=== PATIENT | male | born 1950 | race Caucasian/White ===

== ENCOUNTER 2018-09-20 09:51 | Emergency (ER) | payer OTHER ==
[2018-09-20] MEDS ORDERED: MORPHINE SULFATE 4 MG/ML SYRINGE IM STA (10:17)
--- NOTE | 2018-09-20 10:24 | ED ---
General Adult HPI - General Chief complaint: Extremity Problem,Nontraumatic Stated complaint: Leg pain Time Seen by Provider: 09/20/18 10:04 Source: patient, RN notes reviewed, old records reviewed Mode of arrival: wheelchair Limitations: physical limitation - History of Present Illness Initial comments: 68-year-old male presents with left lower extremity pain. Patient reports intermittent pain over the past several weeks or over the past week his pain has increased. Is predominantly left knee and left thigh. He does report some pain in his calf which is worse with ambulation. He was seen at [facility], ultrasound was obtained he states he was told that he had significant peripheral vascular disease. He was given outpatient vascular surgery follow-up, he's been unable to obtain follow-up at this point. He was prescribed tramadol and states this is not improving his pain. He does have history of orthopedic issues including left knee which she states is also been bothering him. He initially attributed his symptoms to arthritis and issues with his knee. Denies fever or chills. Denies any abdominal pain nausea vomiting. Denies testicular pain, denies hematuria or dysuria. Patient currently smokes marijuana daily, he is history of hypertension and diabetes. - Related Data Previous Rx's Medication Instructions Recorded HYDROcodone/APAP 5-325MG [Minier 1 tab PO Q6HR PRN #12 tab 09/20/18 5-325] Allergies Allergy/AdvReac Type Severity Reaction Status Date / Time tramadol [From Ultram] Allergy Itching Verified 09/20/18 10:43 Review of Systems ROS Statement: Those systems with pertinent positive or pertinent negative responses have been documented in the HPI. ROS Other: All systems not noted in ROS Statement are negative. Past Medical History Past Medical History: Coronary Artery Disease (CAD), Hypertension History of Any Multi-Drug Resistant Organisms: None Reported Past Psychological History: No Psychological Hx Reported Smoking Status: Current every day smoker Past Alcohol Use History: None Reported Past Drug Use History: Marijuana General Exam Limitations: physical limitation General appearance: alert, in no apparent distress Head exam: Present: atraumatic, normocephalic Eye exam: Present: normal appearance, PERRL ENT exam: Present: normal exam Neck exam: Present: normal inspection. Absent: tenderness, meningismus Respiratory exam: Present: normal lung sounds bilaterally. Absent: respiratory distress, wheezes Cardiovascular Exam: Present: regular rate, normal rhythm GI/Abdominal exam: Present: soft. Absent: distended, tenderness, guarding, rebound exam: Present: vertical testicular lie. Absent: testicular tenderness, scrotal swelling Extremities exam: Present: tenderness (Tenderness palpation, throughout the medial thigh. Patient has 2+ femoral pulse on the left. He has diminished popliteal pulse. He has Doppler signal at both the DP and PT artery. Cap refill is approximately 2 seconds. Leg is warm.) Back exam: Present: normal inspection Neurological exam: Present: alert, oriented X3 Psychiatric exam: Present: normal affect, normal mood Skin exam: Present: warm, dry, intact. Absent: cyanosis, diaphoretic Course Vital Signs 09/20/18 09:57 Temperature 98.0 F Pulse Rate 101 H Respiratory 18 Rate Blood Pressure 168/50 O2 Sat by Pulse 99 Oximetry Medical Decision Making - Medical Decision Making 68-year-old male with 1 week of left lower extremity pain. No trauma. Patient likely has comminution of arthritis evident on x-ray of both the knee and hip as well as peripheral vascular disease and claudication. Patient has normal femoral pulse, he has diminished popliteal pulse and signals on Doppler auscultation in the DP and PT arteries. He has normal cap refill is extremity is warm. He will continue aspirin at home, he's given Minier for pain. He will follow-up with both vascular surgeon, is also given cardiology referral with Dr. Mcdonald who does prefer vascular intervention. He also requests orthopedic follow- up. Reevaluation, patient states his pain is significantly improved, no additional complaints. Eager for discharge. Disposition Clinical Impression: Peripheral vascular disease, Claudication in peripheral vascular disease, Osteoarthritis Disposition: HOME SELF-CARE Condition: Fair Instructions (If sedation given, give patient instructions): Peripheral Vascular Disease (ED), Osteoarthritis (ED) Prescriptions: HYDROcodone/APAP 5-325MG [Minier 5-325] 1 tab PO Q6HR PRN #12 tab PRN Reason: Pain Is patient prescribed a controlled substance at d/c from ED?: No Referrals: None,Stated [Primary Care Provider] - 1-2 days Rafy Wade MD [STAFF PHYSICIAN] - 1-2 days Garland Mcdonald MD [STAFF PHYSICIAN] - 1-2 days Darci Garcia MD [STAFF PHYSICIAN] - 1-2 days Time of Disposition: 11:14
--- NOTE | 2018-09-20 11:09 | XR ---
EXAMINATION TYPE: XR Hip Complete LT , 2 VIEWS DATE OF EXAM ORDERED: 09/20/2018 HISTORY: Pain. COMPARISON: None. FINDINGS: There are mild degenerative changes present in the left hip joint. No fracture or dislocat ion is seen. IMPRESSION: 1. NO ACUTE OSSEOUS LESION. 2. MILD DEGENERATIVE CHANGE.
--- NOTE | 2018-09-20 11:11 | XR ---
EXAMINATION TYPE: XR knee complete LT , 3 VIEWS DATE OF EXAM ORDERED: 09/20/2018 HISTORY: Pain. COMPARISON: None. FINDINGS: There is medial joint space loss. There is remodeling changes in all 3 compartments. No charlie int effusion is seen. No fracture or other acute osseous lesion is seen. IMPRESSION: 1. NO ACUTE OSSEOUS LESION. 2. MODERATE OSTEOARTHRITIS.
[2018-09-20 11:46] VITALS: BP 149/84; PULSE 88; RESP 18; TEMP 98.2
== END 2018-09-20 11:44 | disposition home or self-care (01) ==
LOC: EC 09:51
DX: I73.9 Peripheral vascular disease, unspecified (principal); M17.12 Unilateral primary osteoarthritis, left knee; M16.12 Unilateral primary osteoarthritis, left hip; E11.51 Type 2 diabetes mellitus with diabetic peripheral angiopathy without gangrene; F17.200 Nicotine dependence, unspecified, uncomplicated; Z88.5 Allergy status to narcotic agent
CPT/HCPCS: 73502; 73562; 99284; 96372; J2270

== ENCOUNTER 2019-05-04 12:24 | Emergency (ER) | payer MEDICARE, OTHER ==
[2019-05-04 12:42] VITALS: TEMP 98.7
[2019-05-04 13:36] LABS: Glucose,Whole Blood 450 mg/dL (75-99)
[2019-05-04 13:49] LABS: Basophils # (A) 0.1 k/uL (0-0.2); Basophils % (A) 1 %; Eosinophils # (A) 0.1 k/uL (0-0.7); Eosinophils % (A) 1 %; HCT 39.8 % (39.0-53.0); HGB 13.9 gm/dL (13.0-17.5); Lymphocytes # (A) 0.4 k/uL (1.0-4.8); Lymphocytes % (A) 4 %; MCH 30.4 pg (25.0-35.0); MCHC 35.1 g/dL (31.0-37.0); MCV 86.6 fL (80.0-100.0); Mean Platelet Volume 7.4; Monocytes # (A) 0.4 k/uL (0-1.0); Monocytes % (A) 4 %; Neutrophils # (A) 10.1 k/uL (1.3-7.7); Neutrophils % (A) 91 %; Platelet Count 257 k/uL (150-450); RDW 12.4 % (11.5-15.5); WBC 11.1 k/uL (3.8-10.6)
[2019-05-04 13:58] LABS: INR 0.9 (<1.2); Partial Thromboplastin Time 24.8 sec (22.0-30.0); Prothrombin Time 9.6 sec (9.0-12.0)
[2019-05-04 13:59] LABS: ALT 24 U/L (21-72); AST 20 U/L (17-59); African American GFR (CKD) >90 (>60 ml/min/1.73 sqM); Albumin 4.1 g/dL (3.5-5.0); Alkaline Phosphatase 145 U/L (38-126); Amylase 138 U/L (30-110); Anion Gap 9 mmol/L; Blood Urea Nitrogen 32 mg/dL (9-20); Calcium 9.7 mg/dL (8.4-10.2); Carbon Dioxide 26 mmol/L (22-30); Chloride 97 mmol/L (98-107); Glucose 465 mg/dL (74-99); Non-African American GFR(CKD) >90 (>60 ml/min/1.73 sqM); Potassium 4.5 mmol/L (3.5-5.1); Sodium 132 mmol/L (137-145); Total Bilirubin 0.5 mg/dL (0.2-1.3); Total Protein 7.4 g/dL (6.3-8.2)
--- NOTE | 2019-05-04 14:02 | XR ---
KUB HISTORY: Rectal bleeding, pain Frontal KUB submitted on 2 images, no comparisons There is a scoliotic curvature to the spine, degenerative disc changes are present. Laminectomies are noted at L4 and L5. Multiple calcifications are present of the spleen likely due to old granulomatou s disease. There is overlying leads present. Possible phleboliths within the pelvis. Bone mineralizat ion is maintained. No evident bowel obstruction or pneumoperitoneum. IMPRESSION: Degenerative disc disease, postop changes, scoliosis. Old granulomatous disease. No acute abnormality evident.
[2019-05-04] MEDS ORDERED: SODIUM CHLORIDE 0.9% 500 ML 500 ML IV ONE (14:42)
[2019-05-04] MEDS ORDERED: SODIUM CHLORIDE 0.9% 1,000 ML IV ONE (14:42)
[2019-05-04] MEDS ORDERED: INSULIN REGULAR 100 UNIT/ML VIAL SQ ONE ×2 (14:44→17:00)
[2019-05-04] MEDS ORDERED: SODIUM CHLORIDE 0.9% 1,000 ML IV SCH (14:45)
[2019-05-04 15:22] LABS: Appearance,Urine Clear (Clear); Bilirubin,Urine Negative (Negative); Blood,Urine Negative (Negative); Color,Urine Light Yellow; Glucose,Urine (UA) 4+ (Negative); Ketones,Urine Negative (Negative); Leukocyte Esterase,Urine Negative (Negative); Nitrite,Urine Negative (Negative); PH, Urine 5.5 (5.0-8.0); Protein,Urine Trace (Negative); Specific Gravity,Urine 1.025 (1.001-1.035); Urobilinogen,Urine <2.0 mg/dL (<2.0)
[2019-05-04 15:50] LABS: Glucose,Whole Blood 364 mg/dL (75-99)
[2019-05-04 16:38] VITALS: PULSE 98; RESP 20
[2019-05-04] MEDS ORDERED: hydrALAZINE HCL 20 MG/ML 1 ML VIAL IVP STA (16:59)
--- NOTE | 2019-05-04 17:03 | ED ---
Abdominal Pain HPI - General Chief Complaint: Abdominal Pain Stated Complaint: constipation Time Seen by Provider: 05/04/19 13:10 Source: patient Mode of arrival: wheelchair Limitations: no limitations - History of Present Illness Initial Comments: 68-year-old male presenting to emergency department for chief complaint of constipation, rectal bleeding. Patient states she has been constipated for the past 3 days. He states every time he strains to try to have stool there is a small amount of blood on the told her. Patient denies any large quantities. Patient denies any dark black stools. Patient denies any vomiting, emesis or severe abdominal pain he states he is very mild cramping and only when he strained to push. Patient denies chest pain shortness of breath headache nausea or dizziness leg swelling or any other complaints. Patient states he has not seen his primary care provider in 6 years and does have a history of hypertension and diabetes but is noncompliant with any medications. Patient has no other complaints he states he has no pain at this time appears well. Vital signs stable - Related Data Previous Rx's Medication Instructions Recorded Docusate [Colace] 100 mg PO DAILY 7 Days #7 capsule 05/04/19 metFORMIN HCL ER [Glucophage Xr] 500 mg PO DAILY 7 Days #7 tab 05/04/19 Allergies Allergy/AdvReac Type Severity Reaction Status Date / Time tramadol [From [facility]] Allergy Itching Verified 05/04/19 14:33 Review of Systems ROS Statement: Those systems with pertinent positive or pertinent negative responses have been documented in the HPI. ROS Other: All systems not noted in ROS Statement are negative. Past Medical History Past Medical History: Coronary Artery Disease (CAD), Diabetes Mellitus, Hyperlipidemia, Hypertension, Myocardial Infarction ([place]) Additional Past Medical History / Comment(s): pancreatitis History of Any Multi-Drug Resistant Organisms: None Reported Past Surgical History: Heart Catheterization With Stent, Orthopedic Surgery Additional Past Surgical History / Comment(s): kushal knee Past Psychological History: No Psychological Hx Reported Smoking Status: Current every day smoker Past Alcohol Use History: None Reported Past Drug Use History: Marijuana General Exam - General Exam Comments Initial Comments: General: The patient is awake and alert, in no distress, and does not appear acutely ill. Eye: =3 mm pupils are equal, round and reactive to light, extra-ocular movements are intact. No nystagmus. There is normal conjunctiva bilaterally. No signs of icterus. Ears, nose, mouth and throat: There are moist mucous membranes and no oral lesions. Neck: The neck is supple, there is no tenderness or JVD. Cardiovascular: There is a regular rate and rhythm. No murmur, rub or gallop is appreciated. Respiratory: Lungs are clear to auscultation, respirations are non-labored, breath sounds are equal. No wheezes, stridor, rales, or rhonchi. Gastrointestinal: Soft, mildly distended, non-tender abdomen without masses or organomegaly noted. There is no rebound or guarding present. No CVA tenderness. Bowel sounds are unremarkable. Large external hemorrhoid at the 9 o'clock position soft no gross blood on digital rectal exam tender. Musculoskeletal: Normal ROM, no tenderness. Strength 5/5. Sensation intact. Pulses equal bilaterally 2+. Neurological: A&O x 3. CN II-XII intact, There are no obvious motor or sensory deficits. Coordination appears grossly intact. Speech is normal. Skin: Skin is warm and dry and no rashes or lesions are noted. No LE edema/ Psychiatric: Cooperative, appropriate mood & affect, normal judgment. Limitations: no limitations Course Vital Signs 05/04/19 05/04/19 05/04/19 12:38 16:36 17:11 Temperature 98.7 F Pulse Rate 94 98 Respiratory 18 20 Rate Blood Pressure 172/99 178/88 167/100 O2 Sat by Pulse 96 99 Oximetry 05/04/19 17:39 Temperature Pulse Rate Respiratory Rate Blood Pressure 139/88 O2 Sat by Pulse Oximetry Medical Decision Making - Medical Decision Making 68 or male presented for constipation no bowel movements 2 days. No vomiting. Significant fecal stasis on KUB. Patient had an extremely large bowel movement after enema with no evidence of michael red blood. He states he feels much better and is ready to go home. Abdominal exam was benign. Patient was found to have multiple elevated blood pressure readings. He states he is known to have hypertension and always has elevated readings. Patient states he is noncompli ant with medications and has not seen his primary care provider in 6 years. Patient was also given a prescription for metformin for glucose. Patient given insulin SQ and IV fluids in the ER. I gave patient free-reduced clinic for resources. Discussed case with attending Dr Gaitan who reviewed labs/imaging and is agreeable with care plan and discharge a this time. - Lab Data Result diagrams: 05/04/19 13:36 05/04/19 13:36 Lab Results 05/04/19 05/04/19 05/04/19 Range/Units 13:35 13:36 13:36 WBC 11.1 H (3.8-10.6) k/uL RBC 4.60 (4.30-5.90) m/uL Hgb 13.9 (13.0-17.5) gm/dL Hct 39.8 (39.0-53.0) % MCV 86.6 (80.0-100.0) fL MCH 30.4 (25.0-35.0) pg MCHC 35.1 (31.0-37.0) g/dL RDW 12.4 (11.5-15.5) % Plt Count 257 (150-450) k/uL Neutrophils % 91 % Lymphocytes % 4 % Monocytes % 4 % Eosinophils % 1 % Basophils % 1 % Neutrophils # 10.1 H (1.3-7.7) k/uL Lymphocytes # 0.4 L (1.0-4.8) k/uL Monocytes # 0.4 (0-1.0) k/uL Eosinophils # 0.1 (0-0.7) k/uL Basophils # 0.1 (0-0.2) k/uL PT (9.0-12.0) sec INR (<1.2) APTT (22.0-30.0) sec Sodium 132 L (137-145) mmol/L Potassium 4.5 (3.5-5.1) mmol/L Chloride 97 L (98-107) mmol/L Carbon Dioxide 26 (22-30) mmol/L Anion Gap 9 mmol/L BUN 32 H (9-20) mg/dL Creatinine 0.76 (0.66-1.25) mg/dL Est GFR (CKD-EPI)AfAm >90 (>60 ml/min/1.73 sqM) Est GFR (CKD-EPI)NonAf >90 (>60 ml/min/1.73 sqM) Glucose 465 H (74-99) mg/dL POC Glucose (mg/dL) 450 H (75-99) mg/dL POC Glu Piano Tuner ID Kamryn Olguin A Plasma Lactic Acid Bautista (0.7-2.0) mmol/L Calcium 9.7 (8.4-10.2) mg/dL Total Bilirubin 0.5 (0.2-1.3) mg/dL AST 20 (17-59) U/L ALT 24 (21-72) U/L Alkaline Phosphatase 145 H (38-126) U/L Total Protein 7.4 (6.3-8.2) g/dL Albumin 4.1 (3.5-5.0) g/dL Amylase 138 H (30-110) U/L Lipase 237 (23-300) U/L Urine Color Urine Appearance (Clear) Urine pH (5.0-8.0) Ur Specific [place] (1.001-1.035) Urine Protein (Negative) Urine Glucose (UA) (Negative) Urine Ketones (Negative) Urine Blood (Negative) Urine Nitrite (Negative) Urine Bilirubin (Negative) Urine Urobilinogen (<2.0) mg/dL Ur Leukocyte Esterase (Negative) Acetone, Qual (Negative) 05/04/19 05/04/19 05/04/19 Range/Units 13:36 13:36 13:36 WBC (3.8-10.6) k/uL RBC (4.30-5.90) m/uL Hgb (13.0-17.5) gm/dL Hct (39.0-53.0) % MCV (80.0-100.0) fL MCH (25.0-35.0) pg MCHC (31.0-37.0) g/dL RDW (11.5-15.5) % Plt Count (150-450) k/uL Neutrophils % % Lymphocytes % % Monocytes % % Eosinophils % % Basophils % % Neutrophils # (1.3-7.7) k/uL Lymphocytes # (1.0-4.8) k/uL Monocytes # (0-1.0) k/uL Eosinophils # (0-0.7) k/uL Basophils # (0-0.2) k/uL PT 9.6 (9.0-12.0) sec INR 0.9 (<1.2) APTT 24.8 (22.0-30.0) sec Sodium (137-145) mmol/L Potassium (3.5-5.1) mmol/L Chloride (98-107) mmol/L Carbon Dioxide (22-30) mmol/L Anion Gap mmol/L BUN (9-20) mg/dL Creatinine (0.66-1.25) mg/dL Est GFR (CKD-EPI)AfAm (>60 ml/min/1.73 sqM) Est GFR (CKD-EPI)NonAf (>60 ml/min/1.73 sqM) Glucose (74-99) mg/dL POC Glucose (mg/dL) (75-99) mg/dL POC Glu Piano Tuner ID Plasma Lactic Acid Bautista 1.7 (0.7-2.0) mmol/L Calcium (8.4-10.2) mg/dL Total Bilirubin (0.2-1.3) mg/dL AST (17-59) U/L ALT (21-72) U/L Alkaline Phosphatase (38-126) U/L Total Protein (6.3-8.2) g/dL Albumin (3.5-5.0) g/dL Amylase (30-110) U/L Lipase (23-300) U/L Urine Color Urine Appearance (Clear) Urine pH (5.0-8.0) Ur Specific [place] (1.001-1.035) Urine Protein (Negative) Urine Glucose (UA) (Negative) Urine Ketones (Negative) Urine Blood (Negative) Urine Nitrite (Negative) Urine Bilirubin (Negative) Urine Urobilinogen (<2.0) mg/dL Ur Leukocyte Esterase (Negative) Acetone, Qual Negative (Negative) 05/04/19 05/04/19 05/04/19 Range/Units 14:50 15:49 17:28 WBC (3.8-10.6) k/uL RBC (4.30-5.90) m/uL Hgb (13.0-17.5) gm/dL Hct (39.0-53.0) % MCV (80.0-100.0) fL MCH (25.0-35.0) pg MCHC (31.0-37.0) g/dL RDW (11.5-15.5) % Plt Count (150-450) k/uL Neutrophils % % Lymphocytes % % Monocytes % % Eosinophils % % Basophils % % Neutrophils # (1.3-7.7) k/uL Lymphocytes # (1.0-4.8) k/uL Monocytes # (0-1.0) k/uL Eosinophils # (0-0.7) k/uL Basophils # (0-0.2) k/uL PT (9.0-12.0) sec INR (<1.2) APTT (22.0-30.0) sec Sodium (137-145) mmol/L Potassium (3.5-5.1) mmol/L Chloride (98-107) mmol/L Carbon Dioxide (22-30) mmol/L Anion Gap mmol/L BUN (9-20) mg/dL Creatinine (0.66-1.25) mg/dL Est GFR (CKD-EPI)AfAm (>60 ml/min/1.73 sqM) Est GFR (CKD-EPI)NonAf (>60 ml/min/1.73 sqM) Glucose (74-99) mg/dL POC Glucose (mg/dL) 364 H 340 H (75-99) mg/dL POC Glu Piano Tuner ID Tila Mina Kelly, A Plasma Lactic Acid Bautista (0.7-2.0) mmol/L Calcium (8.4-10.2) mg/dL Total Bilirubin (0.2-1.3) mg/dL AST (17-59) U/L ALT (21-72) U/L Alkaline Phosphatase (38-126) U/L Total Protein (6.3-8.2) g/dL Albumin (3.5-5.0) g/dL Amylase (30-110) U/L Lipase (23-300) U/L Urine Color Light Yellow Urine Appearance Clear (Clear) Urine pH 5.5 (5.0-8.0) Ur Specific [place] 1.025 (1.001-1.035) Urine Protein Trace H (Negative) Urine Glucose (UA) 4+ H (Negative) Urine Ketones Negative (Negative) Urine Blood Negative (Negative) Urine Nitrite Negative (Negative) Urine Bilirubin Negative (Negative) Urine Urobilinogen <2.0 (<2.0) mg/dL Ur Leukocyte Esterase Negative (Negative) Acetone, Qual (Negative) 05/04/19 Range/Units 18:04 WBC (3.8-10.6) k/uL RBC (4.30-5.90) m/uL Hgb (13.0-17.5) gm/dL Hct (39.0-53.0) % MCV (80.0-100.0) fL MCH (25.0-35.0) pg MCHC (31.0-37.0) g/dL RDW (11.5-15.5) % Plt Count (150-450) k/uL Neutrophils % % Lymphocytes % % Monocytes % % Eosinophils % % Basophils % % Neutrophils # (1.3-7.7) k/uL Lymphocytes # (1.0-4.8) k/uL Monocytes # (0-1.0) k/uL Eosinophils # (0-0.7) k/uL Basophils # (0-0.2) k/uL PT (9.0-12.0) sec INR (<1.2) APTT (22.0-30.0) sec Sodium (137-145) mmol/L Potassium (3.5-5.1) mmol/L Chloride (98-107) mmol/L Carbon Dioxide (22-30) mmol/L Anion Gap mmol/L BUN (9-20) mg/dL Creatinine (0.66-1.25) mg/dL Est GFR (CKD-EPI)AfAm (>60 ml/min/1.73 sqM) Est GFR (CKD-EPI)NonAf (>60 ml/min/1.73 sqM) Glucose (74-99) mg/dL POC Glucose (mg/dL) 256 H (75-99) mg/dL POC Glu Piano Tuner ID Mayra Jo Plasma Lactic Acid Bautista (0.7-2.0) mmol/L Calcium (8.4-10.2) mg/dL Total Bilirubin (0.2-1.3) mg/dL AST (17-59) U/L ALT (21-72) U/L Alkaline Phosphatase (38-126) U/L Total Protein (6.3-8.2) g/dL Albumin (3.5-5.0) g/dL Amylase (30-110) U/L Lipase (23-300) U/L Urine Color Urine Appearance (Clear) Urine pH (5.0-8.0) Ur Specific [place] (1.001-1.035) Urine Protein (Negative) Urine Glucose (UA) (Negative) Urine Ketones (Negative) Urine Blood (Negative) Urine Nitrite (Negative) Urine Bilirubin (Negative) Urine Urobilinogen (<2.0) mg/dL Ur Leukocyte Esterase (Negative) Acetone, Qual (Negative) Disposition Clinical Impression: External hemorrhoid, Constipation, Elevated blood pressure reading, Diabetes, Noncompliance with medication regimen Disposition: HOME SELF-CARE Condition: Good Instructions (If sedation given, give patient instructions): Constipation (ED), High Fiber Diet (ED), Type 2 Diabetes in Adults: New Diagnosis (ED) Additional Instructions: Please use medication as discussed. Please follow-up with family doctor in the next 2 days for further management of blood pressure. keep log--do not fill amlodipine unless record consistent readings over 150/90.. Please return to emergency room if the symptoms increase or worsen or for any other concerns, headache, chest pain, SOB, back pain. Prescriptions: Docusate [Colace] 100 mg PO DAILY 7 Days #7 capsule metFORMIN HCL ER [Glucophage Xr] 500 mg PO DAILY 7 Days #7 tab Is patient prescribed a controlled substance at d/c from ED?: No Referrals: None,Stated [Primary Care Provider] - 1-2 days [facility] [place] [NON-STAFF] - 1-2 days Time of Disposition: 17:22
[2019-05-04 17:30] LABS: Glucose,Whole Blood 340 mg/dL (75-99)
[2019-05-04 17:39] VITALS: BP 139/88
[2019-05-04 18:05] LABS: Glucose,Whole Blood 256 mg/dL (75-99)
== END 2019-05-04 18:32 | disposition home or self-care (01) ==
LOC: EC 12:24
DX: K64.4 Residual hemorrhoidal skin tags (principal); K59.00 Constipation, unspecified; I10 Essential (primary) hypertension; I25.2 Old myocardial infarction; I25.10 Atherosclerotic heart disease of native coronary artery without angina pectoris; E11.9 Type 2 diabetes mellitus without complications; Z91.14 Patient's other noncompliance with medication regimen; F17.200 Nicotine dependence, unspecified, uncomplicated; Z88.6 Allergy status to analgesic agent
CPT/HCPCS: 36415; 74018; 80053; 81003; 82009; 82150; 83605; 83690; 85025; 85610; 85730; 96360; 96361; 99284

== ENCOUNTER 2020-02-16 22:53 | Inpatient (IN) | payer MEDICARE, OTHER ==
[2020-02-16 23:16] LABS: Glucose,Whole Blood 261 mg/dL (75-99)
[2020-02-16 23:52] LABS: Basophils % (A) 1 %; Eosinophils # (A) 0.1 k/uL (0-0.7); Eosinophils % (A) 2 %; HCT 34.2 % (39.0-53.0); HGB 11.8 gm/dL (13.0-17.5); Lymphocytes # (A) 0.7 k/uL (1.0-4.8); Lymphocytes % (A) 9 %; MCH 31.1 pg (25.0-35.0); MCHC 34.6 g/dL (31.0-37.0); MCV 89.8 fL (80.0-100.0); Mean Platelet Volume 10.3; Monocytes # (A) 0.6 k/uL (0-1.0); Monocytes % (A) 7 %; Neutrophils # (A) 6.4 k/uL (1.3-7.7); Neutrophils % (A) 81 %; Platelet Count 201 k/uL (150-450); RBC 3.81 m/uL (4.30-5.90); RDW 13.9 % (11.5-15.5); WBC 7.9 k/uL (3.8-10.6)
[2020-02-16 23:56] LABS: ALT 16 U/L (4-49); AST 22 U/L (17-59); African American GFR (CKD) >90 (>60 ml/min/1.73 sqM); Albumin 3.7 g/dL (3.5-5.0); Alkaline Phosphatase 91 U/L (38-126); Anion Gap 7 mmol/L; Blood Urea Nitrogen 23 mg/dL (9-20); Calcium 9.4 mg/dL (8.4-10.2); Carbon Dioxide 22 mmol/L (22-30); Chloride 106 mmol/L (98-107); Glucose 254 mg/dL (74-99); Magnesium 1.5 mg/dL (1.6-2.3); Non-African American GFR(CKD) >90 (>60 ml/min/1.73 sqM); Potassium 4.3 mmol/L (3.5-5.1); Sodium 135 mmol/L (137-145); Total Bilirubin 0.7 mg/dL (0.2-1.3); Total Protein 6.5 g/dL (6.3-8.2)
[2020-02-16 23:59] LABS: INR 1.1 (<1.2); Partial Thromboplastin Time 23.3 sec (22.0-30.0); Prothrombin Time 11.3 sec (9.0-12.0)
--- NOTE | 2020-02-17 00:39 | XR ---
EXAMINATION TYPE: XR chest 2V DATE OF EXAM: 02/17/2020 COMPARISON: 09/10/2011 HISTORY: Chest pain TECHNIQUE: FINDINGS: There is coarse interstitial pulmonary infiltrates. There is some pulmonary interstitial ed nallely. There is slight blunting of the costophrenic angles. There are no hilar masses. There are chest leads. IMPRESSION: There is pulmonary interstitial edema and small pleural effusions that appear new compare d to old exam. This could be mild acute heart failure.
[2020-02-17] MEDS ORDERED: HEPARIN SODIUM,PORCINE 5,000 UNIT/ML 1 ML VIAL IV ONE (01:03)
[2020-02-17] MEDS ORDERED: ASPIRIN 81 MG PO STA (01:03)
[2020-02-17] MEDS ORDERED: NITROGLYCERIN SL TABS 0.4 MG TAB SUBLINGUAL PRN ×2 (01:03→10:27)
[2020-02-17] MEDS ORDERED: MAGNESIUM SULFATE-D5W PMX 1 GM in DEXTROSE/WATER 1 100ML.BAG IVPB STA (01:04)
--- NOTE | 2020-02-17 01:09 | ED ---
General Adult HPI - General Chief complaint: Weakness Stated complaint: Weakness Time Seen by Provider: 02/16/20 23:10 Source: patient, EMS, RN notes reviewed Mode of arrival: EMS Limitations: physical limitation - History of Present Illness Initial comments: 69-year-old male with a past medical history of coronary artery disease, [place], hyperlipidemia, hypertension, diabetes mellitus presents to the emergency room for a chief complaint of weakness. Patient states that 6 days ago he started to feel weak. States he hasn't been eating much. Patient reports he was given a tried a shower today and although he can walk to the shower he felt too weak to shower. He denies any other symptoms. Denies chest pain shortness of breath.Patient has no other complaints at this time including shortness of breath, chest pain, abdominal pain, nausea or vomiting, headache, or visual changes. - Related Data Previous Rx's Medication Instructions Recorded Docusate [Colace] 100 mg PO DAILY 7 Days #7 capsule 05/04/19 metFORMIN HCL ER [Glucophage Xr] 500 mg PO DAILY 7 Days #7 tab 05/04/19 Allergies Allergy/AdvReac Type Severity Reaction Status Date / Time tramadol [From Ultram] Allergy Itching Verified 02/16/20 23:05 Review of Systems ROS Statement: Those systems with pertinent positive or pertinent negative responses have been documented in the HPI. ROS Other: All systems not noted in ROS Statement are negative. Past Medical History Past Medical History: Coronary Artery Disease (CAD), Diabetes Mellitus, Hyperlipidemia, Hypertension, Myocardial Infarction ([place]) Additional Past Medical History / Comment(s): pancreatitis, History of Any Multi-Drug Resistant Organisms: None Reported Past Surgical History: Back Surgery, Heart Catheterization With Stent, Orthopedic Surgery Additional Past Surgical History / Comment(s): kushal knee, Past Psychological History: No Psychological Hx Reported Smoking Status: Former smoker Past Alcohol Use History: None Reported Past Drug Use History: Marijuana General Exam Limitations: physical limitation General appearance: alert, in no apparent distress Head exam: Present: atraumatic, normocephalic, normal inspection Eye exam: Present: normal appearance, PERRL, EOMI. Absent: scleral icterus, conjunctival injection, periorbital swelling ENT exam: Present: normal exam, mucous membranes moist Neck exam: Present: normal inspection, full ROM. Absent: tenderness, meningismus, lymphadenopathy Respiratory exam: Present: normal lung sounds bilaterally. Absent: respiratory distress, wheezes, rales, rhonchi, stridor Cardiovascular Exam: Present: regular rate, normal rhythm, normal heart sounds. Absent: systolic murmur, diastolic murmur, rubs, gallop, clicks GI/Abdominal exam: Present: soft, normal bowel sounds. Absent: distended, tenderness, guarding, rebound, rigid Neurological exam: Present: alert Course Vital Signs 02/16/20 02/17/20 22:54 00:25 Temperature 98.9 F Pulse Rate 105 H 100 Respiratory 18 18 Rate Blood Pressure 109/96 110/85 O2 Sat by Pulse 96 97 Oximetry EKG Findings - EKG Comments: EKG Findings:: EKG obtained at 2321 shows sinus tachycardia with occasional PVCs, Ventricular rate 105, AR interval 208, QTc 465. EKG obtained at 1:01 AM shows sinus tachycardia with frequent PVCs, ventricular rate 103, AR interval 134, QTc 476 Medical Decision Making - Medical Decision Making Vitals are stable. CBC unremarkable. CMP shows mild dehydration. Hyperglycemia to 54 noted. Magnesium of 1.5 is replaced. Troponin is elevated at 149. BNP is 10,000. Patient will be admitted with heparin and Lasix. - Lab Data Result diagrams: 02/16/20 23:35 02/16/20 23:34 Lab Results 02/16/20 02/16/20 02/16/20 Range/Units 23:13 23:34 23:34 WBC (3.8-10.6) k/uL RBC (4.30-5.90) m/uL Hgb (13.0-17.5) gm/dL Hct (39.0-53.0) % MCV (80.0-100.0) fL MCH (25.0-35.0) pg MCHC (31.0-37.0) g/dL RDW (11.5-15.5) % Plt Count (150-450) k/uL Neutrophils % % Lymphocytes % % Monocytes % % Eosinophils % % Basophils % % Neutrophils # (1.3-7.7) k/uL Lymphocytes # (1.0-4.8) k/uL Monocytes # (0-1.0) k/uL Eosinophils # (0-0.7) k/uL Basophils # (0-0.2) k/uL PT (9.0-12.0) sec INR (<1.2) APTT (22.0-30.0) sec Sodium 135 L (137-145) mmol/L Potassium 4.3 (3.5-5.1) mmol/L Chloride 106 (98-107) mmol/L Carbon Dioxide 22 (22-30) mmol/L Anion Gap 7 mmol/L BUN 23 H (9-20) mg/dL Creatinine 0.79 (0.66-1.25) mg/dL Est GFR (CKD-EPI)AfAm >90 (>60 ml/min/1.73 sqM) Est GFR (CKD-EPI)NonAf >90 (>60 ml/min/1.73 sqM) Glucose 254 H (74-99) mg/dL POC Glucose (mg/dL) 261 H (75-99) mg/dL POC Glu Senior Medical Technologist ID [facility] Plasma Lactic Acid Bautista 1.7 (0.7-2.0) mmol/L Calcium 9.4 (8.4-10.2) mg/dL Magnesium 1.5 L (1.6-2.3) mg/dL Total Bilirubin 0.7 (0.2-1.3) mg/dL AST 22 (17-59) U/L ALT 16 (4-49) U/L Alkaline Phosphatase 91 (38-126) U/L Troponin I (0.000-0.034) ng/mL NT-Pro-B Natriuret Pep pg/mL Total Protein 6.5 (6.3-8.2) g/dL Albumin 3.7 (3.5-5.0) g/dL 02/16/20 02/16/20 02/16/20 Range/Units 23:35 23:35 23:35 WBC 7.9 (3.8-10.6) k/uL RBC 3.81 L (4.30-5.90) m/uL Hgb 11.8 L (13.0-17.5) gm/dL Hct 34.2 L (39.0-53.0) % MCV 89.8 (80.0-100.0) fL MCH 31.1 (25.0-35.0) pg MCHC 34.6 (31.0-37.0) g/dL RDW 13.9 (11.5-15.5) % Plt Count 201 (150-450) k/uL Neutrophils % 81 % Lymphocytes % 9 % Monocytes % 7 % Eosinophils % 2 % Basophils % 1 % Neutrophils # 6.4 (1.3-7.7) k/uL Lymphocytes # 0.7 L (1.0-4.8) k/uL Monocytes # 0.6 (0-1.0) k/uL Eosinophils # 0.1 (0-0.7) k/uL Basophils # 0.0 (0-0.2) k/uL PT 11.3 (9.0-12.0) sec INR 1.1 (<1.2) APTT 23.3 (22.0-30.0) sec Sodium (137-145) mmol/L Potassium (3.5-5.1) mmol/L Chloride (98-107) mmol/L Carbon Dioxide (22-30) mmol/L Anion Gap mmol/L BUN (9-20) mg/dL Creatinine (0.66-1.25) mg/dL Est GFR (CKD-EPI)AfAm (>60 ml/min/1.73 sqM) Est GFR (CKD-EPI)NonAf (>60 ml/min/1.73 sqM) Glucose (74-99) mg/dL POC Glucose (mg/dL) (75-99) mg/dL POC Glu Senior Medical Technologist ID Plasma Lactic Acid Bautista (0.7-2.0) mmol/L Calcium (8.4-10.2) mg/dL Magnesium (1.6-2.3) mg/dL Total Bilirubin (0.2-1.3) mg/dL AST (17-59) U/L ALT (4-49) U/L Alkaline Phosphatase (38-126) U/L Troponin I 0.149 H* (0.000-0.034) ng/mL NT-Pro-B Natriuret Pep pg/mL Total Protein (6.3-8.2) g/dL Albumin (3.5-5.0) g/dL 02/16/20 Range/Units 23:35 WBC (3.8-10.6) k/uL RBC (4.30-5.90) m/uL Hgb (13.0-17.5) gm/dL Hct (39.0-53.0) % MCV (80.0-100.0) fL MCH (25.0-35.0) pg MCHC (31.0-37.0) g/dL RDW (11.5-15.5) % Plt Count (150-450) k/uL Neutrophils % % Lymphocytes % % Monocytes % % Eosinophils % % Basophils % % Neutrophils # (1.3-7.7) k/uL Lymphocytes # (1.0-4.8) k/uL Monocytes # (0-1.0) k/uL Eosinophils # (0-0.7) k/uL Basophils # (0-0.2) k/uL PT (9.0-12.0) sec INR (<1.2) APTT (22.0-30.0) sec Sodium (137-145) mmol/L Potassium (3.5-5.1) mmol/L Chloride (98-107) mmol/L Carbon Dioxide (22-30) mmol/L Anion Gap mmol/L BUN (9-20) mg/dL Creatinine (0.66-1.25) mg/dL Est GFR (CKD-EPI)AfAm (>60 ml/min/1.73 sqM) Est GFR (CKD-EPI)NonAf (>60 ml/min/1.73 sqM) Glucose (74-99) mg/dL POC Glucose (mg/dL) (75-99) mg/dL POC Glu Senior Medical Technologist ID Plasma Lactic Acid Bautista (0.7-2.0) mmol/L Calcium (8.4-10.2) mg/dL Magnesium (1.6-2.3) mg/dL Total Bilirubin (0.2-1.3) mg/dL AST (17-59) U/L ALT (4-49) U/L Alkaline Phosphatase (38-126) U/L Troponin I (0.000-0.034) ng/mL NT-Pro-B Natriuret Pep 12522 pg/mL Total Protein (6.3-8.2) g/dL Albumin (3.5-5.0) g/dL Critical Care Time Critical Care Time: Yes (33) Critical Care Time: 33 minutes of critical care time was spent on this patient with serial evaluations, review of vitals, initiating heparin, managing elevated troponin, speaking with admitting physicians. Disposition Clinical Impression: Elevated troponin level, Weakness Disposition: ADMITTED IP TO THIS HOSP Is patient prescribed a controlled substance at d/c from ED?: No Referrals: Shaheen Wan DO [Primary Care Provider] - 1-2 days Time of Disposition: 01:10
[2020-02-17] MEDS: HEPARIN SOD,PORK IN 0.45% NACL 25,000 UNIT in 0.45% NACL 1 250ML.BAG IV SCH ×4 (01:19→23:19)
[2020-02-17] MEDS: FUROSEMIDE 10 MG/ML 4 ML VIAL IV SCH ×2 (02:20→08:21)
[2020-02-17 05:06] LABS: Appearance,Urine Clear (Clear); Bilirubin,Urine Negative (Negative); Blood,Urine Negative (Negative); Color,Urine Yellow; Glucose,Urine (UA) 2+ (Negative); Hyaline Casts,Urine 14 /lpf (0-2); Ketones,Urine Negative (Negative); Leukocyte Esterase,Urine Negative (Negative); Mucus,Urine Few /hpf; Nitrite,Urine Negative (Negative); PH, Urine 5.5 (5.0-8.0); Protein,Urine 1+ (Negative); RBC,Urine 1 /hpf (0-5); Specific Gravity,Urine 1.019 (1.001-1.035); Squamous Epithelial Cell,Urine <1 /hpf (0-4); Urobilinogen,Urine <2.0 mg/dL (<2.0); WBC,Urine 3 /hpf (0-5)
[2020-02-17 06:05] LABS: Glucose,Whole Blood 256 mg/dL (75-99)
[2020-02-17] MEDS: INSULIN ASPART (NovoLOG) 100 UNIT/ML VIAL SQ SCH ×4 (06:56→21:49)
[2020-02-17] MEDS: IPRATROPIUM-ALBUTEROL 3 ML NEB INHALATION PRN (07:56)
[2020-02-17] MEDS ORDERED: ALPRAZolam 0.25 MG TAB PO PRN (10:27)
[2020-02-17] MEDS: METOPROLOL TARTRATE 50 MG TAB PO SCH ×2 (10:36→21:50)
[2020-02-17] MEDS: ATORVASTATIN 40 MG TAB PO SCH (10:36)
[2020-02-17 11:17] VITALS: BMI 29.5
--- NOTE | 2020-02-17 11:35 | ECHOF ---
Referral Reason:CHF, weakness, elevated trop MEASUREMENTS -------- HEIGHT: 175.3 cm WEIGHT: 90.3 kg BP: 142/88 RVIDd: 2.3 cm (< 3.3) IVSd: 1.0 cm (0.6 - 1.1) LVIDd: 5.5 cm (3.9 - 5.3) LVPWd: 1.2 cm (0.6 - 1.1) IVSs: 1.2 cm LVIDs: 5.1 cm LVPWs: 1.3 cm LAESV Index (A-L): 24.01 ml/m Ao Diam: 3.0 cm (2.0 - 3.7) AV Cusp: 2.1 cm (1.5 - 2.6) LA Diam: 3.1 cm (2.7 - 3.8) MV EXCURSION: 12.148 mm (> 18.000) MV EF SLOPE: 51 mm/s (70 - 150) EPSS: 3.0 cm MV E Taco: 1.04 m/s MV DecT: 182 ms MV A Taco: 0.36 m/s MV E/A Ratio: 2.91 RAP: 5.00 mmHg RVSP: 25.37 mmHg FINDINGS -------- This was a technically difficult study with suboptimal views. The left ventricular size is normal. There is mild concentric left ventricular hypertrophy. There is severe global hypokinesis of LV . Overall left ventricular systolic function is severely impair ed with, an EF between 20 - 25 %. Normal LAP Grade 1 Diastolic Dysfunction The right ventricle is normal in size. The left atrial size is normal. The right atrial size is normal. Lumason used Aortic valve is trileaflet and is mildly thickened. The mitral valve is normal. The mitral valve leaflets are mildly thickened. Phxkboxn-dd-bjvcop mi tral regurgitation is present , predominately a centrally directed jet. The tricuspid valve appears structurally normal. Pjce-im-eaynxdli tricuspid regurgitation present. Right ventricular systolic pressure is normal at < 35 mmHg. There is no pulmonic regurgitation present. The aortic root size is normal. IVC Not well visulized. There is no pericardial effusion. CONCLUSIONS -------- 1. The left ventricular size is normal. 2. There is mild concentric left ventricular hypertrophy. 3. There is severe global hypokinesis of LV . 4. Overall left ventricular systolic function is severely impaired with, an EF between 20 - 25 %. 5. Normal LAP Grade 1 Diastolic Dysfunction 6. The right ventricle is normal in size. 7. Aortic valve is trileaflet and is mildly thickened. 8. The mitral valve leaflets are mildly thickened. 9. Qojz-xs-ssdhhzua tricuspid regurgitation present. 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
[2020-02-17 11:48] LABS: Glucose,Whole Blood 201 mg/dL (75-99)
--- NOTE | 2020-02-17 13:08 | CONS ---
CONSULTATION Darci Levy is a 69-year-old gentleman, history of diabetes and CAD with previous PCI. The patient insists that I have performed his previous PCIs, but I do not have any information. This is more than 10 years ago. He came into the hospital with complaints of feeling weak, tired, exhausted and lack of energy and short of breath. He was found to have elevated troponin. No clear-cut EKG changes, but also elevated BNP and patient was in mild congestive heart failure. He takes insulin and does not take any other medications at all. He gets his health care through the [facility] facility in [place]. At the time of my evaluation, his breathing has improved. He is resting comfortably, has no chest discomfort. Troponin elevation suggests a non-ST elevation VT. PAST MEDICAL HISTORY: 1. Diabetes mellitus, not under the best care. The patient apparently does not take medications regularly. 2. CAD with prior stenting, multiple stents were performed. Details unavailable. Patient claims that I performed stents before. I am unable to remember, I will review the record. 3. Hypertension. 4. Hyperlipidemia. MEDICATIONS: At home, patient only takes insulin. ALLERGIES: He is allergic to TRAMADOL. PHYSICAL EXAMINATION: On examination, blood pressure is 120/80, pulse rate is about 104, regular. HEENT unremarkable. Fundus was not examined by me. NECK: Supple there is JVD of 1 cm. No carotid bruit heart exam reveals S1, S2 heard normally short systolic murmur left lower sternal border. Lungs reveal diminished air entry. Abdomen is soft, nontender. Lower extremities reveal diminished pulses. Central nervous system grossly within normal limits/ EKG revealed a sinus mechanism, IVCD LBBB type, isolated PVCs. LABORATORY STUDIES: Troponin levels are 0.18, 0.17. Troponin profile. Troponin profile suggests [place] [address]. IMPRESSION: 1. A acute non ST elevation VT with her is with no chest pain at this time. 2. Exacerbation of CHF. 3. Type 2 diabetes with suboptimal control. 4. Hypertension. 5. Hyperlipidemia. RECOMMENDATION: I am recommending that we will optimize his heart failure. I will switch him from IV to oral Lasix tomorrow, had a statin and Lipitor, beta romy and aspirin. Include and proceed with coronary angiography tomorrow. The rationale risks benefits options related to coronary angiography were explained to the patient. He understands all details and wishes to proceed with the procedure. I will try to secure the previous records. Thank you very much for the consult. BERNADINE / LAKSHMIN: [id number] /
[2020-02-17 16:41] LABS: Glucose,Whole Blood 213 mg/dL (75-99)
[2020-02-17 20:08] LABS: Glucose,Whole Blood 186 mg/dL (75-99)
[2020-02-17] MEDS ORDERED: FUROSEMIDE 10 MG/ML 4 ML VIAL IV SCH (21:00)
[2020-02-17] MEDS: LOSARTAN 25 MG TAB PO SCH (21:50)
--- NOTE | 2020-02-17 23:04 | P.HPIM ---
History of Present Illness H&P Date: 02/17/20 Patient is a 69-year-old male with a known history of significant coronary artery disease status post stent placement x5, hypertension, hyperlipidemia, diabetes type 2 insulin-dependent and history of [place] and previous history of smoking and marijuana use presents to ER with complaints of generalized weakness and lack of energy. Patient denied any chest pain. Does have some shortness of breath with exertion. Patient states that he was tired and felt weak to go to shower. Upon further questioning patient states that he felt some chest pressure in the left retrosternal region. No radiation of the pain. No fever no chills. No cough or sputum production. Denied any recent illnesses or sick contacts. Currently patient denied any complaints of chest pain. Chest x-ray showed there is pulmonary interstitial edema and small pleural effusions that appear new compared to old exam. This could be mild acute heart failure EKG showed sinus tachycardia with frequent PVCs Laboratory data showed WBC 7.9, hemoglobin 11.8 and platelets of 201 Sodium 135, potassium 4.3, BUN 23 and creatinine 0.79 blood sugar is 254 Troponin 0 0.149, 0.186 and 0.175 proBNP is 10 500 UA negative for infection Review of Systems Constitutional: Patient denies any fever or chills . Generalized weakness and tiredness.. Abdomen: Patient denied nausea vomiting and diarrhea and abdominal pain. Cardiovascular: Patient denies any chest pain or short of breath no pal pitations. Respiratory: patient denied any cough is from production. No shortness of breath Neurologic: Patient denied any numbness or tingling headache. Musculoskeletal: Patient denies any complaints of joint swelling or deformity. Skin: Negative Psychiatric: Negative Endocrine: No heat or cold intolerance. No recent weight gain. Genitourinary: No dysuria or hematuria. All other 14 point ROS negative except the above Past Medical History Past Medical History: Coronary Artery Disease (CAD), Diabetes Mellitus, Hyperlipidemia, Hypertension, Myocardial Infarction ([place]) Additional Past Medical History / Comment(s): pancreatitis, hepatitis Last Myocardial Infarction Date:: unknown History of Any Multi-Drug Resistant Organisms: None Reported Past Surgical History: Back Surgery, Heart Catheterization With Stent, Orthopedic Surgery Additional Past Surgical History / Comment(s): kushal knee, Past Anesthesia/Blood Transfusion Reactions: No Reported Reaction Date of Last Stent Placement:: unknown Past Psychological History: No Psychological Hx Reported Smoking Status: Former smoker Past Alcohol Use History: None Reported Past Drug Use History: Marijuana - Past Family History Father Family Medical History: Myocardial Infarction ([place]) Medications and Allergies Home Medications Medication Instructions Recorded Confirmed Type Insulin NPL/Insulin Lispro 25 unit SQ AC-BID 02/17/20 02/17/20 History [humaLOG MIX 75-25 VIAL] Allergies Allergy/AdvReac Type Severity Reaction Status Date / Time tramadol [From Ultram] Allergy Itching Verified 02/17/20 08:58 Physical Exam Vitals: Vital Signs Temp Pulse Pulse Resp BP BP Pulse Ox 02/17/20 11:11 97.7 F 112 H 18 125/72 98 02/17/20 08:10 104 H 02/17/20 08:00 98.1 F 96 18 120/90 98 02/17/20 07:57 108 H 02/17/20 04:00 98.1 F 106 H 18 142/88 97 02/17/20 01:41 98.2 F 113 H 16 148/98 97 02/17/20 01:33 98.3 F 104 H 18 120/87 99 02/17/20 00:25 100 18 110/85 97 02/16/20 22:54 98.9 F 105 H 18 109/96 96 Intake and Output 02/16/20 02/17/20 02/17/20 22:59 06:59 14:59 Intake Total 296.994 Output Total 500 Balance -500 296.994 Intake: Intake, IV Titration 56.994 Amount Heparin Sod,Pork in 0.45% 56.994 NaCl 25,000 unit In 0.45 % NaCl 1 250ml.bag @ 11. 05 UNITS/KG/HR 9.999 mls/ hr IV .Q24H [facility] Rx#: [id number] Oral 240 Output: Urine 500 Other: Weight 90.492 kg 90.6 kg 90.6 kg PHYSICAL EXAMINATION: Patient is lying in the bed comfortably, no acute distress, awake alert and oriented.. HEENT: Normocephalic. Neck is supple. Pupils reactive. Nostrils clear. Oral cavity is moist. Ears reveal no drainage. Neck reveals no JVD, carotid bruits, or thyromegaly. CHEST EXAMINATION: Trachea is central. Symmetrical expansion. Lung quinones clear to auscultation and percussion. CARDIAC: Normal S1, S2 with no gallops. No murmurs ABDOMEN: Soft. Bowel sounds normal. No organomegaly. No abdominal bruits. Extremities: reveal no edema. No clubbing or cyanosis Neurologically awake, alert, oriented x3 with well-coordinated movements. No focal deficits noted Skin: No rash or skin lesions. Psychiatric: Coperative. Nonsuicidal Musculoskeletal: No joint swelling or deformity. Normal range of motion. Results CBC & Chem 7: 02/16/20 23:35 02/16/20 23:34 Labs: Abnormal Lab Results - Last 24 Hours (Table) 02/16/20 02/16/20 02/16/20 Range/Units 23:13 23:34 23:35 RBC 3.81 L (4.30-5.90) m/uL Hgb 11.8 L (13.0-17.5) gm/dL Hct 34.2 L (39.0-53.0) % Lymphocytes # 0.7 L (1.0-4.8) k/uL Sodium 135 L (137-145) mmol/L BUN 23 H (9-20) mg/dL Glucose 254 H (74-99) mg/dL POC Glucose (mg/dL) 261 H (75-99) mg/dL Magnesium 1.5 L (1.6-2.3) mg/dL Troponin I (0.000-0.034) ng/mL Urine Protein (Negative) Urine Glucose (UA) (Negative) Hyaline Casts (0-2) /lpf Urine Mucus (None) /hpf 02/16/20 02/17/20 02/17/20 Range/Units 23:35 02:58 04:00 RBC (4.30-5.90) m/uL Hgb (13.0-17.5) gm/dL Hct (39.0-53.0) % Lymphocytes # (1.0-4.8) k/uL Sodium (137-145) mmol/L BUN (9-20) mg/dL Glucose (74-99) mg/dL POC Glucose (mg/dL) (75-99) mg/dL Magnesium (1.6-2.3) mg/dL Troponin I 0.149 H* 0.186 H* (0.000-0.034) ng/mL Urine Protein 1+ H (Negative) Urine Glucose (UA) 2+ H (Negative) Hyaline Casts 14 H (0-2) /lpf Urine Mucus Few H (None) /hpf 02/17/20 02/17/20 02/17/20 Range/Units 05:58 06:04 11:46 RBC (4.30-5.90) m/uL Hgb (13.0-17.5) gm/dL Hct (39.0-53.0) % Lymphocytes # (1.0-4.8) k/uL Sodium (137-145) mmol/L BUN (9-20) mg/dL Glucose (74-99) mg/dL POC Glucose (mg/dL) 256 H 201 H (75-99) mg/dL Magnesium (1.6-2.3) mg/dL Troponin I 0.175 H* (0.000-0.034) ng/mL Urine Protein (Negative) Urine Glucose (UA) (Negative) Hyaline Casts (0-2) /lpf Urine Mucus (None) /hpf Thrombosis Risk Factor Assmnt - DVT/VTE Prophylaxis DVT/VTE Prophylaxis: Pharmacologic Prophylaxis ordered - Choose All That Apply Each Factor Represents 1 point: Heart failure (<1month) Other Risk Factors: Yes Each Risk Factor Represents 2 Points: Age 61-74 years Other congenital or acquired thrombophilia - If yes, enter type in comment: No Thrombosis Risk Factor Assessment Total Risk Factor Score: 3 Thrombosis Risk Factor Assessment Level: Moderate Risk Assessment and Plan Assessment: Acute non-ST elevated [place] with elevated troponin Acute exacerbation of CHF EF unknown. Coronary artery disease history of multiple stents placement Osteoarthritis Hyperglycemia with uncontrolled diabetes type 2 Hypomagnesemia replaced. Hypertension Hyperlipidemia History of [place] DVT prophylaxis. Plan: Patient will be continued on telemetry monitoring. Continue with serial troponins trending down now. Continue with aspirin and statin patient will be continued on IV Lasix and monitor electrolytes and renal function. TTE was ordered. Currently being continued on heparin drip and cardiology is on board. Planning for cardiac catheterization tomorrow. Time with Patient: Greater than 30
[2020-02-18] MEDS ORDERED: ATORVASTATIN 80 MG TAB PO ONE (06:00)
[2020-02-18] MEDS ORDERED: ASPIRIN 325 MG TAB PO ONE (06:00)
[2020-02-18] MEDS ORDERED: SODIUM CHLORIDE 0.9% 1,000 ML in EMPTY BAG 1 BAG IV ONE (06:00)
[2020-02-18 06:21] LABS: Glucose,Whole Blood 206 mg/dL (75-99)
[2020-02-18 06:49] LABS: Cholesterol 148 mg/dL (<200); HDL Cholesterol 42 mg/dL (40-60); LDL Cholesterol,Calculated 88 mg/dL (0-99); Triglycerides 91 mg/dL (<150)
[2020-02-18] MEDS: IPRATROPIUM-ALBUTEROL 3 ML NEB INHALATION PRN (08:09)
[2020-02-18] MEDS: INSULIN ASPART (NovoLOG) 100 UNIT/ML VIAL SQ SCH ×4 (08:29→20:39)
[2020-02-18] MEDS: ATORVASTATIN 40 MG TAB PO SCH (08:30)
[2020-02-18] MEDS: ASPIRIN 81 MG PO SCH (08:30)
[2020-02-18] MEDS ORDERED: ASPIRIN 325 MG TAB PO SCH (09:00)
[2020-02-18] MEDS ORDERED: MIDAZOLAM 2 MG/2 ML VIAL IVP ONE ×2 (09:13)
[2020-02-18] MEDS: MIDAZOLAM 2 MG/2 ML VIAL IVP ONE ×4 (09:13→12:37)
[2020-02-18] MEDS ORDERED: LIDOCAINE 1% INJ 10MG/ML (20 ML MDV) SQ ONE ×2 (09:15→12:30)
[2020-02-18] MEDS ORDERED: fentaNYL (PF) 50 MCG/ML 2 ML AMP IVP ONE (09:26)
[2020-02-18] MEDS ORDERED: IV FLUID CONTINUATION 1,000 ML IV ONE (09:26)
[2020-02-18] MEDS ORDERED: IOPAMIDOL-370 100ML BTL INJ ONE ×2 (09:40→13:06)
[2020-02-18] MEDS ORDERED: SODIUM CHLORIDE 0.9% 1,000 ML IV ONE (10:25)
[2020-02-18] MEDS ORDERED: HEPARIN SOD,PORK IN 0.45% NACL PMX 25,000 UNIT/250 ML BAG IV ONE (10:25)
--- NOTE | 2020-02-18 10:43 | CC ---
CARDIAC CATHETERIZATION REPORT DATE OF SERVICE: 02/18/2020 PROCEDURE: Left heart catheterization and coronary angiography. PERFORMED BY: Dr. Pedro Mckenzie. Moderate conscious sedation time was 20 minutes. CLINICAL INFORMATION: Mr. Darci Leyv is a 69-year-old gentleman with a known history of CAD, previous inferior [place] and PCI at least on 2 occasions of a totally occluded RCA. The last one performed was in 2008 with two bare metal stents. Since then, he has not seen a engineering operations leader, not followed up with anybody. He showed up in the hospital yesterday with chest pain and also was in congestive heart failure. His presentation was that of a non-ST elevation [place] and congestive heart failure with evidence of clinically mitral regurgitation as well as mild to moderate pulmonary hypertension. After stabilizing him, I recommended coronary angiography. I explained to him the risks, benefits, options and rationale. He understood all details and wished to proceed with the procedure. PROCEDURE NOTE: Under local anesthesia and strict aseptic precautions, a 6-Mozambican introducer was placed in the right femoral artery. Using standard Vangie catheters, I performed coronary angiography and the same right catheter was used to check LV pressure but LV gram was not performed. The sheath was then sutured and he was sent to the extended-stay unit. CARDIAC CATHETERIZATION FINDINGS: The left ventricular end-diastolic pressure was 12-13 mmHg without any gradient across the aortic valve. CORONARY ANGIOGRAPHY FINDINGS: LEFT MAIN CORONARY ARTERY: This is a short patent vessel, free of significant disease that immediately bifurcates into LAD and circumflex. LEFT ANTERIOR DESCENDING CORONARY ARTERY: Good caliber vessel. In the proximal portion, there is in a long area of disease. The LAD has a long area of disease proximally, there is about a 40% narrowing. Before the origin of the septal branch there is a 70% to 80% stenosis and after the septal branch also there is another area of narrowing noted. There is a long area of disease with at least a 70% to 90% stenosis beyond which the caliber improves and the vessel runs all the way to the apex supplying a fair amount of myocardium. The stenosis is located before and after the septal and diagonal branches. There is mild cord calcification noted. The rest of the LAD appears to be of a decent caliber, supplies a sizable amount of myocardium. The LAD also provides rich collaterals to the RCA and both of its branches. LEFT POSTERIOR CIRCUMFLEX CORONARY ARTERY: Technically nondominant vessel, gives off a single good-sized obtuse marginal that runs laterally and then the AV groove branch. Both of these have minor irregularities. No significant disease is noted. RIGHT CORONARY ARTERY: This is a dominant vessel, totally occluded in the proximal portion without any antegrade flow. COLLATERAL CIRCULATION: There is a rich network of collaterals coming mostly from the LAD, opacifying the distal branches of RCA. The PDA is very well opacified. FINAL IMPRESSION: This patient has severe two-vessel disease with ischemic cardiomyopathy. Ejection fraction by echo is about 20%-25%. He has a total occlusion of the very dominant RCA filled by collaterals from the left system. LAD provides most of the collaterals and LAD now has a 70% to 90% stenosis before and after the septal and diagonal branches. Circumflex is nondominant, free of significant disease. Filling pressures are normal and no gradient across the aortic valve. RECOMMENDATION: Findings on the cardiac cath were discussed in detail with the patient as well as his . I am recommending a supported PCI with Impella of his LAD since it is only large vessel and is providing collaterals to the totally occluded RCA. Ejection fraction is less than 25%. I am recommending Impella supported PCI of LAD. This will be performed later on today and I will gain access from the left femoral approach. The rationale, risks, benefits, and options were discussed at length with the patient and and he was sent to the extended-stay unit with a suture. I will bring him back later on today and perform the Impella procedure. MMODL / IJN: [id number] /
[2020-02-18] MEDS ORDERED: LIDOCAINE 1% INJ 10MG/ML (20 ML MDV) ONE (12:15)
[2020-02-18] MEDS ORDERED: HEPARIN SODIUM 1,000 UN/ML (10ML VL) ONE (12:17)
[2020-02-18] MEDS ORDERED: fentaNYL (PF) 50 MCG/ML 2 ML AMP ONE (12:29)
[2020-02-18] MEDS: fentaNYL (PF) 50 MCG/ML 2 ML AMP IVP ONE ×2 (12:32→12:37)
[2020-02-18] MEDS ORDERED: HEPARIN SODIUM 1,000 UN/ML (10ML VL) IVPB ONE (12:40)
[2020-02-18] MEDS ORDERED: HEPARIN SODIUM 1,000 UN/ML (10ML VL) IV ONE (12:57)
[2020-02-18] MEDS ORDERED: TICAGRELOR 90 MG TAB ONE (12:59)
[2020-02-18] MEDS ORDERED: TICAGRELOR 90 MG TAB PO ONE (13:18)
[2020-02-18] MEDS ORDERED: IOPAMIDOL-370 125ML BTL INJ ONE (13:22)
[2020-02-18 13:59] LABS: Glucose,Whole Blood 152 mg/dL (75-99)
--- NOTE | 2020-02-18 14:13 | PN ---
PROGRESS NOTE Mr. Levy is a patient who came in yesterday with chest pain, shortness of breath, had a troponin elevation. His clinical presentation was that of a non-ST elevation and congestive heart failure. Congestive heart failure has improved. He is doing better today. I am recommending coronary angiography and intervention based on findings. Risks, benefits, options, rationale explained. Patient understands all details and wishes to proceed. Procedure will be performed today. MMODL / IJN: [id number] /
[2020-02-18] MEDS: METOPROLOL TARTRATE 50 MG TAB PO SCH ×2 (14:30→20:39)
[2020-02-18] MEDS: FUROSEMIDE 40 MG TAB PO SCH ×2 (14:31→20:39)
[2020-02-18] MEDS: SODIUM CHLORIDE 0.9% 1,000 ML IV SCH (14:32)
[2020-02-18] MEDS ORDERED: HYDROmorphone 0.5 MG/0.5 ML SYRINGE IVP STA (16:22)
[2020-02-18] MEDS ORDERED: HYDROmorphone 0.5 MG/0.5 ML SYRINGE ONE (16:27)
[2020-02-18] MEDS ORDERED: ATROPINE SULFATE 0.1 MG/ML 10ML SYRINGE ONE (16:27)
--- NOTE | 2020-02-18 16:39 | PCN ---
PROCEDURE NOTE DATE OF SERVICE: 02/18/2020. PROCEDURE: 1. Impella heart pump placement from left femoral arterial approach under fluoroscopic guidance. 2. Percutaneous transluminal coronary angioplasty and stenting of proximal/mid LAD with a drug-eluting stent. PERFORMED BY: Dr. Pedro Mckenzie. ASSISTED BY: Dr. Tab Arriola Moderate conscious sedation time was 65 minutes. Patient was administered Versed and fentanyl. Oxygen saturation, hemodynamics and EKG were monitored closely. CLINICAL INFORMATION: Mr. Darci Levy is a 69-year-old gentleman with diabetes, hypertension, hyperlipidemia, CAD and previous inferior [place] who came into the hospital yesterday with chest pain, troponin elevation and CHF. After stabilizing, he underwent a cardiac cath earlier today which revealed that the RCA was totally occluded, LAD had a tight 90% lesion with haziness and thrombus suggestive of an acute ischemic syndrome picture. His circumflex was nondominant, free of significant disease. His ejection fraction is 20% to 25% by echo. He was advised Impella supported PCI of LAD and brought back for the procedure. He already had a sheath in the right femoral artery. PROCEDURE NOTE: Under local anesthesia and strict aseptic precautions, a 6-Egyptian introducer was placed in the left femoral artery. Under fluoroscopic guidance, an 8-Egyptian introducer was placed. Then two Perclose devices were used to pre-close, and this was done in 2 o'clock and 10 o'clock positions. Subsequently another 10-Egyptian dilator was used and then a 13-Egyptian sheath was placed under fluoroscopic guidance. Under fluoroscopic guidance, a pigtail catheter with a regular guidewire was used to cross the aortic valve, and pigtail catheter was kept in the LV. Using the provided 0.018 wire, this LV pigtail catheter was exchanged. Over this wire the Impella heart pump was advanced under fluoroscopic guidance and positioned. Excellent tracings were noted. Cardiac output was 2.5 L/minute. The Impella was secured and then I proceeded to perform intervention of the LAD from the right femoral approach, where there was already a sheath in place. Initially a JL3.5 was used and subsequently a JL4 guide catheter was used to cannulate the left coronary artery. A run-through wire was used to cross the lesion. Predilatation was performed with a 3.0 caliber 12 Trek balloon. A 4.0 caliber 15 mm long Xience stent was deployed at 12 atmospheres. Patient had chest pain, hypotension and EKG changes. Excellent angiographic result was achieved. The diagonal artery flow was preserved, but the septal artery had a sluggish flow. However, patient was hemodynamically stable. Excellent angiographic result was achieved. Under fluoroscopic guidance, the Impella was taken out. The patient received a total of 7500 units of heparin and his ACT was 296. He also received 180 mg of Brilinta. The 13-Egyptian sheath was then taken out and the Perclose devices that were already in place were used to secure good hemostasis. Subsequently, even though there was no oozing, I applied a Femstop which would be on for 2 hours to the left groin. The right femoral sheath was sutured. Results were discussed with the patient as well as his and he was sent to the room in a stable condition. The Femstop would be off in 2 hours and the sheath from the right femoral artery will be pulled after 2-1/2 hours or so. I expect the patient to do well. He will be discharged in the next 48 hours. Patient tolerated procedure well without complications. MMODL / IJN: [id number] /
[2020-02-18] MEDS ORDERED: ONDANSETRON 4 MG/2 ML VIAL ONE (17:18)
[2020-02-18 17:48] LABS: Glucose,Whole Blood 162 mg/dL (75-99)
[2020-02-18 18:19] LABS: Hemoglobin A1C 6.1 % (4.0-6.0)
[2020-02-18] MEDS ORDERED: MORPHINE SULFATE IR 15 MG TABLET PO PRN (20:24)
[2020-02-18 20:32] LABS: Glucose,Whole Blood 254 mg/dL (75-99)
[2020-02-18] MEDS: LOSARTAN 25 MG TAB PO SCH (20:33)
--- NOTE | 2020-02-18 23:49 | P.PN ---
Subjective Progress Note Date: 02/18/20 Principal diagnosis: NTEMI Patient is a 69-year-old male with a known history of significant coronary artery disease status post stent placement x5, hypertension, hyperlipidemia, diabetes type 2 insulin-dependent and history of MN and previous history of smoking and marijuana use presents to ER with complaints of generalized weakness and lack of energy. Patient denied any chest pain. Does have some shortness of breath with exertion. Patient states that he was tired and felt weak to go to shower. Upon further questioning patient states that he felt some chest pressure in the left retrosternal region. No radiation of the pain. No fever no chills. No cough or sputum production. Denied any recent illnesses or sick contacts. Currently patient denied any complaints of chest pain. Chest x-ray showed there is pulmonary interstitial edema and small pleural effusions that appear new compared to old exam. This could be mild acute heart failure EKG showed sinus tachycardia with frequent PVCs Laboratory data showed WBC 7.9, hemoglobin 11.8 and platelets of 201 Sodium 135, potassium 4.3, BUN 23 and creatinine 0.79 blood sugar is 254 Troponin 0 0.149, 0.186 and 0.175 proBNP is 10 500 UA negative for infection 02/18/2020 Patient is currently lying in the bed comfortably. Admitted with non-ST revealed [place]. Status post PCI and stenting of proximal/mid LAD with drug-eluting stent. Impala heart pump placement from left femoral arterial approach under fluoroscopic guidance. Patient denied any complaints of chest pain or shortness of breath. No cough or sputum production. Pain is controlled. A1c level 6.1. LDL is 88. Cardiology is following. Current medications reviewed. Objective - Vital Signs Vital signs: Vital Signs Temp 98.0 F 02/18/20 20:00 Pulse 79 02/18/20 20:00 Resp 28 H 02/18/20 20:00 BP 90/64 02/18/20 20:00 Pulse Ox 97 02/18/20 20:00 Intake & Output 02/18/20 02/18/20 02/19/20 06:59 18:59 06:59 Intake Total 117.644 600 650 Output Total 600 600 Balance -482.356 0 650 Weight 91.4 kg Intake: IV 600 150 0.9 NACL 300 150 Intake, IV Titration 117.644 Amount Heparin Sod,Pork in 0.45% 117.644 NaCl 25,000 unit In 0.45 % NaCl 1 250ml.bag @ 11. 05 UNITS/KG/HR 9.999 mls/ hr IV .Q24H [facility] Rx#: [id number] Oral 0 500 Output: Urine 600 600 Other: Voiding Method Urinal # Voids 0 # Bowel Movements 0 ABP, PAP, CO, CI - Last Documented Arterial Blood Pressure 117/58 - Exam PHYSICAL EXAMINATION: Patient is lying in the bed comfortably, no acute distress, awake alert and oriented.. HEENT: Normocephalic. Neck is supple. Pupils reactive. Nostrils clear. Oral cavity is moist. Ears reveal no drainage. Neck reveals no JVD, carotid bruits, or thyromegaly. CHEST EXAMINATION: Trachea is central. Symmetrical expansion. Lung quinones clear to auscultation and percussion. CARDIAC: Normal S1, S2 with no gallops. No murmurs ABDOMEN: Soft. Bowel sounds normal. No organomegaly. No abdominal bruits. Extremities: reveal no edema. No clubbing or cyanosis Neurologically awake, alert, oriented x3 with well-coordinated movements. No focal deficits noted Skin: No rash or skin lesions. Psychiatric: Coperative. Nonsuicidal Musculoskeletal: No joint swelling or deformity. Normal range of motion. - Labs CBC & Chem 7: 02/16/20 23:35 02/16/20 23:34 Labs: Abnormal Lab Results - Last 24 Hours (Table) 02/18/20 02/18/20 02/18/20 Range/Units 05:58 05:58 06:18 APTT 51.9 H (22.0-30.0) sec POC Glucose (mg/dL) 206 H (75-99) mg/dL Hemoglobin A1c 6.1 H (4.0-6.0) % 02/18/20 02/18/20 02/18/20 Range/Units 13:58 17:47 20:30 APTT (22.0-30.0) sec POC Glucose (mg/dL) 152 H 162 H 254 H (75-99) mg/dL Hemoglobin A1c (4.0-6.0) % Assessment and Plan Assessment: Acute non-ST elevated [place] with elevated troponinStatus post PCI with stent placement to mid LAD Acute exacerbation of CHF EF unknown. Coronary artery disease history of multiple stents placement Osteoarthritis Hyperglycemia with uncontrolled diabetes type 2 Hypomagnesemia replaced. Hypertension Hyperlipidemia History of MN DVT prophylaxis. Plan: Patient will be continued on telemetry monitoring. Continue with aspirin and statin. continued on IV Lasix and monitor electrolytes and renal function. TTE was ordered. Heparin drip has been discontinued. Patient is status post cardiac cath eterization and stent placement. Cardiology on board. Continue to monitor patient in the MICU. Time with Patient: Greater than 30
[2020-02-19] MEDS: SODIUM CHLORIDE 0.9% 1,000 ML IV SCH ×2 (00:38→11:31)
[2020-02-19 05:43] LABS: HCT 37.3 % (39.0-53.0); HGB 12.2 gm/dL (13.0-17.5); MCH 29.7 pg (25.0-35.0); MCHC 32.7 g/dL (31.0-37.0); MCV 90.9 fL (80.0-100.0); Mean Platelet Volume 9.3; Platelet Count 199 k/uL (150-450); RDW 14.2 % (11.5-15.5); WBC 10.3 k/uL (3.8-10.6)
[2020-02-19 06:07] LABS: Calcium 8.9 mg/dL (8.4-10.2); Potassium 3.6 mmol/L (3.5-5.1)
[2020-02-19 06:44] LABS: Glucose,Whole Blood 188 mg/dL (75-99)
[2020-02-19] MEDS: INSULIN ASPART (NovoLOG) 100 UNIT/ML VIAL SQ SCH ×4 (06:47→21:24)
[2020-02-19] MEDS ORDERED: Potassium Replacement Protocol 1 EACH MISC MISCELLANE PRN (06:52)
[2020-02-19] MEDS ORDERED: POTASSIUM CHLORIDE ER 20 MEQ TAB.ER PO SCH (09:00)
[2020-02-19] MEDS: ASPIRIN 81 MG PO SCH (09:02)
[2020-02-19] MEDS: FUROSEMIDE 40 MG TAB PO SCH ×2 (09:02→17:05)
[2020-02-19] MEDS: ATORVASTATIN 80 MG TAB PO SCH (09:02)
[2020-02-19] MEDS: METOPROLOL TARTRATE 50 MG TAB PO SCH ×2 (09:02→21:24)
[2020-02-19] MEDS: TICAGRELOR 90 MG TAB PO SCH ×2 (09:02→21:24)
--- NOTE | 2020-02-19 11:20 | CDI ---
Documentation Clarification Form Date: 02/19/2020 1106 CDS: Arminda Osborne RN, CCDS Admit Date: 02/17/2020 1400 Patient Name: Darci Levy ATTENTION: The Clinical Documentation Specialists (CDI) and [facility] Coding Staff appreciate your assistance in clarifying documentation. Please respond to the clarification below the line at the bottom and electronically sign. The CDI & [facility] Coding staff will review the response and follow-up if needed. Please note: Queries are made part of the Legal Health Record. If you have any questions, please contact the author of this message via ITS. Dr. Erlinda Mckenzie CHF is documented in the H&P, Consults, and progress notes and requires further specificity. History/Risk Factors: Cad, stents, OA, Hyperglycemia, hypomagnesia, htn, hyperlipidemia, hx of mi, CHF Clinical Indicators: 02/16 H&P: " Acute non-ST elevated [place] with elevated troponin Acute exacerbation of CHF EF unknown." 02/16/20 2254 VS/Pulse OX: Temp 98.9, hr 105, rr 18, b/p 109/96, spo2 96% ra BNP: 10,500 02/16 Echocardiogram Results: EF 20-25%, severe global hypokinesis of LV, moderate tricuspid regurg 02/16 Chest X Ray: " There is pulmonary interstitial edema and small pleural effusions that appear new compared to old exam. This could be mild acute heart failure." Treatment: Lasix 40 mg IVP Q 8 hrs changed to 40 mg PO BID Lopressor 50 mg PO BID Cozaar 25 po q hs In your professional opinion, can you please clarify the acuity and type of CHF if known? Systolic Heart Failure: Acute Acute on Chronic Systolic & Diastolic Heart Failure: Acute Acute on Chronic Heart Failure Unable to Determine Other, please specify (Last Revision: September 2017) Acute on Chronic Heart Failure MTDD
[2020-02-19 11:27] LABS: Glucose,Whole Blood 181 mg/dL (75-99)
--- NOTE | 2020-02-19 14:10 | PN ---
PROGRESS NOTE Mr. Levy is doing well. He is in sinus rhythm. I performed an Impella supported PCI of LAD yesterday. RCA is totally occluded. Ejection fraction is 20%-25%. He is doing better. His vitals are stable. There is JVD of 1 cm, no carotid bruit, S1-S2 heard normally. Lungs reveal improved air entry. Abdomen and lower extremity exam unchanged. Plan are to continue current medications, increase activity, move him to telemetry. Both groin sites are clean and dry with excellent pulses. He had Impella from the left and a 6-Indonesian sheath from the right. We will continue current medications and move him to a selective care and possible discharge tomorrow. MMODL / IJN: [id number] /
--- NOTE | 2020-02-19 15:08 | P.PN ---
Subjective Progress Note Date: 02/19/20 Principal diagnosis: NTEMI Impala heart pump placement Status post PCI and stenting of proximal/mid LAD with drug-eluting stent 69-year-old male with a known history of significant coronary artery disease status post stent placement x5, hypertension, hyperlipidemia, diabetes type 2 insulin-dependent and history of [place] and previous history of smoking and marijuana use presents to ER with complaints of generalized weakness and lack of energy. Admitted with non-ST revealed [place]. Status post PCI and stenting of proximal/mid LAD with drug-eluting stent. Impala heart pump placement from left femoral arterial approach under fluoroscopic guidance. Patient denied any complaints of chest pain or shortness of breath. No cough or sputum production. Pain is controlled. A1c level 6.1. LDL is 88. Cardiology is following and recommending to continue current medications, increase activity and tells the patient to telemetry with plans for possible discharge tomorrow Patient reports that he had injury to his arms and hence unable to function well with upper extremities and is requesting social service consult to discuss help options at home. Objective - Vital Signs Vital signs: Vital Signs Temp 97.9 F 02/19/20 08:00 Pulse 79 02/19/20 09:00 Resp 15 02/19/20 09:00 BP 107/75 02/19/20 09:00 Pulse Ox 94 L 02/19/20 09:00 Intake & Output 02/18/20 02/19/20 02/19/20 18:59 06:59 18:59 Intake Total 600 1900 170 Output Total 600 1300 300 Balance 0 600 -130 Weight 92.6 kg Intake: IV 600 900 170 0.9 NACL 300 900 75 Sodium Chloride 0.9% 1, 95 000 ml @ 75 mls/hr IV . [id number] [facility] Rx#:[id number] Oral 0 1000 Output: Urine 600 1300 300 Other: Voiding Method Urinal Urinal Urinal # Voids 0 # Bowel Movements 0 ABP, PAP, CO, CI - Last Documented Arterial Blood Pressure 117/58 - Exam PHYSICAL EXAMINATION: GENERAL: The patient is alert and oriented x3, not in any acute distress. Well developed, well nourished. HEENT: Pupils are round and equally reacting to light. EOMI. No scleral icterus. No conjunctival pallor. Normocephalic, atraumatic. No pharyngeal erythema. No thyromegaly. CARDIOVASCULAR: S1 and S2 present. No murmurs, rubs, or gallops. PULMONARY: Chest is clear to auscultation, no wheezing or crackles. ABDOMEN: Soft, nontender, nondistended, normoactive bowel sounds. No palpable organomegaly. MUSCULOSKELETAL: No joint swelling or deformity. EXTREMITIES: No cyanosis, clubbing, or pedal edema. NEUROLOGICAL: Gross neurological examination did not reveal any focal deficits. SKIN: No rashes. - Labs CBC & Chem 7: 02/19/20 04:45 02/19/20 04:45 Labs: Abnormal Lab Results - Last 24 Hours (Table) 02/18/20 02/18/20 02/18/20 Range/Units 05:58 13:58 17:47 RBC (4.30-5.90) m/uL Hgb (13.0-17.5) gm/dL Hct (39.0-53.0) % Sodium (137-145) mmol/L BUN (9-20) mg/dL Glucose (74-99) mg/dL POC Glucose (mg/dL) 152 H 162 H (75-99) mg/dL Hemoglobin A1c 6.1 H (4.0-6.0) % 02/18/20 02/19/20 02/19/20 Range/Units 20:30 04:45 04:45 RBC 4.10 L (4.30-5.90) m/uL Hgb 12.2 L (13.0-17.5) gm/dL Hct 37.3 L (39.0-53.0) % Sodium 136 L (137-145) mmol/L BUN 27 H (9-20) mg/dL Glucose 116 H (74-99) mg/dL POC Glucose (mg/dL) 254 H (75-99) mg/dL Hemoglobin A1c (4.0-6.0) % 02/19/20 Range/Units 06:43 RBC (4.30-5.90) m/uL Hgb (13.0-17.5) gm/dL Hct (39.0-53.0) % Sodium (137-145) mmol/L BUN (9-20) mg/dL Glucose (74-99) mg/dL POC Glucose (mg/dL) 188 H (75-99) mg/dL Hemoglobin A1c (4.0-6.0) % Assessment and Plan Assessment: Acute non-ST elevated [place] with elevated troponinStatus post PCI with stent placement to mid LAD Acute exacerbation of CHF EF unknown. Coronary artery disease history of multiple stents placement Osteoarthritis Hyperglycemia with uncontrolled diabetes type 2 Hypomagnesemia replaced. Hypertension Hyperlipidemia History of [place] DVT prophylaxis. Plan: Patient will be continued on telemetry monitoring. Continue with aspirin and statin. continued on IV Lasix and monitor electrolytes and renal function. TTE was ordered and reveals mild concentric left ventricular hypertrophy; global left ventricular hypokinesis with EF of 20-25%; grade 1 diastolic dysfunction; mild to moderate mitral and tricuspid regurg. Heparin drip has been discontinued. Patient is status post cardiac catheterization and stent placement. Cardiology on board. Continue to monitor patient in the selective care unit. Possible discharge in next 24 hours
[2020-02-19 16:51] LABS: Glucose,Whole Blood 180 mg/dL (75-99)
[2020-02-19 20:31] LABS: Glucose,Whole Blood 206 mg/dL (75-99)
[2020-02-19 21:21] LABS: Glucose,Whole Blood 199 mg/dL (75-99)
[2020-02-19] MEDS: LOSARTAN 25 MG TAB PO SCH (21:24)
[2020-02-20 04:56] LABS: Basophils % (A) 0 %; Eosinophils # (A) 0.4 k/uL (0-0.7); Eosinophils % (A) 4 %; HCT 34.6 % (39.0-53.0); HGB 11.9 gm/dL (13.0-17.5); Lymphocytes # (A) 0.8 k/uL (1.0-4.8); Lymphocytes % (A) 8 %; MCH 30.9 pg (25.0-35.0); MCHC 34.3 g/dL (31.0-37.0); Mean Platelet Volume 9.9; Monocytes # (A) 0.7 k/uL (0-1.0); Monocytes % (A) 7 %; Neutrophils # (A) 8.4 k/uL (1.3-7.7); Neutrophils % (A) 80 %; Platelet Count 173 k/uL (150-450); RBC 3.84 m/uL (4.30-5.90); RDW 14.1 % (11.5-15.5); WBC 10.6 k/uL (3.8-10.6)
[2020-02-20 05:27] LABS: Calcium 8.7 mg/dL (8.4-10.2); Potassium 3.5 mmol/L (3.5-5.1)
[2020-02-20 06:53] LABS: Glucose,Whole Blood 154 mg/dL (75-99)
[2020-02-20] MEDS: INSULIN ASPART (NovoLOG) 100 UNIT/ML VIAL SQ SCH ×4 (07:05→20:56)
[2020-02-20] MEDS: POTASSIUM CHLORIDE ER 20 MEQ TAB.ER PO SCH ×2 (07:06→09:36)
[2020-02-20] MEDS: METOPROLOL TARTRATE 50 MG TAB PO SCH ×2 (09:36→21:04)
[2020-02-20] MEDS: ATORVASTATIN 80 MG TAB PO SCH (09:36)
[2020-02-20] MEDS: ASPIRIN 81 MG PO SCH (09:36)
[2020-02-20] MEDS: TICAGRELOR 90 MG TAB PO SCH ×2 (09:37→21:04)
[2020-02-20] MEDS: FUROSEMIDE 40 MG TAB PO SCH ×2 (09:37→17:08)
--- NOTE | 2020-02-20 11:28 | PN ---
PROGRESS NOTE Darci is a 69-year-old gentleman who was admitted to the hospital with confusional state and was found to have ischemic cardiomyopathy with severe LV dysfunction. He underwent cardiac catheterization and angioplasty of LAD. His right coronary artery is totally occluded. Has an ejection fraction of 20-25 percent. I am seeing the patient for the first time today. Dr. Pedro Mckenzie had taken care of him until yesterday and the plan was to discharge him home today. However, the patient does not think he is quite ready to go back home. He does not have chest pain, difficulty in breathing or leg edema. The plan is to ambulate him and get him ready to go home tomorrow. MEDICATIONS: He is currently on aspirin, Lipitor, Cozaar, Lopressor and Brilinta. PHYSICAL EXAMINATION: On exam heart rate is 89 beats per minute, blood pressure is 100/60, respiratory is 18. O2 saturation is 94%, afebrile. There is no jugular venous distention. Chest exam reveals good air entry bilaterally. Heart exam reveals first and second heart sounds. No gallop. No murmur. Abdomen is soft. Exam of extremities did not reveal any edema. His groin is free of bleeding, bruit, hematoma. An echocardiogram on this admission showed an ejection fraction of 20-25 percent. ASSESSMENT: 1. Multivessel coronary artery disease status post angioplasty of the left anterior descending. 2. Ischemic cardiomyopathy. PLAN: Continue current medications. Ambulate him. Hopefully home tomorrow. MMKADEEM / LAKSHMIN: [id number] /
[2020-02-20 11:52] LABS: Glucose,Whole Blood 204 mg/dL (75-99)
[2020-02-20] MEDS: SODIUM CHLORIDE 0.9% 1,000 ML IV SCH (15:31)
[2020-02-20 16:36] LABS: Glucose,Whole Blood 287 mg/dL (75-99)
--- NOTE | 2020-02-20 17:32 | P.PN ---
Subjective Progress Note Date: 02/20/20 Principal diagnosis: NTEMI Impala heart pump placement Status post PCI and stenting of proximal/mid LAD with drug-eluting stent 69-year-old male with a known history of significant coronary artery disease status post stent placement x5, hypertension, hyperlipidemia, diabetes type 2 insulin-dependent and history of HI and previous history of smoking and marijuana use presents to ER with complaints of generalized weakness and lack of energy. Admitted with non-ST revealed HI. Status post PCI and stenting of proximal/mid LAD with drug-eluting stent. Impala heart pump placement from left femoral arterial approach under fluoroscopic guidance. Patient denied any complaints of chest pain or shortness of breath. No cough or sputum production. Pain is controlled. A1c level 6.1. LDL is 88. Cardiology is following and recommending to continue current medications, increase activity and tells the patient to telemetry with plans for possible discharge tomorrow Patient reports that he had injury to his arms and hence unable to function well with upper extremities and is requesting social service consult to discuss help options at home. 02/20/2020 Patient is seen and evaluated in room at bedside; has been trying to ambulate in the room; requesting to be discharged home with home health care Patient underwent cardiac catheterization and angioplasty of LAD; RCA is totally occluded; has an ejection fraction of 20-25%; remains on aspirin, Lipitor, Cozaar, Lopressor and Brilinta Patient advised to increase activity with possible discharge in next 24 hours Objective - Vital Signs Vital signs: Vital Signs Temp 98 F 02/20/20 16:00 Pulse 72 02/20/20 16:00 Resp 12 02/20/20 16:00 BP 110/62 02/20/20 16:00 Pulse Ox 96 02/20/20 16:00 Intake & Output 02/19/20 02/20/20 02/20/20 18:59 06:59 18:59 Intake Total 230 200 Output Total 875 1150 Balance -645 -950 Weight 93.6 kg Intake: IV 230 200 0.9 NACL 75 Sodium Chloride 0.9% 1, 60 200 000 ml @ 20 mls/hr IV . Q24H [facility] Rx#:[id number] Sodium Chloride 0.9% 1, 95 000 ml @ 75 mls/hr IV . [id number] [facility] Rx#:[id number] Output: Urine 875 1150 Other: Voiding Method Urinal Urinal Urinal # Voids 1 ABP, PAP, CO, CI - Last Documented Arterial Blood Pressure 117/58 - Exam PHYSICAL EXAMINATION: GENERAL: The patient is alert and oriented x3, not in any acute distress. Well developed, well nourished. HEENT: Pupils are round and equally reacting to light. EOMI. No scleral icterus. No conjunctival pallor. Normocephalic, atraumatic. No pharyngeal erythema. No thyromegaly. CARDIOVASCULAR: S1 and S2 present. No murmurs, rubs, or gallops. PULMONARY: Chest is clear to auscultation, no wheezing or crackles. ABDOMEN: Soft, nontender, nondistended, normoactive bowel sounds. No palpable organomegaly. MUSCULOSKELETAL: No joint swelling or deformity. EXTREMITIES: No cyanosis, clubbing, or pedal edema. NEUROLOGICAL: Gross neurological examination did not reveal any focal deficits. SKIN: No rashes. - Labs CBC & Chem 7: 02/20/20 04:30 02/20/20 04:30 Labs: Abnormal Lab Results - Last 24 Hours (Table) 02/19/20 02/19/20 02/20/20 Range/Units 20:30 21:20 04:30 RBC 3.84 L (4.30-5.90) m/uL Hgb 11.9 L (13.0-17.5) gm/dL Hct 34.6 L (39.0-53.0) % Neutrophils # 8.4 H (1.3-7.7) k/uL Lymphocytes # 0.8 L (1.0-4.8) k/uL Sodium (137-145) mmol/L BUN (9-20) mg/dL Creatinine (0.66-1.25) mg/dL Glucose (74-99) mg/dL POC Glucose (mg/dL) 206 H 199 H (75-99) mg/dL 02/20/20 02/20/20 02/20/20 Range/Units 04:30 06:51 11:50 RBC (4.30-5.90) m/uL Hgb (13.0-17.5) gm/dL Hct (39.0-53.0) % Neutrophils # (1.3-7.7) k/uL Lymphocytes # (1.0-4.8) k/uL Sodium 134 L (137-145) mmol/L BUN 25 H (9-20) mg/dL Creatinine 1.27 H (0.66-1.25) mg/dL Glucose 141 H (74-99) mg/dL POC Glucose (mg/dL) 154 H 204 H (75-99) mg/dL 02/20/20 Range/Units 16:35 RBC (4.30-5.90) m/uL Hgb (13.0-17.5) gm/dL Hct (39.0-53.0) % Neutrophils # (1.3-7.7) k/uL Lymphocytes # (1.0-4.8) k/uL Sodium (137-145) mmol/L BUN (9-20) mg/dL Creatinine (0.66-1.25) mg/dL Glucose (74-99) mg/dL POC Glucose (mg/dL) 287 H (75-99) mg/dL Assessment and Plan Assessment: Acute non-ST elevated HI with elevated troponinStatus post PCI with stent placement to mid LAD Acute exacerbation of CHF EF unknown. Coronary artery disease history of multiple stents placement Osteoarthritis Hyperglycemia with uncontrolled diabetes type 2 Hypomagnesemia replaced. Hypertension Hyperlipidemia History of HI DVT prophylaxis. Plan: Patient will be continued on telemetry monitoring. Continue with aspirin and statin. continued on IV Lasix and monitor electrolytes and renal function. TTE was ordered and reveals mild concentric left ventricular hypertrophy; global left ventricular hypokinesis with EF of 20-25%; grade 1 diastolic dysfunction; mild to moderate mitral and tricuspid regurg. Heparin drip has been discontinued. Patient is status post cardiac catheterization and stent placement. Cardiology on board. Continue to monitor patient in the selective care unit. Possible discharge in next 24 hours
[2020-02-20 20:30] LABS: Glucose,Whole Blood 99 mg/dL (75-99)
[2020-02-20] MEDS: LOSARTAN 25 MG TAB PO SCH (21:04)
[2020-02-21 06:05] LABS: Glucose,Whole Blood 200 mg/dL (75-99)
[2020-02-21] MEDS: INSULIN ASPART (NovoLOG) 100 UNIT/ML VIAL SQ SCH ×4 (06:10→21:28)
[2020-02-21] MEDS: TICAGRELOR 90 MG TAB PO SCH ×2 (08:38→21:28)
[2020-02-21] MEDS: ASPIRIN 81 MG PO SCH (08:38)
[2020-02-21] MEDS: METOPROLOL TARTRATE 50 MG TAB PO SCH ×2 (08:38→21:28)
[2020-02-21] MEDS: ATORVASTATIN 80 MG TAB PO SCH (08:38)
[2020-02-21] MEDS: FUROSEMIDE 40 MG TAB PO SCH ×2 (08:38→19:27)
[2020-02-21 09:34] LABS: Calcium 9.1 mg/dL (8.4-10.2); Potassium 4.2 mmol/L (3.5-5.1)
--- NOTE | 2020-02-21 10:56 | P.PN ---
Subjective Progress Note Date: 02/21/20 CHIEF COMPLAINT: CAD HISTORY OF PRESENT ILLNESS: Patient is status post cardiac catheterization with stent placement to the LAD. Patient examined this morning at the bedside. He denies chest pain. He reports mild shortness of breath but states it is at its baseline. He is hoping to be discharged home today. PHYSICAL EXAM: VITAL SIGNS: Reviewed. GENERAL: Well-developed in no acute distress. NECK: Supple. No JVD or thyromegaly LUNGS: Respirations even and unlabored. Lungs essentially clear to auscultation bilaterally. HEART: Regular rate and rhythm. S1 and S2 heard. EXTREMITIES: Normal range of motion. No clubbing or cyanosis. Peripheral pulses intact. No lower extremity edema ASSESSMENT: Multivessel coronary artery disease, status post angioplasty of left anterior descending Ischemic cardiomyopathy, ejection fraction 20-25% PLAN: Continue current cardiac medications Patient is stable for discharge home today from a cardiac standpoint Patient to follow up outpatient with Dr. Mckenzie Nurse practitioner note has been reviewed by physician. Signing provider agrees with the documented findings, assessment, and plan of care. Objective - Vital Signs Vital signs: Vital Signs Temp 98.3 F 02/21/20 04:00 Pulse 82 02/21/20 08:00 Resp 16 02/21/20 08:00 BP 128/79 02/21/20 04:00 Pulse Ox 97 02/21/20 04:00 Intake & Output 02/20/20 02/21/20 02/21/20 18:59 06:59 18:59 Intake Total 240 Output Total 710 300 Balance -710 -60 Weight 89.2 kg Intake: IV 0 Sodium Chloride 0.9% 1, 0 000 ml @ 20 mls/hr IV . Q24H [facility] Rx#:[id number] Oral 240 Output: Urine 710 300 Other: Voiding Method Urinal Urinal Toilet # Voids 0 ABP, PAP, CO, CI - Last Documented Arterial Blood Pressure 117/58 - Labs CBC & Chem 7: 02/20/20 04:30 02/21/20 09:11 Labs: Abnormal Lab Results - Last 24 Hours (Table) 02/20/20 02/20/20 02/21/20 Range/Units 11:50 16:35 06:00 Sodium (137-145) mmol/L Carbon Dioxide (22-30) mmol/L BUN (9-20) mg/dL Glucose (74-99) mg/dL POC Glucose (mg/dL) 204 H 287 H 200 H (75-99) mg/dL 02/21/20 Range/Units 09:11 Sodium 134 L (137-145) mmol/L Carbon Dioxide 31 H (22-30) mmol/L BUN 31 H (9-20) mg/dL Glucose 219 H (74-99) mg/dL POC Glucose (mg/dL) (75-99) mg/dL
[2020-02-21 12:13] LABS: Glucose,Whole Blood 222 mg/dL (75-99)
--- NOTE | 2020-02-21 16:52 | P.DS ---
Providers Date of admission: 02/17/20 14:00 Expected date of discharge: 02/21/20 Attending physician: Nisreen Cuevas Consults: 02/17/20 01:03 Consult Physician Urgent Consulting Provider: [facility] Consult Reason/Comments: elevated trop, CAD history Do you want consulting provider notified?: Yes, Notify in am Primary care physician: [facility] Course: Principal diagnosis: NTEMI Impala heart pump placement Status post PCI and stenting of proximal/mid LAD with drug-eluting stent 69-year-old male with a known history of significant coronary artery disease status post stent placement x5, hypertension, hyperlipidemia, diabetes type 2 insulin-dependent and history of PR and previous history of smoking and marijuana use presents to ER with complaints of generalized weakness and lack of energy. Admitted with non-ST revealed PR. Status post PCI and stenting of proximal/mid LAD with drug-eluting stent. Impala heart pump placement from left femoral arterial approach under fluoroscopic guidance. Patient denied any complaints of chest pain or shortness of breath. No cough or sputum production. Pain is controlled. A1c level 6.1. LDL is 88. Cardiology is following and recommending to continue current medications, increase activity and tells the patient to telemetry with plans for possible discharge tomorrow Patient reports that he had injury to his arms and hence unable to function well with upper extremities and is requesting social service consult to discuss help options at home. 02/20/2020 Patient is seen and evaluated in room at bedside; has been trying to ambulate in the room; requesting to be discharged home with home health care Patient underwent cardiac catheterization and angioplasty of LAD; RCA is totally occluded; has an ejection fraction of 20-25%; remains on aspirin, Lipitor, Cozaar, Lopressor and Brilinta Patient advised to increase activity with possible discharge in next 24 hours 02/21/2020; patient has been ambulating in the room without any difficulty; patient has been evaluated by PT and was recommended skilled rehab; this was discussed with patient in great detail; patient relates that he will be able to go to skilled rehab till Saturday so he wants to be discharged home with home health care Plan - Discharge Summary Discharge Rx Participant: No New Discharge Prescriptions: New Aspirin 81 mg PO DAILY chew Ticagrelor [Brilinta] 90 mg PO BID #60 tab Losartan [Cozaar] 25 mg PO HS #30 tab Atorvastatin [Lipitor] 80 mg PO DAILY #30 tab Metoprolol Tartrate [Lopressor] 50 mg PO BID #60 tab Continue Insulin NPL/Insulin Lispro [humaLOG MIX 75-25 VIAL] 25 unit SQ AC-BID Discharge Medication List Insulin NPL/Insulin Lispro [humaLOG MIX 75-25 VIAL] 25 unit SQ AC-BID 02/17/20 [History] Aspirin 81 mg PO DAILY chew 02/21/20 [Rx] Atorvastatin [Lipitor] 80 mg PO DAILY #30 tab 02/21/20 [Rx] Losartan [Cozaar] 25 mg PO HS #30 tab 02/21/20 [Rx] Metoprolol Tartrate [Lopressor] 50 mg PO BID #60 tab 02/21/20 [Rx] Ticagrelor [Brilinta] 90 mg PO BID #60 tab 02/21/20 [Rx] Follow up Appointment(s)/Referral(s): Harrison Mckenzie MD [STAFF PHYSICIAN] - 03/01/20 8:15 am [facility], [NON-STAFF] - 1-2 Days ([facility] will call you regarding home care set up visit tomorrow 02/22/20) Shaheen Wan DO [Primary Care Provider] - 1-2 days (Please call and set up appointment to see Dr. Wan in 1-2 days after discharge ) Patient Instructions/Handouts: Heart Catheterization (DC) Discharge Disposition: HOME WITH HOME HEALTH SERVICES
[2020-02-21] MEDS: INSULN ASP PRT/INSULIN ASPART 100 UNIT/ML 10 ML VIAL SQ SCH ×2 (18:52→21:23)
[2020-02-21 20:06] LABS: Glucose,Whole Blood 264 mg/dL (75-99)
[2020-02-21] MEDS: SODIUM CHLORIDE 0.9% 1,000 ML IV SCH (21:28)
[2020-02-21] MEDS: LOSARTAN 25 MG TAB PO SCH (21:28)
[2020-02-21] MEDS: ALPRAZolam 0.5 MG TAB PO PRN (21:33)
[2020-02-22 06:13] LABS: Glucose,Whole Blood 231 mg/dL (75-99)
[2020-02-22] MEDS: INSULN ASP PRT/INSULIN ASPART 100 UNIT/ML 10 ML VIAL SQ SCH ×2 (07:11→17:40)
[2020-02-22] MEDS: INSULIN ASPART (NovoLOG) 100 UNIT/ML VIAL SQ SCH ×4 (07:12→19:44)
[2020-02-22 07:19] LABS: Magnesium 1.4 mg/dL (1.6-2.3)
[2020-02-22] MEDS: FUROSEMIDE 40 MG TAB PO SCH ×2 (09:44→17:34)
[2020-02-22] MEDS: TICAGRELOR 90 MG TAB PO SCH ×2 (09:44→19:45)
[2020-02-22] MEDS: ATORVASTATIN 80 MG TAB PO SCH (09:44)
[2020-02-22] MEDS: ASPIRIN 81 MG PO SCH (09:44)
[2020-02-22] MEDS: MAGNESIUM SULFATE-D5W PMX 1 GM in DEXTROSE/WATER 1 100ML.BAG IVPB SCH ×3 (09:44→12:23)
[2020-02-22] MEDS: METOPROLOL TARTRATE 50 MG TAB PO SCH ×2 (09:44→19:45)
[2020-02-22] MEDS: SODIUM CHLORIDE 0.9% 1,000 ML IV SCH (09:45)
--- NOTE | 2020-02-22 11:44 | P.PN ---
Subjective Progress Note Date: 02/22/20 CHIEF COMPLAINT: CAD HISTORY OF PRESENT ILLNESS: Patient is status post cardiac catheterization with stent placement to the LAD. Patient examined this morning at the bedside. He denies chest pain. He denies SOB. Patient had two runs of V-tach overnight. Magnesium 1.4. PHYSICAL EXAM: VITAL SIGNS: Reviewed. GENERAL: Well-developed in no acute distress. NECK: Supple. No JVD or thyromegaly LUNGS: Respirations even and unlabored. Lungs essentially clear to auscultation bilaterally. HEART: Regular rate and rhythm. S1 and S2 heard. EXTREMITIES: Normal range of motion. No clubbing or cyanosis. Peripheral pulses intact. No lower extremity edema ASSESSMENT: Multivessel coronary artery disease, status post angioplasty of left anterior descending Ischemic cardiomyopathy, ejection fraction 20-25% Hypomagnesemia PLAN: Continue current cardiac medications Supplement magnesium Obtain lifevest for patient. Once patient receives a lifevest, he may be discharged home Nurse practitioner note has been reviewed by physician. Signing provider agrees with the documented findings, assessment, and plan of care. Objective - Vital Signs Vital signs: Vital Signs Temp 98.5 F 02/22/20 00:00 Pulse 59 L 02/22/20 04:00 Resp 18 02/22/20 04:00 BP 112/71 02/22/20 00:00 Pulse Ox 96 02/22/20 00:00 Intake & Output 02/21/20 02/22/20 02/22/20 18:59 06:59 18:59 Intake Total 390 444 240 Output Total 600 Balance 390 -156 240 Weight 86.8 kg Intake: Oral 390 444 240 Output: Urine 600 Other: Voiding Method Toilet Toilet # Voids 3 1 # Bowel Movements 1 ABP, PAP, CO, CI - Last Documented Arterial Blood Pressure 117/58 - Labs CBC & Chem 7: 02/20/20 04:30 02/22/20 06:44 Labs: Abnormal Lab Results - Last 24 Hours (Table) 02/21/20 02/21/20 02/22/20 Range/Units 12:11 20:04 06:12 POC Glucose (mg/dL) 222 H 264 H 231 H (75-99) mg/dL Magnesium (1.6-2.3) mg/dL 02/22/20 Range/Units 06:44 POC Glucose (mg/dL) (75-99) mg/dL Magnesium 1.4 L (1.6-2.3) mg/dL
[2020-02-22 11:55] LABS: Glucose,Whole Blood 158 mg/dL (75-99)
--- NOTE | 2020-02-22 13:25 | P.PN ---
Subjective Progress Note Date: 02/22/20 Principal diagnosis: 02/22/2020 This is a 69-year-old male with a significant coronary artery disease history and recently underwent recent cardiac catheterization and angioplasty of the LAD and is being closely monitored. Cardiology following closely. RCA was also found to be totally occluded with an ejection fraction of 20-25%. Patient's magnesium was found to be 1.4 this morning and currently being replaced. Patient also awaiting for life vest application. per nursing staff patient had 2 runs of V. tach in the evening. Patient currently denies any chest pain or p alpitations noted. Patient is requesting to go home. Case management and social work following and working on Life vest along with possible Homecare in the outpatient setting. Review of systems: Constitutional: No reports of fatigue, fever, or chills Cardiovascular: No reports of chest pain or palpitations Respiratory: No reports of shortness of breath or cough GI: No reports of nausea, vomiting, or diarrhea : No reports of dysuria or retention Neurovascular: No reports of weakness or numbness Active Medications Albuterol/Ipratropium (Duoneb 0.5 Mg-3 Mg/3 Ml Soln) 3 ml INHALATION RT-Q2H PRN PRN Reason: Shortness Of Breath Or Wheezing Last Admin: 02/18/20 08:09 Dose: 3 ml Documented by: Alprazolam (Xanax) 0.25 mg PO Q6HR PRN PRN Reason: Mild Anxiety Last Admin: 02/19/20 01:19 Dose: 0.25 mg Documented by: Alprazolam (Xanax) 0.5 mg PO Q6HR PRN PRN Reason: Moderate Anxiety Last Admin: 02/21/20 21:33 Dose: 0.5 mg Documented by: Aspirin (Aspirin) 81 mg PO DAILY [facility] Last Admin: 02/22/20 09:44 Dose: 81 mg Documented by: Atorvastatin Calcium (Lipitor) 80 mg PO DAILY [facility] Last Admin: 02/22/20 09:44 Dose: 80 mg Documented by: Furosemide (Lasix) 40 mg PO BID@0900,1600 [facility] Last Admin: 02/22/20 09:44 Dose: 40 mg Documented by: Sodium Chloride (Saline 0.9%) 1,000 mls @ 20 mls/hr IV .Q24H [facility] Last Admin: 02/22/20 09:45 Dose: Not Given Documented by: Insulin Aspart (Novolog) 0 unit SQ ACHS [facility]; Protocol Last Admin: 02/22/20 12:22 Dose: Not Given Documented by: Insulin Aspart (Novolog Mix 70-30 Vial) 25 unit SQ AC-BID [facility] Last Admin: 02/22/20 07:11 Dose: 25 unit Documented by: Losartan Potassium (Cozaar) 25 mg PO HS [facility] Last Admin: 02/21/20 21:28 Dose: 25 mg Documented by: Metoprolol Tartrate (Lopressor) 50 mg PO BID [facility] Last Admin: 02/22/20 09:44 Dose: 50 mg Documented by: Miscellaneous Information (Potassium Per Protocol) 1 each MISCELLANE DAILY PRN; Protocol PRN Reason: Per Protocol Morphine Sulfate (Msir) 15 mg PO Q6HR PRN PRN Reason: Pain Last Admin: 02/18/20 20:40 Dose: 15 mg Documented by: Nitroglycerin (Nitrostat) 0.4 mg SUBLINGUAL Q5M PRN PRN Reason: Chest Pain Ticagrelor (Brilinta) 90 mg PO BID [facility] Last Admin: 02/22/20 09:44 Dose: 90 mg Documented by: Objective - Vital Signs Vital signs: Vital Signs Temp 97.8 F 02/22/20 08:00 Pulse 68 02/22/20 08:00 Resp 19 02/22/20 08:00 BP 99/61 02/22/20 08:00 Pulse Ox 95 02/22/20 08:00 Intake & Output 02/21/20 02/22/20 02/22/20 18:59 06:59 18:59 Intake Total 390 444 240 Output Total 600 600 Balance 390 -156 -360 Weight 86.8 kg Intake: Oral 390 444 240 Output: Urine 600 600 Other: Voiding Method Toilet Toilet Toilet # Voids 3 1 # Bowel Movements 1 ABP, PAP, CO, CI - Last Documented Arterial Blood Pressure 117/58 - Exam GENERAL: The patient is alert and oriented x3,sitting up in bed. Well developed, well nourished. Temp is 97.8F, pulse is 68, respirations are 19, blood pressure is 99/61, oxygen saturation is 95% on room air HEENT: Pupils are round and equally reacting to light. EOMI. No scleral icterus. No conjunctival pallor. Normocephalic, atraumatic. No pharyngeal erythema. No thyromegaly. CARDIOVASCULAR: S1, S2 are muffled PULMONARY: diminished breath sounds bilaterally with no wheezing or rhonchi noted. ABDOMEN: Soft, nontender, nondistended, normoactive bowel sounds. No palpable organomegaly. MUSCULOSKELETAL: No joint swelling or deformity. EXTREMITIES: No cyanosis, clubbing, or pedal edema. NEUROLOGICAL: Gross neurological examination did not reveal any focal deficits. SKIN: No rashes. - Labs CBC & Chem 7: 02/20/20 04:30 02/22/20 06:44 Labs: Abnormal Lab Results - Last 24 Hours (Table) 02/21/20 02/22/20 02/22/20 Range/Units 20:04 06:12 06:44 POC Glucose (mg/dL) 264 H 231 H (75-99) mg/dL Magnesium 1.4 L (1.6-2.3) mg/dL 02/22/20 Range/Units 11:54 POC Glucose (mg/dL) 158 H (75-99) mg/dL Magnesium (1.6-2.3) mg/dL Assessment and Plan Assessment: Acute non-ST elevated IL with elevated troponin status post PCI with stent placement to mid LAD Acute exacerbation of congestive heart failure, grade 1 diastolic dysfunction, ejection fraction of 20-25% Coronary artery disease history of multiple stents placement Osteoarthritis Hyperglycemia with uncontrolled diabetes type 2 Hypomagnesemia Hypertension Hyperlipidemia History of IL DVT prophylaxis. Recommendations and discussion: recommend to continue current medications, management, and symptomatic treatment. Will continue with close cardiac monitoring and monitor vital signs and labs closely. Magnesium found to be 1.4 today and being replaced. Repeat a.m. labs. Cardiology following closely. Case management and social work to work on life vest placement. Case management also following and working on discharge planning needs with possible Homecare in the outpatient setting. Due to multiple complex medical issues, prognosis is guarded. Further recommendations to follow. Possible discharge in 24-48 hours.
[2020-02-22 16:40] LABS: Glucose,Whole Blood 256 mg/dL (75-99)
[2020-02-22 19:45] LABS: Glucose,Whole Blood 99 mg/dL (75-99)
[2020-02-22] MEDS: LOSARTAN 25 MG TAB PO SCH (19:45)
[2020-02-22] MEDS: ALPRAZolam 0.5 MG TAB PO PRN (19:45)
[2020-02-23 06:18] LABS: Glucose,Whole Blood 118 mg/dL (75-99)
[2020-02-23] MEDS: INSULIN ASPART (NovoLOG) 100 UNIT/ML VIAL SQ SCH ×3 (06:37→17:13)
[2020-02-23] MEDS: INSULN ASP PRT/INSULIN ASPART 100 UNIT/ML 10 ML VIAL SQ SCH ×2 (07:09→17:13)
[2020-02-23 08:37] LABS: Calcium 8.7 mg/dL (8.4-10.2); Magnesium 1.9 mg/dL (1.6-2.3); Potassium 3.9 mmol/L (3.5-5.1)
[2020-02-23] MEDS: FUROSEMIDE 40 MG TAB PO SCH (08:52)
[2020-02-23] MEDS: ATORVASTATIN 80 MG TAB PO SCH (08:52)
[2020-02-23] MEDS: ASPIRIN 81 MG PO SCH (08:53)
[2020-02-23] MEDS: METOPROLOL TARTRATE 50 MG TAB PO SCH (08:53)
[2020-02-23] MEDS: TICAGRELOR 90 MG TAB PO SCH (08:53)
[2020-02-23 11:57] LABS: Glucose,Whole Blood 137 mg/dL (75-99)
[2020-02-23] MEDS: SODIUM CHLORIDE 0.9% 1,000 ML IV SCH (12:59)
[2020-02-23] MEDS ORDERED: SPIRONOLACTONE 25 MG TAB PO SCH (14:15)
[2020-02-23 16:50] LABS: Glucose,Whole Blood 158 mg/dL (75-99)
[2020-02-23 16:55] VITALS: BP 94/57; PULSE 82; RESP 18; TEMP 98.6
--- NOTE | 2020-02-23 17:46 | P.PN ---
Subjective This is Fanta Beauchamp PA-C dictating a progress note on this patient The patient was interviewed and examined by me as well as by Dr. Woody Case discussed with Dr. Woody and he agrees with the plan of care HPI/interval history Patient is a 69-year-old male who presented with a non-ST elevation NC and underwent stenting to the LAD. Patient seen and examined sitting up at the side of the bed. Denies any chest pain. Continues to complain of shortness of breath if he "moves too fast". He does have some mild dizziness. No syncope. No palpitations. He has been getting up and walking with therapy. He was able to sleep comfortably at night lying flat, denies any orthopnea or PND. He is awaiting a LifeVest. EXAMINATION Patient is afebrile, pulse in the 80s, respirations 18, blood pressure 94/57, oxygen saturation 99% on room air Patient seen and examined sitting up at the side of the bed in no acute distress On exam his heart is regular, soft systolic murmur audible Lungs clear to auscultation bilaterally No elevated JVD No lower extremity edema REVIEW OF LABS, ECG Sodium 132, potassium 3.9, BUN 40, creatinine 1.13, magnesium 1.9 Echocardiogram showed EF 20-25%, moderate to severe MR IMPRESSION / ASSESSMENT: #1 non-ST elevation NC status post stenting to the LAD #2 CAD #3 ischemic cardiomyopathy, EF 20 - 25% #4 moderate to severe MR PLAN: Reduce Lasix to 40 mg daily and add spironolactone 25 mg daily Continue dual antiplatelet therapy Continue statins Continue losartan 25 mg Continue metoprolol titrate 50 mg twice a day Once he receives his LifeVest he may E discharge home for outpatient 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 Objective - Vital Signs Vital signs: Vital Signs Temp 98.6 F 02/23/20 16:00 Pulse 82 02/23/20 16:00 Resp 18 02/23/20 16:00 BP 94/57 02/23/20 16:00 Pulse Ox 99 02/23/20 16:00 Intake & Output 02/22/20 02/23/20 02/23/20 18:59 06:59 18:59 Intake Total 716 480 Output Total 600 380 Balance 116 -380 480 Weight 85.6 kg Intake: Oral 716 480 Output: Urine 600 380 Other: Voiding Method Toilet Toilet # Voids 1 2 ABP, PAP, CO, CI - Last Documented Arterial Blood Pressure 117/58 - Labs CBC & Chem 7: 02/20/20 04:30 02/23/20 07:06 Labs: Abnormal Lab Results - Last 24 Hours (Table) 02/23/20 02/23/20 02/23/20 Range/Units 06:16 07:06 11:56 Sodium 132 L (137-145) mmol/L Chloride 97 L (98-107) mmol/L BUN 40 H (9-20) mg/dL POC Glucose (mg/dL) 118 H 137 H (75-99) mg/dL 02/23/20 Range/Units 16:48 Sodium (137-145) mmol/L Chloride (98-107) mmol/L BUN (9-20) mg/dL POC Glucose (mg/dL) 158 H (75-99) mg/dL
--- NOTE | 2020-02-24 08:42 | P.DS ---
Providers Date of admission: 02/17/20 14:00 Expected date of discharge: 02/23/20 Attending physician: Nisreen Cuevas Consults: 02/17/20 01:03 Consult Physician Urgent Consulting Provider: [facility] Consult Reason/Comments: elevated trop, CAD history Do you want consulting provider notified?: Yes, Notify in am Primary care physician: Shaheen Wan [facility] Course: Final diagnosis Acute non-ST elevated NH with elevated troponin status post PCI with stent placement to mid LAD Acute exacerbation of congestive heart failure, grade 1 diastolic dysfunction, ejection fraction of 20-25% Coronary artery disease history of multiple stents placement Osteoarthritis Hyperglycemia with uncontrolled diabetes type 2 Hypomagnesemia Hypertension Hyperlipidemia History of NH DVT prophylaxis Discharge disposition Patient is being discharged in a stable condition with guarded prognosis to home. Patient will follow-up with Dr. Wan in the outpatient setting upon discharge. Patient also instructed to follow-up with Dr. Mckenzie cardiology next week. Patient will continue with home care in the outpatient setting. Total time taken is greater than 35 minutes. History of present illness This is a 69-year-old male who was recently admitted with chest pain and significant coronary artery disease and was being closely monitored. Patient was found to have elevated troponin and underwent cardiac catheterization and angioplasty of the LAD. Cardiology following closely. RCA was also found to be totally occluded with an ejection fraction of 20-25%. Patient also had hypomagnesemia which was replaced. Current magnesium is 1.9 today. Patient was also being fitted for a LifeVest and will be following closely with cardiology in the outpatient setting. Patient was fitted and educated on the LifeVest and will be continuing with home care in the outpatient setting. Patient is very eager to go home today. Currently no reports of chest pain, shortness of breath, or palpitations. Patient is afebrile. No reports of nausea or vomiting and patient is tolerating diet. Patient will be discharged home today. On exam vital signs are stable. Temp is 98.6F, pulse is 82, respirations are 18, blood pressure is 94/57, oxygen saturation is 99% on room air. Cardio S1, S2 are muffled. Respiratory system shows diminished breath sounds at the bases with no wheezing or rhonchi noted. Abdomen is soft and nontender. Nervous system shows no focal deficits. Please refer to medication reconciliation sheet for a list of medications. Patient Condition at Discharge: Fair Plan - Discharge Summary Discharge Rx Participant: No New Discharge Prescriptions: New Aspirin 81 mg PO DAILY chew Ticagrelor [Brilinta] 90 mg PO BID #60 tab Losartan [Cozaar] 25 mg PO HS #30 tab Atorvastatin [Lipitor] 80 mg PO DAILY #30 tab Metoprolol Tartrate [Lopressor] 50 mg PO BID #60 tab Continue Insulin NPL/Insulin Lispro [humaLOG MIX 75-25 VIAL] 25 unit SQ AC-BID Discharge Medication List Insulin NPL/Insulin Lispro [humaLOG MIX 75-25 VIAL] 25 unit SQ AC-BID 02/17/20 [History] Aspirin 81 mg PO DAILY chew 02/21/20 [Rx] Atorvastatin [Lipitor] 80 mg PO DAILY #30 tab 02/21/20 [Rx] Losartan [Cozaar] 25 mg PO HS #30 tab 02/21/20 [Rx] Metoprolol Tartrate [Lopressor] 50 mg PO BID #60 tab 02/21/20 [Rx] Ticagrelor [Brilinta] 90 mg PO BID #60 tab 02/21/20 [Rx] Follow up Appointment(s)/Referral(s): Harrison Mckenzie MD [STAFF PHYSICIAN] - 03/01/20 8:15 am [facility], [NON-STAFF] - 1-2 Days ([facility] will call you regarding home care set up visit tomorrow 02/22/20) Shaheen Wan DO [Primary Care Provider] - 02/29/20 1:00 pm (Please call and set up appointment to see Dr. Wan in 1-2 days after discharge ) Patient Instructions/Handouts: *Surgery [facility] - After Heart Catheterization - [employer] Instructions, Heart Catheterization (DC) Activity/Diet/Wound Care/Special Instructions: Activity Limited until follow-up Follow-up with primary care provider upon discharge Follow-up with cardiology as scheduled Continue current heart healthy/ consistent carbohydrate diet Continue to monitor blood sugars before meals at bedtime and keep a diary for primary care follow-up Discharge Disposition: HOME WITH HOME HEALTH SERVICES
[2020-02-24] MEDS ORDERED: FUROSEMIDE 40 MG TAB PO SCH (09:00)
== END 2020-02-23 18:06 | disposition home health service (06) | DRG 215 ==
LOC: EC 22:53 → 3SCARD 02-17 01:07 → OBSVTOIN 02-17 14:00 → 2SICU 02-18 09:53 → 3SCARD 02-21 05:53
PROVIDERS: ADMIT Hospitalist; ATTEND Hospitalist
PROC: 5A0221D Assistance with Cardiac Output using Impeller Pump, Continuous (ICD-10-PCS; principal; 2020-02-18 09:00)
PROC: 027034Z Dilation of Coronary Artery, One Artery with Drug-eluting Intraluminal Device, Percutaneous Approach (ICD-10-PCS; principal; 2020-02-18 09:00)
PROC: 4A023N7 Measurement of Cardiac Sampling and Pressure, Left Heart, Percutaneous Approach (ICD-10-PCS; principal; 2020-02-18 09:00)
PROC: 02HA3RJ Insertion of Short-term External Heart Assist System into Heart, Intraoperative, Percutaneous Approach (ICD-10-PCS; principal; 2020-02-18 09:00)
PROC: B2111ZZ Fluoroscopy of Multiple Coronary Arteries using Low Osmolar Contrast (ICD-10-PCS; principal; 2020-02-18 09:00)
DX: I21.4 Non-ST elevation (NSTEMI) myocardial infarction (principal); I50.43 Acute on chronic combined systolic (congestive) and diastolic (congestive) heart failure; I47.2 Ventricular tachycardia; I25.5 Ischemic cardiomyopathy; I11.0 Hypertensive heart disease with heart failure; I95.9 Hypotension, unspecified; E11.65 Type 2 diabetes mellitus with hyperglycemia; E86.0 Dehydration; E78.5 Hyperlipidemia, unspecified; E83.42 Hypomagnesemia; T38.3X6A Underdosing of insulin and oral hypoglycemic [antidiabetic] drugs, initial encounter; I25.10 Atherosclerotic heart disease of native coronary artery without angina pectoris; I25.2 Old myocardial infarction; M19.90 Unspecified osteoarthritis, unspecified site; Z87.828 Personal history of other (healed) physical injury and trauma; Z79.4 Long term (current) use of insulin; Z88.6 Allergy status to analgesic agent; Z87.891 Personal history of nicotine dependence; Z95.5 Presence of coronary angioplasty implant and graft; Z91.138 Patient's unintentional underdosing of medication regimen for other reason; Z82.49 Family history of ischemic heart disease and other diseases of the circulatory system
CPT/HCPCS: 36415; 71046; 80048; 80053; 80061; 81001; 83036; 83605; 83735; 83880; 84132; 84484; 85025; 85027; 85347; 85610; 85730; 93005; 93306; 93458; 94640; 96365; 96368; 96376; 99291

== ENCOUNTER 2020-06-14 17:38 | Inpatient (IN) | payer MEDICARE ==
--- NOTE | 2020-06-14 18:25 | ED ---
General Adult HPI - General Chief complaint: Weakness Stated complaint: fall/trouble walking Time Seen by Provider: 06/14/20 17:40 Source: patient, RN notes reviewed, old records reviewed Mode of arrival: wheelchair Limitations: physical limitation - History of Present Illness Initial comments: This is a 69-year-old male who presents to the emergency department complaining of lower back pain and increased falling. Patient states this began months ago and it slowly increased per patient states over the last 2 weeks she's fallen approximately 15 times. Patient states he has not injured himself in the falls but his legs get weak and he is unable to hold himself up. Patient denies any headache patient denies numbness weakness. Patient denies any chest pain difficulty breathing first breath per patient denies any recent fever chills or cough per patient denies any numbness or focal weakness. Patient states both his legs to get really weak particularly around the lower back bilaterally and then he is unable to hold himself up in a fall to the ground. - Related Data Home Medications Medication Instructions Recorded Confirmed Insulin NPL/Insulin Lispro 25 unit SQ AC-BID 02/17/20 06/14/20 [humaLOG MIX 75-25 VIAL] Atorvastatin Calcium [Lipitor] 40 mg PO HS 06/14/20 06/14/20 Furosemide [Lasix] 40 mg PO BID 06/14/20 06/14/20 Losartan [Cozaar] 25 mg PO DAILY 06/14/20 06/14/20 Potassium Chloride ER [K-Dur 20] 20 meq PO DAILY 06/14/20 06/14/20 Pregabalin [Lyrica] 50 mg PO BID 06/14/20 06/14/20 lisinopriL [Zestril] 10 mg PO DAILY 06/14/20 06/14/20 traZODone HCL [Desyrel] 50 mg PO DAILY 06/14/20 06/14/20 Previous Rx's Medication Instructions Recorded Aspirin 81 mg PO DAILY chew 02/21/20 Metoprolol Tartrate [Lopressor] 50 mg PO BID #60 tab 02/21/20 Ticagrelor [Brilinta] 90 mg PO BID #60 tab 02/21/20 Allergies Allergy/AdvReac Type Severity Reaction Status Date / Time tramadol [From Ultram] Allergy Itching Verified 06/14/20 17:46 Review of Systems ROS Statement: Those systems with pertinent positive or pertinent negative responses have been documented in the HPI. ROS Other: All systems not noted in ROS Statement are negative. Past Medical History Past Medical History: Coronary Artery Disease (CAD), Diabetes Mellitus, Hyperlipidemia, Hypertension, Myocardial Infarction ([place]) Additional Past Medical History / Comment(s): pancreatitis, hepatitis Last Myocardial Infarction Date:: unknown History of Any Multi-Drug Resistant Organisms: None Reported Past Surgical History: Back Surgery, Heart Catheterization With Stent, Orthopedic Surgery Additional Past Surgical History / Comment(s): kushal knee, Past Anesthesia/Blood Transfusion Reactions: No Reported Reaction Date of Last Stent Placement:: unknown Past Psychological History: No Psychological Hx Reported Smoking Status: Former smoker Past Alcohol Use History: None Reported Past Drug Use History: Marijuana - Past Family History Father Family Medical History: Myocardial Infarction ([place]) General Exam - General Exam Comments Initial Comments: GENERAL: Patient is well-developed and well-nourished. Patient is nontoxic and well- hydrated and is in mild distress. ENT: Neck is soft and supple. No significant lymphadenopathy is noted. Oropharynx is clear. Moist mucous membranes. Neck has full range of motion without eliciting any pain. EYES: The sclera were anicteric and conjunctiva were pink and moist. Extraocular movements were intact and pupils were equal round and reactive to light. Eyelids were unremarkable. PULMONARY: Unlabored respirations. Good breath sounds bilaterally. No audible rales rhonchi or wheezing was noted. CARDIOVASCULAR: There is a regular rate and rhythm without any murmurs gallops or rubs. ABDOMEN: Soft and nontender with normal bowel sounds. SKIN: Skin is clear with no lesions or rashes and otherwise unremarkable. NEUROLOGIC: Patient is alert and oriented x3. Cranial nerves II through XII are grossly intact. Motor and sensory are also intact. Normal speech, volume and content. Symmetrical smile. MUSCULOSKELETAL: Normal extremities with adequate strength and full range of motion. LYMPHATICS: No significant lymphadenopathy is noted PSYCHIATRIC: Normal psychiatric evaluation. Limitations: physical limitation Course Vital Signs 06/14/20 06/14/20 06/14/20 17:40 18:16 18:40 Temperature 97.5 F L Pulse Rate 52 L 64 Respiratory 18 18 Rate Blood Pressure 100/50 143/44 84/53 O2 Sat by Pulse 98 100 Oximetry 06/14/20 18:44 Temperature Pulse Rate Respiratory Rate Blood Pressure 96/53 O2 Sat by Pulse Oximetry Medical Decision Making - Medical Decision Making EKG shows junctional rhythm at 61 bpm QRS is 102 QT interval 412 QTC is 414. Patient's EKG shows no ST segment elevation or depression. Patient is extremely poor historian and it's difficult to assess whether the patient feels as though it's weakness in the lower back and legs as opposed to being off balance and it being involving the central nervous system. CT of the brain shows no acute abnormality. CT of the lumbar spine shows some slight spinal stenosis as well as foraminal narrowing. No acute compression fractures noted. [facility] the patient wrote admitting orders - Lab Data Result diagrams: 06/14/20 18:29 06/14/20 19:53 Lab Results 06/14/20 06/14/20 06/14/20 Range/Units 18:29 18:29 18:29 WBC 11.5 H (3.8-10.6) k/uL RBC 3.22 L (4.30-5.90) m/uL Hgb 10.3 L (13.0-17.5) gm/dL Hct 28.4 L (39.0-53.0) % MCV 88.1 (80.0-100.0) fL MCH 31.8 (25.0-35.0) pg MCHC 36.2 (31.0-37.0) g/dL RDW 12.9 (11.5-15.5) % Plt Count 229 (150-450) k/uL MPV 8.2 Neutrophils % 84 % Lymphocytes % 5 % Monocytes % 4 % Eosinophils % 5 % Basophils % 0 % Neutrophils # 9.7 H (1.3-7.7) k/uL Lymphocytes # 0.6 L (1.0-4.8) k/uL Monocytes # 0.5 (0-1.0) k/uL Eosinophils # 0.6 (0-0.7) k/uL Basophils # 0.0 (0-0.2) k/uL PT 10.0 (9.0-12.0) sec INR 1.0 (<1.2) APTT 28.9 (22.0-30.0) sec Sodium 131 L (137-145) mmol/L Potassium 6.4 H* (3.5-5.1) mmol/L Chloride 102 (98-107) mmol/L Carbon Dioxide 16 L (22-30) mmol/L Anion Gap 13 mmol/L BUN 156 H* (9-20) mg/dL Creatinine 3.83 H (0.66-1.25) mg/dL Est GFR (CKD-EPI)AfAm 18 (>60 ml/min/1.73 sqM) Est GFR (CKD-EPI)NonAf 15 (>60 ml/min/1.73 sqM) Glucose 132 H (74-99) mg/dL Plasma Lactic Acid Bautista (0.7-2.0) mmol/L Calcium 8.9 (8.4-10.2) mg/dL Total Bilirubin 0.5 (0.2-1.3) mg/dL AST 25 (17-59) U/L ALT 18 (4-49) U/L Alkaline Phosphatase 97 (38-126) U/L Troponin I (0.000-0.034) ng/mL Total Protein 7.7 (6.3-8.2) g/dL Albumin 4.1 (3.5-5.0) g/dL 06/14/20 06/14/20 06/14/20 Range/Units 18:29 18:29 19:53 WBC (3.8-10.6) k/uL RBC (4.30-5.90) m/uL Hgb (13.0-17.5) gm/dL Hct (39.0-53.0) % MCV (80.0-100.0) fL MCH (25.0-35.0) pg MCHC (31.0-37.0) g/dL RDW (11.5-15.5) % Plt Count (150-450) k/uL MPV Neutrophils % % Lymphocytes % % Monocytes % % Eosinophils % % Basophils % % Neutrophils # (1.3-7.7) k/uL Lymphocytes # (1.0-4.8) k/uL Monocytes # (0-1.0) k/uL Eosinophils # (0-0.7) k/uL Basophils # (0-0.2) k/uL PT (9.0-12.0) sec INR (<1.2) APTT (22.0-30.0) sec Sodium (137-145) mmol/L Potassium 6.1 H* (3.5-5.1) mmol/L Chloride (98-107) mmol/L Carbon Dioxide (22-30) mmol/L Anion Gap mmol/L BUN (9-20) mg/dL Creatinine (0.66-1.25) mg/dL Est GFR (CKD-EPI)AfAm (>60 ml/min/1.73 sqM) Est GFR (CKD-EPI)NonAf (>60 ml/min/1.73 sqM) Glucose (74-99) mg/dL Plasma Lactic Acid Bautista 1.1 (0.7-2.0) mmol/L Calcium (8.4-10.2) mg/dL Total Bilirubin (0.2-1.3) mg/dL AST (17-59) U/L ALT (4-49) U/L Alkaline Phosphatase (38-126) U/L Troponin I 0.033 (0.000-0.034) ng/mL Total Protein (6.3-8.2) g/dL Albumin (3.5-5.0) g/dL Disposition Clinical Impression: Hyperkalemia, Acute renal failure Disposition: ADMITTED IP TO THIS HOSP Referrals: Shaheen Wan DO [Primary Care Provider] - 1-2 days Time of Disposition: 21:08
[2020-06-14] MEDS ORDERED: SODIUM CHLORIDE 0.9% 1,000 ML IV ONE ×2 (18:53→21:07)
[2020-06-14 18:56] LABS: Basophils % (A) 0 %; Eosinophils # (A) 0.6 k/uL (0-0.7); Eosinophils % (A) 5 %; HCT 28.4 % (39.0-53.0); HGB 10.3 gm/dL (13.0-17.5); Lymphocytes # (A) 0.6 k/uL (1.0-4.8); Lymphocytes % (A) 5 %; MCH 31.8 pg (25.0-35.0); MCHC 36.2 g/dL (31.0-37.0); MCV 88.1 fL (80.0-100.0); Mean Platelet Volume 8.2; Monocytes # (A) 0.5 k/uL (0-1.0); Monocytes % (A) 4 %; Neutrophils # (A) 9.7 k/uL (1.3-7.7); Neutrophils % (A) 84 %; Platelet Count 229 k/uL (150-450); RBC 3.22 m/uL (4.30-5.90); RDW 12.9 % (11.5-15.5); WBC 11.5 k/uL (3.8-10.6)
[2020-06-14 19:06] LABS: Partial Thromboplastin Time 28.9 sec (22.0-30.0)
[2020-06-14 19:07] LABS: Albumin 4.1 g/dL (3.5-5.0); Calcium 8.9 mg/dL (8.4-10.2); Total Bilirubin 0.5 mg/dL (0.2-1.3); Total Protein 7.7 g/dL (6.3-8.2)
[2020-06-14 19:17] LABS: Potassium 6.4 mmol/L (3.5-5.1)
--- NOTE | 2020-06-14 19:39 | XR ---
EXAMINATION TYPE: XR chest 2V DATE OF EXAM: 06/14/2020 COMPARISON: 02/17/2020 INDICATION: Weakness multiple falls TECHNIQUE: Frontal and lateral views of the chest are obtained. FINDINGS: The heart size is normal. The pulmonary vasculature is normal. Previous infiltrates have largely resolved.. No displaced fractures are identified. No pneumothorax is evident. IMPRESSION: 1. No acute pulmonary process.
--- NOTE | 2020-06-14 19:41 | CT ---
EXAMINATION TYPE: CT brain wo con DATE OF EXAM: 06/14/2020 COMPARISON: None INDICATION: Fall. DLP: 1143.4 mGycm, Automated exposure control for dose reduction was used. CONTRAST: None CT of the brain is performed utilizing 3 mm thick sections through the posterior fossa and 3 mm thick sections through the remaining calvarium. Study is performed within 24 hours of arrival to the hosp ital. No abnormal hyperdensity is present to suggest an acute intracranial hemorrhage. No mass lesion is evident. No acute infarcts are evident. Ventricles and sulci are appropriate for the patient age. Paranasal sinuses and mastoid air cells within the [id number] are clear. IMPRESSIONS: 1. Normal CT Brain
--- NOTE | 2020-06-14 20:00 | CT ---
EXAMINATION TYPE: CT lumbar spine wo con DATE OF EXAM: 06/14/2020 COMPARISON: None HISTORY: Multiple falls with low back pain. CT DLP: 1097.6 mGycm CONTRAST: None TECHNIQUE: CT of the lumbar spine is performed on a spiral scan at 3 mm thick sections. Reconstructed images are performed in the coronal and sagittal planes. FINDINGS: T10-T11: There is narrowing of the disc height. No disc bulge is evident. No spinal canal stenosis or neural foraminal stenosis is present T11-12: There is disc space narrowing. No focal disc herniation or significant disc bulge is evident. No spinal canal stenosis or neural foraminal stenosis. T12-L1: Minimal disc bulge is present with anterior thecal sac contact. No spinal canal stenosis or n eural foraminal stenosis present. L1-L2: This disc level is preserved in height. Mild disc bulge is present. A right synovial cyst is s uspected which may contain a small amount of air from the facet. This would have posterior lateral th ecal sac compression at this level. L2-L3: Disc space narrowing is present. Vacuum disc phenomenon is present. Some spinal canal narrowin g from congenitally short pedicles may be present. Facet hypertrophy and ligamentum flavum laxity con tributing to the suspected narrowing. L3-L4: There is loss of disc height through this level. Facet hypertrophy is present. Endplate sclero sis present. Vacuum disc phenomenon is through the residual disc material. Some endplate spurring is present with mild to moderate anterior thecal sac compression. AP spinal canal stenosis is not presen t. Moderate bilateral foraminal narrowing is present. L4-L5: There is loss of disc height is level. Endplate spurring is present. Laminectomy has been perf ormed. Severe bilateral foraminal narrowing remain present. L5-S1: There is loss of disc height is level. Vacuum disc phenomenon is present. Laminectomies been p erformed. No spinal canal stenosis is present. Severe bilateral foraminal narrowing is present. Scoliosis is present. IMPRESSION: 1. Multilevel degenerative disc changes with loss of disc height and endplate spurring. Some mild dis c bulging is present. 2. Some spinal canal narrowing is suspected at L1-2 due to synovial cyst in the right posterior later al spinal canal. 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 3. Multilevel severe foraminal stenosis L3-4 through L5-S1. Laminectomies without spinal canal stenos is is present through these levels. 4. No suspicious acute compression deformity or fractures evident.
[2020-06-14] MEDS ORDERED: INSULIN REGULAR 100 UNIT/ML VIAL IV ONE (21:06)
[2020-06-14] MEDS ORDERED: CALCIUM CHLORIDE 100 MG/ML 10 ML SYRINGE IVP STA (21:06)
[2020-06-14] MEDS ORDERED: DEXTROSE 50% SYRINGE 50 ML IVP STA (21:06)
[2020-06-14] MEDS ORDERED: SODIUM BICARB 8.4% 50 ML SYR (1 MEQ/ML) IV STA (21:07)
[2020-06-14] MEDS ORDERED: SODIUM CHLORIDE 0.9% 500 ML 500 ML IV ONE (21:11)
[2020-06-14] MEDS ORDERED: HYDROCORTISONE SUCCINATE 100 MG/2 ML VIAL IV STA (21:12)
[2020-06-14 21:16] LABS: Glucose,Whole Blood 113 mg/dL (75-99)
[2020-06-14 21:42] LABS: Appearance,Urine Clear (Clear); Bacteria,Urine Rare /hpf; Bilirubin,Urine Negative (Negative); Blood,Urine Small (Negative); Color,Urine Light Yellow; Glucose,Urine (UA) Negative (Negative); Hyaline Casts,Urine 4 /lpf (0-2); Ketones,Urine Negative (Negative); Leukocyte Esterase,Urine Negative (Negative); Mucus,Urine Rare /hpf; Nitrite,Urine Negative (Negative); Protein,Urine Negative (Negative); Specific Gravity,Urine 1.008 (1.001-1.035); Squamous Epithelial Cell,Urine <1 /hpf (0-4); Urobilinogen,Urine <2.0 mg/dL (<2.0); WBC,Urine 1 /hpf (0-5)
[2020-06-14] MEDS: SODIUM CHLORIDE 0.9% 1,000 ML IV SCH (22:27)
[2020-06-14] MEDS ORDERED: traZODone HCL 50 MG TAB PO PRN (22:40)
[2020-06-15] MEDS: METOPROLOL TARTRATE 50 MG TAB PO SCH ×3 (01:42→20:41)
[2020-06-15] MEDS: HYDROcodone/APAP 5-325MG 1 EACH TAB PO PRN ×3 (01:43→15:38)
[2020-06-15] MEDS: PREGABALIN 50 MG CAP PO SCH ×3 (01:43→20:41)
[2020-06-15 06:37] LABS: Basophils % (A) 0 %; Eosinophils % (A) 0 %; HCT 26.7 % (39.0-53.0); HGB 9.5 gm/dL (13.0-17.5); Lymphocytes # (A) 0.4 k/uL (1.0-4.8); Lymphocytes % (A) 5 %; MCH 30.9 pg (25.0-35.0); MCHC 35.5 g/dL (31.0-37.0); MCV 87.2 fL (80.0-100.0); Mean Platelet Volume 8.4; Monocytes # (A) 0.2 k/uL (0-1.0); Monocytes % (A) 3 %; Neutrophils # (A) 6.4 k/uL (1.3-7.7); Neutrophils % (A) 90 %; Platelet Count 217 k/uL (150-450); RBC 3.06 m/uL (4.30-5.90); RDW 12.8 % (11.5-15.5); WBC 7.1 k/uL (3.8-10.6)
[2020-06-15 07:32] LABS: Glucose,Whole Blood 187 mg/dL (75-99)
[2020-06-15] MEDS: TICAGRELOR 90 MG TAB PO SCH ×2 (07:49→20:41)
[2020-06-15] MEDS: ASPIRIN 81 MG PO SCH (07:49)
[2020-06-15] MEDS: INSULIN ASPART (NovoLOG) 100 UNIT/ML VIAL SQ SCH ×4 (07:49→20:40)
[2020-06-15] MEDS: INSULN ASP PRT/INSULIN ASPART 100 UNIT/ML 10 ML VIAL SQ SCH ×2 (07:50→17:08)
[2020-06-15 10:09] LABS: African American GFR (CKD) 22.9 (60.0-200.0); Anion Gap 18.9 mmol/L (4.00-12.00); BUN/Creat Ratio 48.39 Ratio (12.00-20.00); Calcium 8.8 mg/dL (8.7-10.3); Carbon Dioxide 12.1 mmol/L (21.6-31.8); Potassium 4.7 mmol/L (3.5-5.5)
[2020-06-15 11:11] LABS: Non-African American GFR(CKD) 19.7 (60.0-200.0)
[2020-06-15 11:39] LABS: Glucose,Whole Blood 166 mg/dL (75-99)
[2020-06-15] MEDS: SODIUM CHLORIDE 0.9% 1,000 ML IV SCH (11:43)
[2020-06-15] MEDS ORDERED: ALPRAZolam 0.25 MG TAB PO PRN (15:55)
[2020-06-15] MEDS ORDERED: ACETAMINOPHEN TAB 500 MG TAB PO PRN (15:55)
--- NOTE | 2020-06-15 16:17 | CONS ---
CONSULTATION REASON FOR CONSULT: Renal failure. HISTORY OF PRESENT ILLNESS: Patient is a 69-year-old male who was admitted to the hospital yesterday with a history of multiple falls, weakness, trouble walking. The patient denies any significant kidney diseases. He denies any significant urinary symptoms. He also denies use of any nonsteroidal anti-inflammatory agents prior to admission. MEDICATIONS: Medications prior to admission included potassium, Cozaar, Lasix and lisinopril. Blood pressure has been slightly on the lower side with systolic noted to be 96 and as low as 84 mmHg yesterday. Currently patient is voiding. He has had good urine output. He is using the urinal. Serum creatinine was 3.8 mg/dL on admission, now is down to 3.1. Patient is maintained on IV fluids. Previous labs show creatinine of 1.13 on 02/23/2020. PAST MEDICAL HISTORY: Significant for coronary artery disease, type 2 diabetes, hyperlipidemia, history of LA, hypertension, chronic back pain, osteoarthritis. PAST SURGICAL HISTORY: Back surgery, cardiac catheterization and coronary stent placement. SOCIAL HISTORY: Patient is a former smoker. He does use marijuana. No history of other drug abuse or alcohol abuse. MEDICATIONS: Medications prior to admission included Cozaar, Lipitor, Lasix, potassium, insulin, Zestril, Lyrica, Desyrel, aspirin, metoprolol, Brilinta. ALLERGIES: Allergies include TRAMADOL which causes itching. REVIEW OF SYSTEMS: As per HPI. Other systems negative. PHYSICAL EXAMINATION: Patient is comfortable, awake, not in any acute distress. Alert and oriented x3. He is weak and is currently being evaluated by Physical Therapy. Blood pressure is 110/66, heart rate 75 per minute. He is afebrile. EXAMINATION OF THE HEART: S1, S2. EXAMINATION OF THE LUNGS: Bilateral breath sounds are heard. Abdomen is soft, nontender. Examination of lower extremities shows no significant edema. [employer] exam is grossly intact. Labs show sodium 133, potassium 4.7, CO2 was 12.1, BUN 150, serum creatinine 3.1, hemoglobin 9.5 g/dL UA shows no significant blood, no protein was noted. ASSESSMENT: 1. Acute kidney injury, prerenal. Hold off on diuretics. Maintain IV fluids. As outpatient, patient was on Cozaar as well as Zestril. I believe this may have been an error. Currently, I will hold both the NELSY inhibitors and angiotensin receptor blockers. 2. Volume depletion. Will start patient on IV fluids. 3. Metabolic acidosis and anion gap secondary to renal failure. No history of diarrhea. Start IV bicarb drip. 4. History of falls, possibly related to postural hypotension, volume depletion. 5. History of coronary artery disease. 6. Type 2 diabetes. 7. Nonvisualization of left kidney on USS. ? Solitary kidney. PLAN: Start IV bicarb. Discontinue normal saline. Repeat labs in a.m. Hold off on NELSY inhibitors and angiotensin receptor blockers and diuretics for now. Continue to avoid NSAIDs. Check ultrasound of the kidneys. Thank you for this consultation. Will continue to follow the patient with you during his hospitalization. MMTRACYL / IJN: [id number] / MTDMonica
[2020-06-15 16:28] LABS: Glucose,Whole Blood 112 mg/dL (75-99)
[2020-06-15] MEDS: PANTOPRAZOLE 40 MG TABLET PO SCH (17:04)
--- NOTE | 2020-06-15 17:08 | HP ---
HISTORY AND PHYSICAL DATE OF SERVICE: 06/15/2020 CHIEF COMPLAINTS: Weakness and falls. HISTORY OF PRESENT ILLNESS: This 69-year-old gentleman with a past medical history of multiple medical problems, including CAD, diabetes mellitus, hypertension, hyperlipidemia, history of myocardial infarction, history of CAD, stent, and history of pancreatitis, hepatitis, being followed by Dr. Wan and Arti Patel in the outpatient setting, was complaining of increasing weakness and falls. The patient has some weakness on the left side, but the patient apparently fell at least 15 times, and the patient was admitted for further evaluation and treatment. On admission, the patient was found to have creatinine elevated to 3.8, indicating acute renal failure. Potassium was 6.1. After fluids, the potassium improved to 4.7. There is no history of any fever, rigor or chills. No history of headache, seizures. COVID-19 is pending at this time. PAST MEDICAL HISTORY: History of CAD, diabetes mellitus, hypertension, hyperlipidemia, myocardial infarction, pancreatitis, CAD and stent. HOME MEDICATIONS: Desyrel, Lyrica, K-Dur, Zestril, Cozaar, Lasix, Lipitor, Brilinta, Lopressor, Humalog Mix and aspirin. ALLERGIES: TRAMADOL. FAMILY HISTORY: History of myocardial infarction in the family. SOCIAL HISTORY: History of THC, history of nicotine dependence. Current smoking. REVIEW OF SYSTEMS: ENT: No diminished hearing. No diminished vision. CARDIOVASCULAR SYSTEM: No angina, palpitations. RESPIRATORY SYSTEM: No cough, hemoptysis. GI: No nausea, vomiting. : No dysuria or retention. NERVOUS SYSTEM: As mentioned earlier. ALLERGY/IMMUNOLOGY: No asthma, hayfever. MUSCULOSKELETAL: As mentioned earlier. HEMATOLOGY/ONCOLOGY: No history of anemia. ENDOCRINE: Diabetes mellitus. CONSTITUTIONAL: As mentioned earlier. DERMATOLOGY: Negative. RHEUMATOLOGY: Negative. PSYCHIATRY: As mentioned earlier. PHYSICAL EXAMINATION: Patient alert and oriented x3. Pulse 58, blood pressure 112/71, respiration 16, temperature 98.2, pulse ox 98% on room air. HEENT: Conjunctivae normal. NECK: No jugular venous distention. CARDIOVASCULAR SYSTEM: S1, S2 muffled. RESPIRATORY SYSTEM: Breath sounds diminished at the bases. A few rhonchi heard. No crackles. ABDOMEN: Soft, non-tender. No mass palpable. LEGS: No edema. No swelling. NERVOUS SYSTEM: Higher functions as mentioned earlier. Moves all 4 limbs. Mild diffuse weakness, left more than the right. SKIN: No ulcer, rash, bleeding. JOINTS: No active deforming arthropathy. LABS: WBC 11.5, hemoglobin 10.3, sodium 131, potassium 6.1, and BUN is 156, creatinine 3.83. ASSESSMENT: 1. Acute renal failure with acute tubular necrosis, prerenal renal failure. 2. Severe hyperkalemia secondary to renal failure. 3. Hyponatremia. 4. Falls and gait dysfunction; multiple 15 times. 5. Increased white count. 6. Anemia, normocytic. 7. Possible mild acute urinary tract infection. 8. History of diabetes mellitus, type 2. 9. Coronary artery disease. 10.Hypertension. 11.Hyperlipidemia. 12.Myocardial infarction. 13.History of pancreatitis. 14.History of hepatitis. 15.History of back surgery, degenerative joint disease. 16.History of coronary artery disease, stent. 17.Remote history of nicotine dependence. 18.History of tetrahydrocannabinol. 19.Gait dysfunction. RECOMMENDATIONS AND DISCUSSION: In this 69-year-old gentleman who presented with multiple complex medical issues, we will monitor the patient closely. Exact etiology of renal failure is unknown at this time. I recommend creatine kinase to rule out the possibility of rhabdomyolysis. Otherwise, empiric antibiotics, IV fluids cautiously. Nephrology consultation. Monitor blood sugars closely. Insulin scale. Resume the home medications. PT/OT evaluation. Consider possible ECF rehab if the patient continues to be weak; he had multiple falls because of the gait inability. Guarded prognosis. Further recommendations to follow. MMODL / IJN: [id number] /
[2020-06-15] MEDS: DEXTROSE 5% IN WATER 1,000 ML with SODIUM BICARB (1 MEQ/ML) 150 ML IV SCH (17:09)
--- NOTE | 2020-06-15 18:39 | US ---
EXAMINATION TYPE: US kidneys/renal and bladder DATE OF EXAM: 06/15/2020 COMPARISON: 04/28/2010 CLINICAL HISTORY: 69-year-old male with Renal failure TECHNIQUE: Multiple sonographic images of the kidneys and bladder are obtained. FINDINGS: EXAM MEASUREMENTS: Right Kidney: 10.6 x 5.6 x 5.3 cm Right Kidney: Benign cortical cyst at the upper to mid pole measuring 0.9 x 0.8 x 0.9 cm. There is no evidence of hydronephrosis. Possible small renal calculus measuring 0.5 cm Left Kidney: Unable to visualize Bladder: wnl Bilateral Jets seen: No Pot Puncher notes:Splenic granulomas Prostate gland is borderline in size at 4.0 cm. IMPRESSION: 1. The left kidney could not be visualized on the present exam. Follow-up can be performed to attempt visualization. 2. No hydronephrosis on the right. 5 mm nonobstructive right renal calculus.
[2020-06-15 20:35] LABS: Glucose,Whole Blood 154 mg/dL (75-99)
[2020-06-15] MEDS: HYDROcodone/APAP 7.5-325MG 1 EACH TAB PO PRN (20:41)
[2020-06-15] MEDS: ATORVASTATIN 40 MG TAB PO SCH (20:41)
[2020-06-15] MEDS: HEPARIN SODIUM,PORCINE 5,000 UNIT/ML 1 ML VIAL SQ SCH (20:41)
[2020-06-16] MEDS: HYDROcodone/APAP 7.5-325MG 1 EACH TAB PO PRN ×3 (04:39→17:47)
[2020-06-16] MEDS: DEXTROSE 5% IN WATER 1,000 ML with SODIUM BICARB (1 MEQ/ML) 150 ML IV SCH ×3 (04:39→23:48)
[2020-06-16 06:56] LABS: Basophils % (A) 1 %; Eosinophils # (A) 0.7 k/uL (0-0.7); Eosinophils % (A) 9 %; HCT 24.1 % (39.0-53.0); HGB 8.7 gm/dL (13.0-17.5); Lymphocytes # (A) 0.8 k/uL (1.0-4.8); Lymphocytes % (A) 10 %; MCH 31.3 pg (25.0-35.0); MCHC 36.3 g/dL (31.0-37.0); MCV 86.1 fL (80.0-100.0); Mean Platelet Volume 8.3; Monocytes # (A) 0.5 k/uL (0-1.0); Monocytes % (A) 7 %; Neutrophils # (A) 5.7 k/uL (1.3-7.7); Neutrophils % (A) 72 %; Platelet Count 191 k/uL (150-450); RDW 12.9 % (11.5-15.5)
[2020-06-16] MEDS: PANTOPRAZOLE 40 MG TABLET PO SCH (07:24)
[2020-06-16] MEDS: PREGABALIN 50 MG CAP PO SCH ×2 (07:24→20:19)
[2020-06-16] MEDS: HEPARIN SODIUM,PORCINE 5,000 UNIT/ML 1 ML VIAL SQ SCH ×2 (07:24→20:19)
[2020-06-16] MEDS: TICAGRELOR 90 MG TAB PO SCH ×2 (07:24→20:19)
[2020-06-16] MEDS: INSULN ASP PRT/INSULIN ASPART 100 UNIT/ML 10 ML VIAL SQ SCH ×2 (07:25→17:54)
[2020-06-16] MEDS: ASPIRIN 81 MG PO SCH (07:25)
[2020-06-16] MEDS: METOPROLOL TARTRATE 50 MG TAB PO SCH (07:25)
[2020-06-16] MEDS: INSULIN ASPART (NovoLOG) 100 UNIT/ML VIAL SQ SCH ×4 (07:26→20:15)
[2020-06-16] MEDS: POTASSIUM CHLORIDE ER 20 MEQ TAB.ER PO SCH (07:28)
[2020-06-16 07:29] LABS: Glucose,Whole Blood 149 mg/dL (75-99)
[2020-06-16] MEDS: THIAMINE 100 MG TAB PO SCH (10:52)
[2020-06-16] MEDS: MULTIVITAMINS, THERA 1 EACH TAB PO SCH (10:52)
[2020-06-16 11:30] LABS: African American GFR (CKD) 34.6 (60.0-200.0); Anion Gap 11.1 mmol/L (4.00-12.00); BUN/Creat Ratio 55.91 Ratio (12.00-20.00); Calcium 8.1 mg/dL (8.7-10.3); Carbon Dioxide 20.9 mmol/L (21.6-31.8); Non-African American GFR(CKD) 29.9 (60.0-200.0); Potassium 3.9 mmol/L (3.5-5.5)
[2020-06-16 11:36] LABS: Glucose,Whole Blood 73 mg/dL (75-99)
--- NOTE | 2020-06-16 15:19 | PN ---
PROGRESS NOTE Patient is seen for followup for acute kidney injury. His renal function has improved, with creatinine down from 3.8 to 2.2 mg/dL. Patient is currently being hydrated. Patient denies any significant symptoms. He has had good urine output. Renal function has improved. PHYSICAL EXAMINATION: On examination today, blood pressure is 120/56, heart rate 64 per minute. He is afebrile. EXAMINATION OF THE HEART: S1 and S2. EXAMINATION OF LUNGS: Bilateral breath sounds are heard. ABDOMEN: Soft, non-tender. Examination of lower extremities shows no significant edema. MILK RUNNER exam is grossly intact. LABS: Labs show sodium 135, potassium 3.9, chloride 103. CO2 is 20.9. BUN 123.0, serum creatinine 2.2 mg/dL, hemoglobin 8.7 g/dL. ASSESSMENT: 1. Acute kidney injury, prerenal, currently improving with IV hydration. Ultrasound shows non-visualization of the left kidney. Right kidney was unremarkable. UA is fairly benign, with no evidence of proteinuria, and small blood was noted. There are no nephrotoxic agents on board. 2. Metabolic acidosis, currently maintained on IV bicarb. Etiology is renal failure. 3. History of falls, possibly related to hypovolemia, postural hypotension. 4. History of coronary artery disease. 5. Type 2 diabetes. PLAN: Continue with the IV bicarb drip for now. Check iron profile if not checked this admission. Rule out iron deficiency. Repeat labs in a.m. Encourage increased oral intake. MMODL / IJN: [id number] /
[2020-06-16 17:09] LABS: Glucose,Whole Blood 132 mg/dL (75-99)
--- NOTE | 2020-06-16 18:05 | PN ---
PROGRESS NOTE DATE OF SERVICE: 06/16/2020 This 69-year-old gentleman who was admitted with acute renal failure with acute tubular necrosis is being closely monitored at this time. The patient possibly also had rhabdomyolysis. Nephrology is following the patient closely. The creatinine is 2.2 at this time. Patient is on IV fluids. CK is also elevated. Patient also had elevated blood sugars. Hemoglobin is 8.3. Past medical history reviewed. REVIEW OF SYSTEMS: CARDIOVASCULAR SYSTEM: No angina, palpitations. RESPIRATORY SYSTEM: As mentioned earlier. GI: As mentioned earlier. : No dysuria or retention. NERVOUS SYSTEM: No numbness, weakness. CURRENT MEDICATIONS: Reviewed. They include Tylenol, [place], Xanax, Lipitor, Rocephin, NovoLog, vitamin Brilinta, Desyrel. Doses are reviewed. PHYSICAL EXAMINATION: Patient alert and oriented x3. Pulse 60, blood pressure 120/60, respirations 16, temperature 97.9, pulse ox 99% on room air. HEENT: Conjunctivae normal. NECK: No jugular venous distention. CARDIOVASCULAR SYSTEM: S1, S2 muffled. RESPIRATORY SYSTEM: Breath sounds diminished at the bases. A few scattered rhonchi and crackles. ABDOMEN: Soft, non-tender. LEGS: No edema. No swelling. NERVOUS SYSTEM: No focal deficit. LABS: WBC 8, hemoglobin is 8.7 and creatinine is 2.2. Other labs are noted. ASSESSMENT: 1. Acute renal failure from acute tubular necrosis, multifactorial, with prerenal acute renal failure. 2. Acute rhabdomyolysis. 3. Severe hyperkalemia secondary to renal failure. 4. Hyponatremia. 5. Falls and gait dysfunction, multiple; 15 times. 6. Increased white count. 7. Anemia, normocytic. 8. Mild urinary tract infection, present on admission. 9. History of diabetes mellitus, type 2. 10.Coronary artery disease. 11.Hypertension. 12.Hyperlipidemia. 13.History of myocardial infarction. 14.History of pancreatitis. 15.History of hepatitis. 16.History of back surgery, degenerative joint disease. 17.History of coronary artery disease, stent. 18.History of nicotine dependence. 19.History of tetrahydrocannabinol. 20.Gait dysfunction. 21.FULL CODE. RECOMMENDATIONS AND DISCUSSION: In this 69-year-old gentleman who presented with multiple complex medical issues, we will monitor the patient closely, continue the current medications, continue symptomatic treatment. Otherwise at this time I recommend continuing with IV fluids. Monitor labs. Closely follow with Nephrology. PT/OT evaluation, possible ECF rehab. Guarded prognosis. Further recommendations to follow. BERNADINE / LAKSHMIN: [id number] / MTDD
[2020-06-16 20:15] LABS: Glucose,Whole Blood 93 mg/dL (75-99)
[2020-06-16] MEDS: ATORVASTATIN 40 MG TAB PO SCH (20:19)
[2020-06-16 23:32] LABS: % Iron Saturation 42.31 (15.00-50.00)
[2020-06-17] MEDS: HYDROcodone/APAP 7.5-325MG 1 EACH TAB PO PRN ×4 (00:02→18:12)
[2020-06-17 07:00] LABS: Basophils % (A) 1 %; Eosinophils # (A) 0.5 k/uL (0-0.7); Eosinophils % (A) 6 %; HCT 29.3 % (39.0-53.0); HGB 10.2 gm/dL (13.0-17.5); Lymphocytes # (A) 1.1 k/uL (1.0-4.8); Lymphocytes % (A) 14 %; MCH 30.2 pg (25.0-35.0); MCHC 34.6 g/dL (31.0-37.0); MCV 87.3 fL (80.0-100.0); Mean Platelet Volume 8.1; Monocytes # (A) 0.5 k/uL (0-1.0); Monocytes % (A) 6 %; Neutrophils # (A) 5.9 k/uL (1.3-7.7); Neutrophils % (A) 72 %; Platelet Count 246 k/uL (150-450); RBC 3.36 m/uL (4.30-5.90); RDW 13.4 % (11.5-15.5); WBC 8.2 k/uL (3.8-10.6)
[2020-06-17 07:10] LABS: Glucose,Whole Blood 146 mg/dL (75-99)
[2020-06-17] MEDS: METOPROLOL TARTRATE 50 MG TAB PO SCH ×2 (07:49→21:02)
[2020-06-17] MEDS: POTASSIUM CHLORIDE ER 20 MEQ TAB.ER PO SCH (07:49)
[2020-06-17] MEDS: PANTOPRAZOLE 40 MG TABLET PO SCH (07:49)
[2020-06-17] MEDS: ASPIRIN 81 MG PO SCH (07:50)
[2020-06-17] MEDS: PREGABALIN 50 MG CAP PO SCH ×2 (07:50→21:02)
[2020-06-17] MEDS: HEPARIN SODIUM,PORCINE 5,000 UNIT/ML 1 ML VIAL SQ SCH ×2 (07:50→21:02)
[2020-06-17] MEDS: INSULIN ASPART (NovoLOG) 100 UNIT/ML VIAL SQ SCH ×4 (07:51→20:51)
[2020-06-17] MEDS: TICAGRELOR 90 MG TAB PO SCH ×2 (07:51→21:02)
[2020-06-17] MEDS: INSULN ASP PRT/INSULIN ASPART 100 UNIT/ML 10 ML VIAL SQ SCH ×2 (07:51→17:22)
[2020-06-17 09:42] LABS: Anion Gap 9.8 mmol/L (4.00-12.00); Calcium 8.9 mg/dL (8.7-10.3); Carbon Dioxide 29.2 mmol/L (21.6-31.8); Non-African American GFR(CKD) 47.5 (60.0-200.0); Potassium 4.4 mmol/L (3.5-5.5)
[2020-06-17 11:52] LABS: Glucose,Whole Blood 122 mg/dL (75-99)
[2020-06-17] MEDS: THIAMINE 100 MG TAB PO SCH (12:20)
[2020-06-17] MEDS: MULTIVITAMINS, THERA 1 EACH TAB PO SCH (12:21)
[2020-06-17] MEDS: DEXTROSE 5% IN WATER 1,000 ML with SODIUM BICARB (1 MEQ/ML) 150 ML IV SCH (12:21)
[2020-06-17] MEDS: ONDANSETRON 4 MG/2 ML VIAL IVP PRN ×2 (12:24→23:05)
[2020-06-17] MEDS: HYDROmorphone 0.5 MG/0.5 ML SYRINGE IVP PRN ×2 (15:00→21:18)
--- NOTE | 2020-06-17 16:29 | PN ---
PROGRESS NOTE Patient is seen for followup for acute kidney injury which was mainly prerenal. Patient is maintained on IV fluids. Renal function has improved with creatinine down from 3.8 on initial admission to 1.5 now. PHYSICAL EXAMINATION: Patient is comfortable, denies any significant complaints. Blood pressure this morning 153/71, heart rate 84 per minute, he is afebrile. Examination of the heart S1, S2. Examination of the lungs, bilateral breath sounds are heard. Abdomen is soft, nontender. Examination of lower extremities shows no evidence of edema. [employer]ESS [employer] MECH[employer]IC exam grossly intact. LAB: Show sodium 140, potassium 4.4, chloride 101, BUN 75, creatinine 1.5, hemoglobin 10.2 g/dL. ASSESSMENT: 1. Acute kidney injury, prerenal, currently improved. The patient is maintained on IV fluids which we will continue for now. 2. Volume depletion, improved. 3. Metabolic acidosis maintained on IV bicarb, currently improved. I will discontinue the bicarb drip. 4. History of falls most likely related to hypovolemia and postural hypotension. 5. Type 2 diabetes. 6. Coronary artery disease. PLAN: Discontinue IV bicarb. Encourage increased oral intake. Maintain IV fluids at about 50 mL an hour. MMODL / IJN: [id number] /
[2020-06-17 16:35] LABS: Glucose,Whole Blood 134 mg/dL (75-99)
[2020-06-17] MEDS: methylPREDNISolone SOD SUCCI 40 MG/ML 1 ML VIAL IV SCH ×2 (17:21→23:05)
[2020-06-17] MEDS: SODIUM CHLORIDE 0.9% 1,000 ML IV SCH (17:22)
--- NOTE | 2020-06-17 18:00 | PN ---
PROGRESS NOTE DATE OF SERVICE: 06/17/2020. This 69-year-old gentleman who was admitted with acute renal failure secondary to acute rhabdomyolysis also has history of multiple falls. The patient also complains of severe back pain and CT scan showed multilevel DJD and spinal stenosis. Orthopedic evaluation has been sought. Abdominal and pelvis ultrasound was also requested by Nephrology which showed no hydronephrosis and left kidney could not be visualized. After IV fluids and bicarb drip, the BUN is 75, creatinine is 1.5 at this time. Past medical history reviewed. REVIEW OF SYSTEMS: CARDIOVASCULAR SYSTEM: No angina. Respiration as mentioned earlier. GI mentioned. no dysuria. Nervous system: No focal deficits. CURRENT MEDICATIONS: Reviewed and include: Tylenol, [place], Xanax, aspirin, Lipitor, Rocephin, heparin, Dilaudid, NovoLog, Solu-Medrol. Lopressor, K-Dur, Lyrica, vitamin B1, Brilinta, Desyrel. PHYSICAL EXAM: Patient is alert, oriented x3. Pulse 72. Blood pressure 103/52, respiration 18, temperature 99.1, pulse ox 97% on room air. HEENT: Conjunctivae normal. NECK: No JVD. CARDIOVASCULAR: S1, S2 muffled. RESPIRATORY SYSTEM: Breath sounds diminished at the bases. Scattered rhonchi and crackles. ABDOMEN: Soft, nontender. EXTREMITIES: Examination of the back some tenderness. LEGS are no edema and no swelling. NERVOUS SYSTEM: Diffusely weak. LABS: WBC 8.2, hemoglobin 10.6. Glucose noted. ASSESSMENT: 1. Acute renal failure from acute tubular necrosis multifactorial with prerenal acute renal failure secondary to possible rhabdomyolysis. 2. Acute rhabdomyolysis. 3. Severe hyperkalemia secondary to renal failure present on admission, improving. 4. Hyponatremia. 5. Falls and gait dysfunction multiple 15 times. 6. Increased WBC. 7. Back pain possible degenerative joint disease and as well as spinal canal stenosis. 8. Anemia, normocytic. 9. Mild urinary tract infection present on admission. 10.History of diabetes type 2. 11.History of coronary artery disease. 12.Hypertension. 13.Hyperlipidemia. 14.History of myocardial infarction. 15.History of pancreatitis. 16.History of hepatitis. 17.History of back surgery/degenerative joint disease. 18.History of coronary artery disease/stent. 19.History of nicotine dependence. 20.History of THC. 21.Gait dysfunction. 22.FULL CODE. RECOMMENDATIONS AND DISCUSSION: In this 69 -year-old gentleman who presented with multiple complex medical issues, we will monitor the patient closely. Continue the current medications. Symptomatic treatment. Otherwise, at this time, continue the IV fluids and repeat labs. Symptomatic treatment. I would also recommend a course of IV steroids. Orthopedic evaluation. Continue the pain medications. Prognosis guarded because of multiple complex medical issues. Further recommendations to follow. MMODL / IJN: [id number] /
[2020-06-17 20:54] LABS: Glucose,Whole Blood 71 mg/dL (75-99)
[2020-06-17] MEDS: ATORVASTATIN 40 MG TAB PO SCH (21:02)
[2020-06-17] MEDS: PANTOPRAZOLE 40 MG/10 ML VIAL IVP SCH (21:02)
[2020-06-17 22:57] LABS: Glucose,Whole Blood 113 mg/dL (75-99)
[2020-06-18] MEDS: HYDROcodone/APAP 7.5-325MG 1 EACH TAB PO PRN ×3 (00:18→12:00)
[2020-06-18] MEDS: HYDROmorphone 0.5 MG/0.5 ML SYRINGE IVP PRN ×2 (04:22→19:10)
[2020-06-18] MEDS: methylPREDNISolone SOD SUCCI 40 MG/ML 1 ML VIAL IV SCH ×2 (05:46→12:00)
[2020-06-18 06:31] LABS: Basophils % (A) 0 %; Eosinophils % (A) 0 %; Lymphocytes # (A) 0.3 k/uL (1.0-4.8); Lymphocytes % (A) 4 %; MCH 30.9 pg (25.0-35.0); MCHC 34.3 g/dL (31.0-37.0); Mean Platelet Volume 8.3; Monocytes # (A) 0.1 k/uL (0-1.0); Monocytes % (A) 2 %; Neutrophils # (A) 6.5 k/uL (1.3-7.7); Neutrophils % (A) 94 %; Platelet Count 215 k/uL (150-450); RBC 3.23 m/uL (4.30-5.90)
[2020-06-18 06:52] LABS: Glucose,Whole Blood 160 mg/dL (75-99)
[2020-06-18] MEDS: ASPIRIN 81 MG PO SCH (07:42)
[2020-06-18] MEDS: POTASSIUM CHLORIDE ER 20 MEQ TAB.ER PO SCH (07:42)
[2020-06-18] MEDS: METOPROLOL TARTRATE 50 MG TAB PO SCH ×2 (07:42→20:27)
[2020-06-18] MEDS: PREGABALIN 50 MG CAP PO SCH ×2 (07:43→20:27)
[2020-06-18] MEDS: HEPARIN SODIUM,PORCINE 5,000 UNIT/ML 1 ML VIAL SQ SCH ×2 (07:43→20:27)
[2020-06-18] MEDS: PANTOPRAZOLE 40 MG/10 ML VIAL IVP SCH ×2 (07:43→20:27)
[2020-06-18] MEDS: TICAGRELOR 90 MG TAB PO SCH ×2 (07:44→20:27)
[2020-06-18] MEDS: INSULN ASP PRT/INSULIN ASPART 100 UNIT/ML 10 ML VIAL SQ SCH ×2 (07:44→16:59)
[2020-06-18] MEDS: INSULIN ASPART (NovoLOG) 100 UNIT/ML VIAL SQ SCH ×4 (07:45→20:22)
[2020-06-18] MEDS ORDERED: diazePAM 5 MG TAB PO STA (08:41)
--- NOTE | 2020-06-18 08:52 | P.PN ---
Subjective Progress Note Date: 06/18/20 Principal diagnosis: This is a 69-year-old male seen in consultation because of acute kidney injury from low blood pressure likely from medications. His creatinine is improved the blood pressure is controlled. He came in because of frequent falls, which she has scratched a generalized weakness. Those blood pressure recorded was in the 80s. He was given IV fluids with improvement in his creatinine, which came down from 3.83-1.5 as of yesterday her Patient does complain of dizziness. He denies nausea vomiting no diarrhea. Appetite is poor for years now and he has slowly lost weight over the last 10 years from 300+ pounds to the current weight of 190 pounds He has had an MRI of the back in the past for chronic back Objective - Vital Signs Vital signs: Vital Signs Temp 99.1 F 06/18/20 07:51 Pulse 82 06/18/20 07:51 Resp 18 06/18/20 07:51 BP 158/76 06/18/20 07:51 Pulse Ox 98 06/18/20 07:51 Intake & Output 06/17/20 06/18/20 06/18/20 18:59 06:59 18:59 Intake Total 1080 Output Total 1175 Balance -95 Intake: Oral 1080 Output: Urine 1175 Other: Voiding Method Toilet Toilet Urinal Urinal # Voids 1 2 On examination is awake alert oriented comfortable HEENT exam no JVP Neck is supple no facial asymmetry Lungs are clear to auscultation good air entry bilaterally Heart sounds unremarkable for any murmur rub gallop Abdomen soft nontender no masses Extremity exam was no edema Neurologically awake alert oriented - Labs CBC & Chem 7: 06/18/20 05:34 06/17/20 06:11 Labs: Abnormal Lab Results - Last 24 Hours (Table) 06/17/20 06/17/20 06/17/20 Range/Units 06:11 11:51 16:34 RBC (4.30-5.90) m/uL Hgb (13.0-17.5) gm/dL Hct (39.0-53.0) % Lymphocytes # (1.0-4.8) k/uL BUN 75.0 H (9.0-27.0) mg/dL Est GFR (CKD-EPI)AfAm 55.0 L (60.0-200.0) Est GFR (CKD-EPI)NonAf 47.5 L (60.0-200.0) BUN/Creatinine Ratio 50.00 H (12.00-20.00) Ratio Glucose 119 H (70-110) mg/dL POC Glucose (mg/dL) 122 H 134 H (75-99) mg/dL 06/17/20 06/17/20 06/18/20 Range/Units 20:42 22:56 05:34 RBC 3.23 L (4.30-5.90) m/uL Hgb 10.0 L (13.0-17.5) gm/dL Hct 29.0 L (39.0-53.0) % Lymphocytes # 0.3 L (1.0-4.8) k/uL BUN (9.0-27.0) mg/dL Est GFR (CKD-EPI)AfAm (60.0-200.0) Est GFR (CKD-EPI)NonAf (60.0-200.0) BUN/Creatinine Ratio (12.00-20.00) Ratio Glucose (70-110) mg/dL POC Glucose (mg/dL) 71 L 113 H (75-99) mg/dL 06/18/20 Range/Units 06:50 RBC (4.30-5.90) m/uL Hgb (13.0-17.5) gm/dL Hct (39.0-53.0) % Lymphocytes # (1.0-4.8) k/uL BUN (9.0-27.0) mg/dL Est GFR (CKD-EPI)AfAm (60.0-200.0) Est GFR (CKD-EPI)NonAf (60.0-200.0) BUN/Creatinine Ratio (12.00-20.00) Ratio Glucose (70-110) mg/dL POC Glucose (mg/dL) 160 H (75-99) mg/dL Assessment and Plan Plan: Impression 1. Acute kidney injury, secondary to low blood pressure and medications improved with discontinuation of medication and IV fluids, creatinine came down from 3.83-1.5 as of yesterday 2. chronic kidney disease stage II, creatinine 1.1, and GFR 67 mL per minute today as of 02/23/2020 based on solitary kidney on ultrasound 3. Chronic weight loss 4. Chronic back pain with frequent falls Recommendation Check prostatic changes to make sure the falls are not from hypotension. Watch blood pressures patient currently on metoprolol 50 twice a day and on pain medications [place]. Patient is very worried about MRI as she is claustrophobic
[2020-06-18 09:32] LABS: Anion Gap 10.5 mmol/L (4.00-12.00); Calcium 8.8 mg/dL (8.7-10.3); Carbon Dioxide 28.5 mmol/L (21.6-31.8); Non-African American GFR(CKD) 47.5 (60.0-200.0)
[2020-06-18 11:37] LABS: Glucose,Whole Blood 254 mg/dL (75-99)
[2020-06-18] MEDS: MULTIVITAMINS, THERA 1 EACH TAB PO SCH (11:59)
[2020-06-18] MEDS: THIAMINE 100 MG TAB PO SCH (11:59)
[2020-06-18] MEDS: SODIUM CHLORIDE 0.9% 1,000 ML IV SCH (12:01)
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
[2020-06-18 16:56] LABS: Glucose,Whole Blood 173 mg/dL (75-99)
--- NOTE | 2020-06-18 17:04 | PN ---
PROGRESS NOTE DATE OF SERVICE: 06/18/2020 INTERVAL HISTORY: This is a 69-year-old gentleman who was admitted with acute renal failure also had acute rhabdomyolysis. The patient also had back pain and is treated symptomatically with improvement. No chest pain. No palpitations. No fever. PHYSICAL EXAMINATION: GENERAL: Patient is alert and oriented times three. VITAL SIGNS: Pulse 82, blood pressure 158/76, respirations 18, temperature 99.1, pulse ox 98% on room air. HEENT: Conjunctivae normal. Oral mucosa moist. NECK: No jugular venous distention. No carotid bruits. No lymph node enlargement. RESPIRATORY: Breath sounds diminished at the bases. No rhonchi, no crackles. HEART: S1 and S2, muffled. ABDOMEN: Soft, no tenderness. No masses palpable. EXTREMITIES: No edema, no swelling. NERVOUS: Diffusely weak. LABS: Hemoglobin 10, creatinine 1.5, BUN is 48. Accu-Cheks are noted. ASSESSMENT: 1. Acute renal failure with acute tubular necrosis multifactorial with prerenal acute renal failure secondary to possible rhabdomyolysis. 2. Acute rhabdomyolysis. 3. Severe hyperkalemia secondary to acute renal failure present on admission and improving. 4. Hyponatremia. 5. Falls and gait dysfunction with multiple falls, 15 times. 6. Increased WBC. 7. Back pain, possible degenerative joint disease, as well as spinal canal stenosis. 8. Anemia, normocytic. 9. Mild acute urinary tract infection present on admission. 10.History of diabetes mellitus type 2. 11.History of coronary artery disease. 12.History of hypertension. 13.History of hyperlipidemia. 14.History of myocardial infarction. 15.History of pancreatitis. 16.History of hepatitis. 17.History of back surgery and degenerative joint disease. 18.History of coronary artery disease with stent. 19.History of nicotine dependence. 20.History of THC. 21.Gait dysfunction. 22.FULL CODE. RECOMMENDATIONS AND DISCUSSION: Continue current medications, continue with monitoring and symptomatic treatment. Otherwise at this time I recommend continue with IV steroids and taper dose. Monitor creatinine closely. Closely follow with Infectious Disease. Guarded prognosis. Further recommendations to follow. MMODL / IJN: [id number] /
[2020-06-18 20:21] LABS: Glucose,Whole Blood 135 mg/dL (75-99)
[2020-06-18] MEDS: ATORVASTATIN 40 MG TAB PO SCH (20:27)
[2020-06-19 06:41] LABS: Glucose,Whole Blood 86 mg/dL (75-99)
[2020-06-19] MEDS: INSULIN ASPART (NovoLOG) 100 UNIT/ML VIAL SQ SCH ×4 (07:14→20:41)
[2020-06-19] MEDS: METOPROLOL TARTRATE 50 MG TAB PO SCH ×2 (07:18→20:42)
[2020-06-19] MEDS: POTASSIUM CHLORIDE ER 20 MEQ TAB.ER PO SCH ×2 (07:18→07:24)
[2020-06-19] MEDS: PREGABALIN 50 MG CAP PO SCH ×2 (07:18→20:42)
[2020-06-19] MEDS: INSULN ASP PRT/INSULIN ASPART 100 UNIT/ML 10 ML VIAL SQ SCH ×2 (07:19→17:06)
[2020-06-19] MEDS: ASPIRIN 81 MG PO SCH (07:19)
[2020-06-19] MEDS: TICAGRELOR 90 MG TAB PO SCH ×2 (07:19→20:42)
[2020-06-19] MEDS: SODIUM CHLORIDE 0.9% 1,000 ML IV SCH (07:20)
[2020-06-19] MEDS: HEPARIN SODIUM,PORCINE 5,000 UNIT/ML 1 ML VIAL SQ SCH ×2 (07:21→20:41)
[2020-06-19] MEDS: PANTOPRAZOLE 40 MG/10 ML VIAL IVP SCH ×2 (07:21→20:41)
[2020-06-19] MEDS: HYDROmorphone 0.5 MG/0.5 ML SYRINGE IVP PRN (08:14)
[2020-06-19] MEDS ORDERED: methylPREDNISolone SOD SUCCI 40 MG/ML 1 ML VIAL IV SCH (09:00)
--- NOTE | 2020-06-19 09:37 | P.PN ---
Subjective Progress Note Date: 06/19/20 Principal diagnosis: This is a 69-year-old male seen in consultation because of acute kidney injury from low blood pressure likely from medications. His creatinine has improved wi th adjustment of his blood pressure medication and the blood pressure is controlled. He came in because of frequent falls, which he ascibes to generalized weakness. The lowest blood pressure recorded was in the 80s. He was given IV fluids with improvement in his creatinine, which came down from 3.83-1.5 Patient does complain of dizziness occasionally. He also is now complaining of frequency and difficulty in urinary stream and urgency. This has been going on for some time. He has never seen a urologist He denies nausea vomiting no diarrhea. Appetite is poor for years now and he has slowly lost weight over the last 10 years from 300+ pounds to the current weight of 190 pounds He has had an MRI of the back in the past for chronic back. A repeat MRI yesterday was canceled as he cc we'll see a health program specialist as an outpatient He would walk without a walker. Objective - Vital Signs Vital signs: Vital Signs Temp 98.3 F 06/19/20 08:00 Pulse 92 06/19/20 08:00 Resp 17 06/19/20 08:00 BP 164/68 06/19/20 08:00 Pulse Ox 97 06/19/20 08:00 Intake & Output 06/18/20 06/19/20 06/19/20 18:59 06:59 18:59 Other: Voiding Method Toilet Toilet Toilet Urinal Urinal Urinal # Voids 2 2 On examination is awake alert oriented comfortable HEENT exam no JVP neck is supple no facial asymmetry Lungs clear to auscultation good air entry bilaterally Heart sounds unremarkable Abdomen soft nontender bladder is not distended Exam was no edema Neurologically awake alert oriented - Labs CBC & Chem 7: 06/18/20 05:34 06/18/20 05:34 Labs: Abnormal Lab Results - Last 24 Hours (Table) 06/18/20 06/18/20 06/18/20 Range/Units 05:34 11:35 16:55 BUN 48.0 H (9.0-27.0) mg/dL Est GFR (CKD-EPI)AfAm 55.0 L (60.0-200.0) Est GFR (CKD-EPI)NonAf 47.5 L (60.0-200.0) BUN/Creatinine Ratio 32.00 H (12.00-20.00) Ratio Glucose 153 H (70-110) mg/dL POC Glucose (mg/dL) 254 H 173 H (75-99) mg/dL 06/18/20 Range/Units 20:20 BUN (9.0-27.0) mg/dL Est GFR (CKD-EPI)AfAm (60.0-200.0) Est GFR (CKD-EPI)NonAf (60.0-200.0) BUN/Creatinine Ratio (12.00-20.00) Ratio Glucose (70-110) mg/dL POC Glucose (mg/dL) 135 H (75-99) mg/dL Assessment and Plan Plan: Impression 1. Acute kidney injury, secondary to low blood pressure and medications improved with discontinuation of medication and with IV fluids, creatinine came down from 3.83-1.5 2. chronic kidney disease stage II, creatinine 1.1, and GFR 67 mL per minute today as of 02/23/2020 based on solitary kidney on ultrasound. No previous history of any surgery. 3. Chronic weight loss 4. Chronic back pain with frequent falls. 5. Prostatism with frequency slow stream and urgency Recommendation 1. Check postvoid residual 2. Call me back with orthostatic changes if any 3. Obtain PSA 4. Will need urological evaluation that can be done as an outpatient 5. Start Flomax 4 mg in the
[2020-06-19 11:17] LABS: Glucose,Whole Blood 61 mg/dL (75-99)
[2020-06-19 11:37] LABS: Glucose,Whole Blood 108 mg/dL (75-99)
[2020-06-19] MEDS: THIAMINE 100 MG TAB PO SCH (11:41)
[2020-06-19] MEDS: MULTIVITAMINS, THERA 1 EACH TAB PO SCH (11:41)
[2020-06-19 16:48] LABS: Glucose,Whole Blood 195 mg/dL (75-99)
--- NOTE | 2020-06-19 16:50 | PN ---
PROGRESS NOTE DATE OF SERVICE: 06/19/2020 This 69-year-old gentleman was admitted with acute renal failure, also had back pain also. Dr. Coronado has seen the patient and recommended PT/OT and outpatient followup. ECF rehab. improved significantly. No chest pain, no palpitation. PHYSICAL EXAMINATION: Alert and oriented. Pulse 92, blood pressure 160/68, respirations 17, temperature 98.2, pulse ox 97% on room air. HEENT: Conjunctivae normal. Oral mucosa moist. NECK: No jugular venous distention. No lymph node enlargement. CARDIOVASCULAR: S1, S2, muffled. No S3, no S4, RESPIRATORY: Diminished breath sounds at the bases. No rhonchi, no crackles. ABDOMEN: Soft, nontender. LEGS: No edema, no swelling. NERVOUS SYSTEM: No focal motor or sensory deficits. LABS: Creatinine is 1.5. ASSESSMENT: 1. Acute renal failure, acute tubular necrosis, multifactorial with prerenal acute renal failure secondary to rhabdomyolysis. 2. Acute rhabdomyolysis present on admission with severe hyperkalemia secondary to acute renal failure, present on admission and improving. 3. Hyponatremia. 4. Fall and gait dysfunction with multiple falls ,15 times. 5. Increased WBC. 6. Back pain, possible degenerative joint disease as well as spinal canal stenosis. 7. Anemia, normocytic. 8. Mild acute urinary tract infection present on admission. 9. History of diabetes type 2. 10.History of coronary artery disease. 11.Hypertension. 12.Hyperlipidemia. 13.History of myocardial infarction. 14.History of pancreatitis. 15.History hepatitis. 16.History of back surgery, DJD. 17.History of coronary artery disease, stent. 18.History of nicotine dependence. 19.History of THC. 20.Gait dysfunction. 21.FULL CODE. RECOMMENDATIONS AND DISCUSSION: I recommend to continue the current medications, continue symptomatic treatment and repeat labs. Continue with IV fluids. Prognosis guarded because of multiple complex medical issues. Further recommendations to follow. 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 MMODL / IJN: [id number] / MARLON
[2020-06-19] MEDS ORDERED: TAMSULOSIN 0.4 MG CAP.ER.24H PO SCH (18:30)
[2020-06-19 20:13] LABS: Glucose,Whole Blood 216 mg/dL (75-99)
[2020-06-19] MEDS: ATORVASTATIN 40 MG TAB PO SCH (20:42)
[2020-06-20] MEDS: SODIUM CHLORIDE 0.9% 1,000 ML IV SCH (03:08)
[2020-06-20 06:21] LABS: Basophils % (A) 0 %; Eosinophils # (A) 0.1 k/uL (0-0.7); Eosinophils % (A) 1 %; HCT 27.4 % (39.0-53.0); HGB 9.6 gm/dL (13.0-17.5); Lymphocytes # (A) 1.1 k/uL (1.0-4.8); Lymphocytes % (A) 12 %; MCH 31.4 pg (25.0-35.0); MCHC 35.1 g/dL (31.0-37.0); MCV 89.3 fL (80.0-100.0); Mean Platelet Volume 8.2; Monocytes # (A) 0.5 k/uL (0-1.0); Monocytes % (A) 5 %; Neutrophils # (A) 7.2 k/uL (1.3-7.7); Neutrophils % (A) 79 %; Platelet Count 180 k/uL (150-450); RBC 3.06 m/uL (4.30-5.90); RDW 13.2 % (11.5-15.5); WBC 9.1 k/uL (3.8-10.6)
[2020-06-20 06:59] LABS: Glucose,Whole Blood 81 mg/dL (75-99)
[2020-06-20] MEDS: INSULIN ASPART (NovoLOG) 100 UNIT/ML VIAL SQ SCH ×2 (07:05→12:00)
[2020-06-20] MEDS: INSULN ASP PRT/INSULIN ASPART 100 UNIT/ML 10 ML VIAL SQ SCH (07:06)
[2020-06-20 07:47] VITALS: BP 127/72; PULSE 74; RESP 18; TEMP 98.6
[2020-06-20] MEDS: METOPROLOL TARTRATE 50 MG TAB PO SCH (08:21)
[2020-06-20] MEDS: HEPARIN SODIUM,PORCINE 5,000 UNIT/ML 1 ML VIAL SQ SCH (08:21)
[2020-06-20] MEDS: ASPIRIN 81 MG PO SCH (08:21)
[2020-06-20] MEDS: PREGABALIN 50 MG CAP PO SCH (08:21)
[2020-06-20] MEDS: POTASSIUM CHLORIDE ER 20 MEQ TAB.ER PO SCH (08:21)
[2020-06-20] MEDS: PANTOPRAZOLE 40 MG/10 ML VIAL IVP SCH (08:21)
[2020-06-20] MEDS: TICAGRELOR 90 MG TAB PO SCH (08:22)
[2020-06-20] MEDS ORDERED: predniSONE 10 MG TAB PO SCH (09:00)
[2020-06-20 10:07] LABS: African American GFR (CKD) 65.4 (60.0-200.0); Anion Gap 6.9 mmol/L (4.00-12.00); BUN/Creat Ratio 30.77 Ratio (12.00-20.00); Calcium 8.4 mg/dL (8.7-10.3); Carbon Dioxide 26.1 mmol/L (21.6-31.8); Non-African American GFR(CKD) 56.5 (60.0-200.0); Potassium 4.2 mmol/L (3.5-5.5)
[2020-06-20 11:53] LABS: Glucose,Whole Blood 144 mg/dL (75-99)
[2020-06-20] MEDS: THIAMINE 100 MG TAB PO SCH (12:00)
[2020-06-20] MEDS: MULTIVITAMINS, THERA 1 EACH TAB PO SCH (12:00)
--- NOTE | 2020-06-20 13:33 | P.PN ---
Subjective Patient is seen in follow-up for acute kidney injury on chronic kidney disease. Renal function continues to improve. Denies chest pain or shortness of breath. No edema. Good urine output. Once to go home. Vital signs are stable. General: The patient appeared well nourished and normally developed. HEENT: Head exam is unremarkable. Neck is without jugular venous distension. LUNGS: Breath sounds decreased. HEART: Rate and Rhythm are regular. ABDOMEN: Soft, nontender. EXTREMITITES: No edema. Objective - Vital Signs Vital signs: Vital Signs Temp 98.6 F 06/20/20 07:46 Pulse 74 06/20/20 08:28 Resp 18 06/20/20 08:28 BP 127/72 06/20/20 07:46 Pulse Ox 98 06/20/20 07:46 Intake & Output 06/19/20 06/20/20 06/20/20 18:59 06:59 18:59 Intake Total 500 Output Total 37 Balance -37 500 Intake: Oral 500 Output: Post Void Residual 37 Other: Voiding Method Toilet Toilet Toilet Urinal Urinal # Voids 2 # Bowel Movements 1 - Labs CBC & Chem 7: 06/20/20 05:21 06/20/20 05:21 Labs: Abnormal Lab Results - Last 24 Hours (Table) 06/19/20 06/19/20 06/20/20 Range/Units 16:47 20:12 05:21 RBC 3.06 L (4.30-5.90) m/uL Hgb 9.6 L (13.0-17.5) gm/dL Hct 27.4 L (39.0-53.0) % BUN (9.0-27.0) mg/dL Est GFR (CKD-EPI)NonAf (60.0-200.0) BUN/Creatinine Ratio (12.00-20.00) Ratio Glucose (70-110) mg/dL POC Glucose (mg/dL) 195 H 216 H (75-99) mg/dL Calcium (8.7-10.3) mg/dL 06/20/20 06/20/20 Range/Units 05:21 11:52 RBC (4.30-5.90) m/uL Hgb (13.0-17.5) gm/dL Hct (39.0-53.0) % BUN 40.0 H (9.0-27.0) mg/dL Est GFR (CKD-EPI)NonAf 56.5 L (60.0-200.0) BUN/Creatinine Ratio 30.77 H (12.00-20.00) Ratio Glucose 62 L (70-110) mg/dL POC Glucose (mg/dL) 144 H (75-99) mg/dL Calcium 8.4 L (8.7-10.3) mg/dL Assessment and Plan Plan: Assessment: 1. Acute kidney injury mostly prerenal secondary to hypotension. Creatinine 3.8 on admission and is down to 1.3 today. 2. Chronic kidney disease stage II. Etiology is solitary kidney. Creatinine 1.1 as of 02/23/2020. Denies history of nephrectomy. No proteinuria on UA. 3. Diabetes mellitus. 4. History of falls. 5. Hyperkalemia secondary to acute kidney injury and metabolic acidosis on admission. Resolved. Plan: Hep-Lock IV fluids. Encourage oral intake. Stop potassium supplementation. Anticipate discharge soon. Repeat BMP and magnesium level 2-3 days postdischarge. Follow up outpatient in 1-2 weeks.
--- NOTE | 2020-06-20 16:34 | P.DS ---
Providers Date of admission: 06/14/20 21:11 Expected date of discharge: 06/20/20 Attending physician: Nisreen Cuevas Consults: 06/14/20 22:42 Consult Physician Urgent Consulting Provider: Angeline Ramírez Consult Reason/Comments: ARF Do you want consulting provider notified?: Yes 06/17/20 12:51 Consult Physician Routine Consulting Provider: David Coronado Reason/Comments: Low back pain Do you want consulting provider notified?: Yes Primary care physician: Shaheen Chen Hospital Course: Final diagnosis Acute renal failure, acute tubular necrosis, multifactorial with prerenal acute renal failure secondary to rhabdomyolysis Acute rhabdomyolysis present on admission with severe hyperkalemia secondary to acute renal failure, present on admission and improving Hyponatremia Following gait dysfunction with multiple falls, 15 times Increased white blood count Back pain, possible degenerative joint disease as well as spinal canal stenosis Anemia, normocytic Mild acute urinary tract infection, present on admission History of diabetes mellitus type 2 history of coronary artery disease Hypertension Hyperlipidemia history of myocardial infarction History of pancreatitis History of hepatitis history of back surgery, DJD History of coronary artery disease, stent history of nicotine dependence history of THC Gait dysfunction Full code Discharge disposition Patient is being discharged in a stable condition with guarded prognosis to home. [facility] . Patient will follow-up with Dr. Chen in the outpatient setting upon discharge. Patient is to continue with oral and biotics in the form of Ceftin 500 mg twice daily for the next 4 days to complete the dose along with the prednisone short taper. Total time taken is greater than 35 minutes. Hospital course This is a 69-year-old male who was recently admitted with acute renal failure also back pain and was being closely monitored. Patient was seen and evaluated by nephrology along with orthopedic surgery. Lisinopril along with diuretics currently on hold and we'll continue to hold until primary care follow-up. Patient was also seen and evaluated by physical therapy initially and recommending subacute rehab although continue to improve it significantly. Patient will be going home with home care in the outpatient setting. Patient to follow-up with Dr. Coronado in the outpatient setting as needed. Patient will continue with oral antibiotics in the form of Ceftin 500 mg twice daily for the next 4 days to complete the course. Patient also on a short taper of steroids upon discharge. Repeat labs in 2-3 days and prescriptions were provided and patient instructed to follow-up with nephrology in the outpatient setting in 1-2 weeks. Currently no reports of chest pain, shortness of breath, or palpitations. Patient is afebrile. No reports of nausea or vomiting and patient is tolerating diet. Patient will be discharged home today. Guarded prognosis. On exam vital signs are stable. Temp is 98.6F, pulse is 74, respirations are 18, blood pressure is 127/72, oxygen saturation is 98% on room air. Cardio S1, S2 are muffled. Respiratory system shows diminished breath sounds at the bases with no wheezing or rhonchi noted. Abdomen is soft and nontender. Nervous system shows no focal deficits. Please refer to medication reconciliation sheet for a list of medications. Patient Condition at Discharge: Stable Plan - Discharge Summary Discharge Rx Participant: Yes New Discharge Prescriptions: New Cefuroxime Axetil [Ceftin] 500 mg PO BID 4 Days #8 tab Multivitamins, Thera [Multivitamin (formulary)] 1 each PO DAILY@1200 30 Days #30 tab predniSONE 10 mg PO DIRECTED #10 tab Thiamine [Vitamin B-1] 100 mg PO DAILY@1200 30 Days #30 tab Docusate [Colace] 100 mg PO BID 30 Days #60 capsule Tamsulosin HCl [Flomax] 0.4 mg PO DAILY 30 Days #30 capsule Continue Insulin NPL/Insulin Lispro [humaLOG MIX 75-25 VIAL] 25 unit SQ AC-BID Aspirin 81 mg PO DAILY chew Ticagrelor [Brilinta] 90 mg PO BID #60 tab Metoprolol Tartrate [Lopressor] 50 mg PO BID #60 tab Pregabalin [Lyrica] 50 mg PO BID Atorvastatin Calcium [Lipitor] 40 mg PO HS traZODone HCL [Desyrel] 50 mg PO DAILY Discontinued Potassium Chloride ER [K-Dur 20] 20 meq PO DAILY lisinopriL [Zestril] 10 mg PO DAILY Losartan [Cozaar] 25 mg PO DAILY Furosemide [Lasix] 40 mg PO BID Discharge Medication List Insulin NPL/Insulin Lispro [humaLOG MIX 75-25 VIAL] 25 unit SQ AC-BID 02/17/20 [History] Aspirin 81 mg PO DAILY chew 02/21/20 [Rx] Metoprolol Tartrate [Lopressor] 50 mg PO BID #60 tab 02/21/20 [Rx] Ticagrelor [Brilinta] 90 mg PO BID #60 tab 02/21/20 [Rx] Atorvastatin Calcium [Lipitor] 40 mg PO HS 06/14/20 [History] Pregabalin [Lyrica] 50 mg PO BID 06/14/20 [History] traZODone HCL [Desyrel] 50 mg PO DAILY 06/14/20 [History] Cefuroxime Axetil [Ceftin] 500 mg PO BID 4 Days #8 tab 06/20/20 [Rx] Docusate [Colace] 100 mg PO BID 30 Days #60 capsule 06/20/20 [Rx] Multivitamins, Thera [Multivitamin (formulary)] 1 each PO DAILY@1200 30 Days #30 tab 06/20/20 [Rx] Tamsulosin HCl [Flomax] 0.4 mg PO DAILY 30 Days #30 capsule 06/20/20 [Rx] Thiamine [Vitamin B-1] 100 mg PO DAILY@1200 30 Days #30 tab 06/20/20 [Rx] predniSONE 10 mg PO DIRECTED #10 tab 06/20/20 [Rx] Follow up Appointment(s)/Referral(s): [facility], [NON-STAFF] - As Needed David Coronado DO [Doctor of Osteopathic Medicine] - 07/06/20 8:00 am Shaheen Chen DO [Primary Care Provider] - 1-2 days Ambulatory/Diagnostic Orders: Basic Metabolic Panel [LAB.AMB] Time Frame: 3 Days, Location: None Selected Patient Instructions/Handouts: Acute Kidney Injury (DC) Activity/Diet/Wound Care/Special Instructions: Activity Limited until follow-up Continue with antibiotics for the next 3 days to complete the course Continue prednisone taper Continue monitoring blood pressure and keep a diary for primary care follow-up Continue holding diuretics until primary care follow-up Continue consistent carb diet Continue to monitor blood sugars before meals at bedtime and keep a diary for primary care follow-up follow-up with orthopedic surgery in the outpatient setting Discharge Disposition: HOME SELF-CARE
[2020-06-21] MEDS ORDERED: POTASSIUM CHLORIDE ER 20 MEQ TAB.ER PO SCH (09:00)
[2020-06-23] MEDS ORDERED: predniSONE 5 MG TAB PO SCH (09:00)
== END 2020-06-20 13:27 | disposition home health service (06) | DRG 683 ==
LOC: EC 17:38 → 4SSUR 21:11
PROVIDERS: ADMIT Hospitalist; ATTEND Hospitalist
DX: N17.0 Acute kidney failure with tubular necrosis (principal); N39.0 Urinary tract infection, site not specified; M62.82 Rhabdomyolysis; E87.1 Hypo-osmolality and hyponatremia; E87.2 Acidosis; G95.9 Disease of spinal cord, unspecified; N18.2 Chronic kidney disease, stage 2 (mild); M48.00 Spinal stenosis, site unspecified; M19.90 Unspecified osteoarthritis, unspecified site; I25.2 Old myocardial infarction; N40.0 Benign prostatic hyperplasia without lower urinary tract symptoms; R29.6 Repeated falls; D64.9 Anemia, unspecified; E11.22 Type 2 diabetes mellitus with diabetic chronic kidney disease; E11.65 Type 2 diabetes mellitus with hyperglycemia; E78.5 Hyperlipidemia, unspecified; E86.9 Volume depletion, unspecified; E87.5 Hyperkalemia; G89.29 Other chronic pain; I12.9 Hypertensive chronic kidney disease with stage 1 through stage 4 chronic kidney disease, or unspecified chronic kidney disease; I25.10 Atherosclerotic heart disease of native coronary artery without angina pectoris; R26.9 Unspecified abnormalities of gait and mobility; I95.1 Orthostatic hypotension; Z79.02 Long term (current) use of antithrombotics/antiplatelets; Z79.4 Long term (current) use of insulin; Z79.82 Long term (current) use of aspirin; Z79.899 Other long term (current) drug therapy; Z82.49 Family history of ischemic heart disease and other diseases of the circulatory system; Z87.891 Personal history of nicotine dependence; Z91.81 History of falling; Z95.5 Presence of coronary angioplasty implant and graft
CPT/HCPCS: 36415; 70450; 71046; 72131; 76770; 80048; 80053; 81001; 82550; 83540; 83550; 83605; 84132; 84153; 84484; 85025; 85610; 85730; 93005; 96361; 96374; 96375; 99285

== ENCOUNTER 2020-08-01 12:24 | Inpatient (IN) | payer MEDICARE ==
[2020-08-01] MEDS ORDERED: IPRATROPIUM 0.5 MG/2.5 ML NEBU INHALATION STA (12:27)
[2020-08-01] MEDS ORDERED: ALBUTEROL NEBULIZED 2.5 MG/3 ML INHALATION STA (12:27)
[2020-08-01] MEDS ORDERED: methylPREDNISolone SOD SUCCI 125 MG/2 ML VIAL IV STA (12:27)
[2020-08-01] MEDS ORDERED: DILTIAZEM DRIP BOLUS FROM BAG 1 MG SOLN IV ONE ×2 (12:33→13:45)
[2020-08-01] MEDS ORDERED: NITROGLYCERIN SL TABS 0.4 MG TAB SUBLINGUAL PRN (12:34)
[2020-08-01 12:50] LABS: Basophils % (A) 0 %; Eosinophils # (A) 0.1 k/uL (0-0.7); Eosinophils % (A) 0 %; HCT 34.6 % (39.0-53.0); Lymphocytes # (A) 0.8 k/uL (1.0-4.8); Lymphocytes % (A) 5 %; MCH 29.6 pg (25.0-35.0); MCHC 31.8 g/dL (31.0-37.0); Mean Platelet Volume 8.4; Monocytes # (A) 0.4 k/uL (0-1.0); Monocytes % (A) 3 %; Neutrophils # (A) 14.1 k/uL (1.3-7.7); Neutrophils % (A) 91 %; Platelet Count 351 k/uL (150-450); RBC 3.72 m/uL (4.30-5.90); RDW 13.8 % (11.5-15.5); WBC 15.5 k/uL (3.8-10.6)
[2020-08-01] MEDS: DILTIAZEM 125 MG in SODIUM CHLORIDE 0.9% 100 ML IV SCH (12:50)
--- NOTE | 2020-08-01 12:52 | ED ---
General Adult HPI - General Stated complaint: Poss STEMI Time Seen by Provider: 08/01/20 12:26 Source: patient, EMS, RN notes reviewed, old records reviewed - History of Present Illness Initial comments: 69-year-old male presenting with severe respiratory distress. History of COPD and CHF. Patient was transported by EMS, given aspirin and sublingual nitro as well as supplemental oxygen by nonrebreather. He states that he's been severely short of breath throughout the day today. He denied any central chest pain. He was found to be in A. fib with RVR. He does state he is a current smoker. He denies fever. He reports bilateral lower extremity swelling. - Related Data Home Medications Medication Instructions Recorded Confirmed Insulin NPL/Insulin Lispro 25 unit SQ AC-BID 02/17/20 08/01/20 [humaLOG MIX 75-25 VIAL] Atorvastatin Calcium [Lipitor] 40 mg PO HS 06/14/20 08/01/20 Pregabalin [Lyrica] 50 mg PO BID 06/14/20 08/01/20 traZODone HCL [Desyrel] 50 mg PO HS 06/14/20 08/01/20 Furosemide [Lasix] 40 mg PO BID 08/01/20 08/01/20 Losartan [Cozaar] 25 mg PO DAILY 08/01/20 08/01/20 Metoprolol Tartrate [Lopressor] 75 mg PO BID 08/01/20 08/01/20 Multivitamins, Thera [Multivitamin 1 tab PO DAILY@1200 08/01/20 08/01/20 (formulary)] Previous Rx's Medication Instructions Recorded Aspirin 81 mg PO DAILY chew 02/21/20 Ticagrelor [Brilinta] 90 mg PO BID #60 tab 02/21/20 Docusate [Colace] 100 mg PO BID 30 Days #60 capsule 06/20/20 Tamsulosin HCl [Flomax] 0.4 mg PO DAILY 30 Days #30 capsule 06/20/20 Thiamine [Vitamin B-1] 100 mg PO DAILY@1200 30 Days #30 06/20/20 tab Allergies Allergy/AdvReac Type Severity Reaction Status Date / Time tramadol [From Ultram] Allergy Itching Verified 08/01/20 14:16 Review of Systems ROS Statement: Those systems with pertinent positive or pertinent negative responses have been documented in the HPI. ROS Other: All systems not noted in ROS Statement are negative. Past Medical History Past Medical History: Coronary Artery Disease (CAD), Diabetes Mellitus, Hyperlipidemia, Hypertension, Myocardial Infarction ([place]) Additional Past Medical History / Comment(s): pancreatitis, hepatitis Last Myocardial Infarction Date:: unknown History of Any Multi-Drug Resistant Organisms: None Reported Past Surgical History: Back Surgery, Heart Catheterization With Stent, Orthopedic Surgery Additional Past Surgical History / Comment(s): kushal knee, Past Anesthesia/Blood Transfusion Reactions: No Reported Reaction Date of Last Stent Placement:: unknown Past Psychological History: No Psychological Hx Reported Smoking Status: Former smoker Past Alcohol Use History: None Reported Past Drug Use History: Marijuana - Past Family History Father Family Medical History: Myocardial Infarction ([place]) General Exam General appearance: alert, in distress Head exam: Present: atraumatic, normocephalic Eye exam: Present: normal appearance ENT exam: Present: normal exam Neck exam: Present: normal inspection. Absent: tenderness, meningismus Respiratory exam: Present: respiratory distress, wheezes, rales, accessory muscle use, decreased breath sounds Cardiovascular Exam: Present: tachycardia, irregular rhythm GI/Abdominal exam: Present: soft. Absent: distended, tenderness, guarding, rebound Extremities exam: Present: pedal edema Neurological exam: Present: alert, oriented X3. Absent: motor sensory deficit Psychiatric exam: Present: anxious Skin exam: Present: warm, dry, intact. Absent: cyanosis, diaphoretic Course Vital Signs 08/01/20 08/01/20 08/01/20 12:25 12:41 12:50 Temperature 97.9 F Pulse Rate 140 H 179 H 146 H Respiratory 36 H 33 H 35 H Rate Blood Pressure 166/123 141/118 O2 Sat by Pulse 92 L 100 100 Oximetry 08/01/20 08/01/20 08/01/20 12:54 13:00 13:12 Temperature Pulse Rate 135 H 115 H Respiratory 26 H 35 H 32 H Rate Blood Pressure 157/92 O2 Sat by Pulse 98 100 99 Oximetry 08/01/20 08/01/20 08/01/20 13:30 13:35 13:59 Temperature Pulse Rate 152 H 142 H 118 H Respiratory 28 H Rate Blood Pressure 150/123 O2 Sat by Pulse 99 Oximetry 08/01/20 08/01/20 08/01/20 14:00 14:17 14:28 Temperature Pulse Rate 130 H 105 H 116 H Respiratory 28 H 22 20 Rate Blood Pressure 145/91 127/90 O2 Sat by Pulse 100 100 100 Oximetry EKG Findings - EKG Comments: EKG Findings:: EKG: Atrial fibrillation with RVR, rate of 163, QRS duration 92, QTC 45, left axis, there is likely no ST segment elevation however this is a very poor baseline and significant artifact due to respiratory distress. Medical Decision Making - Medical Decision Making 69-year-old male presenting in severe respiratory distress. Patient has history of both COPD, CHF. He is found to be in A. fib with RVR. Chest x-ray showing likely interstitial edema versus atypical pneumonia. He has a mild leukocytosis of 15.5, hemoglobin is 11. Creatinine is baseline 1.29. He has an elevated troponin although I believe this is likely related to CHF and demand ischemia. He is started on heparin both for new onset atrial fibrillation with RVR and troponin elevation. Patient will be placed in the ICU for close monitoring. Case discussed both with cardiology and the blister rust eradicator Dr. Sawant He has a significantly elevated lactic acid is 7.4 which I suspect is related to hypoxia rather than sepsis. I discussed the case with Dr. Russo who will admit. Pulmonology and cardiology placed on consult. - Lab Data Result diagrams: 08/01/20 12:43 08/01/20 12:43 Lab Results 08/01/20 08/01/20 08/01/20 Range/Units 12:43 12:43 12:43 WBC 15.5 H (3.8-10.6) k/uL RBC 3.72 L (4.30-5.90) m/uL Hgb 11.0 L (13.0-17.5) gm/dL Hct 34.6 L (39.0-53.0) % MCV 93.0 (80.0-100.0) fL MCH 29.6 (25.0-35.0) pg MCHC 31.8 (31.0-37.0) g/dL RDW 13.8 (11.5-15.5) % Plt Count 351 (150-450) k/uL MPV 8.4 Neutrophils % 91 % Lymphocytes % 5 % Monocytes % 3 % Eosinophils % 0 % Basophils % 0 % Neutrophils # 14.1 H (1.3-7.7) k/uL Lymphocytes # 0.8 L (1.0-4.8) k/uL Monocytes # 0.4 (0-1.0) k/uL Eosinophils # 0.1 (0-0.7) k/uL Basophils # 0.0 (0-0.2) k/uL PT 10.8 (9.0-12.0) sec INR 1.0 (<1.2) APTT 22.1 (22.0-30.0) sec Sodium 138 (137-145) mmol/L Potassium 4.4 (3.5-5.1) mmol/L Chloride 104 (98-107) mmol/L Carbon Dioxide 19 L (22-30) mmol/L Anion Gap 15 mmol/L BUN 24 H (9-20) mg/dL Creatinine 1.29 H (0.66-1.25) mg/dL Est GFR (CKD-EPI)AfAm 66 (>60 ml/min/1.73 sqM) Est GFR (CKD-EPI)NonAf 57 (>60 ml/min/1.73 sqM) Glucose 356 H (74-99) mg/dL Plasma Lactic Acid Bautista (0.7-2.0) mmol/L Calcium 9.6 (8.4-10.2) mg/dL Magnesium 1.7 (1.6-2.3) mg/dL Total Bilirubin 0.7 (0.2-1.3) mg/dL AST 35 (17-59) U/L ALT 33 (4-49) U/L Alkaline Phosphatase 150 H (38-126) U/L Troponin I (0.000-0.034) ng/mL NT-Pro-B Natriuret Pep pg/mL Total Protein 7.7 (6.3-8.2) g/dL Albumin 4.3 (3.5-5.0) g/dL Urine Color Urine Appearance (Clear) Urine pH (5.0-8.0) Ur Specific [place] (1.001-1.035) Urine Protein (Negative) Urine Glucose (UA) (Negative) Urine Ketones (Negative) Urine Blood (Negative) Urine Nitrite (Negative) Urine Bilirubin (Negative) Urine Urobilinogen (<2.0) mg/dL Ur Leukocyte Esterase (Negative) Urine RBC (0-5) /hpf Urine WBC (0-5) /hpf Urine Mucus (None) /hpf Coronavirus (PCR) (Not Detectd) 08/01/20 08/01/20 08/01/20 Range/Units 12:43 12:43 12:43 WBC (3.8-10.6) k/uL RBC (4.30-5.90) m/uL Hgb (13.0-17.5) gm/dL Hct (39.0-53.0) % MCV (80.0-100.0) fL MCH (25.0-35.0) pg MCHC (31.0-37.0) g/dL RDW (11.5-15.5) % Plt Count (150-450) k/uL MPV Neutrophils % % Lymphocytes % % Monocytes % % Eosinophils % % Basophils % % Neutrophils # (1.3-7.7) k/uL Lymphocytes # (1.0-4.8) k/uL Monocytes # (0-1.0) k/uL Eosinophils # (0-0.7) k/uL Basophils # (0-0.2) k/uL PT (9.0-12.0) sec INR (<1.2) APTT (22.0-30.0) sec Sodium (137-145) mmol/L Potassium (3.5-5.1) mmol/L Chloride (98-107) mmol/L Carbon Dioxide (22-30) mmol/L Anion Gap mmol/L BUN (9-20) mg/dL Creatinine (0.66-1.25) mg/dL Est GFR (CKD-EPI)AfAm (>60 ml/min/1.73 sqM) Est GFR (CKD-EPI)NonAf (>60 ml/min/1.73 sqM) Glucose (74-99) mg/dL Plasma Lactic Acid Bautista 7.4 H* (0.7-2.0) mmol/L Calcium (8.4-10.2) mg/dL Magnesium (1.6-2.3) mg/dL Total Bilirubin (0.2-1.3) mg/dL AST (17-59) U/L ALT (4-49) U/L Alkaline Phosphatase (38-126) U/L Troponin I 0.053 H* (0.000-0.034) ng/mL NT-Pro-B Natriuret Pep 68574 pg/mL Total Protein (6.3-8.2) g/dL Albumin (3.5-5.0) g/dL Urine Color Urine Appearance (Clear) Urine pH (5.0-8.0) Ur Specific [place] (1.001-1.035) Urine Protein (Negative) Urine Glucose (UA) (Negative) Urine Ketones (Negative) Urine Blood (Negative) Urine Nitrite (Negative) Urine Bilirubin (Negative) Urine Urobilinogen (<2.0) mg/dL Ur Leukocyte Esterase (Negative) Urine RBC (0-5) /hpf Urine WBC (0-5) /hpf Urine Mucus (None) /hpf Coronavirus (PCR) (Not Detectd) 08/01/20 08/01/20 Range/Units 12:43 13:07 WBC (3.8-10.6) k/uL RBC (4.30-5.90) m/uL Hgb (13.0-17.5) gm/dL Hct (39.0-53.0) % MCV (80.0-100.0) fL MCH (25.0-35.0) pg MCHC (31.0-37.0) g/dL RDW (11.5-15.5) % Plt Count (150-450) k/uL MPV Neutrophils % % Lymphocytes % % Monocytes % % Eosinophils % % Basophils % % Neutrophils # (1.3-7.7) k/uL Lymphocytes # (1.0-4.8) k/uL Monocytes # (0-1.0) k/uL Eosinophils # (0-0.7) k/uL Basophils # (0-0.2) k/uL PT (9.0-12.0) sec INR (<1.2) APTT (22.0-30.0) sec Sodium (137-145) mmol/L Potassium (3.5-5.1) mmol/L Chloride (98-107) mmol/L Carbon Dioxide (22-30) mmol/L Anion Gap mmol/L BUN (9-20) mg/dL Creatinine (0.66-1.25) mg/dL Est GFR (CKD-EPI)AfAm (>60 ml/min/1.73 sqM) Est GFR (CKD-EPI)NonAf (>60 ml/min/1.73 sqM) Glucose (74-99) mg/dL Plasma Lactic Acid Bautista (0.7-2.0) mmol/L Calcium (8.4-10.2) mg/dL Magnesium (1.6-2.3) mg/dL Total Bilirubin (0.2-1.3) mg/dL AST (17-59) U/L ALT (4-49) U/L Alkaline Phosphatase (38-126) U/L Troponin I (0.000-0.034) ng/mL NT-Pro-B Natriuret Pep pg/mL Total Protein (6.3-8.2) g/dL Albumin (3.5-5.0) g/dL Urine Color Yellow Urine Appearance Clear (Clear) Urine pH 5.5 (5.0-8.0) Ur Specific [place] 1.018 (1.001-1.035) Urine Protein 2+ H (Negative) Urine Glucose (UA) 4+ H (Negative) Urine Ketones 1+ H (Negative) Urine Blood Trace H (Negative) Urine Nitrite Negative (Negative) Urine Bilirubin Negative (Negative) Urine Urobilinogen <2.0 (<2.0) mg/dL Ur Leukocyte Esterase Negative (Negative) Urine RBC <1 (0-5) /hpf Urine WBC 1 (0-5) /hpf Urine Mucus Rare H (None) /hpf Coronavirus (PCR) Not Detected (Not Detectd) Critical Care Time Critical Care Time: Yes Total Critical Care Time: 35 Disposition Clinical Impression: NSTEMI (non-ST elevated myocardial infarction), Elevated troponin level, Congestive heart failure, Atrial fibrillation with rapid ventricular response Disposition: ADMITTED IP TO THIS [facility] Condition: Serious Is patient prescribed a controlled substance at d/c from ED?: No Decision to Admit Reason: Admit from EC Decision Date: 08/01/20 Decision Time: 13:44
[2020-08-01 13:01] LABS: Appearance,Urine Clear (Clear); Bilirubin,Urine Negative (Negative); Blood,Urine Trace (Negative); Color,Urine Yellow; Glucose,Urine (UA) 4+ (Negative); Ketones,Urine 1+ (Negative); Leukocyte Esterase,Urine Negative (Negative); Mucus,Urine Rare /hpf; Nitrite,Urine Negative (Negative); PH, Urine 5.5 (5.0-8.0); Protein,Urine 2+ (Negative); RBC,Urine <1 /hpf (0-5); Specific Gravity,Urine 1.018 (1.001-1.035); Urobilinogen,Urine <2.0 mg/dL (<2.0); WBC,Urine 1 /hpf (0-5)
[2020-08-01 13:02] LABS: Albumin 4.3 g/dL (3.5-5.0); Calcium 9.6 mg/dL (8.4-10.2); Magnesium 1.7 mg/dL (1.6-2.3); Potassium 4.4 mmol/L (3.5-5.1); Total Bilirubin 0.7 mg/dL (0.2-1.3); Total Protein 7.7 g/dL (6.3-8.2)
--- NOTE | 2020-08-01 13:04 | XR ---
EXAMINATION TYPE: XR chest 1V portable DATE OF EXAM: 08/01/2020 Comparison: 06/14/2020 Clinical History: 69 year-old male shortness of breath, VIET Findings: Heart is borderline enlarged. Moderate diffuse interstitial opacities. No michael consolidation or pleu ral effusion. IMPRESSION: Correlate for atypical pneumonia versus developing interstitial pulmonary edema.
[2020-08-01 13:10] LABS: Partial Thromboplastin Time 22.1 sec (22.0-30.0); Prothrombin Time 10.8 sec (9.0-12.0)
[2020-08-01] MEDS ORDERED: FUROSEMIDE 10 MG/ML 4 ML VIAL IV STA (13:37)
[2020-08-01] MEDS ORDERED: HEPARIN SODIUM,PORCINE 5,000 UNIT/ML 1 ML VIAL IV ONE (13:38)
[2020-08-01] MEDS ORDERED: NALOXONE 0.4 MG/ML 1 ML VIAL IV PRN (13:44)
[2020-08-01] MEDS ORDERED: ONDANSETRON 4 MG/2 ML VIAL IVP STA (13:45)
[2020-08-01] MEDS: HEPARIN SOD,PORK IN 0.45% NACL 25,000 UNIT in 0.45% NACL 1 250ML.BAG IV SCH (14:23)
[2020-08-01] MEDS ORDERED: METOPROLOL TARTRATE 50 MG TAB PO STA (14:59)
--- NOTE | 2020-08-01 15:12 | P.CRDCN ---
History of Present Illness Consult date: 08/01/20 History of present illness: CHIEF COMPLAINT: CHF, A. fib HISTORY OF PRESENT ILLNESS: This is a 69-year-old male with a past medical history significant for hypertension, hyperlipidemia, diabetes mellitus, COPD, CHF, ischemic cardiomyopathy, and coronary artery disease with previous PCI. Patient follows in the office with Dr. Mckenzie. We have been asked to see the patient in consultation for CHF and A. fib. Patient examined this afternoon at the bedside in the emergency room. Patient states he started having significant shortness of breath yesterday. He denied any chest pain or pressure. He reports increased lower extremity edema over the past few days as well. Patient was brought to the hospital via EMS and given aspirin and sublingual nitro. Patient is currently on a BiPAP. He was found to be A. fib with RVR. Patient denies any previous history of atrial fibrillation. He was started on IV heparin along with IV Cardizem. Patients heart rate in the 130s at time of examination. Patient reports he has been compliant with his medications at home. He denies any alcohol use. He denies cigarette use. He states he smokes marijuana. Patient underwent cardiac catheterization and February [address] Mckenzie. Patient had an Impella placed at that time. He underwent stent placement to the proximal and mid LAD. Ejection fraction in February 2020 was noted to be 20- 25%. Patient had a repeat echocardiogram performed in March 2020 at the office revealing ejection fraction of 40%, grade 2 diastolic dysfunction and moderate mitral regurgitation. DIAGNOSTICS: EKG reveals A. fib with RVR Chest xray correlate for atypical pneumonia versus developing interstitial pulmonary edema Laboratory data: WBC 15.5. Hemoglobin 11.0. Platelet count 351. Sodium 138. Potassium 4.4. BUN 24. Creatinine 1.29. Lactic acid 7.4. Repeat 8.3. Magnesium 1.7. Troponin 0.053. BNP 11,100. Current home cardiac medications include [place] 90 mg twice a day, Toprol tartrate 75 mg daily, losartan 25 mg daily, Lasix 40 mg twice a day, Lipitor 40 g daily, and aspirin 81 mg daily REVIEW OF SYSTEMS: At the time of my exam: CONSTITUTIONAL: Denies fever or chills. HEENT: Denies blurred vision, vision changes, or eye pain. Denies hemoptysis CARDIOVASCULAR: Denies chest pain, orthopnea, PND or palpitations RESPIRATORY: Reports shortness of breath. GASTROINTESTINAL: Denies abdominal pain. Denies nausea or vomiting. HEMATOLOGIC: Denies bleeding disorders. GENITOURINARY: Denies any blood in urine. SKIN: Denies pruitis. Denies rash. PHYSICAL EXAM: VITAL SIGNS: Reviewed. GENERAL: Well-developed in no acute distress. HEENT: Head is normocephalic. Pupils are equal, round. Sclerae anicteric. Mucous membranes of the mouth are moist. Neck supple. No JVD or thyromegaly LUNGS: Respirations even and unlabored. Lungs diminished bilaterally with rales to bilateral bases. Patient on BiPAP. HEART: Tachycardic. Irregular rate and rhythm. S1 and S2 heard. Systolic murmur noted. ABDOMEN: Soft. Nondistended. Nontender. EXTREMITIES: Normal range of motion. No clubbing or cyanosis. Peripheral pulses intact. 1+ bilateral lower extremity edema NEUROLOGIC: Awake and alert. Oriented x 3. ASSESSMENT: New onset atrial fibrillation with RVR Acute exacerbation of chronic systolic heart failure, EF 40% Lactic acidosis Leukocytosis Abnormal troponins, secondary to new onset afib and CHF, no evidence of acute coronary syndrome Ischemic cardiomyopathy Coronary artery disease with previous PCI Hypertension Hyperlipidemia Diabetes mellitus PLAN: Obtain 2-D echo to assess cardiac structure and function Resume home cardiac medications Continue IV heparin. Patient will require oral anticoagulation Continue Brilinta. Do not resume aspirin at this time. Continue Cardizem drip Increase metoprolol to 100 mg twice a day. Given additional dose of 50 mg now Continue IV Lasix 40 mg IV every 12 hours Monitor kidney function Daily weights Accurate I&O Check TSH Further recommendations pending patient course Nurse practitioner note has been reviewed by physician. Signing provider agrees with the documented findings, assessment, and plan of care. Past Medical History Past Medical History: Coronary Artery Disease (CAD), Diabetes Mellitus, Hyperlipidemia, Hypertension, Myocardial Infarction ([place]) Additional Past Medical History / Comment(s): pancreatitis, hepatitis Last Myocardial Infarction Date:: unknown History of Any Multi-Drug Resistant Organisms: None Reported Past Surgical History: Back Surgery, Heart Catheterization With Stent, Orthopedic Surgery Additional Past Surgical History / Comment(s): kushal knee, Past Anesthesia/Blood Transfusion Reactions: No Reported Reaction Date of Last Stent Placement:: unknown Past Psychological History: No Psychological Hx Reported Smoking Status: Former smoker Past Alcohol Use History: None Reported Past Drug Use History: Marijuana - Past Family History Father Family Medical History: Myocardial Infarction ([place]) Medications and Allergies Home Medications Medication Instructions Recorded Confirmed Type Insulin NPL/Insulin Lispro 25 unit SQ AC-BID 02/17/20 08/01/20 History [humaLOG MIX 75-25 VIAL] Aspirin 81 mg PO DAILY chew 02/21/20 08/01/20 Rx Ticagrelor [Brilinta] 90 mg PO BID #60 tab 02/21/20 08/01/20 Rx Atorvastatin Calcium [Lipitor] 40 mg PO HS 06/14/20 08/01/20 History Pregabalin [Lyrica] 50 mg PO BID 06/14/20 08/01/20 History traZODone HCL [Desyrel] 50 mg PO HS 06/14/20 08/01/20 History Docusate [Colace] 100 mg PO BID 30 Days #60 capsule 06/20/20 08/01/20 Rx Tamsulosin HCl [Flomax] 0.4 mg PO DAILY 30 Days #30 capsule 06/20/20 08/01/20 Rx Thiamine [Vitamin B-1] 100 mg PO DAILY@1200 30 Days #30 06/20/20 08/01/20 Rx tab Furosemide [Lasix] 40 mg PO BID 08/01/20 08/01/20 History Losartan [Cozaar] 25 mg PO DAILY 08/01/20 08/01/20 History Metoprolol Tartrate [Lopressor] 75 mg PO BID 08/01/20 08/01/20 History Multivitamins, Thera [Multivitamin 1 tab PO DAILY@1200 08/01/20 08/01/20 History (formulary)] Allergies Allergy/AdvReac Type Severity Reaction Status Date / Time tramadol [From Ultram] Allergy Itching Verified 08/01/20 14:16 Physical Exam Vitals: Vital Signs Temp Pulse Pulse Resp BP Pulse Ox 08/01/20 14:28 116 H 20 100 08/01/20 14:17 105 H 22 127/90 100 08/01/20 14:00 130 H 28 H 145/91 100 08/01/20 13:59 118 H 08/01/20 13:35 142 H 08/01/20 13:30 152 H 28 H 150/123 99 08/01/20 13:12 115 H 32 H 157/92 99 08/01/20 13:00 135 H 35 H 100 08/01/20 12:54 26 H 98 08/01/20 12:50 146 H 35 H 141/118 100 08/01/20 12:41 179 H 33 H 100 08/01/20 12:25 97.9 F 140 H 178 H 36 H 166/123 92 L Intake and Output 07/31/20 08/01/20 08/01/20 22:59 06:59 14:59 Other: Weight 90.718 kg Results 08/01/20 12:43 08/01/20 12:43 Cardiac Enzymes 08/01/20 08/01/20 Range/Units 12:43 12:43 AST 35 (17-59) U/L Troponin I 0.053 H* (0.000-0.034) ng/mL Coagulation 08/01/20 Range/Units 12:43 PT 10.8 (9.0-12.0) sec APTT 22.1 (22.0-30.0) sec CBC 08/01/20 Range/Units 12:43 WBC 15.5 H (3.8-10.6) k/uL RBC 3.72 L (4.30-5.90) m/uL Hgb 11.0 L (13.0-17.5) gm/dL Hct 34.6 L (39.0-53.0) % Plt Count 351 (150-450) k/uL Comprehensive Metabolic Panel 08/01/20 Range/Units 12:43 Sodium 138 (137-145) mmol/L Potassium 4.4 (3.5-5.1) mmol/L Chloride 104 (98-107) mmol/L Carbon Dioxide 19 L (22-30) mmol/L BUN 24 H (9-20) mg/dL Creatinine 1.29 H (0.66-1.25) mg/dL Glucose 356 H (74-99) mg/dL Calcium 9.6 (8.4-10.2) mg/dL AST 35 (17-59) U/L ALT 33 (4-49) U/L Alkaline Phosphatase 150 H (38-126) U/L Total Protein 7.7 (6.3-8.2) g/dL Albumin 4.3 (3.5-5.0) g/dL Current Medications Generic Name Dose Route Start Last Admin Trade Name Freq PRN Reason Stop Dose Admin Furosemide 40 mg 08/01/20 21:00 Furosemide 10 Mg/Ml 4 Ml Vial IV Q12HR GORDO Heparin Sodium (Porcine) 0 unit 08/01/20 13:38 Heparin Sodium,Porcine 5,000 Unit/Ml 1 Ml Vial IV PER PROTOCOL PRN Low PTT Protocol Diltiazem HCl 125 mg/ Sodium 125 mls @ 5 mls/hr 08/01/20 12:45 08/01/20 12:50 Chloride IV 5 mg/hr .Q24H GORDO 5 mls/hr Administration 5 MG/HR Heparin Sodium/Sodium Chloride 250 mls @ 9.997 mls/hr 08/01/20 13:45 08/01/20 14:23 25,000 unit/ Sodium Chloride IV 11.02 units/kg/hr .Q24H GORDO 9.997 mls/hr Administration Protocol 11.02 UNITS/KG/HR Naloxone HCl 0.2 mg 08/01/20 13:44 Naloxone 0.4 Mg/Ml 1 Ml Vial IV Q2M PRN Opioid Reversal Nitroglycerin 0.4 mg 08/01/20 12:34 08/01/20 12:31 Nitroglycerin Sl Tabs 0.4 Mg Tab SUBLINGUAL 0.4 mg Q5M PRN Administration Chest Pain Intake and Output 07/31/20 08/01/20 08/01/20 22:59 06:59 14:59 Other: Weight 90.718 kg Patient Weight 08/02/20 06:59 Weight 90.718 kg 08/01/20 12:43 08/01/20 12:43
[2020-08-01 16:41] LABS: Glucose,Whole Blood 375 mg/dL (75-99)
--- NOTE | 2020-08-01 18:16 | P.CNPUL ---
History of Present Illness Consult date: 08/01/20 Requesting physician: Mauricio E Sheet Reason for consult: other (A. fib RVR, and CHF) Chief complaint: Shortness of breath and palpitations History of present illness: This is a 69-year-old white male with history of chronic atrial fibrillation, hypertension, diabetes, COPD, ischemic cardiomyopathy, previous PCI, patient normally sees Dr. ZELDA Mckenzie on a regular basis for his congestive heart failure and atrial fibrillation. Patient presented to the ER with 1 day history of increased shortness of breath, and palpitations. Denies any fever or chills, denies any chest pain, has been noticing significant swelling in his lower extremities. Patient arrived to the ER, and he was in moderate severe respiratory distress. Placed on BiPAP, he was noted to be in atrial fibrillation with RVR, started on heparin, and he was also started on Cardizem. Heart rate was in the range of 1:30, patient is now on Cardizem drip at 5 mg per hour. He is also on heparin. By the time he made it to the ICU, patient was transitioned from BiPAP to a nasal cannula at 4 L, and he seems to be doing quite well quite comfortable during my evaluation. Chest x-ray clearly showed evidence of pulmonary edema. CBC showed leukocytosis with WBC 15.5 hemoglobin is 11 his electrolytes are normal except bicarb is low at 19 he does have anion gap metabolic acidosis with anion gap of 15 BUN is 24 creatinine is 1.29. Blood sugar was 356. BNP level was over 11,000. Troponin 0.131. Review of Systems CONSTITUTIONAL: Denies weight loss, denies fever or chills. HEENT: Negative. CARDIOVASCULAR: As noted in HPI, mostly shortness of breath and palpitation. RESPIRATORY: As noted in HPI mostly shortness of breath GASTROINTESTINAL: Negative. HEMATOLOGIC: Negative. GENITOURINARY: Has hematuria dysuria frequency or urgency SKIN: Denies pruitis. Denies rash. Psychiatric: Denies any symptoms of depression. Neurologic: Denies any headache blurred vision dizziness syncope. Past Medical History Past Medical History: Coronary Artery Disease (CAD), Diabetes Mellitus, Hyperlipidemia, Hypertension, Myocardial Infarction ([place]) Additional Past Medical History / Comment(s): pancreatitis, hepatitis Last Myocardial Infarction Date:: unknown History of Any Multi-Drug Resistant Organisms: None Reported Past Surgical History: Back Surgery, Heart Catheterization With Stent, Orthopedic Surgery Additional Past Surgical History / Comment(s): kushal knee, Past Anesthesia/Blood Transfusion Reactions: No Reported Reaction Date of Last Stent Placement:: unknown Past Psychological History: No Psychological Hx Reported Smoking Status: Former smoker Past Alcohol Use History: None Reported Past Drug Use History: Marijuana - Past Family History Father History Unknown: Yes Family Medical History: Myocardial Infarction ([place]) Medications and Allergies Home Medications Medication Instructions Recorded Confirmed Type Insulin NPL/Insulin Lispro 25 unit SQ AC-BID 02/17/20 08/01/20 History [humaLOG MIX 75-25 VIAL] Aspirin 81 mg PO DAILY chew 02/21/20 08/01/20 Rx Ticagrelor [Brilinta] 90 mg PO BID #60 tab 02/21/20 08/01/20 Rx Atorvastatin Calcium [Lipitor] 40 mg PO HS 06/14/20 08/01/20 History Pregabalin [Lyrica] 50 mg PO BID 06/14/20 08/01/20 History traZODone HCL [Desyrel] 50 mg PO HS 06/14/20 08/01/20 History Docusate [Colace] 100 mg PO BID 30 Days #60 capsule 06/20/20 08/01/20 Rx Tamsulosin HCl [Flomax] 0.4 mg PO DAILY 30 Days #30 capsule 06/20/20 08/01/20 Rx Thiamine [Vitamin B-1] 100 mg PO DAILY@1200 30 Days #30 06/20/20 08/01/20 Rx tab Furosemide [Lasix] 40 mg PO BID 08/01/20 08/01/20 History Losartan [Cozaar] 25 mg PO DAILY 08/01/20 08/01/20 History Metoprolol Tartrate [Lopressor] 75 mg PO BID 08/01/20 08/01/20 History Multivitamins, Thera [Multivitamin 1 tab PO DAILY@1200 08/01/20 08/01/20 History (formulary)] Allergies Allergy/AdvReac Type Severity Reaction Status Date / Time tramadol [From Ultram] Allergy Itching Verified 08/01/20 14:16 Physical Exam Vitals: Vital Signs Temp Pulse Pulse Resp BP Pulse Ox 08/01/20 17:32 98.7 F 110 H 17 130/92 100 08/01/20 16:00 110 H 14 110/74 100 08/01/20 15:59 97.8 F 105 H 21 110/74 100 08/01/20 15:30 107 H 22 104/84 99 08/01/20 15:00 109 H 24 133/94 99 08/01/20 14:30 124 H 24 139/107 99 08/01/20 14:28 116 H 20 100 08/01/20 14:17 98.0 F 105 H 22 127/90 100 08/01/20 14:00 130 H 28 H 145/91 100 08/01/20 13:59 118 H 08/01/20 13:35 142 H 08/01/20 13:30 152 H 28 H 150/123 99 08/01/20 13:12 115 H 32 H 157/92 99 08/01/20 13:00 135 H 35 H 100 08/01/20 12:54 26 H 98 08/01/20 12:50 146 H 35 H 141/118 100 08/01/20 12:41 179 H 33 H 100 08/01/20 12:25 97.9 F 140 H 178 H 36 H 166/123 92 L Intake and Output 08/01/20 08/01/20 08/01/20 06:59 14:59 22:59 Intake Total 20 Output Total 300 Balance -280 Intake: IV 20 0.9 KVO 20 Output: Urine 300 Other: # Voids 1 Weight 91.2 kg 91.2 kg Physical Exam: Revealed a 69-year-old white male on few liters nasal cannula, in no distress. Head: Atraumatic, normocephalic. HEENT:[Neck is supple.] [No neck masses.] [No thyromegaly.] [No JVD.] Chest: [Symmetrical chest expansion fine crackles at the bases. Cardiac Exam: [Irregular irregular rhythm, 2/6 systolic murmur throughout the precordium. Abdomen: [Obese, Soft, nontender, no megaly, no rebound, no guarding, normal bowel sounds.] Extremities: [No clubbing, plus edema, no cyanosis.] Neurological Exam: [No focal neurologic deficit.] Alert oriented 3. Psychiatric: Normal mood affect and normal mental status examination. Skin: No rashes. Results - Laboratory Findings CBC and BMP: 08/01/20 12:43 08/01/20 12:43 PT/INR, D-dimer PT 10.8 sec (9.0-12.0) 08/01/20 12:43 INR 1.0 (<1.2) 08/01/20 12:43 Abnormal lab findings: Abnormal Labs 08/01/20 08/01/20 08/01/20 12:43 12:43 12:43 WBC 15.5 H RBC 3.72 L Hgb 11.0 L Hct 34.6 L Neutrophils # 14.1 H Lymphocytes # 0.8 L Carbon Dioxide 19 L BUN 24 H Creatinine 1.29 H Glucose 356 H POC Glucose (mg/dL) Plasma Lactic Acid Bautista 7.4 H* Alkaline Phosphatase 150 H Troponin I Urine Protein Urine Glucose (UA) Urine Ketones Urine Blood Urine Mucus 08/01/20 08/01/20 08/01/20 12:43 12:43 14:05 WBC RBC Hgb Hct Neutrophils # Lymphocytes # Carbon Dioxide BUN Creatinine Glucose POC Glucose (mg/dL) Plasma Lactic Acid Bautista 8.3 H* Alkaline Phosphatase Troponin I 0.053 H* Urine Protein 2+ H Urine Glucose (UA) 4+ H Urine Ketones 1+ H Urine Blood Trace H Urine Mucus Rare H 08/01/20 08/01/20 16:04 16:40 WBC RBC Hgb Hct Neutrophils # Lymphocytes # Carbon Dioxide BUN Creatinine Glucose POC Glucose (mg/dL) 375 H Plasma Lactic Acid Bautista Alkaline Phosphatase Troponin I 0.131 H* Urine Protein Urine Glucose (UA) Urine Ketones Urine Blood Urine Mucus - Diagnostic Findings Chest x-ray: image reviewed (Chest x-ray is consistent with pulmonary edema.) Assessment and Plan Assessment: Impression: Acute hypoxic respiratory failure secondary to acute on chronic CHF. Systolic in nature. New onset atrial fibrillation with RVR. Acute on chronic systolic congestive heart failure, exacerbated by atrial fibrillation with RVR, and underlying LV dysfunction. Acute lactic acidosis mostly secondary to hypoperfusion. Doubt sepsis. Ischemic cardiomyopathy. History of coronary artery disease and previous PCI. Dyslipidemia. Type 2 diabetes. History of COPD, patient is now on a smoker. Does not smoke tobacco at present Recommendation: Continue to monitor the patient in the ICU. Continue Cardizem drip. Continue heparin. Lasix 40 mg IV push every 12 hours. Monitor renal profile and electrolytes while on diuretics. Strict I's and O's. Daily weights. Resume home cardiac meds. Continue DuoNeb updrafts 4 times a day and when necessary for his underlying history of COPD. We'll continue to follow, follow-up chest x-ray in a.m. Time with Patient: Greater than 30
[2020-08-01 18:57] LABS: Glucose,Whole Blood 379 mg/dL (75-99)
[2020-08-01] MEDS: INSULIN ASPART (NovoLOG) 100 UNIT/ML VIAL SQ SCH (18:59)
[2020-08-01] MEDS: FUROSEMIDE 10 MG/ML 4 ML VIAL IV SCH (20:59)
[2020-08-01] MEDS: ATORVASTATIN 40 MG TAB PO SCH (20:59)
[2020-08-01] MEDS: TICAGRELOR 90 MG TAB PO SCH (20:59)
[2020-08-01] MEDS: METOPROLOL TARTRATE 50 MG TAB PO SCH (20:59)
[2020-08-01] MEDS ORDERED: METOPROLOL TARTRATE 25 MG TAB PO SCH (21:00)
[2020-08-01] MEDS: INSULIN DETEMIR (LEVEMIR) 100 UNIT/ML SYR SQ SCH (21:00)
[2020-08-01 21:03] LABS: Glucose,Whole Blood 314 mg/dL (75-99)
[2020-08-01] MEDS: HEPARIN SODIUM,PORCINE 5,000 UNIT/ML 1 ML VIAL IV PRN (21:48)
--- NOTE | 2020-08-02 00:21 | P.HPIM ---
History of Present Illness Patient is a 69-year-old male with a known history of significant coronary artery disease status post stent placement x5, hypertension, hyperlipidemia, diabetes type 2 insulin-dependent and history of [place] and previous history of smok ing and marijuana use . He is a patient of Dr. Wan and follows up with Dr. Mckenzie new order clerk as an outpatient. Presents because of acute dyspnea associated with vomiting. Patient states that he starts having dyspnea one day ago associated with vomiting 4-5 times. He has diarrhea twice a day, plus one was more watery. But with no abdominal pain, no chest pain. He has little dry cough but this is chronic. No abdominal or urinary complaints. No headache or weakness Patient denies smoking or alcohol but he smokes marijuana sometimes On admission he was tachycardic and tachypneic with a heart rate 105-116 and breathing at 20-22. Blood pressure 127/90, and he was saturating 92% and 50 L oxygen via nasal cannula, he is afebrile. Labs showed leukocytosis with WBC of 15.5 K, risks of CBC, INR is unremarkable. Creatinine is at baseline at 1.09 Activity as it is elevated 7.4 and 8.3, liver enzymes not elevated and troponin is high at 0.05. Urinalysis is not suspicious of infection and coronavirus not detected. EKG showing atrial fibrillation with tachycardia at 163 Chest x-ray showing atypical pneumonia versus interstitial edema Echocardiogram on 02/17/2020: Ejection fraction 20-25% with mild LVH and [id number] tricuspid regurgitation In the emergency room patient was started on heparin drip, Cardizem drip at 5 mg per hour, started on Lasix 40 mg twice daily Review of Systems CONSTITUTIONAL: No fever, no malaise, no fatigue. HEENT: No recent visual problems or hearing problems. Denied any sore throat. CARDIOVASCULAR: No orthopnea, PND, no palpitations, no syncope. PULMONARY: No chest wall tenderness, no hemoptysis. GASTROINTESTINAL: No diarrhea, no nausea, no vomiting, no abdominal pain. Normoactive bowel sounds. NEUROLOGICAL: No headaches, no weakness, no numbness. HEMATOLOGICAL: Denies any bleeding or petechiae. GENITOURINARY: Denies any burning micturition, frequency, or urgency. MUSCULOSKELETAL/RHEUMATOLOGICAL: Denies any joint pain, swelling, or any muscle pain. ENDOCRINE: Denies any polyuria or polydipsia. Past Medical History Past Medical History: Coronary Artery Disease (CAD), Diabetes Mellitus, Hyperlipidemia, Hypertension, Myocardial Infarction ([place]) Additional Past Medical History / Comment(s): pancreatitis, hepatitis Last Myocardial Infarction Date:: unknown History of Any Multi-Drug Resistant Organisms: None Reported Past Surgical History: Back Surgery, Heart Catheterization With Stent, Orthopedic Surgery Additional Past Surgical History / Comment(s): kushal knee, Past Anesthesia/Blood Transfusion Reactions: No Reported Reaction Date of Last Stent Placement:: unknown Past Psychological History: No Psychological Hx Reported Smoking Status: Former smoker Past Alcohol Use History: None Reported Past Drug Use History: Marijuana - Past Family History Father Family Medical History: Myocardial Infarction ([place]) Medications and Allergies Home Medications Medication Instructions Recorded Confirmed Type Insulin NPL/Insulin Lispro 25 unit SQ AC-BID 02/17/20 08/01/20 History [humaLOG MIX 75-25 VIAL] Aspirin 81 mg PO DAILY chew 02/21/20 08/01/20 Rx Ticagrelor [Brilinta] 90 mg PO BID #60 tab 02/21/20 08/01/20 Rx Atorvastatin Calcium [Lipitor] 40 mg PO HS 06/14/20 08/01/20 History Pregabalin [Lyrica] 50 mg PO BID 06/14/20 08/01/20 History traZODone HCL [Desyrel] 50 mg PO HS 06/14/20 08/01/20 History Docusate [Colace] 100 mg PO BID 30 Days #60 capsule 06/20/20 08/01/20 Rx Tamsulosin HCl [Flomax] 0.4 mg PO DAILY 30 Days #30 capsule 06/20/20 08/01/20 Rx Thiamine [Vitamin B-1] 100 mg PO DAILY@1200 30 Days #30 06/20/20 08/01/20 Rx tab Furosemide [Lasix] 40 mg PO BID 08/01/20 08/01/20 History Losartan [Cozaar] 25 mg PO DAILY 08/01/20 08/01/20 History Metoprolol Tartrate [Lopressor] 75 mg PO BID 08/01/20 08/01/20 History Multivitamins, Thera [Multivitamin 1 tab PO DAILY@1200 08/01/20 08/01/20 History (formulary)] Allergies Allergy/AdvReac Type Severity Reaction Status Date / Time tramadol [From [facility]] Allergy Itching Verified 08/01/20 14:16 Physical Exam Vitals: Vital Signs Temp Pulse Pulse Resp BP Pulse Ox 08/01/20 14:28 116 H 20 100 08/01/20 14:17 105 H 22 127/90 100 08/01/20 14:00 130 H 28 H 145/91 100 08/01/20 13:59 118 H 08/01/20 13:35 142 H 08/01/20 13:30 152 H 28 H 150/123 99 08/01/20 13:12 115 H 32 H 157/92 99 08/01/20 13:00 135 H 35 H 100 08/01/20 12:54 26 H 98 08/01/20 12:50 146 H 35 H 141/118 100 08/01/20 12:41 179 H 33 H 100 08/01/20 12:25 97.9 F 140 H 178 H 36 H 166/123 92 L Intake and Output 07/31/20 08/01/20 08/01/20 22:59 06:59 14:59 Other: Weight 90.718 kg -GENERAL: The patient is alert and oriented x3, not in any acute distress. Overweight HEENT: Pupils are round and equally reacting to light. EOMI. No scleral icterus. No conjunctival pallor. Normocephalic, atraumatic. No pharyngeal erythema. No thyromegaly. CARDIOVASCULAR: S1 and S2 present. No murmurs, rubs, or gallops. -PULMONARY: Chest is clear to auscultation, no wheezing . Bilateral crepitation ABDOMEN: Soft, nontender, nondistended, normoactive bowel sounds. No palpable organomegaly. MUSCULOSKELETAL: No joint swelling or deformity. EXTREMITIES: No cyanosis, clubbing, or pedal edema. NEUROLOGICAL: Gross neurological examination did not reveal any focal deficits. SKIN: No rashes. No petechiae Results CBC & Chem 7: 08/01/20 12:43 08/01/20 12:43 Labs: Abnormal Lab Results - Last 24 Hours (Table) 08/01/20 08/01/20 08/01/20 Range/Units 12:43 12:43 12:43 WBC 15.5 H (3.8-10.6) k/uL RBC 3.72 L (4.30-5.90) m/uL Hgb 11.0 L (13.0-17.5) gm/dL Hct 34.6 L (39.0-53.0) % Neutrophils # 14.1 H (1.3-7.7) k/uL Lymphocytes # 0.8 L (1.0-4.8) k/uL Carbon Dioxide 19 L (22-30) mmol/L BUN 24 H (9-20) mg/dL Creatinine 1.29 H (0.66-1.25) mg/dL Glucose 356 H (74-99) mg/dL Plasma Lactic Acid Bautista 7.4 H* (0.7-2.0) mmol/L Alkaline Phosphatase 150 H (38-126) U/L Troponin I (0.000-0.034) ng/mL Urine Protein (Negative) Urine Glucose (UA) (Negative) Urine Ketones (Negative) Urine Blood (Negative) Urine Mucus (None) /hpf 08/01/20 08/01/20 08/01/20 Range/Units 12:43 12:43 14:05 WBC (3.8-10.6) k/uL RBC (4.30-5.90) m/uL Hgb (13.0-17.5) gm/dL Hct (39.0-53.0) % Neutrophils # (1.3-7.7) k/uL Lymphocytes # (1.0-4.8) k/uL Carbon Dioxide (22-30) mmol/L BUN (9-20) mg/dL Creatinine (0.66-1.25) mg/dL Glucose (74-99) mg/dL Plasma Lactic Acid Bautista 8.3 H* (0.7-2.0) mmol/L Alkaline Phosphatase (38-126) U/L Troponin I 0.053 H* (0.000-0.034) ng/mL Urine Protein 2+ H (Negative) Urine Glucose (UA) 4+ H (Negative) Urine Ketones 1+ H (Negative) Urine Blood Trace H (Negative) Urine Mucus Rare H (None) /hpf Assessment and Plan Assessment: Elevated troponin, rule out cardiac causes versus non-STEMI, A. fib with RVR versus others Acute and chronic systolic CHF EF 20-25%, with acute pulmonary edema. Atypical pneumonia cannot be excluded Elevated lactic acid acute hypoxic respiratory failure A. fib and RVR Chronic kidney disease stage III Coronary artery disease history of multiple stents placement, History of non-ST elevated [place] Osteoarthritis Hyperglycemia with uncontrolled diabetes type 2 Hypomagnesemia replaced. Hypertension Hyperlipidemia History of [place] Plan: This is a pleasant 69 years old male who presents with A. fib and RVR and acute CHF, with pulmonary edema, rule out coronary artery disease. Also has lactic acidosis. Continue with IV Lasix, heparin drip, Cardizem drip. Continue with debridement. Continue with metoprolol and losartan per cardiology's recommendation. Patient of infection is low but we will check ProTimecalcitonin and blood culture Labs and medication were reviewed.. Continue same treatment. Continue with symptomatic treatment. Resume home medication. Monitor lytes and vitals. DVT and GI prophylaxis. Further recommendations depends on the clinical course of the patient DVT prophylaxis: heparin GI Prophylaxis: Pepcid PT/OT: Pending Prognosis is guarded
[2020-08-02 04:10] LABS: Albumin 3.9 g/dL (3.5-5.0); Calcium 9.5 mg/dL (8.4-10.2); Potassium 4.9 mmol/L (3.5-5.1); Total Bilirubin 0.5 mg/dL (0.2-1.3); Total Protein 7.4 g/dL (6.3-8.2)
[2020-08-02 04:27] LABS: Basophils % (A) 0 %; Eosinophils % (A) 0 %; HCT 28.7 % (39.0-53.0); HGB 9.4 gm/dL (13.0-17.5); Lymphocytes # (A) 0.5 k/uL (1.0-4.8); Lymphocytes % (A) 5 %; MCH 29.8 pg (25.0-35.0); MCHC 32.8 g/dL (31.0-37.0); MCV 90.8 fL (80.0-100.0); Mean Platelet Volume 8.2; Monocytes # (A) 0.4 k/uL (0-1.0); Monocytes % (A) 4 %; Neutrophils # (A) 8.8 k/uL (1.3-7.7); Neutrophils % (A) 90 %; Platelet Count 235 k/uL (150-450); RBC 3.16 m/uL (4.30-5.90); WBC 9.9 k/uL (3.8-10.6)
[2020-08-02 06:59] LABS: Glucose,Whole Blood 211 mg/dL (75-99)
[2020-08-02] MEDS: INSULIN ASPART (NovoLOG) 100 UNIT/ML VIAL SQ SCH ×4 (07:06→20:22)
[2020-08-02] MEDS: DILTIAZEM 125 MG in SODIUM CHLORIDE 0.9% 100 ML IV SCH (08:35)
--- NOTE | 2020-08-02 08:36 | XR ---
EXAMINATION TYPE: XR chest 1V portable DATE OF EXAM: 08/02/2020 COMPARISON: 08/01/2020 INDICATION: ICU management TECHNIQUE: Single frontal view of the chest is obtained. FINDINGS: The heart size is normal. The pulmonary vasculature is normal. Previous prominence has resolved Previous diffuse infiltrate is largely resolved. Some minimal residual remains previous right pleural effusion effusion may be present. IMPRESSION: 1. Resolving pulmonary edema. Continued follow-up is recommended
[2020-08-02] MEDS: FUROSEMIDE 10 MG/ML 4 ML VIAL IV SCH ×2 (08:54→20:22)
[2020-08-02] MEDS: TICAGRELOR 90 MG TAB PO SCH ×2 (08:54→20:22)
[2020-08-02] MEDS: METOPROLOL TARTRATE 50 MG TAB PO SCH ×2 (08:54→20:22)
[2020-08-02] MEDS: LOSARTAN 25 MG TAB PO SCH (08:55)
--- NOTE | 2020-08-02 08:59 | P.PN ---
Subjective Progress Note Date: 08/02/20 Principal diagnosis: Paroxysmal atrial fibrillation This is a pleasant 69-year-old gentleman with coronary artery disease and prior revascularization as well as ischemic cardiomyopathy as well as hypertension and dyslipidemia who was admitted to the hospital with increasing shortness of breath and respiratory distress and he was diagnosed with heart failure with reduced ejection fraction exacerbation as well as atrial fibrillation with rapid ventricular response. The atrial fibrillation was new to the patient. Subsequently the patient was started on heparin IV and also he was started on Lasix IV. He was seen this morning. He definitely looks better clinically. He remains hemodynamically stable but he is in atrial fibrillation was controlled heart rate. He denies any symptoms of chest pain or chest discomfort. He continues to be on Lasix IV. The creatinine continues to be stable. He is on heparin IV for anticoagulation and we will consider DC that starting the patient on oral anticoagulation was we have the echo results and without any mitral stenosis. Objective - Vital Signs Vital signs: Vital Signs Temp 98.1 F 08/02/20 08:00 Pulse 84 08/02/20 08:00 Resp 10 L 08/02/20 08:00 BP 122/98 08/02/20 08:00 Pulse Ox 100 08/02/20 08:00 Intake & Output 08/01/20 08/02/20 08/02/20 18:59 06:59 18:59 Intake Total 40 465.152 168.75 Output Total 300 950 250 Balance -260 -484.848 -81.25 Weight 91.2 kg 92.6 kg Intake: IV 40 110 20 0.9 KVO 40 110 20 Intake, IV Titration 155.152 98.75 Amount Diltiazem 125 mg In 98.75 Sodium Chloride 0.9% 100 ml @ 5 MG/HR 5 mls/hr IV .Q24H GORDO Rx#:[id number] Heparin Sod,Pork in 0.45% 155.152 NaCl 25,000 unit In 0.45 % NaCl 1 250ml.bag @ 11. 02 UNITS/KG/HR 9.997 mls/ hr IV .Q24H GORDO Rx#: [id number] Oral 200 50 Output: Urine 300 950 250 Other: Voiding Method Urinal Urinal # Voids 1 0 0 - Constitutional General appearance: Present: no acute distress - Respiratory Respiratory: bilateral: diminished - Cardiovascular Rhythm: irregularly irregular Heart sounds: normal: S1, S2 - Labs CBC & Chem 7: 08/02/20 03:35 08/02/20 03:35 Labs: Abnormal Lab Results - Last 24 Hours (Table) 08/01/20 08/01/20 08/01/20 Range/Units 12:43 12:43 12:43 WBC 15.5 H (3.8-10.6) k/uL RBC 3.72 L (4.30-5.90) m/uL Hgb 11.0 L (13.0-17.5) gm/dL Hct 34.6 L (39.0-53.0) % Neutrophils # 14.1 H (1.3-7.7) k/uL Lymphocytes # 0.8 L (1.0-4.8) k/uL APTT (22.0-30.0) sec Sodium (137-145) mmol/L Carbon Dioxide 19 L (22-30) mmol/L BUN 24 H (9-20) mg/dL Creatinine 1.29 H (0.66-1.25) mg/dL Glucose 356 H (74-99) mg/dL POC Glucose (mg/dL) (75-99) mg/dL Plasma Lactic Acid Bautista 7.4 H* (0.7-2.0) mmol/L Alkaline Phosphatase 150 H (38-126) U/L Troponin I (0.000-0.034) ng/mL Urine Protein (Negative) Urine Glucose (UA) (Negative) Urine Ketones (Negative) Urine Blood (Negative) Urine Mucus (None) /hpf 08/01/20 08/01/20 08/01/20 Range/Units 12:43 12:43 14:05 WBC (3.8-10.6) k/uL RBC (4.30-5.90) m/uL Hgb (13.0-17.5) gm/dL Hct (39.0-53.0) % Neutrophils # (1.3-7.7) k/uL Lymphocytes # (1.0-4.8) k/uL APTT (22.0-30.0) sec Sodium (137-145) mmol/L Carbon Dioxide (22-30) mmol/L BUN (9-20) mg/dL Creatinine (0.66-1.25) mg/dL Glucose (74-99) mg/dL POC Glucose (mg/dL) (75-99) mg/dL Plasma Lactic Acid Bautista 8.3 H* (0.7-2.0) mmol/L Alkaline Phosphatase (38-126) U/L Troponin I 0.053 H* (0.000-0.034) ng/mL Urine Protein 2+ H (Negative) Urine Glucose (UA) 4+ H (Negative) Urine Ketones 1+ H (Negative) Urine Blood Trace H (Negative) Urine Mucus Rare H (None) /hpf 08/01/20 08/01/20 08/01/20 Range/Units 16:04 16:40 17:32 WBC (3.8-10.6) k/uL RBC (4.30-5.90) m/uL Hgb (13.0-17.5) gm/dL Hct (39.0-53.0) % Neutrophils # (1.3-7.7) k/uL Lymphocytes # (1.0-4.8) k/uL APTT (22.0-30.0) sec Sodium (137-145) mmol/L Carbon Dioxide (22-30) mmol/L BUN (9-20) mg/dL Creatinine (0.66-1.25) mg/dL Glucose (74-99) mg/dL POC Glucose (mg/dL) 375 H (75-99) mg/dL Plasma Lactic Acid Bautista 6.7 H* (0.7-2.0) mmol/L Alkaline Phosphatase (38-126) U/L Troponin I 0.131 H* (0.000-0.034) ng/mL Urine Protein (Negative) Urine Glucose (UA) (Negative) Urine Ketones (Negative) Urine Blood (Negative) Urine Mucus (None) /hpf 08/01/20 08/01/20 08/01/20 Range/Units 18:55 21:02 21:04 WBC (3.8-10.6) k/uL RBC (4.30-5.90) m/uL Hgb (13.0-17.5) gm/dL Hct (39.0-53.0) % Neutrophils # (1.3-7.7) k/uL Lymphocytes # (1.0-4.8) k/uL APTT (22.0-30.0) sec Sodium (137-145) mmol/L Carbon Dioxide (22-30) mmol/L BUN (9-20) mg/dL Creatinine (0.66-1.25) mg/dL Glucose (74-99) mg/dL POC Glucose (mg/dL) 379 H 314 H (75-99) mg/dL Plasma Lactic Acid Bautista 4.0 H* (0.7-2.0) mmol/L Alkaline Phosphatase (38-126) U/L Troponin I (0.000-0.034) ng/mL Urine Protein (Negative) Urine Glucose (UA) (Negative) Urine Ketones (Negative) Urine Blood (Negative) Urine Mucus (None) /hpf 08/02/20 08/02/20 08/02/20 Range/Units 03:35 03:35 03:35 WBC (3.8-10.6) k/uL RBC 3.16 L (4.30-5.90) m/uL Hgb 9.4 L D (13.0-17.5) gm/dL Hct 28.7 L (39.0-53.0) % Neutrophils # 8.8 H (1.3-7.7) k/uL Lymphocytes # 0.5 L (1.0-4.8) k/uL APTT 68.2 H (22.0-30.0) sec Sodium 136 L (137-145) mmol/L Carbon Dioxide (22-30) mmol/L BUN 36 H (9-20) mg/dL Creatinine 1.59 H (0.66-1.25) mg/dL Glucose 145 H (74-99) mg/dL POC Glucose (mg/dL) (75-99) mg/dL Plasma Lactic Acid Bautista (0.7-2.0) mmol/L Alkaline Phosphatase (38-126) U/L Troponin I (0.000-0.034) ng/mL Urine Protein (Negative) Urine Glucose (UA) (Negative) Urine Ketones (Negative) Urine Blood (Negative) Urine Mucus (None) /hpf 08/02/20 Range/Units 06:58 WBC (3.8-10.6) k/uL RBC (4.30-5.90) m/uL Hgb (13.0-17.5) gm/dL Hct (39.0-53.0) % Neutrophils # (1.3-7.7) k/uL Lymphocytes # (1.0-4.8) k/uL APTT (22.0-30.0) sec Sodium (137-145) mmol/L Carbon Dioxide (22-30) mmol/L BUN (9-20) mg/dL Creatinine (0.66-1.25) mg/dL Glucose (74-99) mg/dL POC Glucose (mg/dL) 211 H (75-99) mg/dL Plasma Lactic Acid Bautista (0.7-2.0) mmol/L Alkaline Phosphatase (38-126) U/L Troponin I (0.000-0.034) ng/mL Urine Protein (Negative) Urine Glucose (UA) (Negative) Urine Ketones (Negative) Urine Blood (Negative) Urine Mucus (None) /hpf Assessment and Plan Assessment: Assessment #1 acute exacerbation of heart failure with reduced ejection fraction #2 history of cardiomyopathy likely to be ischemic #3 atrial fibrillation was controlled heart rate. This is a new diagnosis of the patient. This is likely to be paroxysmal atrial fibrillation #4 coronary artery disease and prior revascularization #5 multiple comorbid conditions Plan #1 continue the current medical regimen #2 continue the Lasix IV #3 continue monitor the kidney function and electrolytes #4 follow-up on the echocardiogram #5 consider oral anticoagulation
[2020-08-02] MEDS ORDERED: Magnesium Replacement Protocol 1 EACH MISC MISCELLANE PRN (09:16)
[2020-08-02] MEDS: MAGNESIUM SULFATE-D5W PMX 1 GM in DEXTROSE/WATER 1 100ML.BAG IVPB SCH ×2 (09:41→11:00)
[2020-08-02 11:06] LABS: Glucose,Whole Blood 161 mg/dL (75-99)
[2020-08-02] MEDS ORDERED: HEPARIN SODIUM,PORCINE 5,000 UNIT/ML 1 ML VIAL IV STA (11:23)
[2020-08-02] MEDS: HEPARIN SOD,PORK IN 0.45% NACL 25,000 UNIT in 0.45% NACL 1 250ML.BAG IV SCH (11:24)
--- NOTE | 2020-08-02 14:30 | P.PN ---
Subjective Progress Note Date: 08/02/20 Principal diagnosis: Acute hypoxic respiratory failure secondary to acute on chronic systolic congestive heart failure This is a 69-year-old white male with history of chronic atrial fibrillation, hypertension, diabetes, COPD, ischemic cardiomyopathy, previous PCI, patient normally sees Dr. ZELDA Mckenzie on a regular basis for his congestive heart failure and atrial fibrillation. Patient presented to the ER with 1 day history of increased shortness of breath, and palpitations. Denies any fever or chills, denies any chest pain, has been noticing significant swelling in his lower extremities. Patient arrived to the ER, and he was in moderate severe respiratory distress. Placed on BiPAP, he was noted to be in atrial fibrillation with RVR, started on heparin, and he was also started on Cardizem. Heart rate was in the range of 1:30, patient is now on Cardizem drip at 5 mg per hour. He is also on heparin. By the time he made it to the ICU, patient was transitioned from BiPAP to a nasal cannula at 4 L, and he seems to be doing quite well quite comfortable during my evaluation. Chest x-ray clearly showed evidence of pulmonary edema. CBC showed leukocytosis with WBC 15.5 hemoglobin is 11 his electrolytes are normal except bicarb is low at 19 he does have anion gap metabolic acidosis with anion gap of 15 BUN is 24 creatinine is 1.29. Blood sugar was 356. BNP level was over 11,000. Troponin 0.131. Patient was reevaluated today on 08/02/2020, patient remains in the ICU, his atrial fibrillation seems to be better controlled, rate is down in the 80s. Patient is feeling comfortable, denies any shortness of breath, no cough no wheezing denies any chest pain. Remains on Lasix. Patient is also on heparin patient is being considered for cardioversion by cardiology. Chest x-ray showing resolving pulmonary edema. CBC is relatively normal left. Normal BUN is 36 creatinine is 1.59. Objective - Vital Signs Vital signs: Vital Signs Temp 97.8 F 08/02/20 12:00 Pulse 66 08/02/20 14:00 Resp 16 08/02/20 14:00 BP 98/61 08/02/20 14:00 Pulse Ox 100 08/02/20 14:00 Intake & Output 08/01/20 08/02/20 08/02/20 18:59 06:59 18:59 Intake Total 40 413.789 1462.986 Output Total 611 194 2891 Balance -260 -484.848 -727.014 Weight 91.2 kg 92.6 kg Intake: IV 40 110 70 0.9 KVO 40 110 70 Intake, IV Titration 155.152 377.986 Amount Diltiazem 125 mg In 98.75 Sodium Chloride 0.9% 100 ml @ 5 MG/HR 5 mls/hr IV .Q24H [facility] Rx#:[id number] Heparin Sod,Pork in 0.45% 155.152 79.236 NaCl 25,000 unit In 0.45 % NaCl 1 250ml.bag @ 11. 02 UNITS/KG/HR 9.997 mls/ hr IV .Q24H [facility] Rx#: [id number] Magnesium Sulfate-D5w Pmx 200 1 gm In Dextrose/Water 1 100ml.bag @ 100 mls/hr IVPB Q1H [facility] Rx#: [id number] Oral 200 600 Output: Urine [phone] Other: Voiding Method Urinal Urinal Urinal # Voids 1 0 1 - Exam Physical Exam: Revealed a 69-year-old white male on BiPAP with IPAP of 12 and EPAP of 5 and 50% FiO2. O2 saturation is 100%. Head: Atraumatic, normocephalic. HEENT:[Neck is supple.] [No neck masses.] [No thyromegaly.] [No JVD.] Chest: [Symmetrical chest expansion fine crackles at the bases. Cardiac Exam: [Irregular irregular rhythm, 2/6 systolic murmur throughout the precordium. Abdomen: [Obese, Soft, nontender, no megaly, no rebound, no guarding, normal bowel sounds.] Extremities: [No clubbing, plus edema, no cyanosis.] Neurological Exam: [No focal neurologic deficit.] Alert oriented 3. Psychiatric: Normal mood affect and normal mental status examination. Skin: No rashes. - Labs CBC & Chem 7: 08/02/20 03:35 08/02/20 03:35 Labs: Abnormal Lab Results - Last 24 Hours (Table) 08/01/20 08/01/20 08/01/20 Range/Units 14:05 16:04 16:40 RBC (4.30-5.90) m/uL Hgb (13.0-17.5) gm/dL Hct (39.0-53.0) % Neutrophils # (1.3-7.7) k/uL Lymphocytes # (1.0-4.8) k/uL APTT (22.0-30.0) sec Sodium (137-145) mmol/L BUN (9-20) mg/dL Creatinine (0.66-1.25) mg/dL Glucose (74-99) mg/dL POC Glucose (mg/dL) 375 H (75-99) mg/dL Plasma Lactic Acid Bautista 8.3 H* (0.7-2.0) mmol/L Troponin I 0.131 H* (0.000-0.034) ng/mL 08/01/20 08/01/20 08/01/20 Range/Units 17:32 18:55 21:02 RBC (4.30-5.90) m/uL Hgb (13.0-17.5) gm/dL Hct (39.0-53.0) % Neutrophils # (1.3-7.7) k/uL Lymphocytes # (1.0-4.8) k/uL APTT (22.0-30.0) sec Sodium (137-145) mmol/L BUN (9-20) mg/dL Creatinine (0.66-1.25) mg/dL Glucose (74-99) mg/dL POC Glucose (mg/dL) 379 H 314 H (75-99) mg/dL Plasma Lactic Acid Bautista 6.7 H* (0.7-2.0) mmol/L Troponin I (0.000-0.034) ng/mL 08/01/20 08/02/20 08/02/20 Range/Units 21:04 03:35 03:35 RBC 3.16 L (4.30-5.90) m/uL Hgb 9.4 L D (13.0-17.5) gm/dL Hct 28.7 L (39.0-53.0) % Neutrophils # 8.8 H (1.3-7.7) k/uL Lymphocytes # 0.5 L (1.0-4.8) k/uL APTT 68.2 H (22.0-30.0) sec Sodium (137-145) mmol/L BUN (9-20) mg/dL Creatinine (0.66-1.25) mg/dL Glucose (74-99) mg/dL POC Glucose (mg/dL) (75-99) mg/dL Plasma Lactic Acid Bautista 4.0 H* (0.7-2.0) mmol/L Troponin I (0.000-0.034) ng/mL 08/02/20 08/02/20 08/02/20 Range/Units 03:35 06:58 09:45 RBC (4.30-5.90) m/uL Hgb (13.0-17.5) gm/dL Hct (39.0-53.0) % Neutrophils # (1.3-7.7) k/uL Lymphocytes # (1.0-4.8) k/uL APTT 34.4 H (22.0-30.0) sec Sodium 136 L (137-145) mmol/L BUN 36 H (9-20) mg/dL Creatinine 1.59 H (0.66-1.25) mg/dL Glucose 145 H (74-99) mg/dL POC Glucose (mg/dL) 211 H (75-99) mg/dL Plasma Lactic Acid Bautista (0.7-2.0) mmol/L Troponin I (0.000-0.034) ng/mL 08/02/20 Range/Units 11:05 RBC (4.30-5.90) m/uL Hgb (13.0-17.5) gm/dL Hct (39.0-53.0) % Neutrophils # (1.3-7.7) k/uL Lymphocytes # (1.0-4.8) k/uL APTT (22.0-30.0) sec Sodium (137-145) mmol/L BUN (9-20) mg/dL Creatinine (0.66-1.25) mg/dL Glucose (74-99) mg/dL POC Glucose (mg/dL) 161 H (75-99) mg/dL Plasma Lactic Acid Bautista (0.7-2.0) mmol/L Troponin I (0.000-0.034) ng/mL Assessment and Plan Assessment: Impression: Acute hypoxic respiratory failure secondary to acute on chronic systolic congestive heart failure New onset atrial fibrillation with RVR. Rate seems to be better controlled at present with Cardizem. Acute on chronic systolic congestive heart failure, exacerbated by atrial fibrillation with RVR, and underlying LV dysfunction. Acute lactic acidosis mostly secondary to hypoperfusion. Doubt sepsis. Ischemic cardiomyopathy. Echocardiogram report is pending History of coronary artery disease and previous PCI. Dyslipidemia. Type 2 diabetes. History of COPD, patient is now on a smoker. Does not smoke tobacco at present Recommendation: Continue to monitor the patient in the ICU. Continue Cardizem drip. Cardiology to decide about oral treatment may even consider cardioversion on this patient. Continue heparin. Continue Lasix 40 mg IV push every 12 hours. Monitor renal profile and electrolytes while on diuretics. Strict I's and O's. Daily weights. Continue DuoNeb updrafts 4 times a day and when necessary for his underlying history of COPD. We'll continue to follow Time with Patient: Less than 30
--- NOTE | 2020-08-02 15:00 | ECHOF ---
Referral Reason:chf MEASUREMENTS -------- HEIGHT: 175.3 cm WEIGHT: 92.5 kg BP: 124/76 IVSd: 1.2 cm (0.6 - 1.1) LVIDd: 6.2 cm (3.9 - 5.3) LVPWd: 1.1 cm (0.6 - 1.1) IVSs: 1.6 cm LVIDs: 4.7 cm LVPWs: 1.8 cm LA Diam: 4.0 cm (2.7 - 3.8) RVIDd: 3.4 cm (< 3.3) LAESV Index (A-L): 31.43 ml/m Ao Diam: 3.5 cm (2.0 - 3.7) AV Cusp: 1.9 cm (1.5 - 2.6) EPSS: 2.2 cm RAP: 15.00 mmHg RVSP: 58.80 mmHg MV EF SLOPE: 63.14 mm/s (70 - 150) MV EXCURSION: 20.13 mm (> 18.000) FINDINGS -------- Atrial fibrillation. This was a technically adequate study. The left ventricle is mildly dilated. There is borderline concentric left ventricular hypertrophy. Overall left ventricular systolic function is moderately impaired with, an EF between 35 - 40 %. The right ventricle is mildly enlarged. LA is midly dilated 29-33ml/m2. The right atrium is normal in size. Interatrial and interventricular septum intact. There is mild aortic valve sclerosis. The mitral valve leaflets are mildly thickened. Mild mitral annular calcification present. Modera te mitral regurgitation is present. [id number] tricuspid regurgitation present. There is severe pulmonary hypertension. The rig ht ventricular systolic pressure, as measured by Doppler, is 58.80mmHg. The pulmonic valve was not well visualized. The aortic root size is normal. The inferior vena cava is dilated with poor inspiratory collapse which is consistent with estimated r ight atrial pressure of 15 mmHg. There is no pericardial effusion. CONCLUSIONS -------- 1. The left ventricle is mildly dilated. 2. There is borderline concentric left ventricular hypertrophy. 3. Overall left ventricular systolic function is moderately impaired with, an EF between 35 - 40 %. 4. The right ventricle is mildly enlarged. 5. LA is midly dilated 29-33ml/m2. 6. There is mild aortic valve sclerosis. 7. The mitral valve leaflets are mildly thickened. 8. Mild mitral annular calcification present. 9. Moderate mitral regurgitation is present. 10. Xeia-[id number]-ewyjeszy tricuspid regurgitation present. 11. There is severe pulmonary hypertension. 12. The right ventricular systolic pressure, as measured by Doppler, is 58.80mmHg. 13. The inferior vena cava is dilated with poor inspiratory collapse which is consistent with estimat ed right atrial pressure of 15 mmHg. 14. There is no pericardial effusion. [employer]: Fallon Mckeon RDCS
[2020-08-02 17:06] LABS: Glucose,Whole Blood 158 mg/dL (75-99)
[2020-08-02 20:11] LABS: Glucose,Whole Blood 149 mg/dL (75-99)
[2020-08-02] MEDS: INSULIN DETEMIR (LEVEMIR) 100 UNIT/ML SYR SQ SCH (20:21)
[2020-08-02] MEDS: ATORVASTATIN 40 MG TAB PO SCH (20:22)
--- NOTE | 2020-08-02 21:47 | P.PN ---
Subjective Patient is a 69-year-old male with a known history of significant coronary artery disease status post stent placement x5, hypertension, hyperlipidemia, diabetes type 2 insulin-dependent and history of ND and previous history of smoking and marijuana use . He is a patient of Dr. Wan and follows up with Dr. Mckenzie director of group counseling program as an outpatient. Presents because of acute dyspnea associated with vomiting. Patient states that he starts having dyspnea one day ago associated with vomiting 4-5 times. He has diarrhea twice a day, plus one was more watery. But with no abdominal pain, no chest pain. He has little dry cough but this is chronic. No abdominal or urinary complaints. No headache or weakness Patient denies smoking or alcohol but he smokes marijuana sometimes On admission he was tachycardic and tachypneic with a heart rate 105-116 and breathing at 20-22. Blood pressure 127/90, and he was saturating 92% and 50 L oxygen via nasal cannula, he is afebrile. Labs showed leukocytosis with WBC of 15.5 K, risks of CBC, INR is unremarkable. Creatinine is at baseline at 1.09 Activity as it is elevated 7.4 and 8.3, liver enzymes not elevated and troponin is high at 0.05. Urinalysis is not suspicious of infection and coronavirus not detected. EKG showing atrial fibrillation with tachycardia at 163 Chest x-ray showing atypical pneumonia versus interstitial edema Echocardiogram on 02/17/2020: Ejection fraction 20-25% with mild LVH and ooef-[id number] tricuspid regurgitation In the emergency room patient was started on heparin drip, Cardizem drip at 5 mg per hour, started on Lasix 40 mg twice daily 08/02/2020 Patient remains in the ICU, he is breathing easier today and her more comfortable, he was on BiPAP this morning. Patient oxygen saturation his 90s on 6 L per minute. Heart rate is controlled currently at 66 bpm and his Cardizem drip was stopped His CBC showed hemoglo-delusion, WBC 9.9K, hemoglobin 9.4 and platelets 235K. Creatinine was slightly worse 1.2 went up to 1.5 Cardiology on the case and a planning for cardio version per documents Patient also on brillinta , patient is telling me today he was noncompliant with his aspirin and brillinta because we will be for brillinta was $600. Going to consult social work job titles Currently patient is on IV Lasix 40 mg twice daily and heparin drip, traversed controlled on Levemir 30 units at bedtime Review of Systems CONSTITUTIONAL: No fever, no malaise, no fatigue. HEENT: No recent visual problems or hearing problems. Denied any sore throat. CARDIOVASCULAR: No orthopnea, PND, no palpitations, no syncope. PULMONARY: No chest wall tenderness, no hemoptysis. GASTROINTESTINAL: No diarrhea, no nausea, no vomiting, no abdominal pain. Normoactive bowel sounds. NEUROLOGICAL: No headaches, no weakness, no numbness. Active Medications Generic Name Dose Route Start Last Admin Trade Name Freq PRN Reason Stop Dose Admin Atorvastatin Calcium 40 mg 08/01/20 21:00 08/01/20 20:59 Atorvastatin 40 Mg Tab PO 40 mg HS [facility] Administration Furosemide 40 mg 08/01/20 21:00 08/02/20 08:54 Furosemide 10 Mg/Ml 4 Ml Vial IV 40 mg Q12HR [facility] Administration Heparin Sodium (Porcine) 0 unit 08/01/20 13:38 08/01/20 21:48 Heparin Sodium,Porcine 5,000 Unit/Ml 1 Ml Vial IV 4,000 unit PER PROTOCOL PRN Administration Low PTT Protocol Diltiazem HCl 125 mg/ Sodium 125 mls @ 5 mls/hr 08/01/20 12:45 08/02/20 08:35 Chloride IV 5 mg/hr .Q24H [facility] 5 mls/hr Administration 5 MG/HR Heparin Sodium/Sodium Chloride 250 mls @ 9.997 mls/hr 08/01/20 13:45 08/02/20 04:08 25,000 unit/ Sodium Chloride IV 12.02 units/kg/hr .Q24H [facility] 10.904 mls/hr Titration Protocol 11.02 UNITS/KG/HR Magnesium Sulfate/Dextrose 1 100 mls @ 100 mls/hr 08/02/20 09:30 08/02/20 11:00 gm/ IV Solution IVPB 08/02/20 11:29 100 mls/hr Q1H [facility] Administration Insulin Aspart 0 unit 08/01/20 21:00 08/02/20 07:06 Insulin Aspart (Novolog) 100 Unit/Ml Vial SQ 3 unit ACHS [facility] Administration Protocol Insulin Detemir 30 unit 08/01/20 21:00 08/01/20 21:00 Insulin Detemir (Levemir) 100 Unit/Ml Syr SQ 30 unit HS [facility] Administration Losartan Potassium 25 mg 08/02/20 09:00 08/02/20 08:55 Losartan 25 Mg Tab PO 25 mg DAILY [facility] Administration Metoprolol Tartrate 100 mg 08/01/20 21:00 08/02/20 08:54 Metoprolol Tartrate 50 Mg Tab PO 100 mg BID [facility] Administration Miscellaneous Information 1 each 08/02/20 09:16 Magnesium Replacement Protocol 1 Each Misc MISCELLANE DAILY PRN Per Protocol Protocol Naloxone HCl 0.2 mg 08/01/20 13:44 Naloxone 0.4 Mg/Ml 1 Ml Vial IV Q2M PRN Opioid Reversal Nitroglycerin 0.4 mg 08/01/20 12:34 08/01/20 12:31 Nitroglycerin Sl Tabs 0.4 Mg Tab SUBLINGUAL 0.4 mg Q5M PRN Administration Chest Pain Ticagrelor 90 mg 08/01/20 21:00 08/02/20 08:54 Ticagrelor 90 Mg Tab PO 90 mg BID [facility] Administration Objective - Vital Signs Vital signs: Vital Signs Temp 98.1 F 08/02/20 08:00 Pulse 68 08/02/20 11:00 Resp 16 08/02/20 11:00 BP 112/76 08/02/20 11:00 Pulse Ox 96 08/02/20 11:00 Intake & Output 08/01/20 08/02/20 08/02/20 18:59 06:59 18:59 Intake Total 40 465.152 688.75 Output Total 718 912 7856 Balance -260 -484.848 -361.25 Weight 91.2 kg 92.6 kg Intake: IV 40 110 40 0.9 KVO 40 110 40 Intake, IV Titration 155.152 298.75 Amount Diltiazem 125 mg In 98.75 Sodium Chloride 0.9% 100 ml @ 5 MG/HR 5 mls/hr IV .Q24H [facility] Rx#:[id number] Heparin Sod,Pork in 0.45% 155.152 NaCl 25,000 unit In 0.45 % NaCl 1 250ml.bag @ 11. 02 UNITS/KG/HR 9.997 mls/ hr IV .Q24H [facility] Rx#: [id number] Magnesium Sulfate-D5w Pmx 200 1 gm In Dextrose/Water 1 100ml.bag @ 100 mls/hr IVPB Q1H [facility] Rx#: [id number] Oral 200 350 Output: Urine [phone] Other: Voiding Method Urinal Urinal Urinal # Voids 1 0 0 - Exam -GENERAL: The patient is alert and oriented x3, not in any acute distress. Overweight HEENT: Pupils are round and equally reacting to light. EOMI. No scleral icterus. No conjunctival pallor. Normocephalic, atraumatic. No pharyngeal erythema. No thyromegaly. CARDIOVASCULAR: S1 and S2 present. No murmurs, rubs, or gallops. -PULMONARY: Chest is clear to auscultation, no wheezing . Bilateral crepitation ABDOMEN: Soft, nontender, nondistended, normoactive bowel sounds. No palpable organomegaly. MUSCULOSKELETAL: No joint swelling or deformity. EXTREMITIES: No cyanosis, clubbing, or pedal edema. NEUROLOGICAL: Gross neurological examination did not reveal any focal deficits. SKIN: No rashes. No petechiae - Labs CBC & Chem 7: 08/02/20 03:35 08/02/20 03:35 Labs: Abnormal Lab Results - Last 24 Hours (Table) 08/01/20 08/01/20 08/01/20 Range/Units 12:43 12:43 12:43 WBC 15.5 H (3.8-10.6) k/uL RBC 3.72 L (4.30-5.90) m/uL Hgb 11.0 L (13.0-17.5) gm/dL Hct 34.6 L (39.0-53.0) % Neutrophils # 14.1 H (1.3-7.7) k/uL Lymphocytes # 0.8 L (1.0-4.8) k/uL APTT (22.0-30.0) sec Sodium (137-145) mmol/L Carbon Dioxide 19 L (22-30) mmol/L BUN 24 H (9-20) mg/dL Creatinine 1.29 H (0.66-1.25) mg/dL Glucose 356 H (74-99) mg/dL POC Glucose (mg/dL) (75-99) mg/dL Plasma Lactic Acid Bautista 7.4 H* (0.7-2.0) mmol/L Alkaline Phosphatase 150 H (38-126) U/L Troponin I (0.000-0.034) ng/mL Urine Protein (Negative) Urine Glucose (UA) (Negative) Urine Ketones (Negative) Urine Blood (Negative) Urine Mucus (None) /hpf 08/01/20 08/01/20 08/01/20 Range/Units 12:43 12:43 14:05 WBC (3.8-10.6) k/uL RBC (4.30-5.90) m/uL Hgb (13.0-17.5) gm/dL Hct (39.0-53.0) % Neutrophils # (1.3-7.7) k/uL Lymphocytes # (1.0-4.8) k/uL APTT (22.0-30.0) sec Sodium (137-145) mmol/L Carbon Dioxide (22-30) mmol/L BUN (9-20) mg/dL Creatinine (0.66-1.25) mg/dL Glucose (74-99) mg/dL POC Glucose (mg/dL) (75-99) mg/dL Plasma Lactic Acid Bautista 8.3 H* (0.7-2.0) mmol/L Alkaline Phosphatase (38-126) U/L Troponin I 0.053 H* (0.000-0.034) ng/mL Urine Protein 2+ H (Negative) Urine Glucose (UA) 4+ H (Negative) Urine Ketones 1+ H (Negative) Urine Blood Trace H (Negative) Urine Mucus Rare H (None) /hpf 08/01/20 08/01/20 08/01/20 Range/Units 16:04 16:40 17:32 WBC (3.8-10.6) k/uL RBC (4.30-5.90) m/uL Hgb (13.0-17.5) gm/dL Hct (39.0-53.0) % Neutrophils # (1.3-7.7) k/uL Lymphocytes # (1.0-4.8) k/uL APTT (22.0-30.0) sec Sodium (137-145) mmol/L Carbon Dioxide (22-30) mmol/L BUN (9-20) mg/dL Creatinine (0.66-1.25) mg/dL Glucose (74-99) mg/dL POC Glucose (mg/dL) 375 H (75-99) mg/dL Plasma Lactic Acid Bautista 6.7 H* (0.7-2.0) mmol/L Alkaline Phosphatase (38-126) U/L Troponin I 0.131 H* (0.000-0.034) ng/mL Urine Protein (Negative) Urine Glucose (UA) (Negative) Urine Ketones (Negative) Urine Blood (Negative) Urine Mucus (None) /hpf 08/01/20 08/01/20 08/01/20 Range/Units 18:55 21:02 21:04 WBC (3.8-10.6) k/uL RBC (4.30-5.90) m/uL Hgb (13.0-17.5) gm/dL Hct (39.0-53.0) % Neutrophils # (1.3-7.7) k/uL Lymphocytes # (1.0-4.8) k/uL APTT (22.0-30.0) sec Sodium (137-145) mmol/L Carbon Dioxide (22-30) mmol/L BUN (9-20) mg/dL Creatinine (0.66-1.25) mg/dL Glucose (74-99) mg/dL POC Glucose (mg/dL) 379 H 314 H (75-99) mg/dL Plasma Lactic Acid Bautista 4.0 H* (0.7-2.0) mmol/L Alkaline Phosphatase (38-126) U/L Troponin I (0.000-0.034) ng/mL Urine Protein (Negative) Urine Glucose (UA) (Negative) Urine Ketones (Negative) Urine Blood (Negative) Urine Mucus (None) /hpf 08/02/20 08/02/20 08/02/20 Range/Units 03:35 03:35 03:35 WBC (3.8-10.6) k/uL RBC 3.16 L (4.30-5.90) m/uL Hgb 9.4 L D (13.0-17.5) gm/dL Hct 28.7 L (39.0-53.0) % Neutrophils # 8.8 H (1.3-7.7) k/uL Lymphocytes # 0.5 L (1.0-4.8) k/uL APTT 68.2 H (22.0-30.0) sec Sodium 136 L (137-145) mmol/L Carbon Dioxide (22-30) mmol/L BUN 36 H (9-20) mg/dL Creatinine 1.59 H (0.66-1.25) mg/dL Glucose 145 H (74-99) mg/dL POC Glucose (mg/dL) (75-99) mg/dL Plasma Lactic Acid Bautista (0.7-2.0) mmol/L Alkaline Phosphatase (38-126) U/L Troponin I (0.000-0.034) ng/mL Urine Protein (Negative) Urine Glucose (UA) (Negative) Urine Ketones (Negative) Urine Blood (Negative) Urine Mucus (None) /hpf 08/02/20 08/02/20 08/02/20 Range/Units 06:58 09:45 11:05 WBC (3.8-10.6) k/uL RBC (4.30-5.90) m/uL Hgb (13.0-17.5) gm/dL Hct (39.0-53.0) % Neutrophils # (1.3-7.7) k/uL Lymphocytes # (1.0-4.8) k/uL APTT 34.4 H (22.0-30.0) sec Sodium (137-145) mmol/L Carbon Dioxide (22-30) mmol/L BUN (9-20) mg/dL Creatinine (0.66-1.25) mg/dL Glucose (74-99) mg/dL POC Glucose (mg/dL) 211 H 161 H (75-99) mg/dL Plasma Lactic Acid Bautista (0.7-2.0) mmol/L Alkaline Phosphatase (38-126) U/L Troponin I (0.000-0.034) ng/mL Urine Protein (Negative) Urine Glucose (UA) (Negative) Urine Ketones (Negative) Urine Blood (Negative) Urine Mucus (None) /hpf Assessment and Plan Assessment: Elevated troponin, rule out cardiac causes versus non-STEMI, A. fib with RVR versus others Acute and chronic systolic CHF EF 20-25%, with acute pulmonary edema. Atypical pneumonia cannot be excluded Elevated lactic acid acute hypoxic respiratory failure A. fib and RVR Chronic kidney disease stage III Coronary artery disease history of multiple stents placement, History of non-ST elevated ND Osteoarthritis Hyperglycemia with uncontrolled diabetes type 2 Hypomagnesemia replaced. Hypertension Hyperlipidemia History of ND Plan: This is a pleasant 69 years old male who presents with A. fib and RVR and acute CHF, with pulmonary edema Continue with IV Lasix, heparin drip. While Cardizem drip is discontinued for rate is controlled. Continue with metoprolol and losartan per cardiology's recommendation. Cardiology and pulmonary team on the case Labs and medication were reviewed.. Continue same treatment. Continue with symptomatic treatment. Resume home medication. Monitor lytes and vitals. DVT and GI prophylaxis. Further recommendations depends on the clinical course of the patient DVT prophylaxis: heparin GI Prophylaxis: Pepcid PT/OT: Pending, consult Dr. Welch for possible inpatient rehab Prognosis is guarded
[2020-08-03 04:34] LABS: Basophils % (A) 0 %; Eosinophils # (A) 0.1 k/uL (0-0.7); Eosinophils % (A) 0 %; HCT 27.5 % (39.0-53.0); HGB 8.9 gm/dL (13.0-17.5); Lymphocytes # (A) 1.1 k/uL (1.0-4.8); Lymphocytes % (A) 7 %; MCH 29.8 pg (25.0-35.0); MCHC 32.4 g/dL (31.0-37.0); MCV 92.2 fL (80.0-100.0); Mean Platelet Volume 8.4; Monocytes % (A) 6 %; Neutrophils # (A) 14.6 k/uL (1.3-7.7); Neutrophils % (A) 86 %; Platelet Count 247 k/uL (150-450); RBC 2.98 m/uL (4.30-5.90); RDW 13.6 % (11.5-15.5); WBC 16.9 k/uL (3.8-10.6)
[2020-08-03 04:46] LABS: Albumin 3.9 g/dL (3.5-5.0); Calcium 9.2 mg/dL (8.4-10.2); Magnesium 1.9 mg/dL (1.6-2.3); Potassium 3.6 mmol/L (3.5-5.1); Total Bilirubin 0.6 mg/dL (0.2-1.3); Total Protein 7.1 g/dL (6.3-8.2)
[2020-08-03] MEDS ORDERED: Potassium Replacement Protocol 1 EACH MISC MISCELLANE PRN (04:58)
[2020-08-03] MEDS ORDERED: POTASSIUM CHLORIDE ER 20 MEQ TAB.ER PO SCH (05:00)
[2020-08-03] MEDS: MAGNESIUM SULFATE-D5W PMX 1 GM in DEXTROSE/WATER 1 100ML.BAG IVPB SCH ×2 (05:26→06:52)
[2020-08-03] MEDS: HEPARIN SODIUM,PORCINE 5,000 UNIT/ML 1 ML VIAL IV PRN (05:26)
[2020-08-03 07:04] LABS: Glucose,Whole Blood 77 mg/dL (75-99)
--- NOTE | 2020-08-03 07:38 | P.PN ---
Subjective Progress Note Date: 08/03/20 Principal diagnosis: Paroxysmal atrial fibrillation This is a pleasant 69-year-old gentleman with coronary artery disease and prior revascularization as well as ischemic cardiomyopathy as well as hypertension and dyslipidemia who was admitted to the hospital with increasing shortness of breath and respiratory distress and he was diagnosed with heart failure with reduced ejection fraction exacerbation as well as atrial fibrillation with rapid ventricular response. The atrial fibrillation was new to the patient. Subsequently the patient was started on heparin IV and also he was started on Lasix IV. The patient was seen today August 03. He is feeling slightly better clinically. He continues to be in atrial fibrillation at this point. His ejection fraction came in to be low at 30-35% was evidence of moderate mitral regurgitation and severe pulmonary hypertension. With an ejection fraction being that low I'm going to DC the Cardizem IV and start amiodarone IV if the heart rate started going up again. Also he is on heparin IV which I'm going to stop and start him on Eliquis at 5 mg by mouth twice a day. I would continue the Lasix for additional 24 hour and continue monitor the kidney function and electrolytes. Objective - Vital Signs Vital signs: Vital Signs Temp 97.9 F 08/03/20 04:00 Pulse 62 08/03/20 07:00 Resp 18 08/03/20 07:00 BP 108/72 08/03/20 07:00 Pulse Ox 97 08/03/20 07:00 Intake & Output 08/02/20 08/03/20 08/03/20 18:59 06:59 18:59 Intake Total 1187.986 666.225 237.525 Output Total 1775 2525 Balance -587.014 -1858.775 237.525 Weight 92.1 kg Intake: IV 110 140 100 0.9 KVO 110 40 Magnesium Sulfate-D5w Pmx 100 100 1 gm In Dextrose/Water 1 100ml.bag @ 100 mls/hr IVPB Q1H [facility] Rx#: [id number] Intake, IV Titration 377.986 226.225 137.525 Amount Diltiazem 125 mg In 98.75 113.75 Sodium Chloride 0.9% 100 ml @ 5 MG/HR 5 mls/hr IV .Q24H [facility] Rx#:[id number] Heparin Sod,Pork in 0.45% 79.236 226.225 23.775 NaCl 25,000 unit In 0.45 % NaCl 1 250ml.bag @ 11. 02 UNITS/KG/HR 9.997 mls/ hr IV .Q24H [facility] Rx#: [id number] Magnesium Sulfate-D5w Pmx 200 1 gm In Dextrose/Water 1 100ml.bag @ 100 mls/hr IVPB Q1H [facility] Rx#: [id number] Oral 700 300 Output: Urine 1775 2525 Other: Voiding Method Urinal Urinal # Voids 0 0 0 - Constitutional General appearance: Present: no acute distress - Respiratory Respiratory: bilateral: diminished - Cardiovascular Rhythm: irregularly irregular - Labs CBC & Chem 7: 08/03/20 03:52 08/03/20 03:52 Labs: Abnormal Lab Results - Last 24 Hours (Table) 08/02/20 08/02/20 08/02/20 Range/Units 09:45 11:05 17:03 WBC (3.8-10.6) k/uL RBC (4.30-5.90) m/uL Hgb (13.0-17.5) gm/dL Hct (39.0-53.0) % Neutrophils # (1.3-7.7) k/uL APTT 34.4 H (22.0-30.0) sec Sodium (137-145) mmol/L BUN (9-20) mg/dL Creatinine (0.66-1.25) mg/dL Glucose (74-99) mg/dL POC Glucose (mg/dL) 161 H 158 H (75-99) mg/dL 08/02/20 08/02/20 08/03/20 Range/Units 17:33 20:09 03:52 WBC 16.9 H (3.8-10.6) k/uL RBC 2.98 L (4.30-5.90) m/uL Hgb 8.9 L (13.0-17.5) gm/dL Hct 27.5 L (39.0-53.0) % Neutrophils # 14.6 H (1.3-7.7) k/uL APTT 78.7 H (22.0-30.0) sec Sodium (137-145) mmol/L BUN (9-20) mg/dL Creatinine (0.66-1.25) mg/dL Glucose (74-99) mg/dL POC Glucose (mg/dL) 149 H (75-99) mg/dL 08/03/20 Range/Units 03:52 WBC (3.8-10.6) k/uL RBC (4.30-5.90) m/uL Hgb (13.0-17.5) gm/dL Hct (39.0-53.0) % Neutrophils # (1.3-7.7) k/uL APTT (22.0-30.0) sec Sodium 133 L (137-145) mmol/L BUN 68 H (9-20) mg/dL Creatinine 1.45 H (0.66-1.25) mg/dL Glucose 68 L (74-99) mg/dL POC Glucose (mg/dL) (75-99) mg/dL Microbiology - Last 24 Hours (Table) 08/01/20 12:43 Blood Culture - Preliminary Blood No Growth after 24 hours Assessment and Plan Assessment: Assessment #1 acute exacerbation of heart failure with reduced ejection fraction #2 history of cardiomyopathy likely to be ischemic #3 atrial fibrillation was controlled heart rate. This is a new diagnosis of the patient. This is likely to be paroxysmal atrial fibrillation #4 coronary artery disease and prior revascularization #5 multiple comorbid conditions Plan #1 continue the current medical regimen #2 continue the Lasix IV #3 continue monitor the kidney function and electrolytes #4 DC the Cardizem in view of the low ejection fraction #5 follow-up with the patient
--- NOTE | 2020-08-03 08:29 | XR ---
EXAMINATION TYPE: XR chest 1V portable DATE OF EXAM: 08/03/2020 HISTORY: Shortness of breath. COMPARISON: 08/02/2020 TECHNIQUE: Single view of the chest is submitted. FINDINGS: Demonstrated are scattered senescent parenchymal change. Patchy basilar infiltrates noted. Correlate for pneumonia. The heart is stable. Hilar and mediastinal structures are within normal limits. Degenerative changes are seen of the dorsal spine. IMPRESSION: 1. Patchy basilar infiltrates noted. Correlate for pneumonia.
[2020-08-03] MEDS: INSULIN ASPART (NovoLOG) 100 UNIT/ML VIAL SQ SCH ×4 (08:41→22:01)
[2020-08-03] MEDS: FUROSEMIDE 10 MG/ML 4 ML VIAL IV SCH ×2 (08:50→22:46)
[2020-08-03] MEDS: METOPROLOL TARTRATE 50 MG TAB PO SCH ×2 (08:50→22:01)
[2020-08-03] MEDS: LOSARTAN 25 MG TAB PO SCH (08:51)
[2020-08-03] MEDS: TICAGRELOR 90 MG TAB PO SCH ×2 (08:51→22:00)
[2020-08-03] MEDS ORDERED: APIXABAN 5 MG TAB PO SCH (09:00)
--- NOTE | 2020-08-03 09:55 | P.CONS ---
History of Present Illness - Chief Complaint Medical debility - History of Present Illness I had the opportunity to see patient for inpatient rehab consultation with regard to medical debility. He was admitted to [facility] August 01 with shortness of breath, emesis and related CHF of atrial fibrillation for which is in consultation by Dr. Moctezuma and cardiology. Chest x-rays followed for patchy infiltrate. PT and OT prescribed. Previous functional history as elicited from patient: 69-year-old right-handed white male who is lives in a first-floor apartment alone. Unemployed. lives in own apartment. Patient describes independent with own cooking, laundry, standing shower and gait with standard cane. Does not drive. PMD Arti Leon. Patient denies tobacco or alcohol. Family history both parents were smokers. Review of Systems Review of systems: Dermis: Skin sores. ENT: Denies sneezes or discharge. Eyes: Denies discharge or photophobia. Cardiac: Denies chest pain or palpitation. Pulmonary: At least moderate shortness of breath. Gastrointestinal: Denies nausea, emesis, constipation, diarrhea. Genitourinary: Denies discharge or frequency. Musculoskeletal: Denies muscle or bone aches. Neurologic: Generalized weakness. Endocrine: Denies shakes or sweats. Oncology: Denies cancers. Dermatologic: Denies rash, itching, pruritus. ALLERGY/immunology: Denies sneezes, rashes. Past Medical History Past Medical History: Coronary Artery Disease (CAD), Diabetes Mellitus, Hyperlipidemia, Hypertension, Myocardial Infarction ([place]) Additional Past Medical History / Comment(s): pancreatitis, hepatitis Last Myocardial Infarction Date:: unknown History of Any Multi-Drug Resistant Organisms: None Reported Past Surgical History: Back Surgery, Heart Catheterization With Stent, Orthopedic Surgery Additional Past Surgical History / Comment(s): kushal knee, Past Anesthesia/Blood Transfusion Reactions: No Reported Reaction Date of Last Stent Placement:: unknown Past Psychological History: No Psychological Hx Reported Smoking Status: Former smoker Past Alcohol Use History: None Reported Past Drug Use History: Marijuana - Past Family History Father History Unknown: Yes Family Medical History: Myocardial Infarction (GA) Medications and Allergies Home Medications Medication Instructions Recorded Confirmed Type Insulin NPL/Insulin Lispro 25 unit SQ AC-BID 02/17/20 08/01/20 History [humaLOG MIX 75-25 VIAL] Aspirin 81 mg PO DAILY chew 02/21/20 08/01/20 Rx Ticagrelor [Brilinta] 90 mg PO BID #60 tab 02/21/20 08/01/20 Rx Atorvastatin Calcium [Lipitor] 40 mg PO HS 06/14/20 08/01/20 History Pregabalin [Lyrica] 50 mg PO BID 06/14/20 08/01/20 History traZODone HCL [Desyrel] 50 mg PO HS 06/14/20 08/01/20 History Docusate [Colace] 100 mg PO BID 30 Days #60 capsule 06/20/20 08/01/20 Rx Tamsulosin HCl [Flomax] 0.4 mg PO DAILY 30 Days #30 capsule 06/20/20 08/01/20 Rx Thiamine [Vitamin B-1] 100 mg PO DAILY@1200 30 Days #30 06/20/20 08/01/20 Rx tab Furosemide [Lasix] 40 mg PO BID 08/01/20 08/01/20 History Losartan [Cozaar] 25 mg PO DAILY 08/01/20 08/01/20 History Metoprolol Tartrate [Lopressor] 75 mg PO BID 08/01/20 08/01/20 History Multivitamins, Thera [Multivitamin 1 tab PO DAILY@1200 08/01/20 08/01/20 History (formulary)] Allergies Allergy/AdvReac Type Severity Reaction Status Date / Time tramadol [From [facility]] Allergy Itching Verified 08/01/20 14:16 Physical Exam Vitals: Vital Signs Temp Pulse Resp BP Pulse Ox 08/03/20 09:00 98.6 F 67 18 105/54 99 08/03/20 08:22 100 08/03/20 08:00 69 26 H 109/76 95 08/03/20 07:00 62 18 108/72 97 08/03/20 06:00 65 25 H 100/72 97 08/03/20 05:00 79 16 106/64 96 08/03/20 04:00 97.9 F 82 14 123/75 94 L 08/03/20 03:00 66 20 110/72 99 08/03/20 02:00 71 16 115/72 97 08/03/20 01:00 73 16 123/70 98 08/03/20 00:00 98.8 F 62 20 117/82 100 08/02/20 23:00 64 17 114/73 100 08/02/20 22:00 68 25 H 105/55 98 08/02/20 21:00 68 18 115/68 100 08/02/20 20:00 97.7 F 68 15 127/88 97 08/02/20 19:00 66 18 127/88 99 08/02/20 18:00 68 18 112/79 96 08/02/20 17:00 65 12 121/87 95 08/02/20 16:00 97.6 F 61 17 113/73 99 08/02/20 15:00 63 18 105/72 94 L 08/02/20 14:00 66 16 98/61 100 08/02/20 13:00 68 18 111/68 99 08/02/20 12:00 97.8 F 70 18 111/68 94 L 08/02/20 11:00 68 16 112/76 96 08/02/20 10:00 70 106/72 100 Intake and Output 08/02/20 08/03/20 08/03/20 22:59 06:59 14:59 Intake Total 376.737 429.488 477.525 Output Total 1600 925 300 Balance -1223.263 -495.512 177.525 Intake: IV 70 110 100 0.9 KVO 70 10 Magnesium Sulfate-D5w Pmx 100 100 1 gm In Dextrose/Water 1 100ml.bag @ 100 mls/hr IVPB Q1H [facility] Rx#: [id number] Intake, IV Titration 106.737 119.488 137.525 Amount Diltiazem 125 mg In 113.75 Sodium Chloride 0.9% 100 ml @ 5 MG/HR 5 mls/hr IV .Q24H [facility] Rx#:[id number] Heparin Sod,Pork in 0.45% 106.737 119.488 23.775 NaCl 25,000 unit In 0.45 % NaCl 1 250ml.bag @ 11. 02 UNITS/KG/HR 9.997 mls/ hr IV .Q24H [facility] Rx#: [id number] Oral 200 200 240 Output: Urine 1600 925 300 Other: Voiding Method Urinal Urinal Urinal # Voids 2 0 0 Weight 92.1 kg Skin: Good color, texture, turgor. Skin sores being followed by wound care. General: Medium build and comfortable appearance. Head: Normocephalic, atraumatic. Eyes: Symmetric. Pupils equal round. Ears: Symmetric. Hearing within normal limits. Mouth: Clear. Neck: Supple. Carotid without bruit. Cardiac: Regular rate and rhythm. Lungs: Clear anteriorly and posteriorly. Abdomen: Soft active nontender. Extremities: Normal tone. Neurological: Mental status: Alert, cooperative, pleasant. Cranial nerves: Symmetric facial tone and trapezius. Motor: Active movement all 4 limbs. Sensation: Intact throughout. DTRs: Symmetric and equal throughout. Mobility: Requires physical assist for bed mobility. Results CBC & Chem 7: 08/03/20 03:52 08/03/20 03:52 Labs: Abnormal Lab Results - Last 24 Hours (Table) 08/02/20 08/02/20 08/02/20 Range/Units 09:45 11:05 17:03 WBC (3.8-10.6) k/uL RBC (4.30-5.90) m/uL Hgb (13.0-17.5) gm/dL Hct (39.0-53.0) % Neutrophils # (1.3-7.7) k/uL APTT 34.4 H (22.0-30.0) sec Sodium (137-145) mmol/L BUN (9-20) mg/dL Creatinine (0.66-1.25) mg/dL Glucose (74-99) mg/dL POC Glucose (mg/dL) 161 H 158 H (75-99) mg/dL 08/02/20 08/02/20 08/03/20 Range/Units 17:33 20:09 03:52 WBC 16.9 H (3.8-10.6) k/uL RBC 2.98 L (4.30-5.90) m/uL Hgb 8.9 L (13.0-17.5) gm/dL Hct 27.5 L (39.0-53.0) % Neutrophils # 14.6 H (1.3-7.7) k/uL APTT 78.7 H (22.0-30.0) sec Sodium (137-145) mmol/L BUN (9-20) mg/dL Creatinine (0.66-1.25) mg/dL Glucose (74-99) mg/dL POC Glucose (mg/dL) 149 H (75-99) mg/dL 08/03/20 Range/Units 03:52 WBC (3.8-10.6) k/uL RBC (4.30-5.90) m/uL Hgb (13.0-17.5) gm/dL Hct (39.0-53.0) % Neutrophils # (1.3-7.7) k/uL APTT (22.0-30.0) sec Sodium 133 L (137-145) mmol/L BUN 68 H (9-20) mg/dL Creatinine 1.45 H (0.66-1.25) mg/dL Glucose 68 L (74-99) mg/dL POC Glucose (mg/dL) (75-99) mg/dL Microbiology - Last 24 Hours (Table) 08/01/20 12:43 Blood Culture - Preliminary Blood No Growth after 24 hours Assessment and Plan (1) Atrial fibrillation with rapid ventricular response Current Visit: Yes Status: Acute Code(s): I48.91 - UNSPECIFIED ATRIAL FIBRILLATION SNOMED Code(s): 592878135912086 (2) Congestive heart failure Current Visit: Yes Status: Acute Code(s): I50.9 - HEART FAILURE, UNSPECIFIED SNOMED Code(s): 20346312 (3) NSTEMI (non-ST elevated myocardial infarction) Current Visit: Yes Status: Acute Code(s): I21.4 - NON-ST ELEVATION (NSTEMI) MYOCARDIAL INFARCTION SNOMED Code(s): 69714805 Plan: Comments and plan: At this time PT and OT are prescribed. Follow therapies with yourself. My basic question at this time would be if patient can tolerate therapies to the point that he can do 3 hours of therapy per day, i.e. inpatient rehab. We'll follow closely to answer this question. Safety concerns currently obvious.
[2020-08-03 12:05] LABS: Glucose,Whole Blood 94 mg/dL (75-99)
--- NOTE | 2020-08-03 13:41 | P.PN ---
Subjective Progress Note Date: 08/03/20 Principal diagnosis: Acute hypoxic respiratory failure secondary to acute on chronic systolic congestive heart failure This is a 69-year-old white male with history of chronic atrial fibrillation, hypertension, diabetes, COPD, ischemic cardiomyopathy, previous PCI, patient normally sees Dr. ZELDA Mckenzie on a regular basis for his congestive heart failure and atrial fibrillation. Patient presented to the ER with 1 day history of increased shortness of breath, and palpitations. Denies any fever or chills, denies any chest pain, has been noticing significant swelling in his lower extremities. Patient arrived to the ER, and he was in moderate severe respiratory distress. Placed on BiPAP, he was noted to be in atrial fibrillation with RVR, started on heparin, and he was also started on Cardizem. Heart rate was in the range of 1:30, patient is now on Cardizem drip at 5 mg per hour. He is also on heparin. By the time he made it to the ICU, patient was transitioned from BiPAP to a nasal cannula at 4 L, and he seems to be doing quite well quite comfortable during my evaluation. Chest x-ray clearly showed evidence of pulmonary edema. CBC showed leukocytosis with WBC 15.5 hemoglobin is 11 his electrolytes are normal except bicarb is low at 19 he does have anion gap metabolic acidosis with anion gap of 15 BUN is 24 creatinine is 1.29. Blood sugar was 356. BNP level was over 11,000. Troponin 0.131. Patient was reevaluated today on 08/02/2020, patient remains in the ICU, his atrial fibrillation seems to be better controlled, rate is down in the 80s. Patient is feeling comfortable, denies any shortness of breath, no cough no wheezing denies any chest pain. Remains on Lasix. Patient is also on heparin patient is being considered for cardioversion by cardiology. Chest x-ray showing resolving pulmonary edema. CBC is relatively normal left. Normal BUN is 36 creatinine is 1.59. Reevaluated today on 08/03/2020, patient remains in the ICU, feeling much better, atrial fibrillation is better controlled. Rate remains in the 80s. Patient is comfortable, in no distress, remains on Lasix, remains on anticoagulation therapy for his atrial fibrillation, patient was placed on eliquis, and heparin was discontinued. Chest x-ray showed mild interstitial edema. CBC is relatively normal except for WBC of 16.9 hemoglobin 8.9. Electrodes are normal BUN is 68 creatinine is 1.45. Objective - Vital Signs Vital signs: Vital Signs Temp 98.6 F 08/03/20 09:00 Pulse 64 08/03/20 10:00 Resp 18 08/03/20 10:00 BP 106/64 08/03/20 10:00 Pulse Ox 93 L 08/03/20 10:00 Intake & Output 08/02/20 08/03/20 08/03/20 18:59 06:59 18:59 Intake Total 1187.986 666.225 477.525 Output Total 1775 2525 1050 Balance -587.014 -1858.775 -572.475 Weight 92.1 kg Intake: IV 110 140 100 0.9 KVO 110 40 Magnesium Sulfate-D5w Pmx 100 100 1 gm In Dextrose/Water 1 100ml.bag @ 100 mls/hr IVPB Q1H [facility] Rx#: [id number] Intake, IV Titration 377.986 226.225 137.525 Amount Diltiazem 125 mg In 98.75 113.75 Sodium Chloride 0.9% 100 ml @ 5 MG/HR 5 mls/hr IV .Q24H [facility] Rx#:[id number] Heparin Sod,Pork in 0.45% 79.236 226.225 23.775 NaCl 25,000 unit In 0.45 % NaCl 1 250ml.bag @ 11. 02 UNITS/KG/HR 9.997 mls/ hr IV .Q24H [facility] Rx#: [id number] Magnesium Sulfate-D5w Pmx 200 1 gm In Dextrose/Water 1 100ml.bag @ 100 mls/hr IVPB Q1H [facility] Rx#: [id number] Oral 700 300 240 Output: Urine 1775 2525 1050 Other: Voiding Method Urinal Urinal Urinal # Voids 0 0 0 - Exam Physical Exam: Revealed a 69-year-old white male on 2 L nasal cannula with O2 saturation of 99% Head: Atraumatic, normocephalic. HEENT:[Neck is supple.] [No neck masses.] [No thyromegaly.] [No JVD.] Chest: [Symmetrical chest expansion fine crackles at the bases. Cardiac Exam: [Irregular irregular rhythm, 2/6 systolic murmur throughout the precordium. Abdomen: [Obese, Soft, nontender, no megaly, no rebound, no guarding, normal bowel sounds.] Extremities: [No clubbing, plus edema, no cyanosis.] Neurological Exam: [No focal neurologic deficit.] Alert oriented 3. Psychiatric: Normal mood affect and normal mental status examination. Skin: No rashes. - Labs CBC & Chem 7: 08/03/20 03:52 08/03/20 03:52 Labs: Abnormal Lab Results - Last 24 Hours (Table) 08/02/20 08/02/20 08/02/20 Range/Units 17:03 17:33 20:09 WBC (3.8-10.6) k/uL RBC (4.30-5.90) m/uL Hgb (13.0-17.5) gm/dL Hct (39.0-53.0) % Neutrophils # (1.3-7.7) k/uL APTT 78.7 H (22.0-30.0) sec Sodium (137-145) mmol/L BUN (9-20) mg/dL Creatinine (0.66-1.25) mg/dL Glucose (74-99) mg/dL POC Glucose (mg/dL) 158 H 149 H (75-99) mg/dL 08/03/20 08/03/20 Range/Units 03:52 03:52 WBC 16.9 H (3.8-10.6) k/uL RBC 2.98 L (4.30-5.90) m/uL Hgb 8.9 L (13.0-17.5) gm/dL Hct 27.5 L (39.0-53.0) % Neutrophils # 14.6 H (1.3-7.7) k/uL APTT (22.0-30.0) sec Sodium 133 L (137-145) mmol/L BUN 68 H (9-20) mg/dL Creatinine 1.45 H (0.66-1.25) mg/dL Glucose 68 L (74-99) mg/dL POC Glucose (mg/dL) (75-99) mg/dL Microbiology - Last 24 Hours (Table) 08/01/20 12:43 Blood Culture - Preliminary Blood No Growth after 24 hours Assessment and Plan Assessment: Impression: Acute hypoxic respiratory failure secondary to acute on chronic systolic congestive heart failure New onset atrial fibrillation with RVR. Rate seems to be better controlled at present with Cardizem. Acute on chronic systolic congestive heart failure, exacerbated by atrial fibrillation with RVR, and underlying LV dysfunction. Acute lactic acidosis mostly secondary to hypoperfusion. Doubt sepsis. Ischemic cardiomyopathy. Echocardiogram report is pending History of coronary artery disease and previous PCI. Dyslipidemia. Type 2 diabetes. History of COPD, patient is now on a smoker. Does not smoke tobacco at present Recommendation: Transfer patient out of the ICU to a monitor bed. On selective. Continue Lasix 40 mg IV push every 12 hours. Monitor renal profile and electrolytes while on diuretics. Strict I's and O's. Daily weights. Continue DuoNeb updrafts 4 times a day and when necessary for his underlying history of COPD. We'll continue to follow Time with Patient: Less than 30
[2020-08-03] MEDS: DILTIAZEM 125 MG in SODIUM CHLORIDE 0.9% 100 ML IV SCH (14:45)
[2020-08-03 20:43] LABS: Glucose,Whole Blood 221 mg/dL (75-99)
[2020-08-03] MEDS: ATORVASTATIN 40 MG TAB PO SCH (22:01)
[2020-08-03] MEDS: INSULIN DETEMIR (LEVEMIR) 100 UNIT/ML SYR SQ SCH (22:01)
[2020-08-03] MEDS: APIXABAN 2.5 MG TABLET PO SCH (22:01)
[2020-08-03] MEDS: TAMSULOSIN 0.4 MG CAP.ER.24H PO SCH (22:46)
[2020-08-03] MEDS: PREGABALIN 50 MG CAP PO SCH (22:46)
--- NOTE | 2020-08-04 00:36 | P.PN ---
Subjective Patient is a 69-year-old male with a known history of significant coronary artery disease status post stent placement x5, hypertension, hyperlipidemia, diabetes type 2 insulin-dependent and history of SD and previous history of smoking and marijuana use . He is a patient of Dr. Wan and follows up with Dr. Mckenzie t[employer] as an outpatient. Presents because of acute dyspnea associated with vomiting. Patient states that he starts having dyspnea one day ago associated with vomiting 4-5 times. He has diarrhea twice a day, plus one was more watery. But with no abdominal pain, no chest pain. He has little dry cough but this is chronic. No abdominal or urinary complaints. No headache or weakness Patient denies smoking or alcohol but he smokes marijuana sometimes On admission he was tachycardic and tachypneic with a heart rate 105-116 and breathing at 20-22. Blood pressure 127/90, and he was saturating 92% and 50 L oxygen via nasal cannula, he is afebrile. Labs showed leukocytosis with WBC of 15.5 K, risks of CBC, INR is unremarkable. Creatinine is at baseline at 1.09 Activity as it is elevated 7.4 and 8.3, liver enzymes not elevated and troponin is high at 0.05. Urinalysis is not suspicious of infection and coronavirus not detected. EKG showing atrial fibrillation with tachycardia at 163 Chest x-ray showing atypical pneumonia versus interstitial edema Echocardiogram on 02/17/2020: Ejection fraction 20-25% with mild LVH and [id number] tricuspid regurgitation In the emergency room patient was started on heparin drip, Cardizem drip at 5 mg per hour, started on Lasix 40 mg twice daily 08/02/2020 Patient remains in the ICU, he is breathing easier today and her more comfortable, he was on BiPAP this morning. Patient oxygen saturation his 90s on 6 L per minute. Heart rate is controlled currently at 66 bpm and his Cardizem drip was stopped His CBC showed hemoglo-delusion, WBC 9.9K, hemoglobin 9.4 and platelets 235K. Creatinine was slightly worse 1.2 went up to 1.5 Cardiology on the case and a planning for cardio version per documents Patient also on brillinta , patient is telling me today he was noncompliant with his aspirin and brillinta because we will be for brillinta was $600. Going to consult delinquency prevention social worker Currently patient is on IV Lasix 40 mg twice daily and heparin drip, traversed controlled on Levemir 30 units at bedtime 08/03/2020 Patient remains in the ICU, his breathing is improving. His breathing is easier he is on 2 L oxygen via nasal cannula with saturation and 90s. No basal crepitation, no edema but patient feels very tired. No headache or weakness. WBC 16.90. Hemoglobin 8.9. Creatinine actually somewhat improved 1.59 to 1.45 Chest x-ray: Patchy basal infiltrates suspicious His medication including Lasix 40 mg twice daily for his ejection fraction of 20-25%. Heparin drip was switched to Eliquis, initially he was started on 5 mg twice daily however after discussing the case with Dr. Garduno the recommended to meet the lower 22.5 mg twice daily since he is also on Brillinta. As per Dr. Garduno no need to start aspirin. 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 Patient can be transferred out of the ICU Review of Systems CONSTITUTIONAL: No fever, no malaise, no fatigue. HEENT: No recent visual problems or hearing problems. Denied any sore throat. CARDIOVASCULAR: No orthopnea, PND, no palpitations, no syncope. PULMONARY: No chest wall tenderness, no hemoptysis. GASTROINTESTINAL: No diarrhea, no nausea, no vomiting, no abdominal pain. Normoactive bowel sounds. NEUROLOGICAL: No headaches, no weakness, no numbness. Active Medications Generic Name Dose Route Start Last Admin Trade Name Freq PRN Reason Stop Dose Admin Apixaban 5 mg 08/03/20 09:00 08/03/20 08:51 Apixaban 5 Mg Tab PO 5 mg BID GORDO Administration Atorvastatin Calcium 40 mg 08/01/20 21:00 08/02/20 20:22 Atorvastatin 40 Mg Tab PO 40 mg HS GORDO Administration Furosemide 40 mg 08/01/20 21:00 08/03/20 08:50 Furosemide 10 Mg/Ml 4 Ml Vial IV 40 mg Q12HR GORDO Administration Diltiazem HCl 125 mg/ Sodium 125 mls @ 5 mls/hr 08/01/20 12:45 02/17/21 07:20 Chloride IV 0 mg/hr .Q24H GORDO 0 mls/hr Infusion 5 MG/HR Insulin Aspart 0 unit 08/01/20 21:00 08/03/20 08:41 Insulin Aspart (Novolog) 100 Unit/Ml Vial SQ Not Given ACHS [facility] Protocol Insulin Detemir 30 unit 08/01/20 21:00 08/02/20 20:21 Insulin Detemir (Levemir) 100 Unit/Ml Syr SQ 30 unit HS GORDO Administration Losartan Potassium 25 mg 08/02/20 09:00 08/03/20 08:51 Losartan 25 Mg Tab PO 25 mg DAILY GORDO Administration Metoprolol Tartrate 100 mg 08/01/20 21:00 08/03/20 08:50 Metoprolol Tartrate 50 Mg Tab PO 100 mg BID GORDO Administration Miscellaneous Information 1 each 08/02/20 09:16 Magnesium Replacement Protocol 1 Each Misc MISCELLANE DAILY PRN Per Protocol Protocol Miscellaneous Information 1 each 08/03/20 04:58 Potassium Replacement Protocol 1 Each Misc MISCELLANE DAILY PRN Per Protocol Protocol Naloxone HCl 0.2 mg 08/01/20 13:44 Naloxone 0.4 Mg/Ml 1 Ml Vial IV Q2M PRN Opioid Reversal Nitroglycerin 0.4 mg 08/01/20 12:34 08/01/20 12:31 Nitroglycerin Sl Tabs 0.4 Mg Tab SUBLINGUAL 0.4 mg Q5M PRN Administration Chest Pain Ticagrelor 90 mg 08/01/20 21:00 08/03/20 08:51 Ticagrelor 90 Mg Tab PO 90 mg BID GORDO Administration Objective - Vital Signs Vital signs: Vital Signs Temp 98.6 F 08/03/20 09:00 Pulse 67 08/03/20 09:00 Resp 18 08/03/20 09:00 BP 105/54 08/03/20 09:00 Pulse Ox 99 08/03/20 09:00 Intake & Output 08/02/20 08/03/20 08/03/20 18:59 06:59 18:59 Intake Total 1187.986 666.225 477.525 Output Total 6171 2905 300 Balance -587.014 -1858.775 177.525 Weight 92.1 kg Intake: IV 110 140 100 0.9 KVO 110 40 Magnesium Sulfate-D5w Pmx 100 100 1 gm In Dextrose/Water 1 100ml.bag @ 100 mls/hr IVPB Q1H GORDO Rx#: [id number] Intake, IV Titration 377.986 226.225 137.525 Amount Diltiazem 125 mg In 98.75 113.75 Sodium Chloride 0.9% 100 ml @ 5 MG/HR 5 mls/hr IV .Q24H GORDO Rx#:[id number] Heparin Sod,Pork in 0.45% 79.236 226.225 23.775 NaCl 25,000 unit In 0.45 % NaCl 1 250ml.bag @ 11. 02 UNITS/KG/HR 9.997 mls/ hr IV .Q24H GORDO Rx#: [id number] Magnesium Sulfate-D5w Pmx 200 1 gm In Dextrose/Water 1 100ml.bag @ 100 mls/hr IVPB Q1H GORDO Rx#: [id number] Oral 700 300 240 Output: Urine 1775 2525 300 Other: Voiding Method Urinal Urinal Urinal # Voids 0 0 0 - Labs CBC & Chem 7: 08/03/20 03:52 08/03/20 03:52 Labs: Abnormal Lab Results - Last 24 Hours (Table) 08/02/20 08/02/20 08/02/20 Range/Units 09:45 11:05 17:03 WBC (3.8-10.6) k/uL RBC (4.30-5.90) m/uL Hgb (13.0-17.5) gm/dL Hct (39.0-53.0) % Neutrophils # (1.3-7.7) k/uL APTT 34.4 H (22.0-30.0) sec Sodium (137-145) mmol/L BUN (9-20) mg/dL Creatinine (0.66-1.25) mg/dL Glucose (74-99) mg/dL POC Glucose (mg/dL) 161 H 158 H (75-99) mg/dL 08/02/20 08/02/20 08/03/20 Range/Units 17:33 20:09 03:52 WBC 16.9 H (3.8-10.6) k/uL RBC 2.98 L (4.30-5.90) m/uL Hgb 8.9 L (13.0-17.5) gm/dL Hct 27.5 L (39.0-53.0) % Neutrophils # 14.6 H (1.3-7.7) k/uL APTT 78.7 H (22.0-30.0) sec Sodium (137-145) mmol/L BUN (9-20) mg/dL Creatinine (0.66-1.25) mg/dL Glucose (74-99) mg/dL POC Glucose (mg/dL) 149 H (75-99) mg/dL 08/03/20 Range/Units 03:52 WBC (3.8-10.6) k/uL RBC (4.30-5.90) m/uL Hgb (13.0-17.5) gm/dL Hct (39.0-53.0) % Neutrophils # (1.3-7.7) k/uL APTT (22.0-30.0) sec Sodium 133 L (137-145) mmol/L BUN 68 H (9-20) mg/dL Creatinine 1.45 H (0.66-1.25) mg/dL Glucose 68 L (74-99) mg/dL POC Glucose (mg/dL) (75-99) mg/dL Microbiology - Last 24 Hours (Table) 08/01/20 12:43 Blood Culture - Preliminary Blood No Growth after 24 hours Assessment and Plan Assessment: Elevated troponin, secondary to A. fib with RVR Acute and chronic systolic CHF EF 30-35%, with acute pulmonary edema. moderate mitral regurgitation with [id number] tricuspid regurgitation and severe pulmonary hypertension Elevated lactic acid acute hypoxic respiratory failure Chronic kidney disease stage III Coronary artery disease history of multiple stents placement, History of non-ST elevated SD Osteoarthritis Hyperglycemia with uncontrolled diabetes type 2 Hypomagnesemia replaced. Hypertension Hyperlipidemia History of SD Plan: This is a pleasant 69 years old male who presents with A. 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 Continue with Brillinta, discontinue aspirin. Change Cardizem drip to amiodarone drip when needed. Continue with metoprolol and losartan per cardiology's recommendation. Cardiology and pulmonary team on the case Labs and medication were reviewed.. Continue same treatment. Continue with symptomatic treatment. Resume home medication. Monitor lytes and vitals. DVT and GI prophylaxis. Further recommendations depends on the clinical course of the patient DVT prophylaxis: Eliquis GI Prophylaxis: Pepcid PT/OT: Pending, consult Dr. Welch for possible inpatient rehab Prognosis is guarded
[2020-08-04 06:09] LABS: Glucose,Whole Blood 79 mg/dL (75-99)
[2020-08-04] MEDS: INSULIN ASPART (NovoLOG) 100 UNIT/ML VIAL SQ SCH ×4 (06:10→20:49)
[2020-08-04 08:02] LABS: Basophils % (A) 1 %; Eosinophils # (A) 0.1 k/uL (0-0.7); Eosinophils % (A) 1 %; HCT 29.2 % (39.0-53.0); HGB 9.7 gm/dL (13.0-17.5); Lymphocytes # (A) 1.1 k/uL (1.0-4.8); Lymphocytes % (A) 14 %; MCH 30.5 pg (25.0-35.0); MCHC 33.2 g/dL (31.0-37.0); MCV 91.8 fL (80.0-100.0); Mean Platelet Volume 8.6; Monocytes # (A) 0.6 k/uL (0-1.0); Monocytes % (A) 8 %; Neutrophils # (A) 5.8 k/uL (1.3-7.7); Neutrophils % (A) 75 %; Platelet Count 226 k/uL (150-450); RBC 3.18 m/uL (4.30-5.90); RDW 13.4 % (11.5-15.5); WBC 7.8 k/uL (3.8-10.6)
[2020-08-04] MEDS: APIXABAN 2.5 MG TABLET PO SCH ×2 (08:14→20:50)
[2020-08-04] MEDS: METOPROLOL TARTRATE 50 MG TAB PO SCH ×2 (08:14→20:47)
[2020-08-04] MEDS: TICAGRELOR 90 MG TAB PO SCH ×2 (08:14→20:47)
[2020-08-04] MEDS: PREGABALIN 50 MG CAP PO SCH ×2 (08:14→20:48)
[2020-08-04] MEDS: LOSARTAN 25 MG TAB PO SCH (08:14)
[2020-08-04] MEDS: TAMSULOSIN 0.4 MG CAP.ER.24H PO SCH (08:16)
[2020-08-04] MEDS: FUROSEMIDE 10 MG/ML 4 ML VIAL IV SCH (08:16)
[2020-08-04] MEDS: FUROSEMIDE 40 MG TAB PO SCH ×2 (10:56→17:11)
--- NOTE | 2020-08-04 11:43 | P.PN ---
Subjective Progress Note Date: 08/04/20 Principal diagnosis: Acute hypoxic respiratory failure secondary to acute on chronic systolic congestive heart failure This is a 69-year-old white male with history of chronic atrial fibrillation, hypertension, diabetes, COPD, ischemic cardiomyopathy, previous PCI, patient normally sees Dr. ZELDA Mckenzie on a regular basis for his congestive heart failure and atrial fibrillation. Patient presented to the ER with 1 day history of increased shortness of breath, and palpitations. Denies any fever or chills, denies any chest pain, has been noticing significant swelling in his lower extremities. Patient arrived to the ER, and he was in moderate severe respiratory distress. Placed on BiPAP, he was noted to be in atrial fibrillation with RVR, started on heparin, and he was also started on Cardizem. Heart rate was in the range of 1:30, patient is now on Cardizem drip at 5 mg per hour. He is also on heparin. By the time he made it to the ICU, patient was transitioned from BiPAP to a nasal cannula at 4 L, and he seems to be doing quite well quite comfortable during my evaluation. Chest x-ray clearly showed evidence of pulmonary edema. CBC showed leukocytosis with WBC 15.5 hemoglobin is 11 his electrolytes are normal except bicarb is low at 19 he does have anion gap metabolic acidosis with anion gap of 15 BUN is 24 creatinine is 1.29. Blood sugar was 356. BNP level was over 11,000. Troponin 0.131. Patient was reevaluated today on 08/02/2020, patient remains in the ICU, his atrial fibrillation seems to be better controlled, rate is down in the 80s. Patient is feeling comfortable, denies any shortness of breath, no cough no wheezing denies any chest pain. Remains on Lasix. Patient is also on heparin patient is being considered for cardioversion by cardiology. Chest x-ray showing resolving pulmonary edema. CBC is relatively normal left. Normal BUN is 36 creatinine is 1.59. Reevaluated today on 08/03/2020, patient remains in the ICU, feeling much better, atrial fibrillation is better controlled. Rate remains in the 80s. Patient is comfortable, in no distress, remains on Lasix, remains on anticoagulation therapy for his atrial fibrillation, patient was placed on eliquis, and heparin was discontinued. Chest x-ray showed mild interstitial edema. CBC is relatively normal except for WBC of 16.9 hemoglobin 8.9. Electrodes are normal BUN is 68 creatinine is 1.45. The patient is seen today 08/04/2020 in follow-up on the selective care unit. He is currently sitting up in a chair at the bedside. Awake and alert in no acute distress. Currently maintaining good O2 saturations in the 90s on room air. He is now on oral diuretics. Blood cultures reveal no growth. White count 7.8. Hemoglobin 9.7. Remains anticoagulated with Eliquis. Heart rate is better controlled. Objective - Vital Signs Vital signs: Vital Signs Temp 97.8 F 08/04/20 08:00 Pulse 102 H 08/04/20 08:00 Resp 20 08/04/20 08:00 BP 110/59 08/04/20 08:00 Pulse Ox 100 08/04/20 08:00 Intake & Output 08/03/20 08/04/20 08/04/20 18:59 06:59 18:59 Intake Total 1197.525 360 480 Output Total 1550 730 400 Balance -352.475 -370 80 Weight 84 kg Intake: IV 100 Magnesium Sulfate-D5w Pmx 100 1 gm In Dextrose/Water 1 100ml.bag @ 100 mls/hr IVPB Q1H GORDO Rx#: [id number] Intake, IV Titration 137.525 Amount Diltiazem 125 mg In 113.75 Sodium Chloride 0.9% 100 ml @ 5 MG/HR 5 mls/hr IV .Q24H GORDO Rx#:[id number] Heparin Sod,Pork in 0.45% 23.775 NaCl 25,000 unit In 0.45 % NaCl 1 250ml.bag @ 11. 02 UNITS/KG/HR 9.997 mls/ hr IV .Q24H GORDO Rx#: [id number] Oral 960 360 480 Output: Urine 1550 730 400 Other: Voiding Method Urinal Urinal # Voids 0 3 1 - Exam GENERAL EXAM: Alert, pleasant 69-year-old gentleman, on room air, comfortable in no apparent distress. HEAD: Normocephalic. EYES: Normal reaction of pupils, equal size. NOSE: Clear with pink turbinates. THROAT: No erythema or exudates. NECK: No masses, no JVD. CHEST: No chest wall deformity. LUNGS: Equal air entry with faint crackles in the posterior bases. CVS: S1 and S2 normal with no audible murmur, irregular rhythm. ABDOMEN: No hepatosplenomegaly, normal bowel sounds, no guarding or rigidity. SPINE: No scoliosis or deformity SKIN: No rashes CENTRAL NERVOUS SYSTEM: No focal deficits, tone is normal in all 4 extremities. EXTREMITIES: There is no peripheral edema. No clubbing, no cyanosis. Peripheral pulses are intact. - Labs CBC & Chem 7: 08/04/20 07:18 08/03/20 03:52 Labs: Abnormal Lab Results - Last 24 Hours (Table) 08/03/20 08/04/20 Range/Units 20:41 07:18 RBC 3.18 L (4.30-5.90) m/uL Hgb 9.7 L (13.0-17.5) gm/dL Hct 29.2 L (39.0-53.0) % POC Glucose (mg/dL) 221 H (75-99) mg/dL Microbiology - Last 24 Hours (Table) 08/01/20 12:43 Blood Culture - Preliminary Blood No Growth after 48 hours Assessment and Plan Assessment: 1 Acute hypoxic respiratory failure secondary to acute on chronic systolic congestive heart failure 2 New onset atrial fibrillation with RVR. Rate seems to be better controlled at present with Cardizem. 3 Acute on chronic systolic congestive heart failure, exacerbated by atrial fibrillation with RVR, and underlying LV dysfunction. 4 Acute lactic acidosis mostly secondary to hypoperfusion. Doubt sepsis. 5 Ischemic cardiomyopathy. Echocardiogram report is pending 6 History of coronary artery disease and previous PCI. 7 Dyslipidemia. 8 Type 2 diabetes. 9 History of COPD, patient is now on a smoker. Does not smoke tobacco at present Plan: The patient was seen and evaluated by Dr. Sawant He is cleared for discharge from the pulmonary and critical care standpoint I, the cosigning physician, performed a history & physical examination of the patient. Lungs sounds with faint crackles in posterior bases. Maintaining good O2 saturations in the 90s on room air. I discussed the assessment and plan of care with my nurse practitioner, Pura Perez. I attest to the above note as dictated by her.
[2020-08-04 11:45] LABS: Glucose,Whole Blood 118 mg/dL (75-99)
--- NOTE | 2020-08-04 11:50 | P.PN ---
Subjective Progress Note Date: 08/04/20 CHIEF COMPLAINT: CHF, A. fib HISTORY OF PRESENT ILLNESS: 08/02/2020 This is a 69-year-old male with a past medical history significant for hypertension, hyperlipidemia, diabetes mellitus, COPD, CHF, ischemic cardiomyopathy, and coronary artery disease with previous PCI. Patient follows in the office with Dr. Mckenzie. We have been asked to see the patient in [facility] for CHF and A. fib. Patient examined this afternoon at the bedside in the emergency room. Patient states he started having significant shortness of breath yesterday. He denied any chest pain or pressure. He reports increased lower extremity edema over the past few days as well. Patient was brought to the hospital via EMS and given aspirin and sublingual nitro. Patient is currently on a BiPAP. He was found to be A. fib with RVR. Patient denies any previous history of atrial fibrillation. He was started on IV heparin along with IV Cardizem. Patients heart rate in the 130s at time of examination. Patient reports he has been compliant with his medications at home. He denies any alcohol use. He denies cigarette use. He states he smokes marijuana. Patient underwent cardiac catheterization and February [address] Mckenzie. Patient had an Impella placed at that time. He underwent stent placement to the proximal and mid LAD. Ejection fraction in February 2020 was noted to be 20- 25%. Patient had a repeat echocardiogram performed in March 2020 at the office revealing ejection fraction of 40%, grade 2 diastolic dysfunction and moderate mitral regurgitation. 08/04/2020 Patient examined this morning at the bedside. Patient denieschest pain or pressure. He denies shortness of breath. He remains in atrial for ablation with controlled ventricular rate. He remains on IV Lasix 40 mg every 12 hours. Fluid balance for the last 24 hours is -722 mL. Echocardiogram completed revealing ejection fraction 35-40%. PHYSICAL EXAM: VITAL SIGNS: Reviewed. GENERAL: Well-developed in no acute distress. HEENT: Head is normocephalic. Pupils are equal, round. Sclerae anicteric. Mucous membranes of the mouth are moist. Neck supple. No JVD or thyromegaly LUNGS: Respirations even and unlabored. Lungs diminished bilaterally with rales to bilateral bases. HEART: Irregular rate and rhythm. S1 and S2 heard. Systolic murmur noted. ABDOMEN: Soft. Nondistended. Nontender. EXTREMITIES: Normal range of motion. No clubbing or cyanosis. Peripheral pulses intact. No lower extremity edema NEUROLOGIC: Awake and alert. Oriented x 3. ASSESSMENT: New onset atrial fibrillation with RVR Acute exacerbation of chronic systolic heart failure, EF 40% Lactic acidosis Leukocytosis Abnormal troponins, secondary to new onset afib and CHF, no evidence of acute coronary syndrome Ischemic cardiomyopathy Coronary artery disease with previous PCI Hypertension Hyperlipidemia Diabetes mellitus PLAN: Continue Eliquis Continue Brilinta. Do not resume aspirin at this time. Discontinue IV Lasix. Transition to oral Lasix 40 mg BID Monitor kidney function Daily weights Accurate I&O Further recommendations pending patient course Nurse practitioner note has been reviewed by physician. Signing provider agrees with the documented findings, assessment, and plan of care. Objective - Vital Signs Vital signs: Vital Signs Temp 97.8 F 08/04/20 08:00 Pulse 102 H 08/04/20 08:00 Resp 20 08/04/20 08:00 BP 110/59 08/04/20 08:00 Pulse Ox 100 08/04/20 08:00 Intake & Output 08/03/20 08/04/20 08/04/20 18:59 06:59 18:59 Intake Total 1197.525 360 480 Output Total 1550 730 400 Balance -352.475 -370 80 Weight 84 kg Intake: IV 100 Magnesium Sulfate-D5w Pmx 100 1 gm In Dextrose/Water 1 100ml.bag @ 100 mls/hr IVPB Q1H GORDO Rx#: [id number] Intake, IV Titration 137.525 Amount Diltiazem 125 mg In 113.75 Sodium Chloride 0.9% 100 ml @ 5 MG/HR 5 mls/hr IV .Q24H GORDO Rx#:[id number] Heparin Sod,Pork in 0.45% 23.775 NaCl 25,000 unit In 0.45 % NaCl 1 250ml.bag @ 11. 02 UNITS/KG/HR 9.997 mls/ hr IV .Q24H GORDO Rx#: [id number] Oral 960 360 480 Output: Urine 1550 730 400 Other: Voiding Method Urinal Urinal # Voids 0 3 1 - Labs CBC & Chem 7: 08/04/20 07:18 08/03/20 03:52 Labs: Abnormal Lab Results - Last 24 Hours (Table) 08/03/20 08/04/20 08/04/20 Range/Units 20:41 07:18 11:44 RBC 3.18 L (4.30-5.90) m/uL Hgb 9.7 L (13.0-17.5) gm/dL Hct 29.2 L (39.0-53.0) % POC Glucose (mg/dL) 221 H 118 H (75-99) mg/dL Microbiology - Last 24 Hours (Table) 08/01/20 12:43 Blood Culture - Preliminary Blood No Growth after 48 hours
[2020-08-04 16:47] LABS: Glucose,Whole Blood 122 mg/dL (75-99)
[2020-08-04 20:09] LABS: Glucose,Whole Blood 197 mg/dL (75-99)
[2020-08-04] MEDS: ATORVASTATIN 40 MG TAB PO SCH (20:47)
[2020-08-04] MEDS: INSULIN DETEMIR (LEVEMIR) 100 UNIT/ML SYR SQ SCH (20:48)
--- NOTE | 2020-08-04 22:15 | P.PN ---
Subjective Progress Note Date: 08/04/20 Patient is a 69-year-old male with a known history of significant coronary artery disease status post stent placement x5, hypertension, hyperlipidemia, diabetes type 2 insulin-dependent and history of ID and previous history of smoking and marijuana use . He is a patient of Dr. Wan and follows up w maldonado Mckenzie commercial [employer] insurance agent as an outpatient. Presents because of acute dyspnea associated with vomiting. Patient states that he starts having dyspnea one day ago associated with vomiting 4-5 times. He has diarrhea twice a day, plus one was more watery. But with no abdominal pain, no chest pain. He has little dry cough but this is chronic. No abdominal or urinary complaints. No headache or weakness Patient denies smoking or alcohol but he smokes marijuana sometimes On admission he was tachycardic and tachypneic with a heart rate 105-116 and breathing at 20-22. Blood pressure 127/90, and he was saturating 92% and 50 L oxygen via nasal cannula, he is afebrile. Labs showed leukocytosis with WBC of 15.5 K, risks of CBC, INR is unremarkable. Creatinine is at baseline at 1.09 Activity as it is elevated 7.4 and 8.3, liver enzymes not elevated and troponin is high at 0.05. Urinalysis is not suspicious of infection and coronavirus not detected. EKG showing atrial fibrillation with tachycardia at 163 Chest x-ray showing atypical pneumonia versus interstitial edema Echocardiogram on 02/17/2020: Ejection fraction 20-25% with mild LVH and [id number] tricuspid regurgitation In the emergency room patient was started on heparin drip, Cardizem drip at 5 mg per hour, started on Lasix 40 mg twice daily 08/02/2020 Patient remains in the ICU, he is breathing easier today and her more comfortable, he was on BiPAP this morning. Patient oxygen saturation his 90s on 6 L per minute. Heart rate is controlled currently at 66 bpm and his Cardizem drip was stopped His CBC showed hemoglo-delusion, WBC 9.9K, hemoglobin 9.4 and platelets 235K. Creatinine was slightly worse 1.2 went up to 1.5 Cardiology on the case and a planning for cardio version per documents Patient also on brillinta , patient is telling me today he was noncompliant with his aspirin and brillinta because we will be for brillinta was $600. Going to consult perinatal social worker Currently patient is on IV Lasix 40 mg twice daily and heparin drip, traversed controlled on Levemir 30 units at bedtime 08/03/2020 Patient remains in the ICU, his breathing is improving. His breathing is easier he is on 2 L oxygen via nasal cannula with saturation and 90s. No basal crepitation, no edema but patient feels very tired. No headache or weakness. WBC 16.90. Hemoglobin 8.9. Creatinine actually somewhat improved 1.59 to 1.45 Chest x-ray: Patchy basal infiltrates suspicious His medication including Lasix 40 mg twice daily for his ejection fraction of 20-25%. Heparin drip was switched to Eliquis, initially he was started on 5 mg twice daily however after discussing the case with Dr. Garduno the recommended to meet the lower 22.5 mg twice daily since he is also on Brillinta. As per Dr. Garduno no need to start aspirin. His echocardiogram showing ejection fraction 35-40%, commercial lines insurance agent switch his Cardizem to amiodarone drip for now Also moderate mitral regurgitation with [id number] tricuspid regurgitation and severe pulmonary hypertension This morning was 77, we will lower his insulin 30 to 27 units from tomorrow. Patient can be transferred out of the ICU 08/04/2020 Patient is currently sitting in the chair comfortably. Awake alert and oriented x3. No acute distress. Cultures showed no growth and heart rate is better controlled. Patient is being continued on anticoagulation with Eliquis. Saturating at 95% on room air. Laboratory showed WBC 7.8, hemoglobin 9.7 and platelets 226 Patient is Lasix 40 mg twice daily by mouth. Continued on insulin dosing and sliding scale. Cardiology and pulmonary is on board Review of Systems CONSTITUTIONAL: No fever, no malaise, no fatigue. HEENT: No recent visual problems or hearing problems. Denied any sore throat. CARDIOVASCULAR: No orthopnea, PND, no palpitations, no syncope. PULMONARY: No chest wall tenderness, no hemoptysis. GASTROINTESTINAL: No diarrhea, no nausea, no vomiting, no abdominal pain. Normoactive bowel sounds. NEUROLOGICAL: No headaches, no weakness, no numbness. Active Medications Generic Name Dose Route Start Last Admin Trade Name Freq PRN Reason Stop Dose Admin Apixaban 2.5 mg 08/03/20 21:00 08/04/20 20:50 Apixaban 2.5 Mg Tablet PO 2.5 mg BID GORDO Administration Atorvastatin Calcium 40 mg 08/01/20 21:00 08/04/20 20:47 Atorvastatin 40 Mg Tab PO 40 mg HS GORDO Administration Furosemide 40 mg 08/04/20 09:00 08/04/20 17:11 Furosemide 40 Mg Tab PO Not Given BID@0900,1600 [facility] Insulin Aspart 0 unit 08/01/20 21:00 08/04/20 20:49 Insulin Aspart (Novolog) 100 Unit/Ml Vial SQ 2 unit ACHS GORDO Administration Protocol Insulin Detemir 27 unit 08/04/20 21:00 08/04/20 20:48 Insulin Detemir (Levemir) 100 Unit/Ml Syr SQ 27 unit HS [facility] Administration Losartan Potassium 25 mg 08/02/20 09:00 08/04/20 08:14 Losartan 25 Mg Tab PO 25 mg DAILY GORDO Administration Metoprolol Tartrate 100 mg 08/01/20 21:00 08/04/20 20:47 Metoprolol Tartrate 50 Mg Tab PO 100 mg BID GORDO Administration Miscellaneous Information 1 each 08/02/20 09:16 Magnesium Replacement Protocol 1 Each Misc MISCELLANE DAILY PRN Per Protocol Protocol Miscellaneous Information 1 each 08/03/20 04:58 Potassium Replacement Protocol 1 Each Misc MISCELLANE DAILY PRN Per Protocol Protocol Naloxone HCl 0.2 mg 08/01/20 13:44 Naloxone 0.4 Mg/Ml 1 Ml Vial IV Q2M PRN Opioid Reversal Nitroglycerin 0.4 mg 08/01/20 12:34 08/01/20 12:31 Nitroglycerin Sl Tabs 0.4 Mg Tab SUBLINGUAL 0.4 mg Q5M PRN Administration Chest Pain Pregabalin 50 mg 08/03/20 22:30 08/04/20 20:48 Pregabalin 50 Mg Cap PO 50 mg BID GORDO Administration Tamsulosin HCl 0.4 mg 08/03/20 22:30 08/04/20 08:16 Tamsulosin 0.4 Mg Cap.Er.24h PO 0.4 mg PC-[id number] GORDO Administration Ticagrelor 90 mg 08/01/20 21:00 08/04/20 20:47 Ticagrelor 90 Mg Tab PO 90 mg BID GORDO Administration Objective - Vital Signs Vital signs: Vital Signs Temp 99.3 F 08/04/20 12:00 Pulse 81 08/04/20 12:00 Resp 20 08/04/20 12:00 BP 84/60 08/04/20 12:00 Pulse Ox 99 08/04/20 12:00 Intake & Output 08/03/20 08/04/20 08/04/20 18:59 06:59 18:59 Intake Total 1197.525 360 480 Output Total 1550 730 400 Balance -352.475 -370 80 Weight 84 kg Intake: IV 100 Magnesium Sulfate-D5w Pmx 100 1 gm In Dextrose/Water 1 100ml.bag @ 100 mls/hr IVPB Q1H GORDO Rx#: [id number] Intake, IV Titration 137.525 Amount Diltiazem 125 mg In 113.75 Sodium Chloride 0.9% 100 ml @ 5 MG/HR 5 mls/hr IV .Q24H GORDO Rx#:[id number] Heparin Sod,Pork in 0.45% 23.775 NaCl 25,000 unit In 0.45 % NaCl 1 250ml.bag @ 11. 02 UNITS/KG/HR 9.997 mls/ hr IV .Q24H GORDO Rx#: [id number] Oral 960 360 480 Output: Urine 1550 730 400 Other: Voiding Method Urinal Urinal # Voids 0 3 1 - Exam PHYSICAL EXAMINATION: Patient is lying in the bed comfortably, no acute distress, awake alert and ld ented.. HEENT: Normocephalic. Neck is supple. Pupils reactive. Nostrils clear. Oral cavity is moist. Ears reveal no drainage. Neck reveals no JVD, carotid bruits, or thyromegaly. CHEST EXAMINATION: Trachea is central. Symmetrical expansion. Lung quinones clear to auscultation and percussion. CARDIAC: Normal S1, S2 with no gallops. No murmurs ABDOMEN: Soft. Bowel sounds normal. No organomegaly. No abdominal bruits. Extremities: reveal no edema. No clubbing or cyanosis Neurologically awake, alert, oriented x3 with well-coordinated movements. No focal deficits noted Skin: No rash or skin lesions. Psychiatric: Coperative. Nonsuicidal Musculoskeletal: No joint swelling or deformity. Normal range of motion. - Labs CBC & Chem 7: 08/04/20 07:18 08/03/20 03:52 Labs: Abnormal Lab Results - Last 24 Hours (Table) 08/03/20 08/04/20 08/04/20 Range/Units 20:41 07:18 11:44 RBC 3.18 L (4.30-5.90) m/uL Hgb 9.7 L (13.0-17.5) gm/dL Hct 29.2 L (39.0-53.0) % POC Glucose (mg/dL) 221 H 118 H (75-99) mg/dL Microbiology - Last 24 Hours (Table) 08/01/20 12:43 Blood Culture - Preliminary Blood No Growth after 48 hours Assessment and Plan Assessment: Elevated troponin, secondary to A. fib with RVR Acute and chronic systolic CHF EF 30-35%, with acute pulmonary edema. moderate mitral regurgitation with [id number] tricuspid regurgitation and severe pulmonary hypertension Elevated lactic acid acute hypoxic respiratory failure Chronic kidney disease stage III Coronary artery disease history of multiple stents placement, History of non-ST elevated ID Osteoarthritis Hyperglycemia with uncontrolled diabetes type 2 Hypomagnesemia replaced. Hypertension Hyperlipidemia History of ID Plan: This is a pleasant 69 years old male who presents with A. fib and RVR and acute CHF, with pulmonary edema Continue with IV Lasix, start Eliquis 2.5 per my discussion with commercial lines insurance agent. Continue with Brillinta, discontinue aspirin. Change Cardizem drip to amiodarone drip when needed. Continue with metoprolol and losartan per cardiology's recommendation. Cardiology and pulmonary team on the case Labs and medication were reviewed.. Continue same treatment. Continue with symptomatic treatment. Resume home medication. Monitor lytes and vitals. DVT and GI prophylaxis. Further recommendations depends on the clinical course of the patient DVT prophylaxis: Eliquis GI Prophylaxis: Pepcid PT/OT: Pending, consult Dr. Welch for possible inpatient rehab Prognosis is guarded
[2020-08-05 06:15] LABS: Glucose,Whole Blood 75 mg/dL (75-99)
[2020-08-05] MEDS: INSULIN ASPART (NovoLOG) 100 UNIT/ML VIAL SQ SCH ×4 (07:07→20:59)
[2020-08-05 08:14] LABS: Calcium 8.8 mg/dL (8.4-10.2); Potassium 3.8 mmol/L (3.5-5.1)
[2020-08-05 08:15] LABS: Basophils # (A) 0.1 k/uL (0-0.2); Basophils % (A) 1 %; Eosinophils # (A) 0.4 k/uL (0-0.7); Eosinophils % (A) 5 %; HCT 26.3 % (39.0-53.0); Lymphocytes # (A) 1.2 k/uL (1.0-4.8); Lymphocytes % (A) 16 %; MCH 30.9 pg (25.0-35.0); MCHC 34.4 g/dL (31.0-37.0); MCV 89.9 fL (80.0-100.0); Mean Platelet Volume 8.5; Monocytes # (A) 0.7 k/uL (0-1.0); Monocytes % (A) 9 %; Neutrophils # (A) 5.2 k/uL (1.3-7.7); Neutrophils % (A) 68 %; Platelet Count 219 k/uL (150-450); RBC 2.92 m/uL (4.30-5.90); RDW 13.8 % (11.5-15.5); WBC 7.6 k/uL (3.8-10.6)
[2020-08-05] MEDS: APIXABAN 2.5 MG TABLET PO SCH (08:40)
[2020-08-05] MEDS: FUROSEMIDE 40 MG TAB PO SCH ×2 (08:40→16:40)
[2020-08-05] MEDS: TICAGRELOR 90 MG TAB PO SCH (08:40)
[2020-08-05] MEDS: METOPROLOL TARTRATE 25 MG TAB PO SCH ×3 (08:40→20:58)
[2020-08-05] MEDS: TAMSULOSIN 0.4 MG CAP.ER.24H PO SCH (08:40)
[2020-08-05] MEDS: PREGABALIN 50 MG CAP PO SCH ×2 (08:40→20:59)
[2020-08-05] MEDS: LOSARTAN 25 MG TAB PO SCH (09:17)
[2020-08-05 11:35] LABS: Glucose,Whole Blood 110 mg/dL (75-99)
--- NOTE | 2020-08-05 12:03 | P.PN ---
Subjective Progress Note Date: 08/05/20 CHIEF COMPLAINT: CHF, A. fib HISTORY OF PRESENT ILLNESS: 08/02/2020 This is a 69-year-old male with a past medical history significant for hypertension, hyperlipidemia, diabetes mellitus, COPD, CHF, ischemic cardiomyopathy, and coronary artery disease with previous PCI. Patient follows in the office with Dr. Mckenzie. We have been asked to see the patient in [facility] for CHF and A. fib. Patient examined this afternoon at the bedside in the emergency room. Patient states he started having significant shortness of breath yesterday. He denied any chest pain or pressure. He reports increased lower extremity edema over the past few days as well. Patient was brought to the hospital via EMS and given aspirin and sublingual nitro. Patient is currently on a BiPAP. He was found to be A. fib with RVR. Patient denies any previous history of atrial fibrillation. He was started on IV heparin along with IV Cardizem. Patients heart rate in the 130s at time of examination. Patient reports he has been compliant with his medications at home. He denies any alcohol use. He denies cigarette use. He states he smokes marijuana. Patient underwent cardiac catheterization and February [address] Mckenzie. Patient had an Impella placed at that time. He underwent stent placement to the proximal and mid LAD. Ejection fraction in February 2020 was noted to be 20- 25%. Patient had a repeat echocardiogram performed in March 2020 at the office revealing ejection fraction of 40%, grade 2 diastolic dysfunction and moderate mitral regurgitation. 08/04/2020 Patient examined this morning at the bedside. Patient denieschest pain or pressure. He denies shortness of breath. He remains in atrial for ablation with controlled ventricular rate. He remains on IV Lasix 40 mg every 12 hours. Fluid balance for the last 24 hours is -722 mL. Echocardiogram completed revealing ejection fraction 35-40%. 08/05/2020 Patient examined this morning at the bedside. Patient denies chest pain or pressure. He denies shortness of breath. He has been transitioned to oral Lasix. He remains in a atrial fibrillation with controlled ventricular rates. Blood pressure this morning is running in the 90s. Patient reports feeling dizzy and lightheaded upon standing. PHYSICAL EXAM: VITAL SIGNS: Reviewed. GENERAL: Well-developed in no acute distress. HEENT: Head is normocephalic. Pupils are equal, round. Sclerae anicteric. Mucous membranes of the mouth are moist. Neck supple. No JVD or thyromegaly LUNGS: Respirations even and unlabored. Lungs diminished bilaterally. HEART: Irregular rate and rhythm. S1 and S2 heard. Systolic murmur noted. ABDOMEN: Soft. Nondistended. Nontender. EXTREMITIES: Normal range of motion. No clubbing or cyanosis. Peripheral pulses intact. No lower extremity edema NEUROLOGIC: Awake and alert. Oriented x 3. ASSESSMENT: New onset atrial fibrillation with RVR Acute exacerbation of chronic systolic heart failure, EF 40% Lactic acidosis Leukocytosis Abnormal troponins, secondary to new onset afib and CHF, no evidence of acute coronary syndrome Ischemic cardiomyopathy Coronary artery disease with previous PCI Hypertension Hyperlipidemia Diabetes mellitus PLAN: Continue Eliquis 5mg BID Continue Brilinta. Do not resume aspirin at this time. Continue oral lasix Monitor kidney function Daily weights Accurate I&O Patient with complaints of dizziness and lightheadedness today. Orthostatic blood pressures obtained and reviewed. Decrease metoprolol to 75 mg twice a day Decrease Cozaar to 12.5 mg daily Repeat orthostatic blood pressures in a.m. Further recommendations pending patient course Nurse practitioner note has been reviewed by physician. Signing provider agrees with the documented findings, assessment, and plan of care. Objective - Vital Signs Vital signs: Vital Signs Temp 98 F 08/05/20 08:00 Pulse 93 08/05/20 09:11 Resp 20 08/05/20 08:00 BP 116/66 08/05/20 09:11 Pulse Ox 99 08/05/20 08:00 Intake & Output 08/04/20 08/05/20 08/05/20 18:59 06:59 18:59 Intake Total 1360 480 Output Total 400 625 375 Balance 960 -625 105 Weight 84.8 kg Intake: Oral 1360 480 Output: Urine 400 625 375 Other: Voiding Method Urinal # Voids 4 1 1 - Labs CBC & Chem 7: 08/05/20 07:05 08/05/20 07:05 Labs: Abnormal Lab Results - Last 24 Hours (Table) 08/04/20 08/04/20 08/05/20 Range/Units 16:45 20:04 07:05 RBC (4.30-5.90) m/uL Hgb (13.0-17.5) gm/dL Hct (39.0-53.0) % Sodium 134 L (137-145) mmol/L BUN 64 H (9-20) mg/dL Creatinine 1.52 H (0.66-1.25) mg/dL Glucose 62 L (74-99) mg/dL POC Glucose (mg/dL) 122 H 197 H (75-99) mg/dL 08/05/20 08/05/20 Range/Units 07:05 11:34 RBC 2.92 L (4.30-5.90) m/uL Hgb 9.0 L (13.0-17.5) gm/dL Hct 26.3 L (39.0-53.0) % Sodium (137-145) mmol/L BUN (9-20) mg/dL Creatinine (0.66-1.25) mg/dL Glucose (74-99) mg/dL POC Glucose (mg/dL) 110 H (75-99) mg/dL Microbiology - Last 24 Hours (Table) 08/01/20 12:43 Blood Culture - Preliminary Blood No Growth after 72 hours
--- NOTE | 2020-08-05 13:52 | CDI ---
Documentation Clarification Form Date: 08/05/2020 01:38:58 PM From: Sandy Smalls CCS, CCDS Admit Date: 08/01/2020 01:44:00 PM Patient Name: Darci Levy Visit Number: [id number] Discharge Date: ATTENTION: The Clinical Documentation Specialists (CDI) and [facility] Coding Staff appreciate your assistance in clarifying documentation. Please respond to the clarification below the line at the bottom and electronically sign. The CDI & [facility] Coding staff will review the response and follow-up if needed. Please note: Queries are made part of the Legal Health Record. If you have any questions, please contact the author of this message via ITS. Dr. Daya Leone and/or Dr. Torin Beth: Pneumonia was documented in in the 08/01 ED Note CXR impression: Likely interstitial edema vs atypical pneumonia and again in the 08/01 CXR impression: Correlate for atypical pneumonia and in the 08/03 CXR: Correlate for pneumonia. Pneumonia is also documented in the 08/01 History & Physical and in subsequent Progress Notes: Atypical pneumonia cannot be excluded. Pneumonia is not listed in the Assessment(s). History/Risk Factors: COPD, CHF, CAD w/stent, DM II, Hypertension, Hyperlipidemia, [place], Former smoker. Clinical Indicators: Presented to the ED 08/01 with a possible STEMI with severe respiratory distress and bilateral lower extremity swelling. Found to be in A Fib. ED Clinical Impression: NSTEMI, Elevated Troponins, CHF, Atrial Fibrillation with RVR. Vital signs 08/01: T 97.9,, P 140, R 36 (SOB, Labored, Accessory use, Shallow, Tachypnea), BP 166/123, PO 92 15Lnc - 100 on 100% BiPAP 08/01 LAB: WBC 15.5, Hgb 11.0, Neut 14.1, Lymph 0.8, Lactic Acid 8.3 - 6.7 - 4.0; Troponin 0.053, 0.131 08/01 Blood culture: negative pending final @ 72 hrs. 08/01 COVID negative 08/01 CXR: as above Treatment: 15L nc O2 - BiPAP, INH Ventolin, INH Atrovent, IV Solumedrol, IV Cardizem Drip Bolus, Nitro sl, IV Lasix, IV Heparin In order to capture the severity of condition, please clarify the following: Pneumonia ruled out Pneumonia ruled in: o Community Acquired Pneumonia o Bacterial Pneumonia, specify causal organism (if known) o Viral Pneumonia, specify casual organism (if known) o Other, please specify Unable to determine (Last Revision: September 2017) No pneumonia this query is not necessary and final diagnosis is as per my final note. MTDD
[2020-08-05] MEDS ORDERED: CLOPIDOGREL 75 MG TAB PO STA (14:40)
--- NOTE | 2020-08-05 14:42 | P.PN ---
Subjective Progress Note Date: 08/05/20 Principal diagnosis: Acute hypoxic respiratory failure secondary to acute on chronic systolic congestive heart failure This is a 69-year-old white male with history of chronic atrial fibrillation, hypertension, diabetes, COPD, ischemic cardiomyopathy, previous PCI, patient normally sees Dr. ZELDA Mckenzie on a regular basis for his congestive heart failure and atrial fibrillation. Patient presented to the ER with 1 day history of increased shortness of breath, and palpitations. Denies any fever or chills, denies any chest pain, has been noticing significant swelling in his lower extremities. Patient arrived to the ER, and he was in moderate severe respiratory distress. Placed on BiPAP, he was noted to be in atrial fibrillation with RVR, started on heparin, and he was also started on Cardizem. Heart rate was in the range of 1:30, patient is now on Cardizem drip at 5 mg per hour. He is also on heparin. By the time he made it to the ICU, patient was transitioned from BiPAP to a nasal cannula at 4 L, and he seems to be doing quite well quite comfortable during my evaluation. Chest x-ray clearly showed evidence of pulmonary edema. CBC showed leukocytosis with WBC 15.5 hemoglobin is 11 his electrolytes are normal except bicarb is low at 19 he does have anion gap metabolic acidosis with anion gap of 15 BUN is 24 creatinine is 1.29. Blood sugar was 356. BNP level was over 11,000. Troponin 0.131. Patient was reevaluated today on 08/02/2020, patient remains in the ICU, his atrial fibrillation seems to be better controlled, rate is down in the 80s. Patient is feeling comfortable, denies any shortness of breath, no cough no wheezing denies any chest pain. Remains on Lasix. Patient is also on heparin patient is being considered for cardioversion by cardiology. Chest x-ray showing resolving pulmonary edema. CBC is relatively normal left. Normal BUN is 36 creatinine is 1.59. Reevaluated today on 08/03/2020, patient remains in the ICU, feeling much better, atrial fibrillation is better controlled. Rate remains in the 80s. Patient is comfortable, in no distress, remains on Lasix, remains on anticoagulation therapy for his atrial fibrillation, patient was placed on eliquis, and heparin was discontinued. Chest x-ray showed mild interstitial edema. CBC is relatively normal except for WBC of 16.9 hemoglobin 8.9. Electrodes are normal BUN is 68 creatinine is 1.45. The patient is seen today 08/04/2020 in follow-up on the selective care unit. He is currently sitting up in a chair at the bedside. Awake and alert in no acute distress. Currently maintaining good O2 saturations in the 90s on room air. He is now on oral diuretics. Blood cultures reveal no growth. White count 7.8. Hemoglobin 9.7. Remains anticoagulated with Eliquis. Heart rate is better controlled. The patient is seen today 08/05/2020 in follow-up on the selective care unit. He is awake and alert in no acute distress. Currently sitting up in a chair at the bedside. Maintaining O2 saturations up to 100% on room air. He is afebrile. Hemodynamically stable. The cultures reveal no growth. White count 7.6. Hemoglobin 9.0. Sodium 134. Potassium 3.8. Creatinine 1.52. He is on oral diuretics. Objective - Vital Signs Vital signs: Vital Signs Temp 97.8 F 08/05/20 12:00 Pulse 84 08/05/20 12:00 Resp 20 08/05/20 12:00 BP 107/76 08/05/20 12:00 Pulse Ox 100 08/05/20 12:00 Intake & Output 08/04/20 08/05/20 08/05/20 18:59 06:59 18:59 Intake Total 1360 660 Output Total 400 625 975 Balance 890 -960 -851 Weight 84.8 kg Intake: Oral 1360 660 Output: Urine 400 625 975 Other: Voiding Method Urinal # Voids 4 1 1 - Exam GENERAL EXAM: Alert, pleasant 69-year-old gentleman, on room air, comfortable in no apparent distress. HEAD: Normocephalic. EYES: Normal reaction of pupils, equal size. NOSE: Clear with pink turbinates. THROAT: No erythema or exudates. NECK: No masses, no JVD. CHEST: No chest wall deformity. LUNGS: Equal air entry with faint crackles in the posterior bases. CVS: S1 and S2 normal with no audible murmur, irregular rhythm. ABDOMEN: No hepatosplenomegaly, normal bowel sounds, no guarding or rigidity. SPINE: No scoliosis or deformity SKIN: No rashes CENTRAL NERVOUS SYSTEM: No focal deficits, tone is normal in all 4 extremities. EXTREMITIES: There is no peripheral edema. No clubbing, no cyanosis. Peripheral pulses are intact. - Labs CBC & Chem 7: 08/05/20 07:05 08/05/20 07:05 Labs: Abnormal Lab Results - Last 24 Hours (Table) 08/04/20 08/04/20 08/05/20 Range/Units 16:45 20:04 07:05 RBC (4.30-5.90) m/uL Hgb (13.0-17.5) gm/dL Hct (39.0-53.0) % Sodium 134 L (137-145) mmol/L BUN 64 H (9-20) mg/dL Creatinine 1.52 H (0.66-1.25) mg/dL Glucose 62 L (74-99) mg/dL POC Glucose (mg/dL) 122 H 197 H (75-99) mg/dL 08/05/20 08/05/20 Range/Units 07:05 11:34 RBC 2.92 L (4.30-5.90) m/uL Hgb 9.0 L (13.0-17.5) gm/dL Hct 26.3 L (39.0-53.0) % Sodium (137-145) mmol/L BUN (9-20) mg/dL Creatinine (0.66-1.25) mg/dL Glucose (74-99) mg/dL POC Glucose (mg/dL) 110 H (75-99) mg/dL Microbiology - Last 24 Hours (Table) 08/01/20 12:43 Blood Culture - Preliminary Blood No Growth after 72 hours Assessment and Plan Assessment: 1 Acute hypoxic respiratory failure secondary to acute on chronic systolic congestive heart failure 2 New onset atrial fibrillation with RVR. 3 Acute on chronic systolic congestive heart failure, exacerbated by atrial fibrillation with RVR, and underlying LV dysfunction. 4 Acute lactic acidosis mostly secondary to hypoperfusion. Doubt sepsis. 5 Ischemic cardiomyopathy. Echocardiogram report is pending 6 History of coronary artery disease and previous PCI. 7 Dyslipidemia. 8 Type 2 diabetes. 9 History of COPD, patient is now on a smoker. Does not smoke tobacco at present Plan: The patient was seen and evaluated by Dr. Sawant He is cleared for discharge from the pulmonary standpoint Anticoagulation per cardiology I, the cosigning physician, performed a history & physical examination of the patient. Lungs sounds with faint crackles in posterior bases. Maintaining good O2 saturations in the 90s on room air. I discussed the assessment and plan of care with my nurse practitioner, Pura Perez. I attest to the above note as dictated by her.
[2020-08-05 15:36] LABS: Prothrombin Time 10.5 sec (9.0-12.0)
[2020-08-05 16:43] LABS: Glucose,Whole Blood 224 mg/dL (75-99)
[2020-08-05] MEDS ORDERED: WARFARIN 5 MG TAB PO ONE (18:00)
[2020-08-05 20:26] LABS: Glucose,Whole Blood 205 mg/dL (75-99)
[2020-08-05] MEDS: ATORVASTATIN 40 MG TAB PO SCH (20:58)
[2020-08-05] MEDS: INSULIN DETEMIR (LEVEMIR) 100 UNIT/ML SYR SQ SCH (20:59)
[2020-08-05] MEDS: ENOXAPARIN 80 MG/0.8 ML SYRINGE SQ SCH (21:00)
[2020-08-05] MEDS ORDERED: APIXABAN 5 MG TAB PO SCH (21:00)
[2020-08-06] MEDS: INSULIN ASPART (NovoLOG) 100 UNIT/ML VIAL SQ SCH ×4 (06:16→20:56)
[2020-08-06 06:22] LABS: Glucose,Whole Blood 69 mg/dL (75-99)
[2020-08-06 06:30] LABS: Glucose,Whole Blood 68 mg/dL (75-99)
[2020-08-06 06:52] LABS: Glucose,Whole Blood 102 mg/dL (75-99)
[2020-08-06 07:42] LABS: Calcium 9.5 mg/dL (8.4-10.2); Potassium 3.8 mmol/L (3.5-5.1)
[2020-08-06] MEDS: CLOPIDOGREL 75 MG TAB PO SCH (09:01)
[2020-08-06] MEDS: TAMSULOSIN 0.4 MG CAP.ER.24H PO SCH (09:01)
[2020-08-06] MEDS: ENOXAPARIN 80 MG/0.8 ML SYRINGE SQ SCH ×2 (09:01→20:56)
[2020-08-06] MEDS: METOPROLOL TARTRATE 25 MG TAB PO SCH ×2 (09:01→20:56)
[2020-08-06] MEDS: FUROSEMIDE 40 MG TAB PO SCH (09:01)
[2020-08-06] MEDS: PREGABALIN 50 MG CAP PO SCH ×2 (09:01→20:56)
[2020-08-06] MEDS: LOSARTAN 25 MG TAB PO SCH (09:01)
--- NOTE | 2020-08-06 09:13 | P.PN ---
Subjective Progress Note Date: 08/06/20 This is a 69-year-old gentleman with past medical history significant for hypertension, hyperlipidemia, diabetes, COPD, ischemic cardiomyopathy, systolic congestive heart failure, coronary artery disease with prior PCI, follows with Dr. Mckenzie in the office. Cardiology consultation was initially requested because of congestive heart failure as well as atrial fibrillation. Undergo cardiac catheterization in February [address] Sho Mckenzie, he hadn't and palate placed at that time and underwent stenting of the proximal and mid LAD. His ejection fraction at that time was documented to be 20-25%. He did have a repeat echo 2019 that showed an ejection fraction of 40% with moderate mitral regurgitation. The patient was seen and examined this morning, overall he states that he slept very well last night he has no complaints this morning denies any shortness of breath, breathing is stable. Patient was initiated on Coumadin because of the cost of Eliquis, he received 5 mg yesterday his INR this morning is 1.0. His creatinine this morning is 1.6 which is a trend upward. We will give him 5 mg of Coumadin today, decrease his Lasix dose to 40 mg daily continue to monitor the patient's daily INR. Objective - Vital Signs Vital signs: Vital Signs Temp 97.8 F 08/06/20 08:00 Pulse 88 08/06/20 08:00 Resp 16 08/06/20 08:00 BP 130/85 08/06/20 08:00 Pulse Ox 95 08/06/20 08:00 Intake & Output 08/05/20 08/06/20 08/06/20 18:59 06:59 18:59 Intake Total 900 Output Total 2150 650 Balance -1250 -650 Weight 84.4 kg Intake: Oral 900 Output: Urine 2150 650 Other: Voiding Method Urinal # Voids 1 - Exam PHYSICAL EXAMINATION: GENERAL: 69-year-old gentleman in no acute distress at the time of my examination HEENT: Head is atraumatic, normocephalic. Pupils equal, round. Sclera anicteric. Conjunctiva are clear. Mucous membranes of the mouth are moist. Neck is supple. There is no elevated jugular venous pressure. No carotid bruit is heard. HEART EXAMINATION: Heart S1 and S2 irregularly irregular a systolic murmur is heard CHEST EXAMINATION: Lungs are clear with mild crackles heard at the bases bilaterally. No chest wall tenderness is noted on palpation or with deep breathing. ABDOMEN: Soft, nontender. Bowel sounds are heard. No organomegaly noted. EXTREMITIES: 2+ peripheral pulses with no evidence of peripheral edema and no calf tenderness noted. NEUROLOGIC patient is awake, alert and oriented 3 . . - Labs CBC & Chem 7: 08/05/20 07:05 08/06/20 06:39 Labs: Abnormal Lab Results - Last 24 Hours (Table) 08/05/20 08/05/20 08/05/20 Range/Units 11:34 16:42 20:22 Sodium (137-145) mmol/L BUN (9-20) mg/dL Creatinine (0.66-1.25) mg/dL Glucose (74-99) mg/dL POC Glucose (mg/dL) 110 H 224 H 205 H (75-99) mg/dL 08/06/20 08/06/20 08/06/20 Range/Units 06:09 06:25 06:39 Sodium 135 L (137-145) mmol/L BUN 66 H (9-20) mg/dL Creatinine 1.60 H (0.66-1.25) mg/dL Glucose 71 L (74-99) mg/dL POC Glucose (mg/dL) 69 L 68 L (75-99) mg/dL 08/06/20 Range/Units 06:51 Sodium (137-145) mmol/L BUN (9-20) mg/dL Creatinine (0.66-1.25) mg/dL Glucose (74-99) mg/dL POC Glucose (mg/dL) 102 H (75-99) mg/dL Microbiology - Last 24 Hours (Table) 08/01/20 12:43 Blood Culture - Preliminary Blood No Growth after 96 hours Assessment and Plan Plan: Assessment and plan #1 systolic congestive heart failure acute on chronic #2 persistent atrial fibrillation, appears to be of new onset, on Coumadin for anticoagulation #3 ischemic cardiomyopathy, most recent echo performed in March showed an ejection fraction of 40% #4 coronary artery disease with prior PCI #5 hyperlipidemia #6 diabetes #7 COPD Plan We will give the patient 5 mg of Coumadin today, decrease the dose of Lasix to 40 mg daily. Continue to monitor daily INRs. Patient has also been switched over to Plavix from Brilinta because of the cost. DNP note has been reviewed, I agree with a documented findings and plan of care. Patient was seen and examined.
[2020-08-06 11:55] LABS: Glucose,Whole Blood 218 mg/dL (75-99)
[2020-08-06 16:42] LABS: Glucose,Whole Blood 153 mg/dL (75-99)
[2020-08-06] MEDS ORDERED: WARFARIN 5 MG TAB PO ONE (18:00)
[2020-08-06 20:12] LABS: Glucose,Whole Blood 232 mg/dL (75-99)
[2020-08-06] MEDS: ATORVASTATIN 40 MG TAB PO SCH (20:56)
[2020-08-06] MEDS: INSULIN DETEMIR (LEVEMIR) 100 UNIT/ML SYR SQ SCH (20:56)
--- NOTE | 2020-08-06 23:05 | P.PN ---
Subjective Progress Note Date: 08/05/20 Principal diagnosis: Atrial fibrillation with RVR Patient is a 69-year-old male with a known history of significant coronary artery disease status post stent placement x5, hypertension, hyperlipidemia, diabetes type 2 insulin-dependent and history of FL and previous history of s moking and marijuana use . He is a patient of Dr. Wan and follows up with Dr. Mckenzie range rider as an outpatient. Presents because of acute dyspnea associated with vomiting. Patient states that he starts having dyspnea one day ago associated with vomiting 4-5 times. He has diarrhea twice a day, plus one was more watery. But with no abdominal pain, no chest pain. He has little dry cough but this is chronic. No abdominal or urinary complaints. No headache or weakness Patient denies smoking or alcohol but he smokes marijuana sometimes On admission he was tachycardic and tachypneic with a heart rate 105-116 and breathing at 20-22. Blood pressure 127/90, and he was saturating 92% and 50 L oxygen via nasal cannula, he is afebrile. Labs showed leukocytosis with WBC of 15.5 K, risks of CBC, INR is unremarkable. Creatinine is at baseline at 1.09 Activity as it is elevated 7.4 and 8.3, liver enzymes not elevated and troponin is high at 0.05. Urinalysis is not suspicious of infection and coronavirus not detected. EKG showing atrial fibrillation with tachycardia at 163 Chest x-ray showing atypical pneumonia versus interstitial edema Echocardiogram on 02/17/2020: Ejection fraction 20-25% with mild LVH and [id number] tricuspid regurgitation In the emergency room patient was started on heparin drip, Cardizem drip at 5 mg per hour, started on Lasix 40 mg twice daily 08/02/2020 Patient remains in the ICU, he is breathing easier today and her more comfortable, he was on BiPAP this morning. Patient oxygen saturation his 90s on 6 L per minute. Heart rate is controlled currently at 66 bpm and his Cardizem drip was stopped His CBC showed hemoglo-delusion, WBC 9.9K, hemoglobin 9.4 and platelets 235K. Creatinine was slightly worse 1.2 went up to 1.5 Cardiology on the case and a planning for cardio version per documents Patient also on brillinta , patient is telling me today he was noncompliant with his aspirin and brillinta because we will be for brillinta was $600. Going to consult social work nurse Currently patient is on IV Lasix 40 mg twice daily and heparin drip, traversed controlled on Levemir 30 units at bedtime 08/03/2020 Patient remains in the ICU, his breathing is improving. His breathing is easier he is on 2 L oxygen via nasal cannula with saturation and 90s. No basal crepitation, no edema but patient feels very tired. No headache or weakness. WBC 16.90. Hemoglobin 8.9. Creatinine actually somewhat improved 1.59 to 1.45 Chest x-ray: Patchy basal infiltrates suspicious His medication including Lasix 40 mg twice daily for his ejection fraction of 20-25%. Heparin drip was switched to Eliquis, initially he was started on 5 mg twice daily however after discussing the case with Dr. Garduno the recommended to meet the lower 22.5 mg twice daily since he is also on Brillinta. As per Dr. Garduno no need to start aspirin. His echocardiogram showing ejection fraction 35-40%, range rider switch his Cardizem to amiodarone drip for now Also moderate mitral regurgitation with [id number] tricuspid regurgitation and severe pulmonary hypertension This morning was 77, we will lower his insulin 30 to 27 units from tomorrow. Patient can be transferred out of the ICU 08/04/2020 Patient is currently sitting in the chair comfortably. Awake alert and oriented x3. No acute distress. Cultures showed no growth and heart rate is better controlled. Patient is being continued on anticoagulation with Eliquis. Saturating at 95% on room air. Laboratory showed WBC 7.8, hemoglobin 9.7 and platelets 226 Patient is Lasix 40 mg twice daily by mouth. Continued on insulin dosing and sliding scale. Cardiology and pulmonary is on board 08/05/2020 Patient is currently sitting in the chair comfortably. Does have dizziness when getting up and no complaints of chest pain. Heart rate is controlled. Patient is being continued on anticoagulation with Coumadin. INR is subtherapeutic. IV Lasix changed to by mouth now. Cardiology is following. Patient was started Lovenox bridging and Coumadin. Review of Systems CONSTITUTIONAL: No fever, no malaise, no fatigue. HEENT: No recent visual problems or hearing problems. Denied any sore throat. CARDIOVASCULAR: No orthopnea, PND, no palpitations, no syncope. PULMONARY: No chest wall tenderness, no hemoptysis. GASTROINTESTINAL: No diarrhea, no nausea, no vomiting, no abdominal pain. Normoactive bowel sounds. NEUROLOGICAL: No headaches, no weakness, no numbness. Objective - Vital Signs Vital signs: Vital Signs Temp 98.7 F 08/05/20 19:42 Pulse 81 08/05/20 19:42 Resp 18 08/05/20 19:42 BP 126/58 08/05/20 19:42 Pulse Ox 99 08/05/20 19:42 Intake & Output 08/05/20 08/05/20 08/06/20 06:59 18:59 06:59 Intake Total 900 Output Total 625 2150 Balance -625 -1250 Weight 84.8 kg Intake: Oral 900 Output: Urine 625 2150 Other: Voiding Method Urinal Urinal # Voids 1 1 - Exam PHYSICAL EXAMINATION: Patient is lying in the bed comfortably, no acute distress, awake alert and oriented.. HEENT: Normocephalic. Neck is supple. Pupils reactive. Nostrils clear. Oral cavity is moist. Ears reveal no drainage. Neck reveals no JVD, carotid bruits, or thyromegaly. CHEST EXAMINATION: Trachea is central. Symmetrical expansion. Lung quinones clear to auscultation and percussion. CARDIAC: Normal S1, S2 with no gallops. No murmurs ABDOMEN: Soft. Bowel sounds normal. No organomegaly. No abdominal bruits. Extremities: reveal no edema. No clubbing or cyanosis Neurologically awake, alert, oriented x3 with well-coordinated movements. No focal deficits noted Skin: No rash or skin lesions. Psychiatric: Coperative. Nonsuicidal Musculoskeletal: No joint swelling or deformity. Normal range of motion. - Labs CBC & Chem 7: 08/05/20 07:05 08/06/20 06:39 Labs: Abnormal Lab Results - Last 24 Hours (Table) 08/05/20 08/05/20 08/05/20 Range/Units 07:05 07:05 11:34 RBC 2.92 L (4.30-5.90) m/uL Hgb 9.0 L (13.0-17.5) gm/dL Hct 26.3 L (39.0-53.0) % Sodium 134 L (137-145) mmol/L BUN 64 H (9-20) mg/dL Creatinine 1.52 H (0.66-1.25) mg/dL Glucose 62 L (74-99) mg/dL POC Glucose (mg/dL) 110 H (75-99) mg/dL 08/05/20 08/05/20 Range/Units 16:42 20:22 RBC (4.30-5.90) m/uL Hgb (13.0-17.5) gm/dL Hct (39.0-53.0) % Sodium (137-145) mmol/L BUN (9-20) mg/dL Creatinine (0.66-1.25) mg/dL Glucose (74-99) mg/dL POC Glucose (mg/dL) 224 H 205 H (75-99) mg/dL Microbiology - Last 24 Hours (Table) 08/01/20 12:43 Blood Culture - Preliminary Blood No Growth after 96 hours Assessment and Plan Assessment: Elevated troponin, secondary to A. fib with RVR Acute and chronic systolic CHF EF 30-35%, with acute pulmonary edema. moderate mitral regurgitation with [id number] tricuspid regurgitation and severe pulmonary hypertension Elevated lactic acid acute hypoxic respiratory failure Chronic kidney disease stage III Coronary artery disease history of multiple stents placement, History of non-ST elevated [place] Osteoarthritis Hyperglycemia with uncontrolled diabetes type 2 Hypomagnesemia replaced. Hypertension Hyperlipidemia History of [place] Plan: This is a pleasant 69 years old male who presents with A. fib and RVR and acute CHF, with pulmonary edema Continue with Lasix, Continue with Brillinta, discontinue aspirin. Change Cardizem drip to amiodarone drip when needed. Continue with metoprolol and losartan per cardiology's recommendation. Cardiology and pulmonary team on the case Labs and medication were reviewed.. Continue same treatment. Continue with symptomatic treatment. Resume home medication. Monitor lytes and vitals. DVT and GI prophylaxis. Further recommendations depends on the clinical course of the patient DVT prophylaxis: LOVENOX GI Prophylaxis: Pepcid PT/OT: Pending, consult Dr. Welch for possible inpatient rehab Prognosis is guarded Time with Patient: Greater than 30
[2020-08-07 06:03] LABS: Glucose,Whole Blood 72 mg/dL (75-99)
[2020-08-07] MEDS: INSULIN ASPART (NovoLOG) 100 UNIT/ML VIAL SQ SCH ×4 (06:22→22:37)
[2020-08-07 07:04] LABS: Basophils # (A) 0.1 k/uL (0-0.2); Basophils % (A) 1 %; Eosinophils # (A) 0.6 k/uL (0-0.7); Eosinophils % (A) 7 %; HCT 27.1 % (39.0-53.0); HGB 9.4 gm/dL (13.0-17.5); Lymphocytes # (A) 1.2 k/uL (1.0-4.8); Lymphocytes % (A) 15 %; MCH 31.3 pg (25.0-35.0); MCHC 34.8 g/dL (31.0-37.0); MCV 89.8 fL (80.0-100.0); Mean Platelet Volume 8.2; Monocytes # (A) 0.6 k/uL (0-1.0); Monocytes % (A) 7 %; Neutrophils # (A) 5.4 k/uL (1.3-7.7); Neutrophils % (A) 68 %; Platelet Count 253 k/uL (150-450); RBC 3.01 m/uL (4.30-5.90); RDW 13.8 % (11.5-15.5); WBC 7.9 k/uL (3.8-10.6)
[2020-08-07 07:08] LABS: INR 1.1 (<1.2); Prothrombin Time 11.3 sec (9.0-12.0)
[2020-08-07 07:18] LABS: Calcium 9.1 mg/dL (8.4-10.2)
[2020-08-07] MEDS: ENOXAPARIN 80 MG/0.8 ML SYRINGE SQ SCH ×2 (08:59→22:38)
[2020-08-07] MEDS: FUROSEMIDE 40 MG TAB PO SCH (08:59)
[2020-08-07] MEDS: CLOPIDOGREL 75 MG TAB PO SCH (08:59)
[2020-08-07] MEDS: TAMSULOSIN 0.4 MG CAP.ER.24H PO SCH (08:59)
[2020-08-07] MEDS: METOPROLOL TARTRATE 25 MG TAB PO SCH ×2 (08:59→22:37)
[2020-08-07] MEDS: PREGABALIN 50 MG CAP PO SCH ×2 (08:59→22:37)
[2020-08-07] MEDS: LOSARTAN 25 MG TAB PO SCH (09:00)
--- NOTE | 2020-08-07 10:37 | P.PN ---
Subjective Progress Note Date: 08/07/20 This is a 69-year-old gentleman with past medical history significant for hypertension, hyperlipidemia, diabetes, COPD, ischemic cardiomyopathy, systolic congestive heart failure, coronary artery disease with prior PCI, follows with Dr. Mckenzie in the office. Cardiology consultation was initially requested because of congestive heart failure as well as atrial fibrillation. Undergo cardiac catheterization in February [address] Sho Mckenzie, he hadn't and palate placed at that time and underwent stenting of the proximal and mid LAD. His ejection fraction at that time was documented to be 20-25%. He did have a repeat echo 2019 that showed an ejection fraction of 40% with moderate mitral regurgitation. The patient was seen and examined this morning, overall he states that he slept very well last night he has no complaints this morning denies any shortness of breath, breathing is stable. Patient was initiated on Coumadin because of the cost of Eliquis, he received 5 mg yesterday his INR this morning is 1.0. His creatinine this morning is 1.6 which is a trend upward. We will give him 5 mg of Coumadin today, decrease his Lasix dose to 40 mg daily continue to monitor the patient's daily INR. 08/07/20 Patient was seen and examined this morning, breathing is stable, he slept well through the night last night. I pressure this morning 94/60 with a heart rate in the 90s, temperature 99.0 he is 96% on room air. White blood cell count 7.9, hemoglobin 9.4, platelet count 253. Sodium 132, potassium 4.0, BUN 66, creatinine 1.6. Pharmacy has ordered the patient's Coumadin for tonight, they're giving 10 mg. Objective - Vital Signs Vital signs: Vital Signs Temp 99.0 F 08/07/20 07:50 Pulse 91 08/07/20 07:50 Resp 18 08/07/20 07:50 BP 93/60 08/07/20 07:50 Pulse Ox 96 08/07/20 07:50 Intake & Output 08/06/20 08/07/20 08/07/20 18:59 06:59 18:59 Intake Total 1620 1476 Output Total 1475 450 675 Balance 145 -450 801 Weight 83.9 kg 84.9 kg Intake: Oral 1620 1476 Output: Urine 1475 450 675 Other: Voiding Method Toilet Urinal # Voids 1 - Exam PHYSICAL EXAMINATION: GENERAL: 69-year-old gentleman in no acute distress at the time of my examination HEENT: Head is atraumatic, normocephalic. Pupils equal, round. Sclera anicteric. Conjunctiva are clear. Mucous membranes of the mouth are moist. Neck is supple. There is no elevated jugular venous pressure. No carotid bruit is heard. HEART EXAMINATION: Heart S1 and S2 irregularly irregular a systolic murmur is heard CHEST EXAMINATION: Lungs are clear with mild crackles heard at the bases bilaterally. No chest wall tenderness is noted on palpation or with deep breathing. ABDOMEN: Soft, nontender. Bowel sounds are heard. No organomegaly noted. EXTREMITIES: 2+ peripheral pulses with no evidence of peripheral edema and no calf tenderness noted. Patient does have a scabbed over ulcerated area on his left heel as well as on the lateral aspect of his great toe on that foot. NEUROLOGIC patient is awake, alert and oriented 3 . . - Labs CBC & Chem 7: 08/07/20 06:17 08/07/20 06:17 Labs: Abnormal Lab Results - Last 24 Hours (Table) 08/06/20 08/06/20 08/06/20 Range/Units 11:53 16:41 20:10 RBC (4.30-5.90) m/uL Hgb (13.0-17.5) gm/dL Hct (39.0-53.0) % Sodium (137-145) mmol/L BUN (9-20) mg/dL Creatinine (0.66-1.25) mg/dL Glucose (74-99) mg/dL POC Glucose (mg/dL) 218 H 153 H 232 H (75-99) mg/dL 08/07/20 08/07/20 08/07/20 Range/Units 05:50 06:17 06:17 RBC 3.01 L (4.30-5.90) m/uL Hgb 9.4 L (13.0-17.5) gm/dL Hct 27.1 L (39.0-53.0) % Sodium 132 L (137-145) mmol/L BUN 66 H (9-20) mg/dL Creatinine 1.66 H (0.66-1.25) mg/dL Glucose 60 L (74-99) mg/dL POC Glucose (mg/dL) 72 L (75-99) mg/dL Microbiology - Last 24 Hours (Table) 08/01/20 12:43 Blood Culture - Preliminary Blood No Growth after 120 hours Assessment and Plan Plan: Assessment and plan #1 systolic congestive heart failure acute on chronic #2 persistent atrial fibrillation, appears to be of new onset, on Coumadin for anticoagulation #3 ischemic cardiomyopathy, most recent echo performed in March showed an ejection fraction of 40% #4 coronary artery disease with prior PCI #5 hyperlipidemia #6 diabetes #7 COPD Plan Pharmacy is dosing the patient's Coumadin today, 10 mg has been ordered. We will continue with the rest of his medications monitoring his INR closely. DNP note has been reviewed, I agree with a documented findings and plan of care. Patient was seen and examined.
[2020-08-07 11:46] LABS: Glucose,Whole Blood 119 mg/dL (75-99)
[2020-08-07 17:04] LABS: Glucose,Whole Blood 165 mg/dL (75-99)
[2020-08-07] MEDS ORDERED: WARFARIN 10 MG TAB PO ONE (18:00)
[2020-08-07 20:46] LABS: Glucose,Whole Blood 216 mg/dL (75-99)
[2020-08-07] MEDS: INSULIN DETEMIR (LEVEMIR) 100 UNIT/ML SYR SQ SCH (22:36)
[2020-08-07] MEDS: ATORVASTATIN 40 MG TAB PO SCH (22:37)
--- NOTE | 2020-08-08 00:19 | P.PN ---
Subjective Progress Note Date: 08/06/20 Principal diagnosis: Atrial fibrillation with RVR Patient is a 69-year-old male with a known history of significant coronary artery disease status post stent placement x5, hypertension, hyperlipidemia, diabetes type 2 insulin-dependent and history of ME and previous history of s moking and marijuana use . He is a patient of Dr. Wan and follows up with Dr. 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 Presents because of acute dyspnea associated with vomiting. Patient states that he starts having dyspnea one day ago associated with vomiting 4-5 times. He has diarrhea twice a day, plus one was more watery. But with no abdominal pain, no chest pain. He has little dry cough but this is chronic. No abdominal or urinary complaints. No headache or weakness Patient denies smoking or alcohol but he smokes marijuana sometimes On admission he was tachycardic and tachypneic with a heart rate 105-116 and breathing at 20-22. Blood pressure 127/90, and he was saturating 92% and 50 L oxygen via nasal cannula, he is afebrile. Labs showed leukocytosis with WBC of 15.5 K, risks of CBC, INR is unremarkable. Creatinine is at baseline at 1.09 Activity as it is elevated 7.4 and 8.3, liver enzymes not elevated and troponin is high at 0.05. Urinalysis is not suspicious of infection and coronavirus not detected. EKG showing atrial fibrillation with tachycardia at 163 Chest x-ray showing atypical pneumonia versus interstitial edema Echocardiogram on 02/17/2020: Ejection fraction 20-25% with mild LVH and [id number] tricuspid regurgitation In the emergency room patient was started on heparin drip, Cardizem drip at 5 mg per hour, started on Lasix 40 mg twice daily 08/02/2020 Patient remains in the ICU, he is breathing easier today and her more comfortable, he was on BiPAP this morning. Patient oxygen saturation his 90s on 6 L per minute. Heart rate is controlled currently at 66 bpm and his Cardizem drip was stopped His CBC showed hemoglo-delusion, WBC 9.9K, hemoglobin 9.4 and platelets 235K. Creatinine was slightly worse 1.2 went up to 1.5 Cardiology on the case and a planning for cardio version per documents Patient also on brillinta , patient is telling me today he was noncompliant with his aspirin and brillinta because we will be for brillinta was $600. Going to consult social work administrator Currently patient is on IV Lasix 40 mg twice daily and heparin drip, traversed controlled on Levemir 30 units at bedtime 08/03/2020 Patient remains in the ICU, his breathing is improving. His breathing is easier he is on 2 L oxygen via nasal cannula with saturation and 90s. No basal crepitation, no edema but patient feels very tired. No headache or weakness. WBC 16.90. Hemoglobin 8.9. Creatinine actually somewhat improved 1.59 to 1.45 Chest x-ray: Patchy basal infiltrates suspicious His medication including Lasix 40 mg twice daily for his ejection fraction of 20-25%. Heparin drip was switched to Eliquis, initially he was started on 5 mg twice daily however after discussing the case with Dr. Garduno the recommended to meet the lower 22.5 mg twice daily since he is also on Brillinta. As per Dr. Garduno no need to start aspirin. His echocardiogram showing ejection fraction 35-40%, assistant to the ceo switch his Cardizem to amiodarone drip for now Also moderate mitral regurgitation with [id number] tricuspid regurgitation and severe pulmonary hypertension This morning was 77, we will lower his insulin 30 to 27 units from tomorrow. Patient can be transferred out of the ICU 08/04/2020 Patient is currently sitting in the chair comfortably. Awake alert and oriented x3. No acute distress. Cultures showed no growth and heart rate is better controlled. Patient is being continued on anticoagulation with Eliquis. Saturating at 95% on room air. Laboratory showed WBC 7.8, hemoglobin 9.7 and platelets 226 Patient is Lasix 40 mg twice daily by mouth. Continued on insulin dosing and sliding scale. Cardiology and pulmonary is on board 08/05/2020 Patient is currently sitting in the chair comfortably. Does have dizziness when getting up and no complaints of chest pain. Heart rate is controlled. Patient is being continued on anticoagulation with Coumadin. INR is subtherapeutic. IV Lasix changed to by mouth now. Cardiology is following. Patient was started Lovenox bridging and Coumadin. 08/06/2020 Patient is currently sitting in the chair. Still complaining of dizziness while getting up. Blood pressure is on the lower side. No complaints of chest pain or shortness of breath. Patient was started on Coumadin due to the cost of Eliquis. INR is 1.0 this morning and 5 mg of Coumadin was given. Lasix dose decreased to 40 mg daily. Creatinine level is increasing to 1.6. No fever no chills. No nausea vomiting or abdominal pain. No diarrhea or dysuria. Tolerating oral diet. Cardiology is on board. Review of Systems CONSTITUTIONAL: No fever, no malaise, no fatigue. HEENT: No recent visual problems or hearing problems. Denied any sore throat. CARDIOVASCULAR: No orthopnea, PND, no palpitations, no syncope. PULMONARY: No chest wall tenderness, no hemoptysis. GASTROINTESTINAL: No diarrhea, no nausea, no vomiting, no abdominal pain. Normoactive bowel sounds. NEUROLOGICAL: No headaches, no weakness, no numbness. Objective - Vital Signs Vital signs: Vital Signs Temp 98.4 F 08/06/20 20:53 Pulse 89 08/06/20 22:47 Resp 16 08/06/20 22:47 BP 89/58 08/06/20 22:47 Pulse Ox 97 08/06/20 22:47 Intake & Output 08/06/20 08/06/20 08/07/20 06:59 18:59 06:59 Intake Total 1620 Output Total 650 1475 Balance -650 145 Weight 84.4 kg 83.9 kg Intake: Oral 1620 Output: Urine 650 1475 Other: Voiding Method Urinal Toilet Urinal # Voids 1 - Exam PHYSICAL EXAMINATION: Patient is lying in the bed comfortably, no acute distress, awake alert and or iented.. HEENT: Normocephalic. Neck is supple. Pupils reactive. Nostrils clear. Oral cavity is moist. Ears reveal no drainage. Neck reveals no JVD, carotid bruits, or thyromegaly. CHEST EXAMINATION: Trachea is central. Symmetrical expansion. Lung quinones clear to auscultation and percussion. CARDIAC: Normal S1, S2 with no gallops. No murmurs ABDOMEN: Soft. Bowel sounds normal. No organomegaly. No abdominal bruits. Extremities: reveal no edema. No clubbing or cyanosis Neurologically awake, alert, oriented x3 with well-coordinated movements. No focal deficits noted Skin: No rash or skin lesions. Psychiatric: Coperative. Nonsuicidal Musculoskeletal: No joint swelling or deformity. Normal range of motion. - Labs CBC & Chem 7: 08/07/20 06:17 08/07/20 06:17 Labs: Abnormal Lab Results - Last 24 Hours (Table) 08/06/20 08/06/20 08/06/20 Range/Units 06:09 06:25 06:39 Sodium 135 L (137-145) mmol/L BUN 66 H (9-20) mg/dL Creatinine 1.60 H (0.66-1.25) mg/dL Glucose 71 L (74-99) mg/dL POC Glucose (mg/dL) 69 L 68 L (75-99) mg/dL 08/06/20 08/06/20 08/06/20 Range/Units 06:51 11:53 16:41 Sodium (137-145) mmol/L BUN (9-20) mg/dL Creatinine (0.66-1.25) mg/dL Glucose (74-99) mg/dL POC Glucose (mg/dL) 102 H 218 H 153 H (75-99) mg/dL 08/06/20 Range/Units 20:10 Sodium (137-145) mmol/L BUN (9-20) mg/dL Creatinine (0.66-1.25) mg/dL Glucose (74-99) mg/dL POC Glucose (mg/dL) 232 H (75-99) mg/dL Microbiology - Last 24 Hours (Table) 08/01/20 12:43 Blood Culture - Preliminary Blood No Growth after 120 hours Assessment and Plan Assessment: Elevated troponin, secondary to A. fib with RVR , rate controlled. Acute and chronic systolic CHF EF 30-35%, with acute pulmonary edema. moderate mitral regurgitation with [id number] tricuspid regurgitation and severe pulmonary hypertension Dizziness Elevated lactic acid acute hypoxic respiratory failure Chronic kidney disease stage III Coronary artery disease history of multiple stents placement, History of non-ST elevated ME Osteoarthritis Hyperglycemia with uncontrolled diabetes type 2 Hypomagnesemia replaced. Hypertension Hyperlipidemia History of ME Plan: This is a pleasant 69 years old male who presents with A. fib and RVR and acute CHF, with pulmonary edema Continue with Lasix, Continue with Brillinta, discontinue aspirin. Change Cardizem drip to amiodarone drip when needed. Continue with metoprolol and losartan per cardiology's recommendation. Cardiology and pulmonary team on the case Labs and medication were reviewed.. Continue same treatment. Continue with symptomatic treatment. Resume home medication. Monitor lytes and vitals. DVT and GI prophylaxis. Further recommendations depends on the clinical course of the patient DVT prophylaxis: LOVENOX GI Prophylaxis: Pepcid PT/OT: Pending, consult Dr. Welch for possible inpatient rehab Prognosis is guarded Time with Patient: Greater than 30
--- NOTE | 2020-08-08 00:21 | P.PN ---
Subjective Progress Note Date: 08/07/20 Principal diagnosis: Atrial fibrillation with RVR Patient is a 69-year-old male with a known history of significant coronary artery disease status post stent placement x5, hypertension, hyperlipidemia, diabetes type 2 insulin-dependent and history of IA and previous history of s moking and marijuana use . He is a patient of Dr. 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 Presents because of acute dyspnea associated with vomiting. Patient states that he starts having dyspnea one day ago associated with vomiting 4-5 times. He has diarrhea twice a day, plus one was more watery. But with no abdominal pain, no chest pain. He has little dry cough but this is chronic. No abdominal or urinary complaints. No headache or weakness Patient denies smoking or alcohol but he smokes marijuana sometimes On admission he was tachycardic and tachypneic with a heart rate 105-116 and breathing at 20-22. Blood pressure 127/90, and he was saturating 92% and 50 L oxygen via nasal cannula, he is afebrile. Labs showed leukocytosis with WBC of 15.5 K, risks of CBC, INR is unremarkable. Creatinine is at baseline at 1.09 Activity as it is elevated 7.4 and 8.3, liver enzymes not elevated and troponin is high at 0.05. Urinalysis is not suspicious of infection and coronavirus not detected. EKG showing atrial fibrillation with tachycardia at 163 Chest x-ray showing atypical pneumonia versus interstitial edema Echocardiogram on 02/17/2020: Ejection fraction 20-25% with mild LVH and [id number] tricuspid regurgitation In the emergency room patient was started on heparin drip, Cardizem drip at 5 mg per hour, started on Lasix 40 mg twice daily 08/02/2020 Patient remains in the ICU, he is breathing easier today and her more comfortable, he was on BiPAP this morning. Patient oxygen saturation his 90s on 6 L per minute. Heart rate is controlled currently at 66 bpm and his Cardizem drip was stopped His CBC showed hemoglo-delusion, WBC 9.9K, hemoglobin 9.4 and platelets 235K. Creatinine was slightly worse 1.2 went up to 1.5 Cardiology on the case and a planning for cardio version per documents Patient also on brillinta , patient is telling me today he was noncompliant with his aspirin and brillinta because we will be for brillinta was $600. Going to consult social work coordinator Currently patient is on IV Lasix 40 mg twice daily and heparin drip, traversed controlled on Levemir 30 units at bedtime 08/03/2020 Patient remains in the ICU, his breathing is improving. His breathing is easier he is on 2 L oxygen via nasal cannula with saturation and 90s. No basal crepitation, no edema but patient feels very tired. No headache or weakness. WBC 16.90. Hemoglobin 8.9. Creatinine actually somewhat improved 1.59 to 1.45 Chest x-ray: Patchy basal infiltrates suspicious His medication including Lasix 40 mg twice daily for his ejection fraction of 20-25%. Heparin drip was switched to Eliquis, initially he was started on 5 mg twice daily however after discussing the case with Dr. Garduno the recommended to meet the lower 22.5 mg twice daily since he is also on Brillinta. As per Dr. Garduno no need to start aspirin. 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 Patient can be transferred out of the ICU 08/04/2020 Patient is currently sitting in the chair comfortably. Awake alert and oriented x3. No acute distress. Cultures showed no growth and heart rate is better controlled. Patient is being continued on anticoagulation with Eliquis. Saturating at 95% on room air. Laboratory showed WBC 7.8, hemoglobin 9.7 and platelets 226 Patient is Lasix 40 mg twice daily by mouth. Continued on insulin dosing and sliding scale. Cardiology and pulmonary is on board 08/05/2020 Patient is currently sitting in the chair comfortably. Does have dizziness when getting up and no complaints of chest pain. Heart rate is controlled. Patient is being continued on anticoagulation with Coumadin. INR is subtherapeutic. IV Lasix changed to by mouth now. Cardiology is following. Patient was started Lovenox bridging and Coumadin. 08/06/2020 Patient is currently sitting in the chair. Still complaining of dizziness while getting up. Blood pressure is on the lower side. No complaints of chest pain or shortness of breath. Patient was started on Coumadin due to the cost of Eliquis. INR is 1.0 this morning and 5 mg of Coumadin was given. Lasix dose decreased to 40 mg daily. Creatinine level is increasing to 1.6. No fever no chills. No nausea vomiting or abdominal pain. No diarrhea or dysuria. Tolerating oral diet. Cardiology is on board. 08/07/2020 Patient is currently resting in the chair comfortably. Dizziness is slightly better but still patient complains of dizziness. Heart rate is controlled. No complaints of chest pain. No fever no chills. Creatinine level is 1.66 today. BUN 66 and currently on Lasix 40 mg daily. No leg swelling or worsening shortness of breath. Hemoglobin is 9.4. Cardiology is on board. INR is 1.1 today. Continue with Coumadin dosing and current with insulin dose and titrate as needed. Currently on Lovenox for bridging. Review of Systems CONSTITUTIONAL: No fever, no malaise, no fatigue. HEENT: No recent visual problems or hearing problems. Denied any sore throat. CARDIOVASCULAR: No orthopnea, PND, no palpitations, no syncope. PULMONARY: No chest wall tenderness, no hemoptysis. GASTROINTESTINAL: No diarrhea, no nausea, no vomiting, no abdominal pain. Normoactive bowel sounds. NEUROLOGICAL: No headaches, no weakness, no numbness. Objective - Vital Signs Vital signs: Vital Signs Temp 99.0 F 08/07/20 07:50 Pulse 88 08/07/20 12:00 Resp 18 08/07/20 12:00 BP 92/57 08/07/20 12:00 Pulse Ox 97 08/07/20 12:00 Intake & Output 08/06/20 08/07/20 08/07/20 18:59 06:59 18:59 Intake Total 1620 1712 Output Total 6562 434 5221 Balance 145 -450 337 Weight 83.9 kg 84.9 kg 85.8 kg Intake: Oral 1620 1712 Output: Urine 1215 907 9979 Other: Voiding Method Toilet Urinal # Voids 1 1 - Exam PHYSICAL EXAMINATION: Patient is lying in the bed comfortably, no acute distress, awake alert and oriented.. HEENT: Normocephalic. Neck is supple. Pupils reactive. Nostrils clear. Oral cavity is moist. Ears reveal no drainage. Neck reveals no JVD, carotid bruits, or thyromegaly. CHEST EXAMINATION: Trachea is central. Symmetrical expansion. Lung quinones clear to auscultation and percussion. CARDIAC: Normal S1, S2 with no gallops. No murmurs ABDOMEN: Soft. Bowel sounds normal. No organomegaly. No abdominal bruits. Extremities: reveal no edema. No clubbing or cyanosis Neurologically awake, alert, oriented x3 with well-coordinated movements. No focal deficits noted Skin: No rash or skin lesions. Psychiatric: Coperative. Nonsuicidal Musculoskeletal: No joint swelling or deformity. Normal range of motion. - Labs CBC & Chem 7: 08/07/20 06:17 08/07/20 06:17 Labs: Abnormal Lab Results - Last 24 Hours (Table) 08/06/20 08/06/20 08/07/20 Range/Units 16:41 20:10 05:50 RBC (4.30-5.90) m/uL Hgb (13.0-17.5) gm/dL Hct (39.0-53.0) % Sodium (137-145) mmol/L BUN (9-20) mg/dL Creatinine (0.66-1.25) mg/dL Glucose (74-99) mg/dL POC Glucose (mg/dL) 153 H 232 H 72 L (75-99) mg/dL 08/07/20 08/07/20 08/07/20 Range/Units 06:17 06:17 11:44 RBC 3.01 L (4.30-5.90) m/uL Hgb 9.4 L (13.0-17.5) gm/dL Hct 27.1 L (39.0-53.0) % Sodium 132 L (137-145) mmol/L BUN 66 H (9-20) mg/dL Creatinine 1.66 H (0.66-1.25) mg/dL Glucose 60 L (74-99) mg/dL POC Glucose (mg/dL) 119 H (75-99) mg/dL Microbiology - Last 24 Hours (Table) 08/01/20 12:43 Blood Culture - Preliminary Blood No Growth after 120 hours Assessment and Plan Assessment: Elevated troponin, secondary to A. fib with RVR , rate controlled. Acute and chronic systolic CHF EF 30-35%, with acute pulmonary edema. improving. moderate mitral regurgitation with [id number] tricuspid regurgitation and severe pulmonary hypertension Dizziness Elevated lactic acid acute hypoxic respiratory failure Chronic kidney disease stage III Coronary artery disease history of multiple stents placement, History of non-ST elevated IA Osteoarthritis Hyperglycemia with uncontrolled diabetes type 2 Hypomagnesemia replaced. Hypertension Hyperlipidemia History of IA Plan: This is a pleasant 69 years old male who presents with A. fib and RVR and acute CHF, with pulmonary edema Continue with Lasix, Continue with Brillinta, discontinue aspirin. Change Cardizem drip to amiodarone drip when needed. Continue with metoprolol and losartan per cardiology's recommendation. Cardiology and pulmonary team on the case Labs and medication were reviewed.. Continue same treatment. Continue with symptomatic treatment. Resume home medication. Monitor lytes and vitals. DVT and GI prophylaxis. Further recommendations depends on the clinical course of the patient DVT prophylaxis: LOVENOX GI Prophylaxis: Pepcid PT/OT: Pending, consult Dr. Welch for possible inpatient rehab Prognosis is guarded Time with Patient: Greater than 30
[2020-08-08 06:04] LABS: Glucose,Whole Blood 95 mg/dL (75-99)
[2020-08-08] MEDS: INSULIN ASPART (NovoLOG) 100 UNIT/ML VIAL SQ SCH ×4 (06:54→20:41)
[2020-08-08 07:39] LABS: Basophils # (A) 0.1 k/uL (0-0.2); Basophils % (A) 1 %; Eosinophils # (A) 0.6 k/uL (0-0.7); Eosinophils % (A) 7 %; HCT 26.5 % (39.0-53.0); HGB 9.1 gm/dL (13.0-17.5); Lymphocytes # (A) 1.3 k/uL (1.0-4.8); Lymphocytes % (A) 15 %; MCH 30.8 pg (25.0-35.0); MCHC 34.4 g/dL (31.0-37.0); MCV 89.5 fL (80.0-100.0); Mean Platelet Volume 8.4; Monocytes # (A) 0.7 k/uL (0-1.0); Monocytes % (A) 8 %; Neutrophils # (A) 6.1 k/uL (1.3-7.7); Neutrophils % (A) 68 %; Platelet Count 265 k/uL (150-450); RBC 2.96 m/uL (4.30-5.90); RDW 13.8 % (11.5-15.5); WBC 8.9 k/uL (3.8-10.6)
[2020-08-08 07:52] LABS: Calcium 9.1 mg/dL (8.4-10.2); Potassium 4.1 mmol/L (3.5-5.1)
[2020-08-08] MEDS: METOPROLOL TARTRATE 25 MG TAB PO SCH ×2 (08:33→20:40)
[2020-08-08] MEDS: CLOPIDOGREL 75 MG TAB PO SCH (08:33)
[2020-08-08] MEDS: TAMSULOSIN 0.4 MG CAP.ER.24H PO SCH (08:33)
[2020-08-08] MEDS: PREGABALIN 50 MG CAP PO SCH ×2 (08:33→20:40)
[2020-08-08] MEDS: ENOXAPARIN 80 MG/0.8 ML SYRINGE SQ SCH (08:34)
--- NOTE | 2020-08-08 10:10 | P.PN ---
Subjective This is a pleasant 69-year-old male past medical history significant for hypertension, dyslipidemia, diabetes mellitus, COPD, ischemic car diomyopathy, systolic heart failure, coronary artery disease status post PCI and former nicotine dependence. He follows in the office with Dr. Mckenzie. We are following secondary to heart failure and new onset atrial fibrillation. He has seen and examined resting comfortably lying flat in bed in no acute distress. He states in the previous 24 hours he has had no symptoms of palpitations, chest pain, shortness of breath or dizziness. He has been up and ambulating with his walker without incident. Blood pressure 109/64 heart rate 95 afebrile maintaining oxygen saturation on room air. Laboratory data reviewed, WBC 8.9, hemoglobin 9.1, platelets 265, sodium 135, potassium 4.1, creatinine 1.72. Currently maintained on atorvastatin 40 mg at bedtime, Plavix 75 mg daily, Lovenox 80 mg subcu twice a day, metoprolol 75 mg twice a day, Lasix 40 mg by mouth daily and Coumadin. GENERAL: Well-appearing, well-nourished and in no acute distress. NECK: Supple without JVD or thyromegaly. LUNGS: Breath sounds clear to auscultation bilaterally. Respiration equal and unlabored. No wheezes, rales or rhonchi. HEART: Irregular rate and rhythm with systolic ejection murmur at the base, no rubs or gallops. S1 and S2 heard. EXTREMITIES: Normal range of motion, no edema. No clubbing or cyanosis. Pe ripheral pulses intact. ASSESSMENT New onset atrial fibrillation with controlled ventricular rate Acute kidney injury Acute on chronic systolic heart failure, improved. Ejection fraction 40% Coronary artery disease status post PCI Ischemic cardiomyopathy Hypertension Dyslipidemia Diabetes mellitus COPD PLAN Hold Lasix secondary to worsening renal function. PT/INR pending, continue Coumadin dosing for therapeutic INR of 2-3. Repeat renal function in the morning. Nurse Practitioner note has been reviewed, I agree with a documented findings and plan of care. Patient was seen and examined. Objective - Vital Signs Vital signs: Vital Signs Temp 98 F 08/08/20 08:00 Pulse 95 08/08/20 08:00 Resp 20 08/08/20 08:00 BP 109/64 08/08/20 08:00 Pulse Ox 97 08/08/20 08:26 Intake & Output 02/08/08/20 08/08/20 18:59 06:59 18:59 Intake Total 1712 400 480 Output Total 1375 2100 Balance 337 -1700 480 Weight 85.8 kg 86.6 kg Intake: Oral 1712 400 480 Output: Urine 1375 2100 Other: Voiding Method Toilet Urinal # Voids 1 - Labs CBC & Chem 7: 08/08/20 06:58 08/08/20 06:58 Labs: Abnormal Lab Results - Last 24 Hours (Table) 08/07/20 08/07/20 08/07/20 Range/Units 11:44 16:59 20:44 RBC (4.30-5.90) m/uL Hgb (13.0-17.5) gm/dL Hct (39.0-53.0) % Sodium (137-145) mmol/L BUN (9-20) mg/dL Creatinine (0.66-1.25) mg/dL Glucose (74-99) mg/dL POC Glucose (mg/dL) 119 H 165 H 216 H (75-99) mg/dL 08/08/20 08/08/20 Range/Units 06:58 06:58 RBC 2.96 L (4.30-5.90) m/uL Hgb 9.1 L (13.0-17.5) gm/dL Hct 26.5 L (39.0-53.0) % Sodium 135 L (137-145) mmol/L BUN 63 H (9-20) mg/dL Creatinine 1.72 H (0.66-1.25) mg/dL Glucose 62 L (74-99) mg/dL POC Glucose (mg/dL) (75-99) mg/dL Microbiology - Last 24 Hours (Table) 08/01/20 12:43 Blood Culture - Final Blood No Growth after 144 hours
[2020-08-08 11:40] LABS: Glucose,Whole Blood 116 mg/dL (75-99)
[2020-08-08 11:47] LABS: INR 1.2 (<1.2); Prothrombin Time 12.5 sec (9.0-12.0)
--- NOTE | 2020-08-08 11:55 | P.PN ---
Subjective 69-year-old male with a known history of significant coronary artery disease status post stent placement x5, hypertension, hyperlipidemia, diabetes type 2 insulin-dependent and history of ND and previous history of smoking and marijuana use . He is a patient of Dr. Wan and follows up with Dr. Mckenzie quality assurance practice manager as an outpatient. Presents because of acute dyspnea associated with vomiting. Patient states that he starts having dyspnea one day ago associated with vomiting 4-5 times. He has diarrhea twice a day, plus one was more watery. But with no abdominal pain, no chest pain. He has little dry cough but this is chronic. No abdominal or urinary complaints. No headache or weakness Patient denies smoking or alcohol but he smokes marijuana sometimes On admission he was tachycardic and tachypneic with a heart rate 105-116 and radha athing at 20-22. Blood pressure 127/90, and he was saturating 92% and 50 L oxygen via nasal cannula, he is afebrile. Labs showed leukocytosis with WBC of 15.5 K, risks of CBC, INR is unremarkable. Creatinine is at baseline at 1.09 Activity as it is elevated 7.4 and 8.3, liver enzymes not elevated and troponin is high at 0.05. Urinalysis is not suspicious of infection and coronavirus not detected. EKG showing atrial fibrillation with tachycardia at 163 Chest x-ray showing atypical pneumonia versus interstitial edema Echocardiogram on 02/17/2020: Ejection fraction 20-25% with mild LVH and mil [id number] tricuspid regurgitation In the emergency room patient was started on heparin drip, Cardizem drip at 5 mg per hour, started on Lasix 40 mg twice daily 08/02/2020 Patient remains in the ICU, he is breathing easier today and her more comfortable, he was on BiPAP this morning. Patient oxygen saturation his 90s on 6 L per minute. Heart rate is controlled currently at 66 bpm and his Cardizem drip was stopped His CBC showed hemoglo-delusion, WBC 9.9K, hemoglobin 9.4 and platelets 235K. Creatinine was slightly worse 1.2 went up to 1.5 Cardiology on the case and a planning for cardio version per documents Patient also on brillinta , patient is telling me today he was noncompliant with his aspirin and brillinta because we will be for brillinta was $600. Going to consult social work therapist Currently patient is on IV Lasix 40 mg twice daily and heparin drip, traversed controlled on Levemir 30 units at bedtime 08/03/2020 Patient remains in the ICU, his breathing is improving. His breathing is easier he is on 2 L oxygen via nasal cannula with saturation and 90s. No basal crepitation, no edema but patient feels very tired. No headache or weakness. WBC 16.90. Hemoglobin 8.9. Creatinine actually somewhat improved 1.59 to 1.45 Chest x-ray: Patchy basal infiltrates suspicious His medication including Lasix 40 mg twice daily for his ejection fraction of 20-25%. Heparin drip was switched to Eliquis, initially he was started on 5 mg twice daily however after discussing the case with Dr. Garduno the recommended to meet the lower 22.5 mg twice daily since he is also on Brillinta. As per Dr. Garduno no need to start aspirin. His echocardiogram showing ejection fraction 35-40%, quality assurance practice manager switch his Cardizem to amiodarone drip for now Also moderate mitral regurgitation with [id number] tricuspid regurgitation and severe pulmonary hypertension This morning was 77, we will lower his insulin 30 to 27 units from tomorrow. Patient can be transferred out of the ICU 08/04/2020 Patient is currently sitting in the chair comfortably. Awake alert and oriented x3. No acute distress. Cultures showed no growth and heart rate is better controlled. Patient is being continued on anticoagulation with Eliquis. Saturating at 95% on room air. Laboratory showed WBC 7.8, hemoglobin 9.7 and platelets 226 Patient is Lasix 40 mg twice daily by mouth. Continued on insulin dosing and sliding scale. Cardiology and pulmonary is on board 08/05/2020 Patient is currently sitting in the chair comfortably. Does have dizziness when getting up and no complaints of chest pain. Heart rate is controlled. Patient is being continued on anticoagulation with Coumadin. INR is subtherapeutic. IV Lasix changed to by mouth now. Cardiology is following. Patient was started Lovenox bridging and Coumadin. 08/06/2020 Patient is currently sitting in the chair. Still complaining of dizziness while getting up. Blood pressure is on the lower side. No complaints of chest pain or shortness of breath. Patient was started on Coumadin due to the cost of Eliquis. INR is 1.0 this morning and 5 mg of Coumadin was given. Lasix dose decreased to 40 mg daily. Creatinine level is increasing to 1.6. No fever no chills. No nausea vomiting or abdominal pain. No diarrhea or dysuria. Tolerating oral diet. Cardiology is on board. 08/07/2020 Patient is currently resting in the chair comfortably. Dizziness is slightly better but still patient complains of dizziness. Heart rate is controlled. No complaints of chest pain. No fever no chills. Creatinine level is 1.66 today. BUN 66 and currently on Lasix 40 mg daily. No leg swelling or worsening shortness of breath. Hemoglobin is 9.4. Cardiology is on board. INR is 1.1 today. Continue with Coumadin dosing and current with insulin dose and titrate as needed. Currently on Lovenox for bridging. 08/08/2020 Patient has mild worsening of serum creatinine because of which we are just did not feel the patient. Patient is an 18 mg twice a day of Lovenox but patient has renal dysfunction because of which I'll cut it down to once a day 100 mg daily. Instead of 80 twice a day. Review of Systems CONSTITUTIONAL: No fever, no malaise, no fatigue. HEENT: No recent visual problems or hearing problems. Denied any sore throat. CARDIOVASCULAR: No orthopnea, PND, no palpitations, no syncope. PULMONARY: No chest wall tenderness, no hemoptysis. GASTROINTESTINAL: No diarrhea, no nausea, no vomiting, no abdominal pain. Normoactive bowel sounds. NEUROLOGICAL: No headaches, no weakness, no numbness. Objective - Vital Signs Vital signs: Vital Signs Temp 98.1 F 08/08/20 11:39 Pulse 79 08/08/20 11:39 Resp 20 08/08/20 11:39 BP 93/58 08/08/20 11:39 Pulse Ox 98 08/08/20 11:39 Intake & Output 08/07/20 08/08/20 08/08/20 18:59 06:59 18:59 Intake Total 1712 400 680 Output Total 1375 2100 Balance 337 -1700 680 Weight 85.8 kg 86.6 kg Intake: Oral 1712 400 680 Output: Urine 1375 2100 Other: Voiding Method Toilet Urinal # Voids 1 - Exam PHYSICAL EXAMINATION: Patient is lying in the bed comfortably, no acute distress, awake alert and oriented.. HEENT: Normocephalic. Neck is supple. Pupils reactive. Nostrils clear. Oral cavity is moist. Ears reveal no drainage. Neck reveals no JVD, carotid bruits, or thyromegaly. CHEST EXAMINATION: Trachea is central. Symmetrical expansion. Lung quinones clear to auscultation and percussion. CARDIAC: Normal S1, S2 with no gallops. No murmurs ABDOMEN: Soft. Bowel sounds normal. No organomegaly. No abdominal bruits. Extremities: reveal no edema. No clubbing or cyanosis Neurologically awake, alert, oriented x3 with well-coordinated movements. No focal deficits noted Skin: No rash or skin lesions. Psychiatric: Coperative. Nonsuicidal Musculoskeletal: No joint swelling or deformity. Normal range of motion. - Labs CBC & Chem 7: 08/08/20 06:58 08/08/20 06:58 Labs: Abnormal Lab Results - Last 24 Hours (Table) 08/07/20 08/07/20 08/08/20 Range/Units 16:59 20:44 06:58 RBC 2.96 L (4.30-5.90) m/uL Hgb 9.1 L (13.0-17.5) gm/dL Hct 26.5 L (39.0-53.0) % Sodium (137-145) mmol/L BUN (9-20) mg/dL Creatinine (0.66-1.25) mg/dL Glucose (74-99) mg/dL POC Glucose (mg/dL) 165 H 216 H (75-99) mg/dL 08/08/20 08/08/20 Range/Units 06:58 11:38 RBC (4.30-5.90) m/uL Hgb (13.0-17.5) gm/dL Hct (39.0-53.0) % Sodium 135 L (137-145) mmol/L BUN 63 H (9-20) mg/dL Creatinine 1.72 H (0.66-1.25) mg/dL Glucose 62 L (74-99) mg/dL POC Glucose (mg/dL) 116 H (75-99) mg/dL Microbiology - Last 24 Hours (Table) 08/01/20 12:43 Blood Culture - Final Blood No Growth after 144 hours Assessment and Plan Plan: Elevated troponin, secondary to A. fib with RVR , rate controlled. Acute and chronic systolic CHF EF 30-35%, with acute pulmonary edema. A bruit patient is actually mildly hypovolemic holding off on the diuretics and her losartan moderate mitral regurgitation with [id number] tricuspid regurgitation and severe pulmonary hypertension Dizziness Elevated lactic acid acute hypoxic respiratory failure Chronic kidney disease stage III Coronary artery disease history of multiple stents placement, History of non-ST elevated ND Osteoarthritis Hyperglycemia with uncontrolled diabetes type 2 Hypomagnesemia replaced. Hypertension Hyperlipidemia History of ND Plan: Hold Lasix, losartan Continue with Brillinta, discontinue aspirin. Continue with amiodarone and metoprolol Cut down the Lovenox dose because of renal dysfunction repeat INR tomorrow 7.5 mg Coumadin today DVT prophylaxis: LOVENOX GI Prophylaxis: Pepcid PT/OT: Evaluated and recommending home. Prognosis is guarded
[2020-08-08 12:34] VITALS: BMI 28.2
[2020-08-08 16:34] LABS: Glucose,Whole Blood 240 mg/dL (75-99)
[2020-08-08] MEDS ORDERED: WARFARIN 7.5 MG TAB PO ONE (18:00)
[2020-08-08 20:30] LABS: Glucose,Whole Blood 179 mg/dL (75-99)
[2020-08-08] MEDS: INSULIN DETEMIR (LEVEMIR) 100 UNIT/ML SYR SQ SCH (20:41)
[2020-08-08] MEDS: ATORVASTATIN 40 MG TAB PO SCH (20:41)
[2020-08-09 06:32] LABS: Glucose,Whole Blood 85 mg/dL (75-99)
[2020-08-09] MEDS: INSULIN ASPART (NovoLOG) 100 UNIT/ML VIAL SQ SCH ×2 (06:32→12:26)
[2020-08-09 08:16] LABS: INR 1.4 (<1.2); Prothrombin Time 14.5 sec (9.0-12.0)
[2020-08-09 08:33] LABS: Albumin 3.5 g/dL (3.5-5.0); Calcium 8.8 mg/dL (8.4-10.2); Potassium 4.3 mmol/L (3.5-5.1); Total Bilirubin 0.3 mg/dL (0.2-1.3); Total Protein 6.4 g/dL (6.3-8.2)
[2020-08-09 08:57] VITALS: RESP 18; TEMP 97.7
[2020-08-09] MEDS: METOPROLOL TARTRATE 25 MG TAB PO SCH (08:57)
[2020-08-09] MEDS: PREGABALIN 50 MG CAP PO SCH (08:58)
[2020-08-09] MEDS: TAMSULOSIN 0.4 MG CAP.ER.24H PO SCH (08:58)
[2020-08-09] MEDS: CLOPIDOGREL 75 MG TAB PO SCH (08:58)
[2020-08-09] MEDS ORDERED: ENOXAPARIN 100 MG/ML SYRINGE SQ SCH (09:00)
--- NOTE | 2020-08-09 11:02 | P.PN ---
Subjective This is a pleasant 69-year-old male past medical history significant for hypertension, dyslipidemia, diabetes mellitus, COPD, ischemic car diomyopathy, systolic heart failure, coronary artery disease status post PCI and former nicotine dependence. He follows in the office with Dr. Mckenzie. Patient seen and examined resting comfortably lying flat in bed in no acute distress. Laboratory data reviewed, creatinine improving. Blood pressure well-controlled on current regimen. INR 1.4. GENERAL: Well-appearing, well-nourished and in no acute distress. NECK: Supple without JVD or thyromegaly. LUNGS: Breath sounds clear to auscultation bilaterally. Respiration equal and unlabored. No wheezes, rales or rhonchi. HEART: Irregular rate and rhythm with systolic ejection murmur at the base, no rubs or gallops. S1 and S2 heard. EXTREMITIES: Normal range of motion, no edema. No clubbing or cyanosis. Peripheral pulses intact. ASSESSMENT New onset atrial fibrillation with controlled ventricular rate Acute kidney injury Acute on chronic systolic heart failure, improved. Ejection fraction 40% Coronary artery disease status post PCI Ischemic cardiomyopathy Hypertension Dyslipidemia Diabetes mellitus COPD PLAN Patient is stable for discharge from a cardiac perspective. Discharge dose of Lasix should be 20 mg twice a day. Recommend follow-up BMP in 1 week. Follow- up PT INR on and see Dr. Mckenzie in the office next week. Nurse Practitioner note has been reviewed, I agree with a documented findings and plan of care. Patient was seen and examined. Objective - Vital Signs Vital signs: Vital Signs Temp 97.7 F 08/09/20 08:00 Pulse 97 08/09/20 08:00 Resp 18 08/09/20 08:00 BP 123/62 08/09/20 08:00 Pulse Ox 97 08/09/20 08:03 Intake & Output 08/08/20 08/09/20 08/09/20 18:59 06:59 18:59 Intake Total 1160 240 Output Total 1525 1250 Balance -365 -1250 240 Weight 86.6 kg 88.2 kg Intake: Oral 1160 240 Output: Urine 1525 1250 Other: Voiding Method Toilet Toilet Urinal Urinal - Labs CBC & Chem 7: 08/08/20 06:58 08/09/20 06:46 Labs: Abnormal Lab Results - Last 24 Hours (Table) 08/08/20 08/08/20 08/08/20 Range/Units 10:55 11:38 16:33 PT 12.5 H (9.0-12.0) sec INR 1.2 H (<1.2) Sodium (137-145) mmol/L BUN (9-20) mg/dL Creatinine (0.66-1.25) mg/dL Glucose (74-99) mg/dL POC Glucose (mg/dL) 116 H 240 H (75-99) mg/dL 08/08/20 08/09/20 08/09/20 Range/Units 20:29 06:46 06:46 PT 14.5 H (9.0-12.0) sec INR 1.4 H (<1.2) Sodium 134 L (137-145) mmol/L BUN 50 H (9-20) mg/dL Creatinine 1.28 H (0.66-1.25) mg/dL Glucose 68 L (74-99) mg/dL POC Glucose (mg/dL) 179 H (75-99) mg/dL
--- NOTE | 2020-08-09 11:17 | P.DS ---
Providers Date of admission: 08/01/20 13:44 Attending physician: Mauricio Russo MD Consults: 08/01/20 13:45 Consult Physician Routine Consulting Provider: Sahra Sawant Consult Reason/Comments: CHF Do you want consulting provider notified?: Yes Consult Physician Routine Consulting Provider: Garland Mcdonald Consult Reason/Comments: CHF, a-fib Do you want consulting provider notified?: Yes 08/02/20 14:54 Consult Physician Routine Consulting Provider: Joseph Mosley Consult Reason/Comments: possible IPR Do you want consulting provider notified?: Yes Primary care physician: [facility] Course: 69-year-old male with a known history of significant coronary artery disease status post stent placement x5, hypertension, hyperlipidemia, diabetes type 2 insulin-dependent and history of UT and previous history of smoking and marijuana use . He is a patient of Dr. Wan and follows up with Dr. Mckenzie hypertrichologist as an outpatient. Presents because of acute dyspnea associated with vomiting. Patient states that he starts having dyspnea one day ago associated with vomiting 4-5 times. He has diarrhea twice a day, plus one was more watery. But with no abdominal pain, no chest pain. He has little dry cough but this is chronic. No abdominal or urinary complaints. No headache or weakness Patient denies smoking or alcohol but he smokes marijuana sometimes On admission he was tachycardic and tachypneic with a heart rate 105-116 and breathing at 20-22. Blood pressure 127/90, and he was saturating 92% and 50 L oxygen via nasal cannula, he is afebrile. Labs showed leukocytosis with WBC of 15.5 K, risks of CBC, INR is unremarkable. Creatinine is at baseline at 1.09 Activity as it is elevated 7.4 and 8.3, liver enzymes not elevated and troponin is high at 0.05. Urinalysis is not suspicious of infection and coronavirus not detected. EKG showing atrial fibrillation with tachycardia at 163 Chest x-ray showing atypical pneumonia versus interstitial edema Echocardiogram on 02/17/2020: Ejection fraction 20-25% with mild LVH and [id number] tricuspid regurgitation In the emergency room patient was started on heparin drip, Cardizem drip at 5 mg per hour, started on Lasix 40 mg twice daily 08/02/2020 Patient remains in the ICU, he is breathing easier today and her more comfortable, he was on BiPAP this morning. Patient oxygen saturation his 90s on 6 L per minute. Heart rate is controlled currently at 66 bpm and his Cardizem drip was stopped His CBC showed hemoglo-delusion, WBC 9.9K, hemoglobin 9.4 and platelets 235K. Creatinine was slightly worse 1.2 went up to 1.5 Cardiology on the case and a planning for cardio version per documents Patient also on brillinta , patient is telling me today he was noncompliant with his aspirin and brillinta because we will be for brillinta was $600. Going to consult director of social media marketing Currently patient is on IV Lasix 40 mg twice daily and heparin drip, traversed controlled on Levemir 30 units at bedtime 08/03/2020 Patient remains in the ICU, his breathing is improving. His breathing is easier he is on 2 L oxygen via nasal cannula with saturation and 90s. No basal crepitation, no edema but patient feels very tired. No headache or weakness. WBC 16.90. Hemoglobin 8.9. Creatinine actually somewhat improved 1.59 to 1.45 Chest x-ray: Patchy basal infiltrates suspicious His medication including Lasix 40 mg twice daily for his ejection fraction of 20-25%. Heparin drip was switched to Eliquis, initially he was started on 5 mg twice daily however after discussing the case with Dr. Garduno the recommended to meet the lower 22.5 mg twice daily since he is also on Brillinta. As per Dr. Garduno no need to start aspirin. His echocardiogram showing ejection fraction 35-40%, hypertrichologist switch his Cardizem to amiodarone drip for now Also moderate mitral regurgitation with [id number] tricuspid regurgitation and severe pulmonary hypertension This morning was 77, we will lower his insulin 30 to 27 units from tomorrow. Patient can be transferred out of the ICU 08/04/2020 Patient is currently sitting in the chair comfortably. Awake alert and oriented x3. No acute distress. Cultures showed no growth and heart rate is better controlled. Patient is being continued on anticoagulation with Eliquis. Saturating at 95% on room air. Laboratory showed WBC 7.8, hemoglobin 9.7 and platelets 226 Patient is Lasix 40 mg twice daily by mouth. Continued on insulin dosing and sliding scale. Cardiology and pulmonary is on board 08/05/2020 Patient is currently sitting in the chair comfortably. Does have dizziness when getting up and no complaints of chest pain. Heart rate is controlled. Patient is being continued on anticoagulation with Coumadin. INR is subtherapeutic. IV Lasix changed to by mouth now. Cardiology is following. Patient was started Lovenox bridging and Coumadin. 08/06/2020 Patient is currently sitting in the chair. Still complaining of dizziness while getting up. Blood pressure is on the lower side. No complaints of chest pain or shortness of breath. Patient was started on Coumadin due to the cost of Eliquis. INR is 1.0 this morning and 5 mg of Coumadin was given. Lasix dose decreased to 40 mg daily. Creatinine level is increasing to 1.6. No fever no chills. No nausea vomiting or abdominal pain. No diarrhea or dysuria. Tolerating oral diet. Cardiology is on board. 08/07/2020 Patient is currently resting in the chair comfortably. Dizziness is slightly better but still patient complains of dizziness. Heart rate is controlled. No complaints of chest pain. No fever no chills. Creatinine level is 1.66 today. BUN 66 and currently on Lasix 40 mg daily. No leg swelling or worsening shortness of breath. Hemoglobin is 9.4. Cardiology is on board. INR is 1.1 today. Continue with Coumadin dosing and current with insulin dose and titrate as needed. Currently on Lovenox for bridging. 08/08/2020 Patient has mild worsening of serum creatinine because of which we are just did not feel the patient. Patient is an 80 mg twice a day of Lovenox but patient has renal dysfunction because of which I'll cut it down to once a day 100 mg daily. Instead of 80 twice a day. 08/09/2020 Patient is clinically doing well euvolemic patient will be discharged on 20 twice a day of Lasix oral. Patient will not be discharged on NELSY inhibitor at this time patient can be started on NELSY inhibitor as an outpatient once his creatinine improves. Patient will not need any bridging, patient will be discharged on Coumadin 6 mg with repeat INR. PHYSICAL EXAMINATION: Patient is lying in the bed comfortably, no acute distress, awake alert and oriented.. HEENT: Normocephalic. Neck is supple. Pupils reactive. Nostrils clear. Oral cavity is moist. Ears reveal no drainage. Neck reveals no JVD, carotid bruits, or thyromegaly. CHEST EXAMINATION: Trachea is central. Symmetrical expansion. Lung quinones clear to auscultation and percussion. CARDIAC: Normal S1, S2 with no gallops. No murmurs ABDOMEN: Soft. Bowel sounds normal. No organomegaly. No abdominal bruits. Extremities: reveal no edema. No clubbing or cyanosis Neurologically awake, alert, oriented x3 with well-coordinated movements. No focal deficits noted Skin: No rash or skin lesions. Psychiatric: Coperative. Nonsuicidal Musculoskeletal: No joint swelling or deformity. Normal range of motion. Assessment and Plan Plan: Elevated troponin, secondary to A. fib with RVR , rate controlled. Acute and chronic systolic CHF EF 30-35%, with acute pulmonary edema. She'll be discharged on 20 mg twice a day of Lasix and the losartan to be started as an outpatient once her creatinine improves. moderate mitral regurgitation with [id number] tricuspid regurgitation and severe pulmonary hypertension Dizziness Elevated lactic acid acute hypoxic respiratory failure Chronic kidney disease stage III Coronary artery disease history of multiple stents placement, History of non-ST elevated UT Osteoarthritis Hyperglycemia with uncontrolled diabetes type 2 Hypomagnesemia replaced. Hypertension Hyperlipidemia History of UT Patient Condition at Discharge: Serious Plan - Discharge Summary Discharge Rx Participant: Yes New Discharge Prescriptions: New Clopidogrel [Plavix] 75 mg PO DAILY #90 tab Warfarin [Coumadin] 6 mg PO DAILY #60 tab Continue Pregabalin [Lyrica] 50 mg PO BID Atorvastatin Calcium [Lipitor] 40 mg PO HS traZODone HCL [Desyrel] 50 mg PO HS Thiamine [Vitamin B-1] 100 mg PO DAILY@1200 30 Days #30 tab Docusate [Colace] 100 mg PO BID 30 Days #60 capsule Tamsulosin HCl [Flomax] 0.4 mg PO DAILY 30 Days #30 capsule Multivitamins, Thera [Multivitamin (formulary)] 1 tab PO DAILY@1200 Metoprolol Tartrate [Lopressor] 75 mg PO BID Changed Furosemide [Lasix] 20 mg PO BID #0 Insulin NPL/Insulin Lispro [humaLOG MIX 75-25 VIAL] 20 unit SQ AC-BID #0 Discontinued Aspirin 81 mg PO DAILY chew Ticagrelor [Brilinta] 90 mg PO BID #60 tab Losartan [Cozaar] 25 mg PO DAILY Discharge Medication List Atorvastatin Calcium [Lipitor] 40 mg PO HS 06/14/20 [History] Pregabalin [Lyrica] 50 mg PO BID 06/14/20 [History] traZODone HCL [Desyrel] 50 mg PO HS 06/14/20 [History] Docusate [Colace] 100 mg PO BID 30 Days #60 capsule 06/20/20 [Rx] Tamsulosin HCl [Flomax] 0.4 mg PO DAILY 30 Days #30 capsule 06/20/20 [Rx] Thiamine [Vitamin B-1] 100 mg PO DAILY@1200 30 Days #30 tab 06/20/20 [Rx] Metoprolol Tartrate [Lopressor] 75 mg PO BID 08/01/20 [History] Multivitamins, Thera [Multivitamin (formulary)] 1 tab PO DAILY@1200 08/01/20 [ History] Clopidogrel [Plavix] 75 mg PO DAILY #90 tab 08/09/20 [Rx] Furosemide [Lasix] 20 mg PO BID #0 08/09/20 [Rx] Insulin NPL/Insulin Lispro [humaLOG MIX 75-25 VIAL] 20 unit SQ AC-BID #0 08/09/20 [Rx] Warfarin [Coumadin] 6 mg PO DAILY #60 tab 08/09/20 [Rx] Follow up Appointment(s)/Referral(s): Sahra Sawant MD [STAFF PHYSICIAN] - 1 Week Harrison Mckenzie MD [STAFF PHYSICIAN] - 1 Week (PT/INR in the office ) [facility], [NON-STAFF] - 1-2 Days Shaheen Wan DO [Primary Care Provider] - 1-2 days Ambulatory/Diagnostic Orders: Basic Metabolic Panel [LAB.AMB] Time Frame: 1 Week, Location: None Selected Prothrombin Time INR [LAB.AMB] Time Frame: 3 Days, Location: None Selected Discharge/Stand Alone Forms: Who Do I Call?, Help In The Home
[2020-08-09 11:19] VITALS: BP 126/73; PULSE 74
[2020-08-09 11:31] LABS: Glucose,Whole Blood 132 mg/dL (75-99)
[2020-08-09] MEDS ORDERED: WARFARIN 3 MG TAB PO ONE (18:00)
== END 2020-08-09 16:15 | disposition home or self-care (01) | DRG 308 ==
LOC: EC 12:24 → 3SCARD 13:44 → 2SICU 14:38 → 3SCARD 08-04 03:15
PROVIDERS: ADMIT Internal Medicine; ATTEND Internal Medicine
PROC: 05HC33Z Insertion of Infusion Device into Left Basilic Vein, Percutaneous Approach (ICD-10-PCS; principal; 2020-08-03 10:20)
DX: I48.0 Paroxysmal atrial fibrillation (principal); I50.23 Acute on chronic systolic (congestive) heart failure; J96.01 Acute respiratory failure with hypoxia; J44.0 Chronic obstructive pulmonary disease with (acute) lower respiratory infection; I13.0 Hypertensive heart and chronic kidney disease with heart failure and stage 1 through stage 4 chronic kidney disease, or unspecified chronic kidney disease; E87.2 Acidosis; N17.9 Acute kidney failure, unspecified; N18.30 Chronic kidney disease, stage 3 unspecified; E11.22 Type 2 diabetes mellitus with diabetic chronic kidney disease; E11.65 Type 2 diabetes mellitus with hyperglycemia; Z79.4 Long term (current) use of insulin; Z20.822 Contact with and (suspected) exposure to COVID-19; I25.5 Ischemic cardiomyopathy; I25.10 Atherosclerotic heart disease of native coronary artery without angina pectoris; E78.5 Hyperlipidemia, unspecified; E83.42 Hypomagnesemia; M19.90 Unspecified osteoarthritis, unspecified site; F12.90 Cannabis use, unspecified, uncomplicated; F17.200 Nicotine dependence, unspecified, uncomplicated; Z91.19 Patient's noncompliance with other medical treatment and regimen; I25.2 Old myocardial infarction; Z95.5 Presence of coronary angioplasty implant and graft; Z88.5 Allergy status to narcotic agent; Z79.899 Other long term (current) drug therapy; Z79.82 Long term (current) use of aspirin; Z79.02 Long term (current) use of antithrombotics/antiplatelets; Z82.49 Family history of ischemic heart disease and other diseases of the circulatory system; I27.20 Pulmonary hypertension, unspecified; I08.1 Rheumatic disorders of both mitral and tricuspid valves
CPT/HCPCS: 36410; 36415; 71045; 76937; 80048; 80053; 81001; 83605; 83735; 83880; 84145; 84443; 84484; 85025; 85610; 85730; 87040; 87635; 93005; 93306; 94640; 94660; 94760; 96374; 96375; 96376; 99291

== ENCOUNTER 2020-08-20 00:34 | Inpatient (IN) | payer MEDICARE ==
--- NOTE | 2020-08-20 00:38 | ED ---
SOB HPI - General Stated Complaint: SOB Time Seen by Provider: 08/20/20 00:36 Source: RN notes reviewed, old records reviewed Limitations: no limitations - History of Present Illness Initial Comments: This is a 69-year-old male to the ER for evaluation patient presents today for evaluation regards to chest pain shortness of breath persistent weakness. Symptoms are progressively worsening. Patient also weakness A. fib with RVR with history of CAD. Denying recent fevers does admit to lower extremity edema MD Complaint: shortness of breath, cough -: days(s) Severity: moderate Severity scale (1-10): 5 Consistency: constant Improves With: nothing Worsens With: exertion Known History Of: congestive heart failure Context: recent URI Associated Symptoms: palpitations, diaphoresis, nausea/vomiting Treatments Prior to Arrival: none - Related Data Home Medications Medication Instructions Recorded Confirmed Atorvastatin Calcium [Lipitor] 40 mg PO HS 06/14/20 08/20/20 Pregabalin [Lyrica] 50 mg PO BID 06/14/20 08/20/20 traZODone HCL [Desyrel] 50 mg PO HS 06/14/20 08/20/20 Metoprolol Tartrate [Lopressor] 75 mg PO BID 08/01/20 08/20/20 Multivitamins, Thera [Multivitamin 1 tab PO DAILY@1200 08/01/20 08/20/20 (formulary)] Previous Rx's Medication Instructions Recorded Docusate [Colace] 100 mg PO BID 30 Days #60 capsule 06/20/20 Tamsulosin HCl [Flomax] 0.4 mg PO DAILY 30 Days #30 capsule 06/20/20 Thiamine [Vitamin B-1] 100 mg PO DAILY@1200 30 Days #30 06/20/20 tab Clopidogrel [Plavix] 75 mg PO DAILY #90 tab 08/09/20 Insulin NPL/Insulin Lispro 20 unit SQ AC-BID #0 08/09/20 [humaLOG MIX 75-25 VIAL] Citalopram Hydrobromide 10 mg PO DAILY #30 tablet 08/23/20 [Citalopram HBr] Furosemide [Lasix] 40 mg PO BID@0900,1600 #60 tab 08/23/20 Nitroglycerin Sl Tabs [Nitrostat] 0.4 mg SUBLINGUAL Q5M PRN #30 tab 03/09/21 Warfarin [Coumadin] 3 mg PO DAILY #60 tab 08/23/20 lisinopriL [Zestril] 5 mg PO DAILY #30 tab 08/23/20 Allergies Allergy/AdvReac Type Severity Reaction Status Date / Time tramadol [From Ultram] Allergy Itching Verified 08/20/20 08:14 Review of Systems ROS Statement: Those systems with pertinent positive or pertinent negative responses have been documented in the HPI. ROS Other: All systems not noted in ROS Statement are negative. Past Medical History Past Medical History: Coronary Artery Disease (CAD), Diabetes Mellitus, Hyperlipidemia, Hypertension, Myocardial Infarction ([place]) Additional Past Medical History / Comment(s): pancreatitis, hepatitis Last Myocardial Infarction Date:: unknown History of Any Multi-Drug Resistant Organisms: None Reported Past Surgical History: Back Surgery, Heart Catheterization With Stent, Orthopedic Surgery Additional Past Surgical History / Comment(s): kushal knee, Past Anesthesia/Blood Transfusion Reactions: No Reported Reaction Date of Last Stent Placement:: unknown Past Psychological History: No Psychological Hx Reported Smoking Status: Former smoker Past Alcohol Use History: None Reported Past Drug Use History: Marijuana - Past Family History Father History Unknown: Yes Family Medical History: Myocardial Infarction ([place]) General Exam General appearance: alert, in no apparent distress Head exam: Present: atraumatic, normocephalic, normal inspection Eye exam: Present: normal appearance, PERRL, EOMI. Absent: scleral icterus, conjunctival injection, periorbital swelling ENT exam: Present: normal exam, mucous membranes moist Neck exam: Present: normal inspection. Absent: tenderness, meningismus, lymphadenopathy Respiratory exam: Present: normal lung sounds bilaterally. Absent: respiratory distress, wheezes, rales, rhonchi, stridor Cardiovascular Exam: Present: regular rate, normal rhythm, normal heart sounds. Absent: systolic murmur, diastolic murmur, rubs, gallop, clicks GI/Abdominal exam: Present: soft, normal bowel sounds. Absent: distended, tenderness, guarding, rebound, rigid Extremities exam: Present: normal inspection, full ROM, normal capillary refill. Absent: tenderness, pedal edema, joint swelling, calf tenderness Back exam: Present: normal inspection Neurological exam: Present: alert, oriented X3, CN II-XII intact Psychiatric exam: Present: normal affect, normal mood Skin exam: Present: warm, dry, intact, normal color. Absent: rash Course Vital Signs 08/20/20 08/20/20 08/20/20 00:36 01:00 01:30 Temperature 97.6 F Pulse Rate 121 H 95 95 Pulse Rate [ Pulse Oximetery ] Respiratory 16 16 16 Rate Blood Pressure 105/82 115/70 96/63 Blood Pressure [Right Arm Sitting] O2 Sat by Pulse 86 L 98 98 Oximetry 08/20/20 08/20/20 08/20/20 02:00 02:15 02:30 Temperature Pulse Rate 95 76 76 Pulse Rate [ Pulse Oximetery ] Respiratory 16 16 16 Rate Blood Pressure 98/58 91/62 109/97 Blood Pressure [Right Arm Sitting] O2 Sat by Pulse 98 98 98 Oximetry 08/20/20 08/20/20 08/20/20 03:00 04:00 05:00 Temperature Pulse Rate 76 76 64 Pulse Rate [ Pulse Oximetery ] Respiratory 16 16 16 Rate Blood Pressure 106/78 108/78 Blood Pressure [Right Arm Sitting] O2 Sat by Pulse 98 98 98 Oximetry 08/20/20 08/20/20 08/20/20 06:00 07:40 10:21 Temperature 98.7 F Pulse Rate 67 Pulse Rate [ 78 61 Pulse Oximetery ] Respiratory 16 16 Rate Blood Pressure 113/88 Blood Pressure 103/69 106/76 [Right Arm Sitting] O2 Sat by Pulse 98 97 Oximetry 08/20/20 08/20/20 08/20/20 11:31 13:09 14:04 Temperature Pulse Rate Pulse Rate [ 68 Pulse Oximetery ] Respiratory 18 Rate Blood Pressure 102/67 Blood Pressure 98/69 107/73 [Right Arm Sitting] O2 Sat by Pulse 99 Oximetry - Reevaluation(s) Reevaluation #1: Medical record is reviewed Patient still with chest pain here in the ER shortness of breath Patient has persistent pain and symptoms Medical Decision Making - Medical Decision Making 69 male with nonspecific complaints, chest pain or shortness of breath and CHF does have elevated troponin renal failure, patient be admitted for cardiology evaluation and treatment - Lab Data Result diagrams: 08/21/20 08:01 08/23/20 06:47 Lab Results 08/20/20 08/20/20 08/20/20 Range/Units 00:50 00:50 00:50 WBC 7.0 (3.8-10.6) k/uL RBC 2.74 L (4.30-5.90) m/uL Hgb 8.5 L (13.0-17.5) gm/dL Hct 25.3 L (39.0-53.0) % MCV 92.5 (80.0-100.0) fL MCH 31.2 (25.0-35.0) pg MCHC 33.7 (31.0-37.0) g/dL RDW 15.5 (11.5-15.5) % Plt Count 194 (150-450) k/uL MPV 8.9 Neutrophils % 83 % Lymphocytes % 6 % Monocytes % 8 % Eosinophils % 1 % Basophils % 1 % Neutrophils # 5.8 (1.3-7.7) k/uL Lymphocytes # 0.5 L (1.0-4.8) k/uL Monocytes # 0.5 (0-1.0) k/uL Eosinophils # 0.0 (0-0.7) k/uL Basophils # 0.0 (0-0.2) k/uL PT 61.8 H (9.0-12.0) sec INR 6.4 H* (<1.2) APTT 46.1 H (22.0-30.0) sec Sodium 133 L (137-145) mmol/L Potassium 4.8 (3.5-5.1) mmol/L Chloride 97 L (98-107) mmol/L Carbon Dioxide 27 (22-30) mmol/L Anion Gap 9 mmol/L BUN 70 H (9-20) mg/dL Creatinine 1.79 H (0.66-1.25) mg/dL Est GFR (CKD-EPI)AfAm 45 (>60 ml/min/1.73 sqM) Est GFR (CKD-EPI)NonAf 39 (>60 ml/min/1.73 sqM) Glucose 190 H (74-99) mg/dL Plasma Lactic Acid Bautista (0.7-2.0) mmol/L Calcium 8.8 (8.4-10.2) mg/dL Phosphorus 3.7 (2.5-4.5) mg/dL Magnesium 2.1 (1.6-2.3) mg/dL Total Bilirubin 0.5 (0.2-1.3) mg/dL AST 150 H (17-59) U/L ALT 294 H (4-49) U/L Alkaline Phosphatase 241 H (38-126) U/L Troponin I (0.000-0.034) ng/mL NT-Pro-B Natriuret Pep pg/mL Total Protein 6.8 (6.3-8.2) g/dL Albumin 4.0 (3.5-5.0) g/dL 08/20/20 08/20/20 08/20/20 Range/Units 00:50 00:50 00:50 WBC (3.8-10.6) k/uL RBC (4.30-5.90) m/uL Hgb (13.0-17.5) gm/dL Hct (39.0-53.0) % MCV (80.0-100.0) fL MCH (25.0-35.0) pg MCHC (31.0-37.0) g/dL RDW (11.5-15.5) % Plt Count (150-450) k/uL MPV Neutrophils % % Lymphocytes % % Monocytes % % Eosinophils % % Basophils % % Neutrophils # (1.3-7.7) k/uL Lymphocytes # (1.0-4.8) k/uL Monocytes # (0-1.0) k/uL Eosinophils # (0-0.7) k/uL Basophils # (0-0.2) k/uL PT (9.0-12.0) sec INR (<1.2) APTT (22.0-30.0) sec Sodium (137-145) mmol/L Potassium (3.5-5.1) mmol/L Chloride (98-107) mmol/L Carbon Dioxide (22-30) mmol/L Anion Gap mmol/L BUN (9-20) mg/dL Creatinine (0.66-1.25) mg/dL Est GFR (CKD-EPI)AfAm (>60 ml/min/1.73 sqM) Est GFR (CKD-EPI)NonAf (>60 ml/min/1.73 sqM) Glucose (74-99) mg/dL Plasma Lactic Acid Bautista 1.0 (0.7-2.0) mmol/L Calcium (8.4-10.2) mg/dL Phosphorus (2.5-4.5) mg/dL Magnesium (1.6-2.3) mg/dL Total Bilirubin (0.2-1.3) mg/dL AST (17-59) U/L ALT (4-49) U/L Alkaline Phosphatase (38-126) U/L Troponin I 0.057 H* (0.000-0.034) ng/mL NT-Pro-B Natriuret Pep 9130 pg/mL Total Protein (6.3-8.2) g/dL Albumin (3.5-5.0) g/dL - EKG Data -: EKG Interpreted by Me (EKG is A. fib of RVR 112 QRS 96 QTc 387) - Radiology Data Radiology results: report reviewed (Chest x-ray does show persistent CHF), image reviewed Critical Care Time Critical Care Time: Yes Total Critical Care Time: 31 Disposition Clinical Impression: Acute non-ST elevation myocardial infarction (NSTEMI), Weakness, Acute renal failure, Congestive heart failure, Atrial fibrillation with rapid ventricular response, Elevated troponin level, Hypoxia Disposition: ADMITTED IP TO THIS HOSP Condition: Serious Is patient prescribed a controlled substance at d/c from ED?: No
[2020-08-20] MEDS ORDERED: DILTIAZEM DRIP BOLUS FROM BAG 1 MG SOLN IV ONE (00:43)
[2020-08-20 01:04] LABS: Basophils % (A) 1 %; Eosinophils % (A) 1 %; HCT 25.3 % (39.0-53.0); HGB 8.5 gm/dL (13.0-17.5); Lymphocytes # (A) 0.5 k/uL (1.0-4.8); Lymphocytes % (A) 6 %; MCH 31.2 pg (25.0-35.0); MCHC 33.7 g/dL (31.0-37.0); MCV 92.5 fL (80.0-100.0); Mean Platelet Volume 8.9; Monocytes # (A) 0.5 k/uL (0-1.0); Monocytes % (A) 8 %; Neutrophils # (A) 5.8 k/uL (1.3-7.7); Neutrophils % (A) 83 %; Platelet Count 194 k/uL (150-450); RBC 2.74 m/uL (4.30-5.90); RDW 15.5 % (11.5-15.5)
--- NOTE | 2020-08-20 01:21 | XR ---
EXAM: XR Chest, 2 Views CLINICAL HISTORY: ITS.REASON XR Reason: Weakness TECHNIQUE: Frontal and lateral views of the chest. COMPARISON: No relevant prior studies available. FINDINGS: Lungs: Mild patchy bilateral opacities, improved on the left compared to 08/02/2020. Mild diffuse reticular opacities. Pleural space: Unremarkable. No pneumothorax. Heart: Cardiomegaly, unchanged. Mediastinum: Unremarkable. Bones/joints: Unremarkable. IMPRESSION: 1. Patchy bilateral opacities, improved on the left compared to 08/02/21 which may represent improving atelectasis, aspiration, or infection. 2. Cardiomegaly with mild bilateral perihilar reticular opacities, compatible with interstitial edema.
[2020-08-20 01:45] LABS: Calcium 8.8 mg/dL (8.4-10.2); Magnesium 2.1 mg/dL (1.6-2.3); Phosphorus 3.7 mg/dL (2.5-4.5); Potassium 4.8 mmol/L (3.5-5.1); Total Bilirubin 0.5 mg/dL (0.2-1.3); Total Protein 6.8 g/dL (6.3-8.2)
[2020-08-20] MEDS ORDERED: NITROGLYCERIN SL TABS 0.4 MG TAB SUBLINGUAL PRN (01:58)
[2020-08-20] MEDS ORDERED: ASPIRIN 81 MG PO STA (01:58)
[2020-08-20] MEDS: DILTIAZEM 125 MG in SODIUM CHLORIDE 0.9% 100 ML IV SCH (02:11)
[2020-08-20] MEDS: SODIUM CHLORIDE 0.9% 1,000 ML IV SCH ×3 (02:11→22:15)
[2020-08-20 02:28] LABS: Partial Thromboplastin Time 46.1 sec (22.0-30.0); Prothrombin Time 61.8 sec (9.0-12.0)
[2020-08-20 02:51] LABS: INR 6.4 (<1.2)
[2020-08-20 08:21] LABS: Glucose,Whole Blood 228 mg/dL (75-99)
[2020-08-20] MEDS ORDERED: METOPROLOL TARTRATE 25 MG TAB PO SCH (09:00)
--- NOTE | 2020-08-20 12:11 | P.CRDCN ---
History of Present Illness History of present illness: HISTORY OF PRESENTING ILLNESS This is a pleasant 69-year-old male past medical history significant for hypertension, hyperlipidemia, diabetes mellitus, COPD, congestive heart failure, ischemic cardiomyopathy, coronary artery disease with prior PCI. Patient follows in the office with Dr. Mckenzie. We have been asked to consult patient for CHF and A. fib. Patient was seen in the emergency department. He admits to episodes of shortness breath over the last few days and some lower extremity edema. He was recently seen in July 2020 for new onset of atrial fibrillation and was placed on Coumadin. He has a prior history of PCI with [facility] of the proximal and mid LAD in February 2020. At the time his ejection fraction was 20-25% and on repeat echo his ejection fraction had improved to 40%. He does have CK D and he states his Lasix was discontinued by nephrology outpatient recently. He admits he did have a little bit of chest pain since coming to the hospital. His troponins were mildly elevated at 0.057, 0.053, 0.043. His INR was elevated at 6.4. He denies any hematochezia or melena. His liver enzymes were also elevated at 150 and 294. Patient menses shortness breath has much improved after being placed on a Cardizem drip with mild improvement in his heart rates d own to the DIAGNOSTICS EKG reveals A. fib, septal Q waves, heart rate 112, nonspecific T-wave samuel ening. Chest xray patchy opacities improved compared to 08/02/2020 which may represent atelectasis, aspiration or infection, cardiomegaly with mild bilateral perihilar reticular opacities compatible with interstitial edema. Laboratory reviewed, INR 6.4, hemoglobin 8.5, platelets 194, sodium 133, crea tinine 1.79, glucose 190, lactic acid 1.0, AST 150, ALP 294, alk phos 241, troponin 0.05, 0.05, 0.04, proBNP 9130. Current cardiac medications include aspirin 325 mg daily, Cardizem drip at 5, metoprolol 25 mg twice a day. Home medications include Coumadin 6 mg daily, Lopressor 75 mg twice a day, Lasix 20 mg twice a day however he has not been taking this, Plavix 75 mg daily, Lipitor 40 mg daily REVIEW OF SYSTEMS At the time of my exam: CONSTITUTIONAL: Denies fever or chills. CARDIOVASCULAR: +chest pain, +shortness of breath, no PND or palpitations. RESPIRATORY: Denies cough. GASTROINTESTINAL: Denies abdominal pain, diarrhea, constipation, nausea or vomiting. MUSCULOSKELETAL: Denies myalgias. NEUROLOGIC: Denies numbness, tingling or weakness. ENDOCRINE: Denies fatigue, weight change, polydipsia or polyurina. GENITOURINARY: Denies burning, hematuria or urgency with micturation. HEMATOLOGIC: Denies history of anemia or bleeding. PHYSICAL EXAMINATION Vital signs reviewed CONSTITUTIONAL: No apparent distress. Chronically ill-appearing HEENT: Head is normocephalic. Pupils are equal, round. Sclerae anicteric. Mucous membranes of the mouth are moist. No JVD. No carotid bruit. CHEST EXAMINATION: Lungs are clear to auscultation. No chest wall tenderness is noted on palpation or with deep breathing. HEART EXAMINATION: Regular rate and rhythm. S1, S2 heard. No murmurs, gallops or rub. ABDOMEN: Soft, nontender. Positive bowel sounds. EXTREMITIES: 2+ peripheral pulses, no lower extremity edema and no calf tenderness. NEUROLOGIC EXAMINATION: Patient is awake, alert and oriented x3. ASSESSMENT 1. Acute on chronic systolic heart failure, prior ejection fraction 40% 2. Ischemic cardiomyopathy originally EF 20-25% improved to 40% status post PCI in February 2020 3. Coronary artery disease status post PCI to his LAD in February 2020 4. Paroxysmal atrial fibrillation, currently A. fib with mild RVR 5. Chronic kidney disease 6. Supratheraputic INR 7. Anemia 8. Atypical chest pain 9. Mildly elevated troponins 10. Diabetes mellitus PLAN Blood pressures been somewhat borderline with systolics in the 90s to low 100s. He has been tolerating the metoprolol 75 mg twice a day at home and we will place him back on the Lopressor 75 mg twice a day and monitor blood pressure closely. Continue with diuresis with Lasix 40 mg IV daily and monitor creatinine closely. Attempt to wean Cardizem drip as able. Monitor chest pain which appears atypical with chronically elevated troponins. Hold Coumadin with goal INR 2-3. Continue triple therapy at this time and may consider discontinuation of aspirin as an outpatient. Past Medical History Past Medical History: Coronary Artery Disease (CAD), Diabetes Mellitus, Hyperlipidemia, Hypertension, Myocardial Infarction ([place]), Thyroid Disorder Additional Past Medical History / Comment(s): pancreatitis, hepatitis Last Myocardial Infarction Date:: unknown History of Any Multi-Drug Resistant Organisms: None Reported Past Surgical History: Back Surgery, Heart Catheterization With Stent, Orthopedic Surgery Additional Past Surgical History / Comment(s): kushal knee, Past Anesthesia/Blood Transfusion Reactions: No Reported Reaction Date of Last Stent Placement:: unknown Past Psychological History: No Psychological Hx Reported Smoking Status: Former smoker Past Alcohol Use History: None Reported Past Drug Use History: Marijuana Additional Drug Use History / Comment(s): Patient states he currently smokes marijuana. - Past Family History Father History Unknown: Yes Family Medical History: Myocardial Infarction ([place]) Medications and Allergies Home Medications Medication Instructions Recorded Confirmed Type Atorvastatin Calcium [Lipitor] 40 mg PO HS 06/14/20 08/20/20 History Pregabalin [Lyrica] 50 mg PO BID 06/14/20 08/20/20 History traZODone HCL [Desyrel] 50 mg PO HS 06/14/20 08/20/20 History Docusate [Colace] 100 mg PO BID 30 Days #60 capsule 06/20/20 08/20/20 Rx Tamsulosin HCl [Flomax] 0.4 mg PO DAILY 30 Days #30 capsule 06/20/20 08/20/20 Rx Thiamine [Vitamin B-1] 100 mg PO DAILY@1200 30 Days #30 06/20/20 08/20/20 Rx tab Metoprolol Tartrate [Lopressor] 75 mg PO BID 08/01/20 08/20/20 History Multivitamins, Thera [Multivitamin 1 tab PO DAILY@1200 08/01/20 08/20/20 History (formulary)] Clopidogrel [Plavix] 75 mg PO DAILY #90 tab 08/09/20 08/20/20 Rx Insulin NPL/Insulin Lispro 20 unit SQ AC-BID #0 08/09/20 08/20/20 Rx [humaLOG MIX 75-25 VIAL] Warfarin [Coumadin] 6 mg PO DAILY #60 tab 08/09/20 08/20/20 Rx Furosemide [Lasix] 20 mg PO BID 08/20/20 08/20/20 History Allergies Allergy/AdvReac Type Severity Reaction Status Date / Time tramadol [From Ultram] Allergy Itching Verified 08/20/20 08:14 Physical Exam Vitals: Vital Signs Temp Pulse Pulse Resp BP BP Pulse Ox 08/20/20 11:31 68 18 98/69 99 08/20/20 10:21 61 106/76 08/20/20 07:40 98.7 F 78 16 103/69 97 08/20/20 06:00 67 16 113/88 98 08/20/20 05:00 64 16 98 08/20/20 04:00 76 16 108/78 98 08/20/20 03:00 76 16 106/78 98 08/20/20 02:30 76 16 109/97 98 08/20/20 02:15 76 16 91/62 98 08/20/20 02:00 95 16 98/58 98 08/20/20 01:30 95 16 96/63 98 08/20/20 01:00 95 16 115/70 98 08/20/20 00:36 97.6 F 121 H 16 105/82 86 L Intake and Output 08/19/20 08/20/20 08/20/20 22:59 06:59 14:59 Other: # Voids 1 Weight 81.647 kg 81.647 kg Results 08/20/20 00:50 08/20/20 00:50 Cardiac Enzymes 08/20/20 08/20/20 08/20/20 Range/Units 00:50 00:50 04:08 AST 150 H (17-59) U/L Troponin I 0.057 H* 0.053 H* (0.000-0.034) ng/mL 08/20/20 Range/Units 06:06 AST (17-59) U/L Troponin I 0.043 H* (0.000-0.034) ng/mL Coagulation 08/20/20 Range/Units 00:50 PT 61.8 H (9.0-12.0) sec APTT 46.1 H (22.0-30.0) sec CBC 08/20/20 Range/Units 00:50 WBC 7.0 (3.8-10.6) k/uL RBC 2.74 L (4.30-5.90) m/uL Hgb 8.5 L (13.0-17.5) gm/dL Hct 25.3 L (39.0-53.0) % Plt Count 194 (150-450) k/uL Comprehensive Metabolic Panel 08/20/20 Range/Units 00:50 Sodium 133 L (137-145) mmol/L Potassium 4.8 (3.5-5.1) mmol/L Chloride 97 L (98-107) mmol/L Carbon Dioxide 27 (22-30) mmol/L BUN 70 H (9-20) mg/dL Creatinine 1.79 H (0.66-1.25) mg/dL Glucose 190 H (74-99) mg/dL Calcium 8.8 (8.4-10.2) mg/dL AST 150 H (17-59) U/L ALT 294 H (4-49) U/L Alkaline Phosphatase 241 H (38-126) U/L Total Protein 6.8 (6.3-8.2) g/dL Albumin 4.0 (3.5-5.0) g/dL Current Medications Generic Name Dose Route Start Last Admin Trade Name Freq PRN Reason Stop Dose Admin Aspirin 325 mg 08/21/20 09:00 Aspirin 325 Mg Tab PO DAILY GORDO Diltiazem HCl 125 mg/ Sodium 125 mls @ 5 mls/hr 08/20/20 01:00 08/20/20 02:11 Chloride IV 5 mg/hr .Q24H GORDO 5 mls/hr Administration 5 MG/HR Sodium Chloride 1,000 mls @ 100 mls/hr 08/20/20 02:00 08/20/20 02:11 Saline 0.9% IV 100 mls/hr .Q10H GORDO Administration Metoprolol Tartrate 25 mg 08/20/20 09:00 08/20/20 09:51 Metoprolol Tartrate 25 Mg Tab PO 25 mg BID GORDO Administration Nitroglycerin 0.4 mg 08/20/20 01:58 Nitroglycerin Sl Tabs 0.4 Mg Tab SUBLINGUAL Q5M PRN Chest Pain Intake and Output 08/19/20 08/20/20 08/20/20 22:59 06:59 14:59 Other: # Voids 1 Weight 81.647 kg 81.647 kg Patient Weight 08/21/20 06:59 Weight 81.647 kg 08/20/20 00:50 08/20/20 00:50
[2020-08-20] MEDS: CLOPIDOGREL 75 MG TAB PO SCH (13:24)
[2020-08-20] MEDS: FUROSEMIDE 10 MG/ML 4 ML VIAL IV SCH (14:05)
[2020-08-20 17:08] LABS: Glucose,Whole Blood 239 mg/dL (75-99)
--- NOTE | 2020-08-20 17:14 | P.HPIM ---
History of Present Illness H&P Date: 08/20/20 Chief Complaint: Shortness of breath 69-year-old male past medical history significant for hypertension, hyperlipidemia, diabetes mellitus, COPD, congestive heart failure, ischemic cardiomyopathy, coronary artery disease with prior PCI. Patient follows in the office with Dr. Mckenzie. We have been asked to consult patient for CHF and A. fib. Patient was seen in the emergency department. He admits to episodes of shortness breath over the last few days and some lower extremity edema. He was recently seen in July 2020 for new onset of atrial fibrillation and was placed on Coumadin. He has a prior history of PCI with Impala of the proximal and mid LAD in February 2020. At the time his ejection fraction was 20-25% and on repeat echo his ejection fraction had improved to 40%. He does have CK D and he states his Lasix was discontinued by nephrology outpatient recently. He admits he did have a little bit of chest pain since coming to the hospital. His troponins were mildly elevated at 0.057, 0.053, 0.043. His INR was elevated at 6.4. He denies any hematochezia or melena. His liver enzymes were also elevated at 150 and 294. Patient menses shortness breath has much improved after being placed on a Cardizem drip with mild improvement in his heart rates down to the Workup in ED including an EKG reveals atrial fibrillation with heart rate 112 Chest xray patchy opacities improved compared to 08/02/2020 which may represent atelectasis, aspiration or infection, cardiomegaly with mild bilateral perihilar reticular opacities compatible with interstitial edema. Laboratory reviewed, INR 6.4, hemoglobin 8.5, platelets 194, sodium 133, creatinine 1.79, glucose 190, lactic acid 1.0, AST 150, ALP 294, alk phos 241, troponin 0.05, 0.05, 0.04, proBNP 9130. Review of Systems REVIEW OF SYSTEMS: CONSTITUTIONAL: No fever, no malaise, no fatigue. HEENT: No recent visual problems or hearing problems. Denied any sore throat. CARDIOVASCULAR: No chest pain, orthopnea, PND, no palpitations, no syncope. PULMONARY: Positive for shortness of breath, no cough, no hemoptysis. GASTROINTESTINAL: No diarrhea, no nausea, no vomiting, no abdominal pain. NEUROLOGICAL: No headaches, no weakness, no numbness. HEMATOLOGICAL: Denies any bleeding or petechiae. GENITOURINARY: Denies any burning micturition, frequency, or urgency. MUSCULOSKELETAL/RHEUMATOLOGICAL: Denies any joint pain, swelling, or any muscle pain. ENDOCRINE: Denies any polyuria or polydipsia. The rest of the 14-point review of systems is negative. Past Medical History Past Medical History: Coronary Artery Disease (CAD), Diabetes Mellitus, Hyperlipidemia, Hypertension, Myocardial Infarction ([place]), Thyroid Disorder Additional Past Medical History / Comment(s): pancreatitis, hepatitis Last Myocardial Infarction Date:: unknown History of Any Multi-Drug Resistant Organisms: None Reported Past Surgical History: Back Surgery, Heart Catheterization With Stent, Orthopedic Surgery Additional Past Surgical History / Comment(s): kushal knee, Past Anesthesia/Blood Transfusion Reactions: No Reported Reaction Date of Last Stent Placement:: unknown Past Psychological History: No Psychological Hx Reported Smoking Status: Former smoker Past Alcohol Use History: None Reported Past Drug Use History: Marijuana Additional Drug Use History / Comment(s): Patient states he currently smokes marijuana. - Past Family History Father History Unknown: Yes Family Medical History: Myocardial Infarction ([place]) Medications and Allergies Home Medications Medication Instructions Recorded Confirmed Type Atorvastatin Calcium [Lipitor] 40 mg PO HS 06/14/20 08/20/20 History Pregabalin [Lyrica] 50 mg PO BID 06/14/20 08/20/20 History traZODone HCL [Desyrel] 50 mg PO HS 06/14/20 08/20/20 History Docusate [Colace] 100 mg PO BID 30 Days #60 capsule 06/20/20 08/20/20 Rx Tamsulosin HCl [Flomax] 0.4 mg PO DAILY 30 Days #30 capsule 06/20/20 08/20/20 Rx Thiamine [Vitamin B-1] 100 mg PO DAILY@1200 30 Days #30 06/20/20 08/20/20 Rx tab Metoprolol Tartrate [Lopressor] 75 mg PO BID 08/01/20 08/20/20 History Multivitamins, Thera [Multivitamin 1 tab PO DAILY@1200 08/01/20 08/20/20 History (formulary)] Clopidogrel [Plavix] 75 mg PO DAILY #90 tab 08/09/20 08/20/20 Rx Insulin NPL/Insulin Lispro 20 unit SQ AC-BID #0 08/09/20 08/20/20 Rx [humaLOG MIX 75-25 VIAL] Warfarin [Coumadin] 6 mg PO DAILY #60 tab 08/09/20 08/20/20 Rx Furosemide [Lasix] 20 mg PO BID 08/20/20 08/20/20 History Allergies Allergy/AdvReac Type Severity Reaction Status Date / Time tramadol [From Ultram] Allergy Itching Verified 08/20/20 08:14 Physical Exam Vitals: Vital Signs Temp Pulse Pulse Resp BP BP Pulse Ox 08/20/20 11:31 68 18 98/69 99 08/20/20 10:21 61 106/76 08/20/20 07:40 98.7 F 78 16 103/69 97 08/20/20 06:00 67 16 113/88 98 08/20/20 05:00 64 16 98 08/20/20 04:00 76 16 108/78 98 08/20/20 03:00 76 16 106/78 98 08/20/20 02:30 76 16 109/97 98 08/20/20 02:15 76 16 91/62 98 08/20/20 02:00 95 16 98/58 98 08/20/20 01:30 95 16 96/63 98 08/20/20 01:00 95 16 115/70 98 08/20/20 00:36 97.6 F 121 H 16 105/82 86 L Intake and Output 08/19/20 08/20/20 08/20/20 22:59 06:59 14:59 Other: # Voids 1 Weight 81.647 kg 81.647 kg - Constitutional General appearance: Present: average body habitus, cooperative, no acute distress - EENT Eyes: Present: anicteric sclerae, EOMI, PERRLA, normal appearance ENT: Present: hearing grossly normal, normal oropharynx Ears: bilateral: normal - Neck Neck: Present: normal ROM. Absent: lymphadenopathy, rigidity, thyromegaly Carotids: negative: bruit present Thyroid: bilateral: normal size, negative: enlarged, nodule - Respiratory Respiratory: bilateral: CTA, negative: rales, rhonchi, wheezing - Cardiovascular Rhythm: regular Heart sounds: normal: S1, S2 Abnormal Heart Sounds: Absent: systolic murmur, diastolic murmur - Gastrointestinal General gastrointestinal: Present: normal bowel sounds, soft. Absent: distended, organomegaly, tenderness - Genitourinary Genitourinary Comment(s): deferred - Integumentary Integumentary: Present: normal turgor. Absent: jaundiced, rash, ulcer - Neurologic Neurologic: Present: CNII-XII intact. Absent: focal deficits - Musculoskeletal Musculoskeletal: Present: gait normal, strength equal bilaterally - Psychiatric Psychiatric: Present: A&O x's 3, appropriate affect, intact judgment & insight Results CBC & Chem 7: 08/20/20 00:50 08/20/20 00:50 Labs: Abnormal Lab Results - Last 24 Hours (Table) 08/20/20 08/20/20 08/20/20 Range/Units 00:50 00:50 00:50 RBC 2.74 L (4.30-5.90) m/uL Hgb 8.5 L (13.0-17.5) gm/dL Hct 25.3 L (39.0-53.0) % Lymphocytes # 0.5 L (1.0-4.8) k/uL PT 61.8 H (9.0-12.0) sec INR 6.4 H* (<1.2) APTT 46.1 H (22.0-30.0) sec Sodium 133 L (137-145) mmol/L Chloride 97 L (98-107) mmol/L BUN 70 H (9-20) mg/dL Creatinine 1.79 H (0.66-1.25) mg/dL Glucose 190 H (74-99) mg/dL POC Glucose (mg/dL) (75-99) mg/dL AST 150 H (17-59) U/L ALT 294 H (4-49) U/L Alkaline Phosphatase 241 H (38-126) U/L Troponin I (0.000-0.034) ng/mL 08/20/20 08/20/20 08/20/20 Range/Units 00:50 04:08 06:06 RBC (4.30-5.90) m/uL Hgb (13.0-17.5) gm/dL Hct (39.0-53.0) % Lymphocytes # (1.0-4.8) k/uL PT (9.0-12.0) sec INR (<1.2) APTT (22.0-30.0) sec Sodium (137-145) mmol/L Chloride (98-107) mmol/L BUN (9-20) mg/dL Creatinine (0.66-1.25) mg/dL Glucose (74-99) mg/dL POC Glucose (mg/dL) (75-99) mg/dL AST (17-59) U/L ALT (4-49) U/L Alkaline Phosphatase (38-126) U/L Troponin I 0.057 H* 0.053 H* 0.043 H* (0.000-0.034) ng/mL 08/20/20 Range/Units 08:19 RBC (4.30-5.90) m/uL Hgb (13.0-17.5) gm/dL Hct (39.0-53.0) % Lymphocytes # (1.0-4.8) k/uL PT (9.0-12.0) sec INR (<1.2) APTT (22.0-30.0) sec Sodium (137-145) mmol/L Chloride (98-107) mmol/L BUN (9-20) mg/dL Creatinine (0.66-1.25) mg/dL Glucose (74-99) mg/dL POC Glucose (mg/dL) 228 H (75-99) mg/dL AST (17-59) U/L ALT (4-49) U/L Alkaline Phosphatase (38-126) U/L Troponin I (0.000-0.034) ng/mL Thrombosis Risk Factor Assmnt - Choose All That Apply Any of the Below Risk Factors Present?: Yes Each Factor Represents 1 point: Obesity (BMI >25), Swollen legs (current) Other Risk Factors: Yes Each Risk Factor Represents 2 Points: Age 61-74 years Other congenital or acquired thrombophilia - If yes, enter type in comment: No Thrombosis Risk Factor Assessment Total Risk Factor Score: 4 Thrombosis Risk Factor Assessment Level: Moderate Risk Assessment and Plan Assessment: 1. Acute on chronic systolic heart failure, prior ejection fraction 40% - Patient is evaluated by cardiology and recommended to switch to IV diuretic therapy in form of Lasix 40 mg daily; we will monitor strict TOMAS's, daily weights; no salt and fluid restricted diet 2. Ischemic cardiomyopathy/CAD originally EF 20-25% improved to 40% status post PCI in February 2020; remains on aspirin, beta blockers, Plavix 3. Paroxysmal atrial fibrillation, currently A. fib with mild RVR; patient has been started on IV Cardizem; cardiology recommending to resume home dose of metoprolol 75 mg twice a day; patient is anticoagulated with Coumadin which is placed on hold due to supratherapeutic INR of 6.7; and a PT/INR daily 5. Chronic kidney disease; at baseline; avoid nephrotoxic agents 6. Supratheraputic INR; Coumadin placed on hold; INR is 6.7 this morning; we will monitor PT/INR closely 7. Anemia; at baseline; monitor CBC 8. Mildly elevated troponins; possibly related to rapid heart rate; we will continue to trend troponin 9. Diabetes mellitus; patient takes insulin 7525 20 units twice a day; we will continue to monitor Accu-Cheks every before meals and at bedtime with insulin sliding scale DVT prophylaxis; SCDs/systemic anticoagulation CODE STATUS; full code
[2020-08-20] MEDS: INSULN ASP PRT/INSULIN ASPART 100 UNIT/ML 10 ML VIAL SQ SCH (18:29)
[2020-08-20] MEDS: traZODone HCL 50 MG TAB PO SCH (20:15)
[2020-08-20] MEDS: ATORVASTATIN 40 MG TAB PO SCH (20:15)
[2020-08-20] MEDS: METOPROLOL TARTRATE 25 MG TAB PO SCH (20:15)
[2020-08-20] MEDS: DOCUSATE 100 MG CAP PO SCH (20:15)
[2020-08-20] MEDS: PREGABALIN 50 MG CAP PO SCH (20:15)
[2020-08-20 20:48] LABS: Glucose,Whole Blood 138 mg/dL (75-99)
[2020-08-21] MEDS: SODIUM CHLORIDE 0.9% 1,000 ML IV SCH (06:26)
[2020-08-21 06:28] LABS: Glucose,Whole Blood 137 mg/dL (75-99)
[2020-08-21] MEDS: INSULN ASP PRT/INSULIN ASPART 100 UNIT/ML 10 ML VIAL SQ SCH ×2 (08:32→18:45)
[2020-08-21] MEDS: TAMSULOSIN 0.4 MG CAP.ER.24H PO SCH (08:32)
[2020-08-21] MEDS: FUROSEMIDE 10 MG/ML 4 ML VIAL IV SCH (08:32)
[2020-08-21 08:33] LABS: Basophils % (A) 1 %; Eosinophils # (A) 0.4 k/uL (0-0.7); Eosinophils % (A) 5 %; HCT 28.1 % (39.0-53.0); HGB 8.8 gm/dL (13.0-17.5); Hypochromasia Slight; Lymphocytes % (A) 12 %; MCH 30.6 pg (25.0-35.0); MCHC 31.4 g/dL (31.0-37.0); MCV 97.4 fL (80.0-100.0); Macrocytosis Slight; Mean Platelet Volume 8.7; Monocytes # (A) 0.6 k/uL (0-1.0); Monocytes % (A) 7 %; Neutrophils # (A) 5.8 k/uL (1.3-7.7); Neutrophils % (A) 73 %; Platelet Count 182 k/uL (150-450); RBC 2.88 m/uL (4.30-5.90); RDW 15.5 % (11.5-15.5); WBC 7.9 k/uL (3.8-10.6)
[2020-08-21] MEDS: ASPIRIN 81 MG PO SCH (08:33)
[2020-08-21] MEDS: METOPROLOL TARTRATE 25 MG TAB PO SCH ×2 (08:33→20:48)
[2020-08-21] MEDS: PREGABALIN 50 MG CAP PO SCH ×2 (08:33→20:48)
[2020-08-21] MEDS: DOCUSATE 100 MG CAP PO SCH ×2 (08:33→20:48)
[2020-08-21] MEDS: CLOPIDOGREL 75 MG TAB PO SCH (08:33)
[2020-08-21 08:50] LABS: Calcium 8.4 mg/dL (8.4-10.2)
[2020-08-21] MEDS ORDERED: CLOPIDOGREL 75 MG TAB PO SCH (09:00)
[2020-08-21] MEDS ORDERED: ASPIRIN 325 MG TAB PO SCH (09:00)
[2020-08-21 10:09] LABS: INR 3.7 (<1.2); Prothrombin Time 35.6 sec (9.0-12.0)
[2020-08-21 11:40] LABS: Albumin 3.4 g/dL (3.5-5.0); Bilirubin, Delta 0.2 mg/dL (0.0-0.2); Bilirubin,Unconjugated 0.4 mg/dL (0.0-1.1); Total Bilirubin 0.6 mg/dL (0.2-1.3); Total Protein 6.3 g/dL (6.3-8.2)
[2020-08-21 12:14] LABS: Glucose,Whole Blood 148 mg/dL (75-99)
[2020-08-21] MEDS: MULTIVITAMINS, THERA 1 EACH TAB PO SCH (12:47)
[2020-08-21] MEDS: THIAMINE 100 MG TAB PO SCH (12:47)
[2020-08-21] MEDS: DILTIAZEM 125 MG in SODIUM CHLORIDE 0.9% 100 ML IV SCH (12:48)
--- NOTE | 2020-08-21 16:11 | P.PN ---
Subjective Progress Note Date: 08/21/20 HISTORY OF PRESENT ILLNESS: 08/20/2020 This is a pleasant 69-year-old male past medical history significant for hypertension, hyperlipidemia, diabetes mellitus, COPD, congestive heart failure, ischemic cardiomyopathy, coronary artery disease with prior PCI. Patient follows in the office with Dr. Mckenzie. We have been asked to consult patient for CHF and A. fib. Patient was seen in the emergency department. He admits to episodes of shortness breath over the last few days and some lower extremity edema. He was recently seen in July 2020 for new onset of atrial fibrillation and was placed on Coumadin. He has a prior history of PCI with Impala of the proximal and mid LAD in February 2020. At the time his ejection fraction was 20-25% and on repeat echo his ejection fraction had improved to 40%. He does have CK D and he states his Lasix was discontinued by nephrology outpatient recently. He admits he did have a little bit of chest pain since coming to the hospital. His troponins were mildly elevated at 0.057, 0.053, 0.043. His INR was elevated at 6.4. He denies any hematochezia or melena. His liver enzymes were also elevated at 150 and 294. Patient menses shortness breath has much improved after being placed on a Cardizem drip with mild improvement in his heart rates 08/21/2020 Patient examined this morning at the bedside. Patient denies chest pain or pressure. He reports improvement in his shortness of breath. He currently denies shortness of breath at rest. He reports improvement in his lower extremity edema. He remains in atrial fibrillation with controlled ventricular rates. IV Cardizem has been discontinued. INR 3.7 today. Creatinine 1.38. PHYSICAL EXAM: VITAL SIGNS: Reviewed. GENERAL: Well-developed in no acute distress. NECK: Supple. No JVD or thyromegaly LUNGS: Respirations even and unlabored. Lungs essentially clear to auscultation bilaterally. HEART: Irregular rate and rhythm. S1 and S2 heard. EXTREMITIES: Normal range of motion. No clubbing or cyanosis. Peripheral pulses intact. 1+ bilateral lower extremity edema ASSESSMENT: 1. Acute on chronic systolic heart failure, prior ejection fraction 40% 2. Ischemic cardiomyopathy originally EF 20-25% improved to 40% status post PCI in February 2020 3. Coronary artery disease status post PCI to his LAD in February 2020 4. Paroxysmal atrial fibrillation 5. Chronic kidney disease 6. Supratheraputic INR 7. Anemia 8. Atypical chest pain 9. Mildly elevated troponins 10. Diabetes mellitus PLAN: Continue current cardiac medications Continue IV Lasix: 40 mg IV daily Monitor kidney function Daily weight Accurate I&O Continue telemetry monitoring Continue to monitor INR Resume Coumadin when coagulopathy resolved Further recommendations pending patient course Nurse practitioner note has been reviewed by physician. Signing provider agrees with the documented findings, assessment, and plan of care. Objective - Vital Signs Vital signs: Vital Signs Temp 97.9 F 08/21/20 12:45 Pulse 92 08/21/20 12:45 Resp 18 08/21/20 12:45 BP 118/77 08/21/20 12:45 Pulse Ox 100 08/21/20 12:45 Intake & Output 08/20/20 08/21/20 08/21/20 18:59 06:59 18:59 Intake Total 272 881 4304 Output Total 441 410 8502 Balance 160 512 240 Weight 81.647 kg 81.5 kg Intake: Intake, IV Titration 712 Amount Diltiazem 125 mg In 112 Sodium Chloride 0.9% 100 ml @ 5 MG/HR 5 mls/hr IV .Q24H [facility] Rx#:[id number] Sodium Chloride 0.9% 1, 600 000 ml @ 100 mls/hr IV . Q10H [facility] Rx#:[id number] Oral 360 1440 Output: Urine 845 156 4115 Other: # Voids 1 1 # Bowel Movements 1 - Labs CBC & Chem 7: 08/21/20 08:01 08/21/20 08:01 Labs: Abnormal Lab Results - Last 24 Hours (Table) 08/20/20 08/20/20 08/21/20 Range/Units 17:06 20:44 06:18 RBC (4.30-5.90) m/uL Hgb (13.0-17.5) gm/dL Hct (39.0-53.0) % PT (9.0-12.0) sec INR (<1.2) Sodium (137-145) mmol/L BUN (9-20) mg/dL Creatinine (0.66-1.25) mg/dL Glucose (74-99) mg/dL POC Glucose (mg/dL) 239 H 138 H 137 H (75-99) mg/dL AST (17-59) U/L ALT (4-49) U/L Alkaline Phosphatase (38-126) U/L Albumin (3.5-5.0) g/dL HDL Cholesterol (40-60) mg/dL 08/21/20 08/21/20 08/21/20 Range/Units 08:01 08:01 08:01 RBC 2.88 L (4.30-5.90) m/uL Hgb 8.8 L (13.0-17.5) gm/dL Hct 28.1 L (39.0-53.0) % PT (9.0-12.0) sec INR (<1.2) Sodium 136 L (137-145) mmol/L BUN 56 H (9-20) mg/dL Creatinine 1.38 H (0.66-1.25) mg/dL Glucose 166 H (74-99) mg/dL POC Glucose (mg/dL) (75-99) mg/dL AST 92 H (17-59) U/L ALT 254 H (4-49) U/L Alkaline Phosphatase 208 H (38-126) U/L Albumin 3.4 L (3.5-5.0) g/dL HDL Cholesterol 34 L (40-60) mg/dL 08/21/20 08/21/20 Range/Units 09:36 12:13 RBC (4.30-5.90) m/uL Hgb (13.0-17.5) gm/dL Hct (39.0-53.0) % PT 35.6 H (9.0-12.0) sec INR 3.7 H (<1.2) Sodium (137-145) mmol/L BUN (9-20) mg/dL Creatinine (0.66-1.25) mg/dL Glucose (74-99) mg/dL POC Glucose (mg/dL) 148 H (75-99) mg/dL AST (17-59) U/L ALT (4-49) U/L Alkaline Phosphatase (38-126) U/L Albumin (3.5-5.0) g/dL HDL Cholesterol (40-60) mg/dL
[2020-08-21 17:04] LABS: Glucose,Whole Blood 118 mg/dL (75-99)
--- NOTE | 2020-08-21 17:37 | P.PN ---
Subjective Progress Note Date: 08/21/20 Principal diagnosis: Acute on chronic systolic CHF Paroxysmal atrial fibrillation with RVR Coagulopathy secondary to Coumadin 69-year-old male past medical history significant for hypertension, hyperlipidemia, diabetes mellitus, COPD, congestive heart failure, ischemic cardiomyopathy, coronary artery disease with prior PCI. Patient follows in the office with Dr. Mckenzie. We have been asked to consult patient for CHF and A. fib. Patient was seen in the emergency department. He admits to episodes of shortness breath over the last few days and some lower extremity edema. He was recently seen in July 2020 for new onset of atrial fibrillation and was placed on Coumadin. He has a prior history of PCI with Impala of the proximal and mid LAD in February 2020. At the time his ejection fraction was 20-25% and on repeat echo his ejection fraction had improved to 40%. He does have CK D and he states his Lasix was discontinued by nephrology outpatient recently. He adm its he did have a little bit of chest pain since coming to the hospital. His troponins were mildly elevated at 0.057, 0.053, 0.043. His INR was elevated at 6.4. He denies any hematochezia or melena. His liver enzymes were also elevated at 150 and 294. Patient menses shortness breath has much improved after being placed on a Cardizem drip with mild improvement in his heart rates down to the Workup in ED including an EKG reveals atrial fibrillation with heart rate 112 Chest xray patchy opacities improved compared to 08/02/2020 which may represent atelectasis, aspiration or infection, cardiomegaly with mild bilateral perihilar reticular opacities compatible with interstitial edema. Laboratory reviewed, INR 6.4, hemoglobin 8.5, platelets 194, sodium 133, creatinine 1.79, glucose 190, lactic acid 1.0, AST 150, ALP 294, alk phos 241, troponin 0.05, 0.05, 0.04, proBNP 9130. 08/21/2020 Patient is seen and evaluated in room at bedside; denies any complaint of chest pain or palpitations; does report marked improvement in shortness of breath Vital signs are reviewed and remained stable; patient remains in atrial fibrillation with controlled heart rate in 80s; cardiology on board and IV Cardizem has been discontinued; INR has trended down to 3.7 today Patient remains on Lasix 40 mg IV daily; we will continue to monitor strict TOMAS's, daily weights, renal function and electrolytes; continue to avoid nephrotoxic agents; we will continue to monitor INR and resume Coumadin once coagulopathy results Objective - Vital Signs Vital signs: Vital Signs Temp 97.4 F L 08/21/20 08:30 Pulse 86 08/21/20 08:30 Resp 20 08/21/20 08:30 BP 126/69 08/21/20 08:30 Pulse Ox 99 08/21/20 08:30 Intake & Output 08/20/20 08/21/20 08/21/20 18:59 06:59 18:59 Intake Total 360 712 Output Total 200 200 Balance 160 512 Weight 81.647 kg 81.5 kg Intake: Intake, IV Titration 712 Amount Diltiazem 125 mg In 112 Sodium Chloride 0.9% 100 ml @ 5 MG/HR 5 mls/hr IV .Q24H [facility] Rx#:[id number] Sodium Chloride 0.9% 1, 600 000 ml @ 100 mls/hr IV . Q10H [facility] Rx#:[id number] Oral 360 Output: Urine 200 200 Other: # Voids 1 1 - Exam - Constitutional General appearance: Present: average body habitus, cooperative, no acute distress - EENT Eyes: Present: anicteric sclerae, EOMI, PERRLA, normal appearance ENT: Present: hearing grossly normal, normal oropharynx Ears: bilateral: normal - Neck Neck: Present: normal ROM. Absent: lymphadenopathy, rigidity, thyromegaly Carotids: negative: bruit present Thyroid: bilateral: normal size, negative: enlarged, nodule - Respiratory Respiratory: bilateral: CTA, negative: rales, rhonchi, wheezing - Cardiovascular Rhythm: regular Heart sounds: normal: S1, S2 Abnormal Heart Sounds: Absent: systolic murmur, diastolic murmur - Gastrointestinal General gastrointestinal: Present: normal bowel sounds, soft. Absent: disten ded, organomegaly, tenderness - Genitourinary Genitourinary Comment(s): deferred - Integumentary Integumentary: Present: normal turgor. Absent: jaundiced, rash, ulcer - Neurologic Neurologic: Present: CNII-XII intact. Absent: focal deficits - Musculoskeletal Musculoskeletal: Present: gait normal, strength equal bilaterally - Psychiatric Psychiatric: Present: A&O x's 3, appropriate affect, intact judgment & insight - Labs CBC & Chem 7: 08/21/20 08:01 08/21/20 08:01 Labs: Abnormal Lab Results - Last 24 Hours (Table) 08/20/20 08/20/20 08/21/20 Range/Units 17:06 20:44 06:18 RBC (4.30-5.90) m/uL Hgb (13.0-17.5) gm/dL Hct (39.0-53.0) % PT (9.0-12.0) sec INR (<1.2) Sodium (137-145) mmol/L BUN (9-20) mg/dL Creatinine (0.66-1.25) mg/dL Glucose (74-99) mg/dL POC Glucose (mg/dL) 239 H 138 H 137 H (75-99) mg/dL HDL Cholesterol (40-60) mg/dL 08/21/20 08/21/20 08/21/20 Range/Units 08:01 08:01 09:36 RBC 2.88 L (4.30-5.90) m/uL Hgb 8.8 L (13.0-17.5) gm/dL Hct 28.1 L (39.0-53.0) % PT 35.6 H (9.0-12.0) sec INR 3.7 H (<1.2) Sodium 136 L (137-145) mmol/L BUN 56 H (9-20) mg/dL Creatinine 1.38 H (0.66-1.25) mg/dL Glucose 166 H (74-99) mg/dL POC Glucose (mg/dL) (75-99) mg/dL HDL Cholesterol 34 L (40-60) mg/dL Assessment and Plan Assessment: 1. Acute on chronic systolic heart failure, prior ejection fraction 40% - Patient is evaluated by cardiology and recommended to switch to IV diuretic therapy in form of Lasix 40 mg daily; we will monitor strict TOMAS's, daily weights; no salt and fluid restricted diet 2. Ischemic cardiomyopathy/CAD originally EF 20-25% improved to 40% status post PCI in February 2020; remains on aspirin, beta blockers, Plavix 3. Paroxysmal atrial fibrillation, currently A. fib with mild RVR; patient has been started on IV Cardizem; cardiology recommending to resume home dose of metoprolol 75 mg twice a day; patient is anticoagulated with Coumadin which is placed on hold due to supratherapeutic INR of 6.7; and a PT/INR daily 5. Chronic kidney disease; at baseline; avoid nephrotoxic agents 6. Supratheraputic INR; Coumadin placed on hold; INR is 6.7 this morning; we wi ll monitor PT/INR closely 7. Anemia; at baseline; monitor CBC 8. Mildly elevated troponins; possibly related to rapid heart rate; we will continue to trend troponin 9. Diabetes mellitus; patient takes insulin 7525 20 units twice a day; we will continue to monitor Accu-Cheks every before meals and at bedtime with insulin sliding scale DVT prophylaxis; SCDs/systemic anticoagulation CODE STATUS; full code
[2020-08-21 20:04] LABS: Glucose,Whole Blood 136 mg/dL (75-99)
[2020-08-21] MEDS: traZODone HCL 50 MG TAB PO SCH (20:48)
[2020-08-21] MEDS: ATORVASTATIN 40 MG TAB PO SCH (20:48)
[2020-08-22 07:22] LABS: Glucose,Whole Blood 237 mg/dL (75-99)
[2020-08-22] MEDS: INSULN ASP PRT/INSULIN ASPART 100 UNIT/ML 10 ML VIAL SQ SCH ×2 (08:04→17:46)
[2020-08-22] MEDS: FUROSEMIDE 10 MG/ML 4 ML VIAL IV SCH (08:04)
[2020-08-22] MEDS: DOCUSATE 100 MG CAP PO SCH ×2 (08:05→20:27)
[2020-08-22] MEDS: CLOPIDOGREL 75 MG TAB PO SCH (08:05)
[2020-08-22] MEDS: METOPROLOL TARTRATE 25 MG TAB PO SCH ×2 (08:05→20:27)
[2020-08-22] MEDS: TAMSULOSIN 0.4 MG CAP.ER.24H PO SCH (08:05)
[2020-08-22] MEDS: ASPIRIN 81 MG PO SCH (08:05)
[2020-08-22] MEDS: PREGABALIN 50 MG CAP PO SCH ×2 (08:05→20:27)
[2020-08-22 09:00] LABS: Calcium 8.6 mg/dL (8.4-10.2); Potassium 4.4 mmol/L (3.5-5.1)
[2020-08-22] MEDS: MULTIVITAMINS, THERA 1 EACH TAB PO SCH (11:17)
[2020-08-22] MEDS: lisinopriL 5 MG TAB PO SCH (11:17)
[2020-08-22] MEDS: THIAMINE 100 MG TAB PO SCH (11:17)
[2020-08-22 11:45] LABS: INR 2.8 (<1.2); Prothrombin Time 26.9 sec (9.0-12.0)
[2020-08-22 12:10] LABS: Glucose,Whole Blood 105 mg/dL (75-99)
--- NOTE | 2020-08-22 12:13 | CDI ---
Documentation Clarification Form Date: 08/22/2020 12:01:47 PM From: Sandy Smalls CCS, CCDS Admit Date: 08/20/2020 01:58:00 AM Patient Name: Darci Levy Visit Number: [id number] Discharge Date: ATTENTION: The Clinical Documentation Specialists (CDI) and [facility] Coding Staff appreciate your assistance in clarifying documentation. Please respond to the clarification below the line at the bottom and electronically sign. The CDI & [facility] Coding staff will review the response and follow-up if needed. Please note: Queries are made part of the Legal Health Record. If you have any questions, please contact the author of this message via ITS. Dr. Heber Cárdenas or Dr. Torin Beth: CKD is documented in the 08/20 Cardiology Consult, the 08/20 History & Physical and subsequent Progress Notes without further specificity. History/Risk Factors: Hypertension, AL, CAD with stent, Systolic CHF, Paroxysmal Atrial Fibrillation, Ischemic Cardiomyopathy, Anemia, DM II on Insulin sq, Former smoker. Clinical Indicators: Presented to the ED on 08/20 with SOB & lower extremity swelling. ED Clinical Impression: Atrial Fibrillation. Per the History & Physical Assessment: Acute on Chronic Systolic CHF, Ischemic Cardiomyopathy w/EF 40% and Paroxysmal Atrial Fibrillation. Historical BUN/Creatinine & GFR: No previous GFR on record. Current BUN 08/22: 45, Creatinine 1.30 and GFR 57 - 66. Treatment 08/20: IV Cardizem Drip bolus, IV fluid 1,000 mls @ 100 mls/hr q10H, PO Lopressor, ,Plavix, IV Lasix 40 mg daily, Insulin sq. Consults: Nephrology is not consulted. In order to capture the severity of condition, please clarify the stage of the CKD, if known: o CKD ruled out o CKD Stage 2 (GFR 60-89) o CKD Stage 3a (GFR 45-59) o Other, please specify o Unable to determine Template Last reviewed: February 2020 Unable to determine MTDD
--- NOTE | 2020-08-22 13:42 | P.CONS ---
History of Present Illness - Reason for Consult Consult date: 08/22/20 wound care - History of Present Illness This is a 69-year-old patient being seen by the wound care center on for nonhealing ulcerations to the right heel left great toe and left heel. Patient's past medical history significant for coronary artery disease, diabetes mellitus, hyperlipidemia, hypertension, myocardial infarction, hypothyroidism. Patient states that the ulcerations have been there for approximately greater than 6 weeks. The right heel ulceration is epithelialized with callus around the edges. The left great toe has an area of necrosis that we will follow-up on his own without any need for treatment. There is a epithelialized ulceration next to the necrotic area. Left lateral heel is a unstageable pressure ulcer with a eschar cap. Measuring approximately 2.5 x 3.5 x 0.2 cm wound bed shows significant amount of eschar and nonviable tissue no granulation seen throughout. The wound edges are attached to the wound base. No undermining or tunneling is noted. Review Of Systems: Constitutional: No fever, no chills, no night sweats. No weight change. No weakness, fatigue or lethargy. No daytime sleepiness. Integumentary:reports wounds, no lesions. No rash or pruritus. No unusual bruising. No change in hair or nails. Physical exam: General Appearance: Alert, cooperative, no distress, appears stated age. Skin: See HPI all other Skin color, texture, tugor normal, no rashes or lesions. Neurologic: Alert oriented x3 Assessment/plan 1. Unstageable left calcaneus pressure ulcer: Apply honey alginate, saline moist gauze, dry gauze, rolled gauze secured paper tape. Change Saturday. Patient would benefit from advanced wound care and debridement. We will be happy to see him in the wound care center upon discharge. 2. Left great toe unstageable pressure ulcer: At this time no further treatment is needed the necrotic area will come off on its own. 3. Pressure injury stage I right lateral calcaneus. Ulceration has significant amount of callus noted but no further treatment is needed. Thank you for the consultation any questions contact the wound care center DNP note has been reviewed and discussed with Dr. Sharp and the impression and plan of care has been directed as dictated. Past Medical History Past Medical History: Coronary Artery Disease (CAD), Diabetes Mellitus, Hyperlipidemia, Hypertension, Myocardial Infarction (CT), Thyroid Disorder Additional Past Medical History / Comment(s): pancreatitis, hepatitis Last Myocardial Infarction Date:: unknown History of Any Multi-Drug Resistant Organisms: None Reported Past Surgical History: Back Surgery, Heart Catheterization With Stent, Orthopedic Surgery Additional Past Surgical History / Comment(s): kushal knee, Past Anesthesia/Blood Transfusion Reactions: No Reported Reaction Date of Last Stent Placement:: unknown Past Psychological History: No Psychological Hx Reported Smoking Status: Former smoker Past Alcohol Use History: None Reported Past Drug Use History: Marijuana Additional Drug Use History / Comment(s): Patient states he currently smokes marijuana. - Past Family History Father History Unknown: Yes Family Medical History: Myocardial Infarction (CT) Medications and Allergies Home Medications Medication Instructions Recorded Confirmed Type Atorvastatin Calcium [Lipitor] 40 mg PO HS 06/14/20 08/20/20 History Pregabalin [Lyrica] 50 mg PO BID 06/14/20 08/20/20 History traZODone HCL [Desyrel] 50 mg PO HS 06/14/20 08/20/20 History Docusate [Colace] 100 mg PO BID 30 Days #60 capsule 06/20/20 08/20/20 Rx Tamsulosin HCl [Flomax] 0.4 mg PO DAILY 30 Days #30 capsule 06/20/20 08/20/20 Rx Thiamine [Vitamin B-1] 100 mg PO DAILY@1200 30 Days #30 06/20/20 08/20/20 Rx tab Metoprolol Tartrate [Lopressor] 75 mg PO BID 08/01/20 08/20/20 History Multivitamins, Thera [Multivitamin 1 tab PO DAILY@1200 08/01/20 08/20/20 History (formulary)] Clopidogrel [Plavix] 75 mg PO DAILY #90 tab 08/09/20 08/20/20 Rx Insulin NPL/Insulin Lispro 20 unit SQ AC-BID #0 08/09/20 08/20/20 Rx [humaLOG MIX 75-25 VIAL] Warfarin [Coumadin] 6 mg PO DAILY #60 tab 08/09/20 08/20/20 Rx Furosemide [Lasix] 20 mg PO BID 08/20/20 08/20/20 History Allergies Allergy/AdvReac Type Severity Reaction Status Date / Time tramadol [From Ultram] Allergy Itching Verified 08/20/20 08:14 Physical Exam Vitals: Vital Signs Temp Pulse Resp BP BP Pulse Ox 08/22/20 13:16 73 18 08/22/20 11:15 97.8 F 73 18 111/67 97 08/22/20 08:01 97.7 F 88 18 129/78 99 08/22/20 08:00 88 18 08/22/20 04:00 98.2 F 91 20 130/82 08/22/20 01:00 98 08/21/20 23:39 86 16 107/71 98 08/21/20 20:00 98.0 F 102 H 16 152/86 98 08/21/20 17:45 97.9 F 92 18 109/68 100 Intake and Output 08/21/20 08/22/20 08/22/20 22:59 06:59 14:59 Intake Total 480 125 Output Total 300 900 450 Balance 180 -900 -325 Intake: Oral 480 125 Output: Urine 300 900 450 Other: # Voids 1 Weight 98.5 kg Results CBC & Chem 7: 08/21/20 08:01 08/22/20 07:45 Labs: Abnormal Lab Results - Last 24 Hours (Table) 08/21/20 08/21/20 08/22/20 Range/Units 17:03 19:49 07:19 PT (9.0-12.0) sec INR (<1.2) BUN (9-20) mg/dL Creatinine (0.66-1.25) mg/dL Glucose (74-99) mg/dL POC Glucose (mg/dL) 118 H 136 H 237 H (75-99) mg/dL 08/22/20 08/22/20 08/22/20 Range/Units 07:45 11:18 11:57 PT 26.9 H (9.0-12.0) sec INR 2.8 H (<1.2) BUN 45 H (9-20) mg/dL Creatinine 1.30 H (0.66-1.25) mg/dL Glucose 201 H (74-99) mg/dL POC Glucose (mg/dL) 105 H (75-99) mg/dL Microbiology - Last 24 Hours (Table) 08/21/20 08:08 Blood Culture - Preliminary Blood No Growth after 24 hours Assessment and Plan (1) Pressure injury of left heel, unstageable Current Visit: Yes Status: Acute Code(s): L89.620 - PRESSURE ULCER OF LEFT HEEL, UNSTAGEABLE SNOMED Code(s): 485366846 (2) Pressure injury of right heel, stage 1 Current Visit: Yes Status: Acute Code(s): L89.611 - PRESSURE ULCER OF RIGHT HEEL, STAGE 1 SNOMED Code(s): 788408368 (3) Pressure injury of toe of left foot, unstageable Current Visit: Yes Status: Acute Code(s): L89.890 - PRESSURE ULCER OF OTHER SITE, UNSTAGEABLE SNOMED Code(s): 533871909
[2020-08-22 14:38] VITALS: BMI 31.1
[2020-08-22] MEDS: FUROSEMIDE 40 MG TAB PO SCH (15:50)
--- NOTE | 2020-08-22 15:58 | P.PN ---
Subjective Progress Note Date: 08/22/20 HISTORY OF PRESENT ILLNESS: 08/20/2020 This is a pleasant 69-year-old male past medical history significant for hypertension, hyperlipidemia, diabetes mellitus, COPD, congestive heart failure, ischemic cardiomyopathy, coronary artery disease with prior PCI. Patient follows in the office with Dr. Mckenzie. We have been asked to consult patient for CHF and A. fib. Patient was seen in the emergency department. He admits to episodes of shortness breath over the last few days and some lower extremity edema. He was recently seen in July 2020 for new onset of atrial fibrillation and was placed on Coumadin. He has a prior history of PCI with Impala of the proximal and mid LAD in February 2020. At the time his ejection fraction was 20-25% and on repeat echo his ejection fraction had improved to 40%. He does have CK D and he states his Lasix was discontinued by nephrology outpatient recently. He admits he did have a little bit of chest pain since coming to the hospital. His troponins were mildly elevated at 0.057, 0.053, 0.043. His INR was elevated at 6.4. He denies any hematochezia or melena. His liver enzymes were also elevated at 150 and 294. Patient menses shortness breath has much improved after being placed on a Cardizem drip with mild improvement in his heart rates 08/21/2020 Patient examined this morning at the bedside. Patient denies chest pain or pressure. He reports improvement in his shortness of breath. He currently denies shortness of breath at rest. He reports improvement in his lower extremity edema. He remains in atrial fibrillation with controlled ventricular rates. IV Cardizem has been discontinued. INR 3.7 today. Creatinine 1.38. 08/22/2020 Patient examined this morning. He is sitting up in the chair. He denies chest pain or pressure. He reports improvement in his shortness of breath. BUN 45. Creatinine 1.30. He remains on IV Lasix. Coumadin remains on hold. PHYSICAL EXAM: VITAL SIGNS: Reviewed. GENERAL: Well-developed in no acute distress. NECK: Supple. No JVD or thyromegaly LUNGS: Respirations even and unlabored. Lungs essentially clear to auscultation bilaterally. HEART: Irregular rate and rhythm. S1 and S2 heard. EXTREMITIES: Normal range of motion. No clubbing or cyanosis. Peripheral pulses intact. 1+ bilateral lower extremity edema ASSESSMENT: 1. Acute on chronic systolic heart failure, prior ejection fraction 40% 2. Ischemic cardiomyopathy originally EF 20-25% improved to 40% status post PCI in February 2020 3. Coronary artery disease status post PCI to his LAD in February 2020 4. Paroxysmal atrial fibrillation 5. Chronic kidney disease 6. Supratheraputic INR 7. Anemia 8. Atypical chest pain 9. Mildly elevated troponins 10. Diabetes mellitus PLAN: Continue current cardiac medications Discontinue IV Lasix. Begin oral Lasix 40 mg twice a day Monitor kidney function Daily weight Accurate I&O Continue telemetry monitoring Check INR today Resume Coumadin when coagulopathy resolved Further recommendations pending patient course Nurse practitioner note has been reviewed by physician. Signing provider agrees with the documented findings, assessment, and plan of care. Objective - Vital Signs Vital signs: Vital Signs Temp 97.9 F 08/22/20 15:47 Pulse 74 08/22/20 15:47 Resp 18 08/22/20 15:47 BP 104/62 08/22/20 15:47 Pulse Ox 96 08/22/20 15:47 Intake & Output 08/21/20 08/22/20 08/22/20 18:59 06:59 18:59 Intake Total 1440 480 250 Output Total 1200 1200 450 Balance 240 -720 -200 Weight 98.5 kg 98.5 kg Intake: Oral 1440 480 250 Output: Urine 1200 1200 450 Other: # Voids 1 # Bowel Movements 1 - Labs CBC & Chem 7: 08/21/20 08:01 08/22/20 07:45 Labs: Abnormal Lab Results - Last 24 Hours (Table) 08/21/20 08/21/20 08/22/20 Range/Units 17:03 19:49 07:19 PT (9.0-12.0) sec INR (<1.2) BUN (9-20) mg/dL Creatinine (0.66-1.25) mg/dL Glucose (74-99) mg/dL POC Glucose (mg/dL) 118 H 136 H 237 H (75-99) mg/dL 08/22/20 08/22/20 08/22/20 Range/Units 07:45 11:18 11:57 PT 26.9 H (9.0-12.0) sec INR 2.8 H (<1.2) BUN 45 H (9-20) mg/dL Creatinine 1.30 H (0.66-1.25) mg/dL Glucose 201 H (74-99) mg/dL POC Glucose (mg/dL) 105 H (75-99) mg/dL Microbiology - Last 24 Hours (Table) 08/21/20 08:08 Blood Culture - Preliminary Blood No Growth after 24 hours
[2020-08-22 17:00] LABS: Glucose,Whole Blood 187 mg/dL (75-99)
--- NOTE | 2020-08-22 17:19 | P.PN ---
Subjective 69-year-old male past medical history significant for hypertension, hyperlipidemia, diabetes mellitus, COPD, congestive heart failure, ischemic card iomyopathy, coronary artery disease with prior PCI. Patient follows in the office with Dr. Mckenzie. We have been asked to consult patient for CHF and A. fib. Patient was seen in the emergency department. He admits to episodes of shortness breath over the last few days and some lower extremity edema. He was recently seen in July 2020 for new onset of atrial fibrillation and was placed on Coumadin. He has a prior history of PCI with Impala of the proximal and mid LAD in February 2020. At the time his ejection fraction was 20-25% and on repeat echo his ejection fraction had improved to 40%. He does have CK D and he states his Lasix was discontinued by nephrology outpatient recently. He admits he did have a little bit of chest pain since coming to the hospital. His troponins were mildly elevated at 0.057, 0.053, 0.043. His INR was elevated at 6.4. He denies any hematochezia or melena. His liver enzymes were also elevated at 150 and 294. Patient menses shortness breath has much improved after being placed on a Cardizem drip with mild improvement in his heart rates down to the Workup in ED including an EKG reveals atrial fibrillation with heart rate 112 Chest xray patchy opacities improved compared to 08/02/2020 which may represent atelectasis, aspiration or infection, cardiomegaly with mild bilateral perihilar reticular opacities compatible with interstitial edema. Laboratory reviewed, INR 6.4, hemoglobin 8.5, platelets 194, sodium 133, creatinine 1.79, glucose 190, lactic acid 1.0, AST 150, ALP 294, alk phos 241, troponin 0.05, 0.05, 0.04, proBNP 9130. 08/21/2020 Patient is seen and evaluated in room at bedside; denies any complaint of chest pain or palpitations; does report marked improvement in shortness of breath Vital signs are reviewed and remained stable; patient remains in atrial fibrillation with controlled heart rate in 80s; cardiology on board and IV Cardizem has been discontinued; INR has trended down to 3.7 today Patient remains on Lasix 40 mg IV daily; we will continue to monitor strict TOMAS's, daily weights, renal function and electrolytes; continue to avoid nephrotoxic agents; we will continue to monitor INR and resume Coumadin once coagulopathy results. 08/22/2020 Patient the oxygen will be weaned off presently on 2 L probably will not require any more oxygen this will be weaned the patient was switched to oral Lasix patient appears to be euvolemic clinically. Physical therapy and occupational therapy will evaluate the patient. Possibly of discharge tomorrow. Constitutional: Denied any fatigue denied any fever. Cardio vascular: denied any chest pain, palpitations Gastrointestinal denied any nausea vomiting Pulmonary: Denied any shortness of breath cough Neurologic denied any new focal deficits All inpatient medications were reviewed and appropriate changes in these medications as dictated in the interval history and assessment and plan. Objective - Vital Signs Vital signs: Vital Signs Temp 97.9 F 08/22/20 15:47 Pulse 74 08/22/20 15:47 Resp 18 08/22/20 15:47 BP 104/62 08/22/20 15:47 Pulse Ox 96 08/22/20 15:47 Intake & Output 08/21/20 08/22/20 08/22/20 18:59 06:59 18:59 Intake Total 1440 480 250 Output Total 1200 1200 450 Balance 240 -720 -200 Weight 98.5 kg 98.5 kg Intake: Oral 1440 480 250 Output: Urine 1200 1200 450 Other: # Voids 1 # Bowel Movements 1 - Exam PHYSICAL EXAMINATION: GENERAL: The patient is alert and oriented x3, not in any acute distress. Obese HEENT: Pupils are round and equally reacting to light. EOMI. No scleral icterus. No conjunctival pallor. Normocephalic, atraumatic. No pharyngeal erythema. No thyromegaly. CARDIOVASCULAR: S1 and S2 present. No murmurs, rubs, or gallops. PULMONARY: Chest is clear to auscultation, no wheezing or crackles. ABDOMEN: Soft, nontender, nondistended, normoactive bowel sounds. No palpable organomegaly. MUSCULOSKELETAL: No joint swelling or deformity. EXTREMITIES: No cyanosis, clubbing, or pedal edema. NEUROLOGICAL: Gross neurological examination did not reveal any focal deficits. SKIN: No rashes. - Labs CBC & Chem 7: 08/21/20 08:01 08/22/20 07:45 Labs: Abnormal Lab Results - Last 24 Hours (Table) 08/21/20 08/22/20 08/22/20 Range/Units 19:49 07:19 07:45 PT (9.0-12.0) sec INR (<1.2) BUN 45 H (9-20) mg/dL Creatinine 1.30 H (0.66-1.25) mg/dL Glucose 201 H (74-99) mg/dL POC Glucose (mg/dL) 136 H 237 H (75-99) mg/dL 08/22/20 08/22/20 08/22/20 Range/Units 11:18 11:57 16:54 PT 26.9 H (9.0-12.0) sec INR 2.8 H (<1.2) BUN (9-20) mg/dL Creatinine (0.66-1.25) mg/dL Glucose (74-99) mg/dL POC Glucose (mg/dL) 105 H 187 H (75-99) mg/dL Microbiology - Last 24 Hours (Table) 08/21/20 08:08 Blood Culture - Preliminary Blood No Growth after 24 hours Assessment and Plan Plan: 1. Acute on chronic systolic heart failure, prior ejection fraction 40% -And is fairly fully make now was switched to oral Lasix. 2. Ischemic cardiomyopathy/CAD originally EF 20-25% improved to 40% status post PCI in February 2020; remains on aspirin, beta blockers, Plavix 3. Paroxysmal atrial fibrillation, currently A. fib with mild RVR; patient has been started on IV Cardizem; cardiology recommending to resume home dose of metoprolol 75 mg twice a day; patient is anticoagulated with Coumadin which is placed on hold due to supratherapeutic INR of 6.7 admission; and a PT/INR daily patient INR normalizes now is being resumed on Coumadin. 5. Chronic kidney disease; at baseline; avoid nephrotoxic agents 6. Supratheraputic INR; admission 7. Anemia; at baseline; monitor CBC 8. Mildly elevated troponins; possibly related to rapid heart rate; we will continue to trend troponin 9. Diabetes mellitus; patient takes insulin 7525 20 units twice a day; we will continue to monitor Accu-Cheks every before meals and at bedtime with insulin sliding scale DVT prophylaxis; SCDs/systemic anticoagulation CODE STATUS; full code
[2020-08-22 20:17] LABS: Glucose,Whole Blood 302 mg/dL (75-99)
[2020-08-22] MEDS: ATORVASTATIN 40 MG TAB PO SCH (20:26)
[2020-08-22] MEDS: traZODone HCL 50 MG TAB PO SCH (20:26)
[2020-08-23 00:45] VITALS: TEMP 97.9
[2020-08-23 04:11] VITALS: RESP 16
[2020-08-23 07:21] LABS: Glucose,Whole Blood 129 mg/dL (75-99)
[2020-08-23 07:55] LABS: Calcium 8.5 mg/dL (8.4-10.2)
[2020-08-23 07:58] LABS: INR 2.1 (<1.2); Prothrombin Time 20.4 sec (9.0-12.0)
[2020-08-23] MEDS: DOCUSATE 100 MG CAP PO SCH (08:36)
[2020-08-23] MEDS: METOPROLOL TARTRATE 25 MG TAB PO SCH (08:36)
[2020-08-23] MEDS: lisinopriL 5 MG TAB PO SCH (08:36)
[2020-08-23] MEDS: TAMSULOSIN 0.4 MG CAP.ER.24H PO SCH (08:36)
[2020-08-23] MEDS: ASPIRIN 81 MG PO SCH (08:36)
[2020-08-23] MEDS: FUROSEMIDE 40 MG TAB PO SCH ×2 (08:36→15:14)
[2020-08-23] MEDS: CLOPIDOGREL 75 MG TAB PO SCH (08:36)
[2020-08-23] MEDS: PREGABALIN 50 MG CAP PO SCH (08:36)
[2020-08-23] MEDS: INSULN ASP PRT/INSULIN ASPART 100 UNIT/ML 10 ML VIAL SQ SCH (08:41)
--- NOTE | 2020-08-23 11:24 | P.DS ---
Providers Date of admission: 08/20/20 01:58 Attending physician: Nisreen Cuevas Consults: 08/20/20 01:58 Consult Physician Urgent Consulting Provider: Mckayla Peterson Consult Reason/Comments: afib Do you want consulting provider notified?: Yes [facility] [place] [facility] Course: 69-year-old male past medical history significant for hypertension, hyperlipidemia, diabetes mellitus, COPD, congestive heart failure, ischemic cardiomyopathy, coronary artery disease with prior PCI. Patient follows in the office with Dr. Mckenzie. We have been asked to consult patient for CHF and A. fib. Patient was seen in the emergency department. He admits to episodes of shortness breath over the last few days and some lower extremity edema. He was recently seen in July 2020 for new onset of atrial fibrillation and was placed on Coumadin. He has a prior history of PCI with Impala of the proximal and mid LAD in February 2020. At the time his ejection fraction was 20-25% and on repeat echo his ejection fraction had improved to 40%. He does have CK D and he states his Lasix was discontinued by nephrology outpatient recently. He admits he did have a little bit of chest pain since coming to the hospital. His troponins were mildly elevated at 0.057, 0.053, 0.043. His INR was elevated at 6.4. He denies any hematochezia or melena. His liver enzymes were also elevated at 150 and 294. Patient menses shortness breath has much improved after being placed on a Cardizem drip with mild improvement in his heart rates down to the Workup in ED including an EKG reveals atrial fibrillation with heart rate 112 Chest xray patchy opacities improved compared to 08/02/2020 which may represent atelectasis, aspiration or infection, cardiomegaly with mild bilateral perihilar reticular opacities compatible with interstitial edema. Laboratory reviewed, INR 6.4, hemoglobin 8.5, platelets 194, sodium 133, creatinine 1.79, glucose 190, lactic acid 1.0, AST 150, ALP 294, alk phos 241, troponin 0.05, 0.05, 0.04, proBNP 9130. 08/21/2020 Patient is seen and evaluated in room at bedside; denies any complaint of chest pain or palpitations; does report marked improvement in shortness of breath Vital signs are reviewed and remained stable; patient remains in atrial fibrillation with controlled heart rate in 80s; cardiology on board and IV Cardizem has been discontinued; INR has trended down to 3.7 today Patient remains on Lasix 40 mg IV daily; we will continue to monitor strict TOMAS's, daily weights, renal function and electrolytes; continue to avoid nephrotoxic agents; we will continue to monitor INR and resume Coumadin once coagulopathy results. 08/22/2020 Patient the oxygen will be weaned off presently on 2 L probably will not require any more oxygen this will be weaned the patient was switched to oral Lasix patient appears to be euvolemic clinically. Physical therapy and occupational therapy will evaluate the patient. Possibly of discharge tomorrow. 08/23/2020 Patient is not requiring oxygen today patient is euvolemic and patient heart rate is well controlled. Patient will be discharged with repeat basic metabolic profile and a repeat INR in about 3 days PHYSICAL EXAMINATION: GENERAL: The patient is alert and oriented x3, not in any acute distress. Obese HEENT: Pupils are round and equally reacting to light. EOMI. No scleral icterus. No conjunctival pallor. Normocephalic, atraumatic. No pharyngeal erythema. No thyromegaly. CARDIOVASCULAR: S1 and S2 present. No murmurs, rubs, or gallops. PULMONARY: Chest is clear to auscultation, no wheezing or crackles. ABDOMEN: Soft, nontender, nondistended, normoactive bowel sounds. No palpable organomegaly. MUSCULOSKELETAL: No joint swelling or deformity. EXTREMITIES: No cyanosis, clubbing, or pedal edema. NEUROLOGICAL: Gross neurological examination did not reveal any focal deficits. SKIN: No rashes. Assessment and Plan Plan: 1. Acute on chronic systolic heart failure, prior ejection fraction 40%, presently 20-25% -And is fairly fully make now was switched to oral Lasix. 2. Ischemic cardiomyopathy/CAD originally EF 20-25% improved to 40% status post PCI in February 2020; patient will be discharged on Plavix and Coumadin. 3. Paroxysmal atrial fibrillation, currently A. fib with mild RVR; patient has been started on IV Cardizem; cardiology recommending to resume home dose of metoprolol 75 mg twice a day; patient will be discharged on lower Coumadin dose that is 3 mg with repeat INR in 3 days 5. Chronic kidney disease; at baseline; avoid nephrotoxic agents 6. Supratheraputic INR; on admission 7. Anemia; at baseline; monitor CBC 8. Mildly elevated troponins; possibly related to rapid heart rate; we will continue to trend troponin 9. Diabetes mellitus; patient takes insulin 75/25 20 units twice a day; we will continue to monitor Accu-Cheks every before meals and at bedtime with insulin sliding scale Plan - Discharge Summary Discharge Rx Participant: No New Discharge Prescriptions: New Furosemide [Lasix] 40 mg PO BID@0900,1600 #60 tab Nitroglycerin Sl Tabs [Nitrostat] 0.4 mg SUBLINGUAL Q5M PRN #30 tab PRN Reason: Chest Pain lisinopriL [Zestril] 5 mg PO DAILY #30 tab Citalopram Hydrobromide [Citalopram HBr] 10 mg PO DAILY #30 tablet Continue Pregabalin [Lyrica] 50 mg PO BID Atorvastatin Calcium [Lipitor] 40 mg PO HS traZODone HCL [Desyrel] 50 mg PO HS Thiamine [Vitamin B-1] 100 mg PO DAILY@1200 30 Days #30 tab Docusate [Colace] 100 mg PO BID 30 Days #60 capsule Tamsulosin HCl [Flomax] 0.4 mg PO DAILY 30 Days #30 capsule Multivitamins, Thera [Multivitamin (formulary)] 1 tab PO DAILY@1200 Metoprolol Tartrate [Lopressor] 75 mg PO BID Clopidogrel [Plavix] 75 mg PO DAILY #90 tab Insulin NPL/Insulin Lispro [humaLOG MIX 75-25 VIAL] 20 unit SQ AC-BID #0 Changed Warfarin [Coumadin] 3 mg PO DAILY #60 tab Discontinued Furosemide [Lasix] 20 mg PO BID Discharge Medication List Atorvastatin Calcium [Lipitor] 40 mg PO HS 06/14/20 [History] Pregabalin [Lyrica] 50 mg PO BID 06/14/20 [History] traZODone HCL [Desyrel] 50 mg PO HS 06/14/20 [History] Docusate [Colace] 100 mg PO BID 30 Days #60 capsule 06/20/20 [Rx] Tamsulosin HCl [Flomax] 0.4 mg PO DAILY 30 Days #30 capsule 06/20/20 [Rx] Thiamine [Vitamin B-1] 100 mg PO DAILY@1200 30 Days #30 tab 06/20/20 [Rx] Metoprolol Tartrate [Lopressor] 75 mg PO BID 08/01/20 [History] Multivitamins, Thera [Multivitamin (formulary)] 1 tab PO DAILY@1200 08/01/20 [History] Clopidogrel [Plavix] 75 mg PO DAILY #90 tab 08/09/20 [Rx] Insulin NPL/Insulin Lispro [humaLOG MIX 75-25 VIAL] 20 unit SQ AC-BID #0 08/09/20 [Rx] Citalopram Hydrobromide [Citalopram HBr] 10 mg PO DAILY #30 tablet 08/23/20 [Rx] Furosemide [Lasix] 40 mg PO BID@0900,1600 #60 tab 08/23/20 [Rx] Nitroglycerin Sl Tabs [Nitrostat] 0.4 mg SUBLINGUAL Q5M PRN #30 tab 08/23/20 [Rx] Warfarin [Coumadin] 3 mg PO DAILY #60 tab 08/23/20 [Rx] lisinopriL [Zestril] 5 mg PO DAILY #30 tab 08/23/20 [Rx] Follow up Appointment(s)/Referral(s): [facility], [NON-STAFF] - Shaheen Wan DO [Primary Care Provider] - 3 Days Ambulatory/Diagnostic Orders: Basic Metabolic Panel [LAB.AMB] Time Frame: 3 Days, Location: None Selected Prothrombin Time INR [LAB.AMB] Time Frame: 3 Days, Location: None Selected Discharge Disposition: HOME WITH HOME HEALTH SERVICES
[2020-08-23 11:56] VITALS: BP 93/55; PULSE 68
[2020-08-23] MEDS: MULTIVITAMINS, THERA 1 EACH TAB PO SCH (11:56)
[2020-08-23] MEDS: THIAMINE 100 MG TAB PO SCH (11:56)
--- NOTE | 2020-08-23 14:16 | P.PN ---
Subjective Progress Note Date: 08/23/20 HISTORY OF PRESENT ILLNESS: 08/20/2020 This is a pleasant 69-year-old male past medical history significant for hypertension, hyperlipidemia, diabetes mellitus, COPD, congestive heart failure, ischemic cardiomyopathy, coronary artery disease with prior PCI. Patient follows in the office with Dr. Mckenzie. We have been asked to consult patient for CHF and A. fib. Patient was seen in the emergency department. He admits to episodes of shortness breath over the last few days and some lower extremity edema. He was recently seen in July 2020 for new onset of atrial fibrillation and was placed on Coumadin. He has a prior history of PCI with [place] of the proximal and mid LAD in February 2020. At the time his ejection fraction was 20-25% and on repeat echo his ejection fraction had improved to 40%. He does have CK D and he states his Lasix was discontinued by nephrology outpatient recently. He admits he did have a little bit of chest pain since coming to the hospital. His troponins were mildly elevated at 0.057, 0.053, 0.043. His INR was elevated at 6.4. He denies any hematochezia or melena. His liver enzymes were also elevated at 150 and 294. Patient menses shortness breath has much improved after being placed on a Cardizem drip with mild improvement in his heart rates 08/21/2020 Patient examined this morning at the bedside. Patient denies chest pain or pressure. He reports improvement in his shortness of breath. He currently denies shortness of breath at rest. He reports improvement in his lower extremity edema. He remains in atrial fibrillation with controlled ventricular rates. IV Cardizem has been discontinued. INR 3.7 today. Creatinine 1.38. 08/22/2020 Patient examined this morning. He is sitting up in the chair. He denies chest pain or pressure. He reports improvement in his shortness of breath. BUN 45. Creatinine 1.30. He remains on IV Lasix. Coumadin remains on hold. 08/23/2020 Patient examined this morning at the bedside. Patient denies chest pain or pressure. Denies shortness of breath. He reports improvement in his lower extremity edema. Vital signs stable. INR 2.1 PHYSICAL EXAM: VITAL SIGNS: Reviewed. GENERAL: Well-developed in no acute distress. NECK: Supple. No JVD or thyromegaly LUNGS: Respirations even and unlabored. Lungs essentially clear to auscultation bilaterally. HEART: Irregular rate and rhythm. S1 and S2 heard. EXTREMITIES: Normal range of motion. No clubbing or cyanosis. Peripheral pulses intact. 1+ bilateral lower extremity edema ASSESSMENT: 1. Acute on chronic systolic heart failure, prior ejection fraction 40% 2. Ischemic cardiomyopathy originally EF 20-25% improved to 40% status post PCI in February 2020 3. Coronary artery disease status post PCI to his LAD in February 2020 4. Paroxysmal atrial fibrillation 5. Chronic kidney disease 6. Supratheraputic INR 7. Anemia 8. Atypical chest pain 9. Mildly elevated troponins 10. Diabetes mellitus PLAN: Continue current cardiac medications Continue oral Lasix Monitor kidney function Daily weight Accurate I&O Continue telemetry monitoring Resume Coumadin tonight. 2 mg. Recheck INR in a.m. Further recommendations pending patient course Nurse practitioner note has been reviewed by physician. Signing provider agrees with the documented findings, assessment, and plan of care. Objective - Vital Signs Vital signs: Vital Signs Temp 97.9 F 08/23/20 11:54 Pulse 68 08/23/20 13:37 Resp 16 08/23/20 13:37 BP 93/55 08/23/20 11:54 Pulse Ox 97 08/23/20 11:54 Intake & Output 08/22/20 08/23/20 08/23/20 18:59 06:59 18:59 Intake Total 375 240 Output Total 450 610 600 Balance -75 -610 -360 Weight 98.5 kg 98.8 kg Intake: Oral 375 240 Output: Urine 450 610 600 Other: # Voids 2 - Labs CBC & Chem 7: 08/21/20 08:01 08/23/20 06:47 Labs: Abnormal Lab Results - Last 24 Hours (Table) 08/22/20 08/22/20 08/23/20 Range/Units 16:54 20:16 06:47 PT (9.0-12.0) sec INR (<1.2) Sodium 134 L (137-145) mmol/L BUN 46 H (9-20) mg/dL Creatinine 1.33 H (0.66-1.25) mg/dL POC Glucose (mg/dL) 187 H 302 H (75-99) mg/dL 08/23/20 08/23/20 Range/Units 06:47 07:19 PT 20.4 H (9.0-12.0) sec INR 2.1 H (<1.2) Sodium (137-145) mmol/L BUN (9-20) mg/dL Creatinine (0.66-1.25) mg/dL POC Glucose (mg/dL) 129 H (75-99) mg/dL Microbiology - Last 24 Hours (Table) 08/21/20 08:08 Blood Culture - Preliminary Blood No Growth after 48 hours
[2020-08-23 17:26] LABS: Glucose,Whole Blood 166 mg/dL (75-99)
[2020-08-23] MEDS ORDERED: WARFARIN 2 MG TAB PO ONE (18:00)
== END 2020-08-23 17:44 | disposition home health service (06) | DRG 291 ==
LOC: EC 00:34 → 3SCARD 01:58
PROVIDERS: ADMIT Hospitalist; ATTEND Hospitalist
DX: I13.0 Hypertensive heart and chronic kidney disease with heart failure and stage 1 through stage 4 chronic kidney disease, or unspecified chronic kidney disease (principal); I50.23 Acute on chronic systolic (congestive) heart failure; Z79.02 Long term (current) use of antithrombotics/antiplatelets; Z79.4 Long term (current) use of insulin; Z79.01 Long term (current) use of anticoagulants; Z88.8 Allergy status to other drugs, medicaments and biological substances; I25.10 Atherosclerotic heart disease of native coronary artery without angina pectoris; E78.5 Hyperlipidemia, unspecified; I25.2 Old myocardial infarction; Z87.891 Personal history of nicotine dependence; J44.9 Chronic obstructive pulmonary disease, unspecified; I25.5 Ischemic cardiomyopathy; Z98.61 Coronary angioplasty status; R74.8 Abnormal levels of other serum enzymes; Z79.82 Long term (current) use of aspirin; I48.0 Paroxysmal atrial fibrillation; N18.9 Chronic kidney disease, unspecified; R07.89 Other chest pain; D64.9 Anemia, unspecified; E11.22 Type 2 diabetes mellitus with diabetic chronic kidney disease; F12.90 Cannabis use, unspecified, uncomplicated; T45.515A Adverse effect of anticoagulants, initial encounter; R79.1 Abnormal coagulation profile; L89.620 Pressure ulcer of left heel, unstageable; L89.890 Pressure ulcer of other site, unstageable; L89.611 Pressure ulcer of right heel, stage 1; E11.621 Type 2 diabetes mellitus with foot ulcer; Z20.828 Contact with and (suspected) exposure to other viral communicable diseases
CPT/HCPCS: 36415; 71046; 80048; 80053; 80061; 80076; 83605; 83735; 83880; 84100; 84484; 85025; 85610; 85730; 87040; 87635; 93005

== ENCOUNTER 2020-08-28 04:17 | Emergency (ER) | payer MEDICARE ==
[2020-08-28 04:26] LABS: Glucose,Whole Blood 77 mg/dL (75-99)
[2020-08-28 05:23] LABS: Glucose,Whole Blood 67 mg/dL (75-99)
[2020-08-28 05:32] VITALS: RESP 20
[2020-08-28 05:37] LABS: Basophils % (A) 0 %; Eosinophils # (A) 0.3 k/uL (0-0.7); Eosinophils % (A) 4 %; HCT 28.2 % (39.0-53.0); Hypochromasia Slight; Lymphocytes # (A) 0.6 k/uL (1.0-4.8); Lymphocytes % (A) 8 %; MCH 30.3 pg (25.0-35.0); MCHC 32.1 g/dL (31.0-37.0); MCV 94.5 fL (80.0-100.0); Mean Platelet Volume 8.6; Monocytes # (A) 0.5 k/uL (0-1.0); Monocytes % (A) 6 %; Neutrophils # (A) 6.1 k/uL (1.3-7.7); Neutrophils % (A) 82 %; Platelet Count 171 k/uL (150-450); RBC 2.98 m/uL (4.30-5.90); RDW 15.1 % (11.5-15.5); WBC 7.5 k/uL (3.8-10.6)
[2020-08-28 05:57] LABS: Calcium 8.8 mg/dL (8.4-10.2); Potassium 3.8 mmol/L (3.5-5.1)
[2020-08-28 06:39] LABS: Glucose,Whole Blood 129 mg/dL (75-99)
--- NOTE | 2020-08-28 06:43 | ED ---
General Adult HPI - General Chief complaint: Recheck/Abnormal Lab/Rx Stated complaint: Diabetic issues Time Seen by Provider: 08/28/20 04:51 Source: EMS Mode of arrival: EMS Limitations: no limitations - History of Present Illness Initial comments: Patient's 69-year-old man brought by ambulance to be evaluated for hypoglycemia. The patient's had called the ambulance after he had become confused and sweaty. EMS arrived and found that his blood sugar was low. The patient does recall that his blood sugar was around 40 and he was going to attempt to eat and then he does not recall eating until coming aware when EMS people were transporting him to the hospital. Patient denies any injury. He denies any symptoms of infection. He states that he is feeling well now and wants go home. Onset/Timin -: hour(s) Severity scale (1-10): 0 Consistency: constant Improves with: none Worsens with: none Associated Symptoms: confusion, diaphoresis Treatments Prior to Arrival: none - Related Data Home Medications Medication Instructions Recorded Confirmed Atorvastatin Calcium [Lipitor] 40 mg PO HS 06/14/20 08/20/20 Pregabalin [Lyrica] 50 mg PO BID 06/14/20 08/20/20 traZODone HCL [Desyrel] 50 mg PO HS 06/14/20 08/20/20 Metoprolol Tartrate [Lopressor] 75 mg PO BID 08/01/20 08/20/20 Multivitamins, Thera [Multivitamin 1 tab PO DAILY@1200 08/01/20 08/20/20 (formulary)] Previous Rx's Medication Instructions Recorded Docusate [Colace] 100 mg PO BID 30 Days #60 capsule 06/20/20 Tamsulosin HCl [Flomax] 0.4 mg PO DAILY 30 Days #30 capsule 06/20/20 Thiamine [Vitamin B-1] 100 mg PO DAILY@1200 30 Days #30 06/20/20 tab Clopidogrel [Plavix] 75 mg PO DAILY #90 tab 08/09/20 Insulin NPL/Insulin Lispro 20 unit SQ AC-BID #0 08/09/20 [humaLOG MIX 75-25 VIAL] Citalopram Hydrobromide 10 mg PO DAILY #30 tablet 08/23/20 [Citalopram HBr] Furosemide [Lasix] 40 mg PO BID@0900,1600 #60 tab 08/23/20 Nitroglycerin Sl Tabs [Nitrostat] 0.4 mg SUBLINGUAL Q5M PRN #30 tab 08/23/20 Warfarin [Coumadin] 3 mg PO DAILY #60 tab 08/23/20 lisinopriL [Zestril] 5 mg PO DAILY #30 tab 08/23/20 Allergies Allergy/AdvReac Type Severity Reaction Status Date / Time tramadol [From Ultram] Allergy Itching Verified 08/20/20 08:14 Review of Systems ROS Statement: Those systems with pertinent positive or pertinent negative responses have been documented in the HPI. ROS Other: All systems not noted in ROS Statement are negative. Constitutional: Denies: fever, chills Respiratory: Denies: cough, dyspnea Cardiovascular: Denies: chest pain, palpitations Gastrointestinal: Denies: abdominal pain, vomiting, diarrhea Genitourinary: Denies: dysuria Musculoskeletal: Denies: back pain Skin: Denies: rash Neurological: Denies: headache, weakness, numbness Past Medical History Past Medical History: Coronary Artery Disease (CAD), Diabetes Mellitus, Hyperlipidemia, Hypertension, Myocardial Infarction ([place]) Additional Past Medical History / Comment(s): pancreatitis, hepatitis Last Myocardial Infarction Date:: unknown History of Any Multi-Drug Resistant Organisms: None Reported Past Surgical History: Back Surgery, Heart Catheterization With Stent, Orthopedic Surgery Additional Past Surgical History / Comment(s): kushal knee, Past Anesthesia/Blood Transfusion Reactions: No Reported Reaction Date of Last Stent Placement:: unknown Past Psychological History: No Psychological Hx Reported Smoking Status: Former smoker Past Alcohol Use History: None Reported Past Drug Use History: Marijuana - Past Family History Father History Unknown: Yes Family Medical History: Myocardial Infarction ([place]) General Exam Limitations: no limitations General appearance: alert, in no apparent distress Head exam: Present: atraumatic, normocephalic Eye exam: Present: normal appearance Neck exam: Present: normal inspection, full ROM. Absent: meningismus Respiratory exam: Present: normal lung sounds bilaterally. Absent: respiratory distress, wheezes, rales, rhonchi, stridor Cardiovascular Exam: Present: regular rate, normal rhythm, normal heart sounds. Absent: systolic murmur, diastolic murmur, rubs, gallop GI/Abdominal exam: Present: soft. Absent: distended, tenderness, guarding, rebound, rigid, mass Extremities exam: Present: normal inspection, normal capillary refill. Absent: pedal edema, calf tenderness Back exam: Present: normal inspection. Absent: CVA tenderness (R), CVA tenderness (L) Neurological exam: Present: alert, oriented X3. Absent: motor sensory deficit Skin exam: Present: warm, dry, intact, normal color. Absent: rash Course Vital Signs 08/28/20 08/28/20 08/28/20 04:20 05:25 06:40 Temperature 94.2 F L 97.5 F L Pulse Rate 75 74 87 Respiratory 18 20 20 Rate Blood Pressure 104/81 112/74 102/67 O2 Sat by Pulse 98 99 98 Oximetry Medical Decision Making - Medical Decision Making 's patient is a 69-year-old man brought by ambulance after he developed hypoglycemia at home. Please note that his initial blood glucose was prior to him being giving anything here. The patient did eat and then is observed and his blood sugar continued to be acceptable here and he desired to go home and is discharged. - Lab Data Result diagrams: 08/28/20 05:27 08/28/20 05:27 Lab Results 08/28/20 08/28/20 08/28/20 Range/Units 04:25 05:22 05:27 WBC 7.5 (3.8-10.6) k/uL RBC 2.98 L (4.30-5.90) m/uL Hgb 9.0 L (13.0-17.5) gm/dL Hct 28.2 L (39.0-53.0) % MCV 94.5 (80.0-100.0) fL MCH 30.3 (25.0-35.0) pg MCHC 32.1 (31.0-37.0) g/dL RDW 15.1 (11.5-15.5) % Plt Count 171 (150-450) k/uL MPV 8.6 Neutrophils % 82 % Lymphocytes % 8 % Monocytes % 6 % Eosinophils % 4 % Basophils % 0 % Neutrophils # 6.1 (1.3-7.7) k/uL Lymphocytes # 0.6 L (1.0-4.8) k/uL Monocytes # 0.5 (0-1.0) k/uL Eosinophils # 0.3 (0-0.7) k/uL Basophils # 0.0 (0-0.2) k/uL Hypochromasia Slight Sodium (137-145) mmol/L Potassium (3.5-5.1) mmol/L Chloride (98-107) mmol/L Carbon Dioxide (22-30) mmol/L Anion Gap mmol/L BUN (9-20) mg/dL Creatinine (0.66-1.25) mg/dL Est GFR (CKD-EPI)AfAm (>60 ml/min/1.73 sqM) Est GFR (CKD-EPI)NonAf (>60 ml/min/1.73 sqM) Glucose (74-99) mg/dL POC Glucose (mg/dL) 77 67 L (75-99) mg/dL POC Glu [employer] JOANNE Coy, Melody Coy Melody Calcium (8.4-10.2) mg/dL 08/28/20 08/28/20 Range/Units 05:27 06:37 WBC (3.8-10.6) k/uL RBC (4.30-5.90) m/uL Hgb (13.0-17.5) gm/dL Hct (39.0-53.0) % MCV (80.0-100.0) fL MCH (25.0-35.0) pg MCHC (31.0-37.0) g/dL RDW (11.5-15.5) % Plt Count (150-450) k/uL MPV Neutrophils % % Lymphocytes % % Monocytes % % Eosinophils % % Basophils % % Neutrophils # (1.3-7.7) k/uL Lymphocytes # (1.0-4.8) k/uL Monocytes # (0-1.0) k/uL Eosinophils # (0-0.7) k/uL Basophils # (0-0.2) k/uL Hypochromasia Sodium 138 (137-145) mmol/L Potassium 3.8 (3.5-5.1) mmol/L Chloride 103 (98-107) mmol/L Carbon Dioxide 25 (22-30) mmol/L Anion Gap 10 mmol/L BUN 74 H (9-20) mg/dL Creatinine 1.82 H (0.66-1.25) mg/dL Est GFR (CKD-EPI)AfAm 44 (>60 ml/min/1.73 sqM) Est GFR (CKD-EPI)NonAf 38 (>60 ml/min/1.73 sqM) Glucose 39 L* (74-99) mg/dL POC Glucose (mg/dL) 129 H (75-99) mg/dL POC Glu [employer] ID Clara Lang Calcium 8.8 (8.4-10.2) mg/dL Disposition Clinical Impression: Hypoglycemia Disposition: HOME SELF-CARE Condition: Good Instructions (If sedation given, give patient instructions): Hypoglycemia in a Person with Diabetes (ED) Is patient prescribed a controlled substance at d/c from ED?: No Referrals: Shaheen Wna DO [Primary Care Provider] - 1-2 days
[2020-08-28 07:03] VITALS: BP 102/67; PULSE 87; TEMP 97.5
== END 2020-08-28 07:36 | disposition home or self-care (01) ==
LOC: EC 04:17
DX: E11.649 Type 2 diabetes mellitus with hypoglycemia without coma (principal); E78.5 Hyperlipidemia, unspecified; I10 Essential (primary) hypertension; I25.2 Old myocardial infarction; I25.10 Atherosclerotic heart disease of native coronary artery without angina pectoris; Z79.84 Long term (current) use of oral hypoglycemic drugs; Z88.6 Allergy status to analgesic agent; Z79.899 Other long term (current) drug therapy; Z95.5 Presence of coronary angioplasty implant and graft; Z87.891 Personal history of nicotine dependence
CPT/HCPCS: 36415; 80048; 85025; 99285

== ENCOUNTER 2020-11-02 09:18 | Day surgery (SDC) | payer MEDICARE ==
[2020-10-28 13:43] VITALS: BMI 28.7
[~2020-11-02 09:18] MED LIST: LACTATED RINGERS 1,000 ML IV SCH; SODIUM CHLORIDE 0.9% 1,000 ML IV SCH
[2020-11-02 09:54] VITALS: TEMP 97.1
[2020-11-02 10:25] LABS: INR 2.4 (<1.2); Prothrombin Time 23.8 sec (9.0-12.0)
[2020-11-02 10:46] VITALS: RESP 16
[2020-11-02] MEDS ORDERED: PROPOFOL 10 MG/ML 20 ML VIAL IV ONE (11:18)
[2020-11-02 13:00] VITALS: PULSE 68
[2020-11-02 13:57] VITALS: BP 117/70
--- NOTE | 2020-11-02 18:18 | PCN ---
PROCEDURE NOTE ELECTRICAL CARDIOVERSION REPORT: DATE OF SERVICE: 11/02/2020 PROCEDURE: Electrical cardioversion. INDICATION: Persistent atrial fibrillation. CLINICAL INFORMATION: Mr. Levy is a 70-year-old gentleman with history of multivessel disease. He has a total occlusion of RCA, stenting of LAD performed a few months ago. He is in atrial fibrillation, has shortness of breath and palpitations. After starting him on amiodarone, I brought him for electrical cardioversion today. Risks, benefits, options and rationale were explained. PROCEDURE NOTE: Under the influence of [id number] intravenous anesthetic agent with the attendance of the anesthesiologist, a single 250-joule shock was delivered to the chest wall with anterior and posterior patches. Patient converted to sinus rhythm and remained hemodynamically stable and neurologically intact. This was a successful cardioversion. Results were discussed with the patient and his . He will be discharged later on today if he remains stable and is scheduled to see me next week in the office. MMODL / IJN: [id number] /
== END 2020-11-02 13:18 | disposition home or self-care (01) ==
LOC: CATHCVL 09:18
PROVIDERS: ATTEND Internal Medicine Interventional Cardiology
DX: I48.19 Other persistent atrial fibrillation (principal); I25.5 Ischemic cardiomyopathy; I10 Essential (primary) hypertension; E78.5 Hyperlipidemia, unspecified; Z20.822 Contact with and (suspected) exposure to COVID-19; Z95.5 Presence of coronary angioplasty implant and graft; E11.9 Type 2 diabetes mellitus without complications; I25.10 Atherosclerotic heart disease of native coronary artery without angina pectoris; Z79.01 Long term (current) use of anticoagulants; Z79.02 Long term (current) use of antithrombotics/antiplatelets; Z79.4 Long term (current) use of insulin; Z79.899 Other long term (current) drug therapy
CPT/HCPCS: 92960; 85610; 87635; J2704

== ENCOUNTER 2021-10-12 07:39 | Emergency (ER) | payer MEDICARE ==
[2021-10-12 07:45] VITALS: RESP 18; TEMP 97.7
[2021-10-12] MEDS ORDERED: HYDROmorphone 1 MG/ML 1 ML SYRINGE IM STA (08:18)
--- NOTE | 2021-10-12 08:25 | XR ---
EXAMINATION TYPE: XR shoulder complete RT DATE OF EXAM: 10/12/2021 CLINICAL HISTORY: Severe pain after sleeping. TECHNIQUE: Three views of the right shoulder are obtained. COMPARISON: None. FINDINGS: Osseous structures are demineralized. There is no acute fracture/dislocation evident in th e right shoulder. Mild to moderate narrowing at the glenohumeral joint. Acromioclavicular joint is ma intained. There is some calcific density and spurring near the level of the acromion with small well- defined 6 mm ossific fragment, findings could reflect product of old trauma. The visualized ribs are intact and unremarkable. IMPRESSION: There is no acute fracture or dislocation in the right shoulder.
--- NOTE | 2021-10-12 09:07 | ED ---
Extremity Problem HPI - General Chief complaint: Extremity Problem,Nontraumatic Stated complaint: Rt Shoulder Pain Time Seen by Provider: 10/12/21 07:50 Source: patient, RN notes reviewed Mode of arrival: ambulatory Limitations: no limitations - History of Present Illness Initial comments: This a 71-year-old male presents emergency Department with chief complaint of shoulder pain. Patient states has been present for over one month. Patient states is progressively getting worse. No trauma states she has pain rating from his shoulder down his arm no severe head or neck pain no chest pain or shortness of breath he has not taken anything for the pain. He has listed ALLERGIES of tramadol and Tylenol. He states Tylenol since his stomach but he may be confusing this. Patient denies nausea and diarrhea constipation patient states pain is worse with movement better at rest. - Related Data Home Medications Medication Instructions Recorded Confirmed Atorvastatin Calcium [Lipitor] 40 mg PO DAILY 06/14/20 11/02/20 Pregabalin [Lyrica] 50 mg PO TID 06/14/20 11/02/20 Metoprolol Tartrate [Lopressor] 75 mg PO TID 08/01/20 11/02/20 Furosemide [Lasix] 40 mg PO TID 10/28/20 11/02/20 Warfarin Sodium 5 mg PO DAILY 10/28/20 11/02/20 Previous Rx's Medication Instructions Recorded Docusate [Colace] 100 mg PO BID 30 Days #60 capsule 06/20/20 Tamsulosin HCl [Flomax] 0.4 mg PO DAILY 30 Days #30 capsule 06/20/20 Thiamine [Vitamin B-1] 100 mg PO DAILY@1200 30 Days #30 06/20/20 tab Clopidogrel [Plavix] 75 mg PO DAILY #90 tab 08/09/20 Nitroglycerin Sl Tabs [Nitrostat] 0.4 mg SUBLINGUAL Q5M PRN #30 tab 08/23/20 predniSONE 50 mg PO DAILY #5 tab 10/12/21 Allergies Allergy/AdvReac Type Severity Reaction Status Date / Time tramadol [From Ultram] Allergy Itching Verified 10/12/21 07:45 acetaminophen [From Tylenol] AdvReac Itching Verified 10/12/21 07:45 Review of Systems ROS Statement: Those systems with pertinent positive or pertinent negative responses have been documented in the HPI. ROS Other: All systems not noted in ROS Statement are negative. Past Medical History Past Medical History: Coronary Artery Disease (CAD), Diabetes Mellitus, Hyperlipidemia, Hypertension, Myocardial Infarction ([place]) Additional Past Medical History / Comment(s): pancreatitis, hepatitis Last Myocardial Infarction Date:: unknown History of Any Multi-Drug Resistant Organisms: None Reported Past Surgical History: Back Surgery, Heart Catheterization With Stent, Orthopedic Surgery Additional Past Surgical History / Comment(s): kushal knee, Past Anesthesia/Blood Transfusion Reactions: No Reported Reaction Date of Last Stent Placement:: unknown Past Psychological History: No Psychological Hx Reported Smoking Status: Former smoker Past Alcohol Use History: None Reported Past Drug Use History: Marijuana - Past Family History Father History Unknown: Yes Family Medical History: Myocardial Infarction ([place]) General Exam Limitations: no limitations Head exam: Present: atraumatic, normocephalic, normal inspection Eye exam: Present: normal appearance, PERRL, EOMI. Absent: scleral icterus, conjunctival injection, periorbital swelling ENT exam: Present: normal exam, mucous membranes moist Neck exam: Present: normal inspection, full ROM. Absent: tenderness, meningismus, lymphadenopathy Respiratory exam: Present: normal lung sounds bilaterally. Absent: respiratory distress, wheezes, rales, rhonchi, stridor Cardiovascular Exam: Present: regular rate, normal rhythm, normal heart sounds. Absent: systolic murmur, diastolic murmur, rubs, gallop, clicks Extremities exam: Present: other (Right shoulder is pain with palpation worse with active range of motion neurovascular intact no erythema normal color. ) Neurological exam: Present: alert, oriented X3 Course Vital Signs 10/12/21 07:40 Temperature 97.7 F Pulse Rate 101 H Respiratory 18 Rate Blood Pressure 138/69 O2 Sat by Pulse 99 Oximetry Medical Decision Making - Medical Decision Making 71-year-old male presented for right shoulder pain. This may be related to underlying tendinitis versus rotator cuff injury. Patient will follow-up with orthopedics. Patient provided pain relief patient will be discharged in stable condition return parameters were discussed. Disposition Clinical Impression: Right shoulder pain Disposition: HOME SELF-CARE Condition: Stable Instructions (If sedation given, give patient instructions): Shoulder Pain (ED) Additional Instructions: Please return to the Emergency Department if symptoms worsen or any other concerns. Prescriptions: predniSONE 50 mg PO DAILY #5 tab Is patient prescribed a controlled substance at d/c from ED?: No Referrals: Shaheen Wan DO [Primary Care Provider] - 1-2 days Socrates Lanza MD [Medical Doctor] - 1-2 days Time of Disposition: 09:14
[2021-10-12] MEDS ORDERED: ORPHENADRINE 30 MG/ML 2 ML VIAL IM STA (09:32)
[2021-10-12] MEDS ORDERED: ACET/COD 300 MG/30 MG STARTER PACK 6 TAB BTL PO STA (09:32)
[2021-10-12 10:37] VITALS: BP 136/88; PULSE 98
== END 2021-10-12 09:49 | disposition home or self-care (01) ==
LOC: EC 07:39
DX: M25.511 Pain in right shoulder (principal); E11.9 Type 2 diabetes mellitus without complications; I10 Essential (primary) hypertension; E78.5 Hyperlipidemia, unspecified; I25.10 Atherosclerotic heart disease of native coronary artery without angina pectoris; I25.2 Old myocardial infarction; F12.90 Cannabis use, unspecified, uncomplicated; Z79.02 Long term (current) use of antithrombotics/antiplatelets; Z79.01 Long term (current) use of anticoagulants; Z79.899 Other long term (current) drug therapy; Z87.891 Personal history of nicotine dependence; Z88.5 Allergy status to narcotic agent; Z88.6 Allergy status to analgesic agent
CPT/HCPCS: 73030; 99283; 96372 ×2; J2360; J1170

== ENCOUNTER 2021-10-16 11:36 | Inpatient (IN) | payer MEDICARE ==
--- NOTE | 2021-10-16 12:40 | ED ---
General Adult HPI - General Chief complaint: Fall Stated complaint: fall Time Seen by Provider: 10/16/21 12:02 Source: patient, EMS, RN notes reviewed, old records reviewed Mode of arrival: EMS Limitations: no limitations - History of Present Illness Initial comments: This is a 71-year-old male who presents emergency Department complaining of generalized weakness. According to the patient and the he gets so weak he can't stand he usually slowly let himself to the ground. Patient needs help from his to stand up. Patient denies any headache patient denies numbness or weakness. Patient denies any lightheadedness or near syncopal episode. Patient denies any chest pain palpitations difficulty breathing shortness of breath. Patient denies abdominal pain patient denies nausea vomiting diarrhea. Patient states he has no history of anemia. Patient states he has increased swelling to his legs but that is usually related to his diet. Patient states he was eating pizza yesterday and that is increased swelling. Patient denies any dysuria hematuria urinary frequency. - Related Data Home Medications Medication Instructions Recorded Confirmed Pregabalin [Lyrica] 50 mg PO TID 06/14/20 10/16/21 Furosemide [Lasix] 40 mg PO BID 10/28/20 10/16/21 Warfarin Sodium 6 mg PO MOTH 10/28/20 10/16/21 Atorvastatin [Lipitor] 80 mg PO DAILY 10/16/21 10/16/21 Cetirizine HCl [Zyrtec] 10 mg PO DAILY 10/16/21 10/16/21 Warfarin [Coumadin] 3 mg PO SUTUWEFRSA 10/16/21 10/16/21 traMADol HCl [Ultram] 50 mg PO BID PRN 10/16/21 10/16/21 Previous Rx's Medication Instructions Recorded Tamsulosin HCl [Flomax] 0.4 mg PO DAILY 30 Days #30 capsule 06/20/20 Clopidogrel [Plavix] 75 mg PO DAILY #90 tab 08/09/20 Cyclobenzaprine [Flexeril] 10 mg PO TID PRN #15 tab 10/12/21 predniSONE 50 mg PO DAILY #5 tab 10/12/21 Allergies Allergy/AdvReac Type Severity Reaction Status Date / Time tramadol [From Ultram] Allergy Itching Verified 10/16/21 13:30 acetaminophen [From Tylenol] AdvReac Itching Verified 10/16/21 13:30 Review of Systems ROS Statement: Those systems with pertinent positive or pertinent negative responses have been documented in the HPI. ROS Other: All systems not noted in ROS Statement are negative. Past Medical History Past Medical History: Coronary Artery Disease (CAD), Diabetes Mellitus, Hyperlipidemia, Hypertension, Myocardial Infarction (HI) Additional Past Medical History / Comment(s): pancreatitis, hepatitis Last Myocardial Infarction Date:: unknown History of Any Multi-Drug Resistant Organisms: None Reported Past Surgical History: Back Surgery, Heart Catheterization With Stent, Orthopedic Surgery Additional Past Surgical History / Comment(s): kushal knee, Past Anesthesia/Blood Transfusion Reactions: No Reported Reaction Date of Last Stent Placement:: unknown Past Psychological History: No Psychological Hx Reported Smoking Status: Former smoker Past Alcohol Use History: None Reported Past Drug Use History: Marijuana - Past Family History Father History Unknown: Yes Family Medical History: Myocardial Infarction (HI) General Exam - General Exam Comments Initial Comments: GENERAL: Patient is well-developed and well-nourished. Patient is nontoxic and well-hydrated and is in mild distress. ENT: Neck is soft and supple. No significant lymphadenopathy is noted. Oropharynx is clear. Moist mucous membranes. Neck has full range of motion without eliciting any pain. EYES: The sclera were anicteric and conjunctiva were pink and moist. Extraocular movements were intact and pupils were equal round and reactive to light. Eyelids were unremarkable. PULMONARY: Unlabored respirations. Good breath sounds bilaterally. No audible rales rhonchi or wheezing was noted. CARDIOVASCULAR: There is a regular rate and rhythm without any murmurs gallops or rubs. ABDOMEN: Soft and nontender with normal bowel sounds. SKIN: Skin is clear with no lesions or rashes and otherwise unremarkable. NEUROLOGIC: Patient is alert and oriented x3. Cranial nerves II through XII are grossly intact. Motor and sensory are also intact. Normal speech, volume and content. Symmetrical smile. MUSCULOSKELETAL: Normal extremities with adequate strength and full range of motion. 2+ edema bilaterally LYMPHATICS: No significant lymphadenopathy is noted PSYCHIATRIC: Normal psychiatric evaluation. Limitations: no limitations Course Vital Signs 10/16/21 11:40 Temperature 98.3 F Pulse Rate 99 Respiratory 18 Rate Blood Pressure 95/73 O2 Sat by Pulse 99 Oximetry Medical Decision Making - Medical Decision Making EKG shows atrial fibrillation at 81 bpm QRS is 120 QT interval 370 QTC is 408. EKG shows no ST segment elevation or depression. Patient is on Coumadin his INR is 5.7 and he is anemic I will reverse the Coumadin. Patient received vitamin K. I spoke with [facility] significant for the patient admitted the patient I consult to Dr. Gonzalez - Lab Data Result diagrams: 10/16/21 12:28 Lab Results 10/16/21 10/16/21 10/16/21 Range/Units 12:28 12:28 12:28 WBC 8.1 (3.8-10.6) k/uL RBC 2.27 L (4.30-5.90) m/uL Hgb 6.7 L* (13.0-17.5) gm/dL Hct 20.2 L (39.0-53.0) % MCV 88.9 (80.0-100.0) fL MCH 29.4 (25.0-35.0) pg MCHC 33.1 (31.0-37.0) g/dL RDW 15.4 (11.5-15.5) % Plt Count 238 (150-450) k/uL MPV 8.6 Neutrophils % 80 % Lymphocytes % 8 % Monocytes % 6 % Eosinophils % 3 % Basophils % 0 % Neutrophils # 6.4 (1.3-7.7) k/uL Lymphocytes # 0.7 L (1.0-4.8) k/uL Monocytes # 0.5 (0-1.0) k/uL Eosinophils # 0.3 (0-0.7) k/uL Basophils # 0.0 (0-0.2) k/uL PT 57.7 H (9.0-12.0) sec INR 5.7 H* (<1.2) APTT 66.8 H (22.0-30.0) sec Troponin I (0.000-0.034) ng/mL NT-Pro-B Natriuret Pep pg/mL Urine Color Yellow Urine Appearance Clear (Clear) Urine pH 5.5 (5.0-8.0) Ur Specific Pride 1.009 (1.001-1.035) Urine Protein Negative (Negative) Urine Glucose (UA) Negative (Negative) Urine Ketones Negative (Negative) Urine Blood Moderate H (Negative) Urine Nitrite Negative (Negative) Urine Bilirubin Negative (Negative) Urine Urobilinogen <2.0 (<2.0) mg/dL Ur Leukocyte Esterase Negative (Negative) Urine RBC 4 (0-5) /hpf Urine WBC 1 (0-5) /hpf Stool Occult Blood (Negative) Blood Type Recheck Bld Type Recheck Status Crossmatch Spec Expiration Date 10/16/21 10/16/21 10/16/21 Range/Units 12:28 12:28 13:36 WBC (3.8-10.6) k/uL RBC (4.30-5.90) m/uL Hgb (13.0-17.5) gm/dL Hct (39.0-53.0) % MCV (80.0-100.0) fL MCH (25.0-35.0) pg MCHC (31.0-37.0) g/dL RDW (11.5-15.5) % Plt Count (150-450) k/uL MPV Neutrophils % % Lymphocytes % % Monocytes % % Eosinophils % % Basophils % % Neutrophils # (1.3-7.7) k/uL Lymphocytes # (1.0-4.8) k/uL Monocytes # (0-1.0) k/uL Eosinophils # (0-0.7) k/uL Basophils # (0-0.2) k/uL PT (9.0-12.0) sec INR (<1.2) APTT (22.0-30.0) sec Troponin I 0.024 (0.000-0.034) ng/mL NT-Pro-B Natriuret Pep 2860 pg/mL Urine Color Urine Appearance (Clear) Urine pH (5.0-8.0) Ur Specific Pride (1.001-1.035) Urine Protein (Negative) Urine Glucose (UA) (Negative) Urine Ketones (Negative) Urine Blood (Negative) Urine Nitrite (Negative) Urine Bilirubin (Negative) Urine Urobilinogen (<2.0) mg/dL Ur Leukocyte Esterase (Negative) Urine RBC (0-5) /hpf Urine WBC (0-5) /hpf Stool Occult Blood Positive (Negative) Blood Type Recheck Bld Type Recheck Status Crossmatch Spec Expiration Date 10/16/21 Range/Units 13:45 WBC (3.8-10.6) k/uL RBC (4.30-5.90) m/uL Hgb (13.0-17.5) gm/dL Hct (39.0-53.0) % MCV (80.0-100.0) fL MCH (25.0-35.0) pg MCHC (31.0-37.0) g/dL RDW (11.5-15.5) % Plt Count (150-450) k/uL MPV Neutrophils % % Lymphocytes % % Monocytes % % Eosinophils % % Basophils % % Neutrophils # (1.3-7.7) k/uL Lymphocytes # (1.0-4.8) k/uL Monocytes # (0-1.0) k/uL Eosinophils # (0-0.7) k/uL Basophils # (0-0.2) k/uL PT (9.0-12.0) sec INR (<1.2) APTT (22.0-30.0) sec Troponin I (0.000-0.034) ng/mL NT-Pro-B Natriuret Pep pg/mL Urine Color Urine Appearance (Clear) Urine pH (5.0-8.0) Ur Specific Pride (1.001-1.035) Urine Protein (Negative) Urine Glucose (UA) (Negative) Urine Ketones (Negative) Urine Blood (Negative) Urine Nitrite (Negative) Urine Bilirubin (Negative) Urine Urobilinogen (<2.0) mg/dL Ur Leukocyte Esterase (Negative) Urine RBC (0-5) /hpf Urine WBC (0-5) /hpf Stool Occult Blood (Negative) Blood Type Recheck No Previous Record Bld Type Recheck Status CABO Indicated Crossmatch See Detail Spec Expiration Date 10/19/20212344 Critical Care Time Critical Care Time: Yes Total Critical Care Time: 35 Disposition Clinical Impression: Generalized weakness, Anemia, GI bleed, Coagulopathy Disposition: ADMITTED IP TO THIS HOSP Referrals: Shaheen Wan DO [Primary Care Provider] - 1-2 days Time of Disposition: 14:02
[2021-10-16 12:56] LABS: Basophils % (A) 0 %; Eosinophils # (A) 0.3 k/uL (0-0.7); Eosinophils % (A) 3 %; HCT 20.2 % (39.0-53.0); Lymphocytes # (A) 0.7 k/uL (1.0-4.8); Lymphocytes % (A) 8 %; MCH 29.4 pg (25.0-35.0); MCHC 33.1 g/dL (31.0-37.0); MCV 88.9 fL (80.0-100.0); Mean Platelet Volume 8.6; Monocytes # (A) 0.5 k/uL (0-1.0); Monocytes % (A) 6 %; Neutrophils # (A) 6.4 k/uL (1.3-7.7); Neutrophils % (A) 80 %; Platelet Count 238 k/uL (150-450); RBC 2.27 m/uL (4.30-5.90); RDW 15.4 % (11.5-15.5); WBC 8.1 k/uL (3.8-10.6)
[2021-10-16 13:00] LABS: HGB 6.7 gm/dL (13.0-17.5)
[2021-10-16 13:08] LABS: Appearance,Urine Clear (Clear); Bilirubin,Urine Negative (Negative); Blood,Urine Moderate (Negative); Color,Urine Yellow; Glucose,Urine (UA) Negative (Negative); Ketones,Urine Negative (Negative); Leukocyte Esterase,Urine Negative (Negative); Nitrite,Urine Negative (Negative); PH, Urine 5.5 (5.0-8.0); Protein,Urine Negative (Negative); RBC,Urine 4 /hpf (0-5); Specific Gravity,Urine 1.009 (1.001-1.035); Urobilinogen,Urine <2.0 mg/dL (<2.0); WBC,Urine 1 /hpf (0-5)
--- NOTE | 2021-10-16 13:08 | XR ---
EXAMINATION TYPE: XR chest 2V DATE OF EXAM: 10/16/2021 COMPARISON: 08/20/2020 HISTORY: Shortness of breath TECHNIQUE: Frontal and lateral views of the chest are obtained. FINDINGS: Scattered senescent parenchymal changes noted. Hyperinflation compatible with COPD. No evidence for infiltrate. No evidence for atelectasis. Heart size is stable. Mediastinal structures are stable and grossly unremarkable. No evidence for hilar prominence. Degenerative changes dorsal spine. IMPRESSION: 1. No evidence for acute pulmonary disease.
[2021-10-16 13:09] LABS: Prothrombin Time 57.7 sec (9.0-12.0)
[2021-10-16 13:15] LABS: INR 5.7 (<1.2); Partial Thromboplastin Time 66.8 sec (22.0-30.0)
[2021-10-16] MEDS ORDERED: PHYTONADIONE 10 MG in SODIUM CHLORIDE 0.9% 50 ML IVPB STA (13:40)
[2021-10-16] MEDS ORDERED: SODIUM CHLORIDE 0.9% 1,000 ML IV ONE (14:03)
[2021-10-16] MEDS ORDERED: HYDROmorphone 0.5 MG/0.5 ML SYRINGE IVP STA (14:04)
[2021-10-16 14:08] LABS: Albumin 3.5 g/dL (3.5-5.0); Calcium 8.2 mg/dL (8.4-10.2); Magnesium 2.1 mg/dL (1.6-2.3); Potassium 3.5 mmol/L (3.5-5.1); Total Bilirubin 0.8 mg/dL (0.2-1.3); Total Protein 6.7 g/dL (6.3-8.2)
--- NOTE | 2021-10-16 15:03 | P.HPIM ---
History of Present Illness H&P Date: 10/16/21 This is a 71-year-old male who presented to the emergency department with generalized weakness and inability to ambulate. is at the bedside and reports that he has been progressively getting more weak and almost maximum assistance attempting to get up. Patient has a past medical history of coronary artery disease, diabetes mellitus, hyperlipidemia, hypertension, myocardial infarction, pancreatitis frequently, and hepatitis. Patient denies any further alcohol or tobacco use but reports to smoking marijuana daily. Patient is pale on exam and does take Coumadin since his heart attack and his INR level was found to be 5.7, hemoglobin was also found to be 6.7 and patient denies any hist ory of anemia. Patient reports 2 significant right shoulder pain and has a sling on during examination. Patient denies any chest pain, shortness of breath, or fevers. Patient reports to urinating and having bowel movements with no difficulties. Patient reports the passing a lot of gas and denies any blood or dark tarry stools noted. Occult blood testing was positive. Patient is being admitted for possible acute GI bleed, coagulopathy, and generalized weakness. Consult was placed to GI Dr. Nair which is currently pending at this time and will also have PT/OT evaluate the patient. Patient is currently receiving vitamin K to correct the INR of 5.7. Chest x-ray shows no evidence of acute pulmonary disease. Patient reports to recently visiting the ER for right shoulder pain and had an x-ray that showed no acute dislocation or fracture. Patient currently has the sling and was referred to follow-up with orthopedics outpatient. EKG shows atrial fibrillation with a ventricular rate of 81 bpm. Review Of Systems: Constitutional: No fever, no chills, no night sweats. No weight change. Reports extreme weakness, reports fatigue or lethargy. No daytime sleepiness. EENT: No headache. No blurred vision or double vision, no loss of vision. No loss of Hearing, no ringing in the ears, no dizziness. No nasal drainage or congestion. No epistaxis. No sore throat. Lungs: No shortness of breath, cough, no sputum production. No wheezing. Cardiovascular: No chest pain, no lower extremity edema. No palpitations. No paroxysmal nocturnal dyspnea. No orthopnea. No lightheadedness or dizziness. No syncopal episodes. Abdominal: No abdominal pain. No nausea, vomiting. No diarrhea. No constipation. No bloody or tarry stools.. No loss of appetite. Genitourinary: No dysuria, increased frequency, urgency. No urinary retention. Musculoskeletal: No myalgias. No muscle weakness, no gait dysfunction, no frequent falls. No back pain. No neck pain. Reports right shoulder pain Integumentary: No wounds, no lesions. No rash or pruritus. No unusual bruising. No change in hair or nails. Neurologic: No aphasia. No facial droop. No change in mentation. No head injury. No headache. No paralysis. No paresthesia. Psychiatric: No depression. No anxiety. No mood swings. Endocrine: No abnormal blood sugars. No weight change. No excessive sweating or thirst. No cold intolerance. Physical exam: Gen: This is a 71-year-old male awake, alert and oriented 3, well-developed, well-nourished, pale HEENT: Head is atraumatic, normocephalic. Pupils equal, round. Sclerae is anicteric. NECK: Supple. No JVD. No lymphadenopathy. No thyromegaly. LUNGS: Clear to auscultation. No wheezes or rhonchi. No intercostal retractions. HEART: S1, S2 are muffled, irregularly irregular ABDOMEN: Soft. Bowel sounds are present. No masses. No tenderness. EXTREMITIES: No pedal edema. No calf tenderness. Generalized edema to bilateral lower extremities no pitting noted NEUROLOGICAL: Patient is awake, alert and oriented x3. Cranial nerves 2 through 12 are grossly intact. Diffusely weak Assessment: Acute blood loss anemia, secondary to acute GI bleed with positive occult blood, also a possible component of coagulopathy Coagulopathy, patient on Coumadin for atrial fibrillation and INR is 5.7 on admission Paroxysmal atrial fibrillation Hyponatremia Generalized weakness and gait dysfunction Ischemic cardiomyopathy Acute on Chronic congestive heart failure with systolic dysfunction, possible acute exacerbation with a BNP of 2860 Coronary artery disease Chronic kidney disease Right shoulder pain Diabetes mellitus Hypertension Hyperlipidemia Past medical history of myocardial infarction GI prophylaxis DVT prophylaxis Plan: Patient admitted for acute GI bleed with GI services consulted and currently pending at this time. INR was elevated at 5.7 and patient does take Coumadin so recommend holding Coumadin and will give vitamin K to correct the INR. Hemoglobin is also found to be 6.7 and will give 1 unit of PRBC and repeat labs. Patient currently nothing by mouth until evaluated by GI. Patient does have history of congestive heart failure and will monitor closely IV fluids and continue gentle IV hydration as kidney functions are mildly elevated as well. Kidney functions mildly elevated with a creatinine of 1.77 which appears to be almost baseline as compared to his previous admissions. Will follow-up with repeat labs. Patient with extreme weakness and will have PT/OT therapy evaluate the patient. was at the bedside with all questions and concerns answered to the best of our ability. The impression and plan of care has been dictated by Carla Gomez, Nurse Practitioner as directed. Dr. Kirit MD I have performed a history and examination and MDM of this patient, discussed the same with the dictator, and agree with the dictator's assessment and plan as written ,documented as a scribe. Based on total visit time, I have performed more than 50% of the visit. Past Medical History Past Medical History: Coronary Artery Disease (CAD), Diabetes Mellitus, Hyperlipidemia, Hypertension, Myocardial Infarction (CT) Additional Past Medical History / Comment(s): pancreatitis, hepatitis Last Myocardial Infarction Date:: unknown History of Any Multi-Drug Resistant Organisms: None Reported Past Surgical History: Back Surgery, Heart Catheterization With Stent, Orthopedic Surgery Additional Past Surgical History / Comment(s): kushal knee, Past Anesthesia/Blood Transfusion Reactions: No Reported Reaction Date of Last Stent Placement:: unknown Past Psychological History: No Psychological Hx Reported Smoking Status: Former smoker Past Alcohol Use History: None Reported Past Drug Use History: Marijuana - Past Family History Father History Unknown: Yes Family Medical History: Myocardial Infarction (CT) Medications and Allergies Home Medications Medication Instructions Recorded Confirmed Type Pregabalin [Lyrica] 50 mg PO TID 06/14/20 10/16/21 History Tamsulosin HCl [Flomax] 0.4 mg PO DAILY 30 Days #30 capsule 06/20/20 10/16/21 Rx Clopidogrel [Plavix] 75 mg PO DAILY #90 tab 08/09/20 10/16/21 Rx Furosemide [Lasix] 40 mg PO BID 10/28/20 10/16/21 History Warfarin Sodium 6 mg PO MOTH 10/28/20 10/16/21 History Cyclobenzaprine [Flexeril] 10 mg PO TID PRN #15 tab 10/12/21 10/16/21 Rx predniSONE 50 mg PO DAILY #5 tab 10/12/21 10/16/21 Rx Atorvastatin [Lipitor] 80 mg PO DAILY 10/16/21 10/16/21 History Cetirizine HCl [Zyrtec] 10 mg PO DAILY 10/16/21 10/16/21 History Warfarin [Coumadin] 3 mg PO SUTUWEFRSA 10/16/21 10/16/21 History traMADol HCl [Ultram] 50 mg PO BID PRN 10/16/21 10/16/21 History Allergies Allergy/AdvReac Type Severity Reaction Status Date / Time tramadol [From Ultram] Allergy Itching Verified 10/16/21 13:30 acetaminophen [From Tylenol] AdvReac Itching Verified 10/16/21 13:30 Physical Exam Vitals: Vital Signs Temp Pulse Resp BP Pulse Ox 10/16/21 11:40 98.3 F 99 18 95/73 99 Intake and Output 10/15/21 10/16/21 10/16/21 22:59 06:59 14:59 Other: Weight 90.718 kg Results CBC & Chem 7: 10/16/21 12:28 10/16/21 12:28 Labs: Abnormal Lab Results - Last 24 Hours (Table) 10/16/21 10/16/21 10/16/21 Range/Units 12:28 12:28 12:28 RBC 2.27 L (4.30-5.90) m/uL Hgb 6.7 L* (13.0-17.5) gm/dL Hct 20.2 L (39.0-53.0) % Lymphocytes # 0.7 L (1.0-4.8) k/uL PT 57.7 H (9.0-12.0) sec INR 5.7 H* (<1.2) APTT 66.8 H (22.0-30.0) sec Sodium (137-145) mmol/L BUN (9-20) mg/dL Creatinine (0.66-1.25) mg/dL Glucose (74-99) mg/dL Calcium (8.4-10.2) mg/dL Urine Blood Moderate H (Negative) Crossmatch 10/16/21 10/16/21 Range/Units 12:28 13:45 RBC (4.30-5.90) m/uL Hgb (13.0-17.5) gm/dL Hct (39.0-53.0) % Lymphocytes # (1.0-4.8) k/uL PT (9.0-12.0) sec INR (<1.2) APTT (22.0-30.0) sec Sodium 134 L (137-145) mmol/L BUN 59 H (9-20) mg/dL Creatinine 1.77 H (0.66-1.25) mg/dL Glucose 144 H (74-99) mg/dL Calcium 8.2 L (8.4-10.2) mg/dL Urine Blood (Negative) Crossmatch See Detail Assessment and Plan Time with Patient: Greater than 30
[2021-10-16] MEDS: PANTOPRAZOLE 40 MG/10 ML VIAL IVP SCH (19:14)
[2021-10-16] MEDS: HYDROmorphone 0.5 MG/0.5 ML SYRINGE IVP PRN (19:15)
[2021-10-16 21:49] LABS: Basophils % (A) 0 %; Eosinophils # (A) 0.3 k/uL (0-0.7); Eosinophils % (A) 5 %; Hypochromasia Slight; Lymphocytes # (A) 0.5 k/uL (1.0-4.8); Lymphocytes % (A) 10 %; MCH 29.5 pg (25.0-35.0); MCHC 32.3 g/dL (31.0-37.0); MCV 91.3 fL (80.0-100.0); Mean Platelet Volume 8.4; Monocytes # (A) 0.3 k/uL (0-1.0); Monocytes % (A) 5 %; Neutrophils # (A) 4.1 k/uL (1.3-7.7); Neutrophils % (A) 78 %; Platelet Count 184 k/uL (150-450); RBC 2.03 m/uL (4.30-5.90); WBC 5.2 k/uL (3.8-10.6)
[2021-10-16 21:51] LABS: HCT 18.5 % (39.0-53.0)
[2021-10-17] MEDS: HYDROmorphone 0.5 MG/0.5 ML SYRINGE IVP PRN ×3 (04:00→17:29)
[2021-10-17] MEDS: ONDANSETRON 4 MG/2 ML VIAL IVP PRN (07:26)
[2021-10-17] MEDS: PANTOPRAZOLE 40 MG/10 ML VIAL IVP SCH ×2 (07:37→19:45)
[2021-10-17 08:39] LABS: INR 1.2 (<1.2); Prothrombin Time 13.1 sec (9.0-12.0)
[2021-10-17 08:45] LABS: HCT 26.5 % (39.0-53.0); Hypochromasia Slight; MCH 29.6 pg (25.0-35.0); MCV 89.8 fL (80.0-100.0); Mean Platelet Volume 8.2; Platelet Count 250 k/uL (150-450); Poikilocytosis Slight; RBC 2.95 m/uL (4.30-5.90); RDW 15.1 % (11.5-15.5); WBC 7.7 k/uL (3.8-10.6)
[2021-10-17 08:52] LABS: HGB 8.7 gm/dL (13.0-17.5)
[2021-10-17 08:56] LABS: African American GFR (CKD) 65 (>60 ml/min/1.73 sqM); Anion Gap 9 mmol/L; Blood Urea Nitrogen 38 mg/dL (9-20); Calcium 7.9 mg/dL (8.4-10.2); Carbon Dioxide 28 mmol/L (22-30); Chloride 102 mmol/L (98-107); Glucose 115 mg/dL (74-99); Non-African American GFR(CKD) 56 (>60 ml/min/1.73 sqM); Sodium 139 mmol/L (137-145)
[2021-10-17] MEDS ORDERED: Potassium Replacement Protocol 1 EACH MISC MISCELLANE PRN (09:21)
[2021-10-17] MEDS: POTASSIUM CHLORIDE 10 MEQ in WATER FOR INJECTION 1 100ML.BAG IVPB SCH ×6 (10:03→19:44)
--- NOTE | 2021-10-17 14:01 | P.CONS ---
History of Present Illness - Reason for Consult Consult date: 10/17/21 GI bleed Requesting physician: Rakesh Vega - Chief Complaint Right shoulder pain and weakness - History of Present Illness This pleasant 71-year-old white male who presented to the emergency department with complaints of right shoulder pain and weakness with inability to ambulate. Has a past medical history included coronary artery disease, diabetes mellitus, hyperlipidemia, hypertension, myocardial infarction, pancreatitis and hepatitis. Patient takes Coumadin for history of coronary artery disease with stents. He was noted to have INR level of 5.7 on admission with a hemoglobin of 6.7. Occult blood test was positive. Gastroenterology was consulted for possible GI bleed. Patient denies any signs or symptoms of black stool or blood in his stool. No previous history of peptic ulcer disease. Last colonoscopy was remote. Denies any use of NSAIDs. States has a history of hepatitis although he is unsure which hepatitis and does not believe he was treated, diagnosed many years ago.he denies any history of alcohol abuse in the past or present. Isabel jonatan he has a regular marijuana user. Patient is currently denying any abdominal pain, nausea, or vomiting. Denies any shortness breath or chest pain. States he has right shoulder pain and is in a sling. He was given vitamin K 10 mg with a repeat INR 1.2. Hemoglobin had dropped to 6.0 and he received 2 units of PRBC transfusion yesterday. Repeat hemoglobin today 86.7. Review of Systems REVIEW OF SYSTEMS: CARDIOPULMONARY: No chest pain or shortness of breath. Gastrointestinal: No epigastric pain, no associated abdominal pain. No nausea or vomiting. No hematemesis, coffee-ground emesis. No rectal bleeding, or melena. GENITOURINARY: No dysuria or hematuria. MUSCULOSKELETAL: Reports normal range of motion. Right shoulder pain. SKIN: No rashes. No jaundice. ENDOCRINE: No chills, fevers. No excessive weight gain or loss. No polydipsia or polyuria. PSYCHIATRIC: Unremarkable. NEUROLOGY: No change in mental status. Denies dizziness, headache. ENT: Vision unremarkable. CONSTITUTIONAL: No recent weight loss. No fever, chills, night sweats. Weakne ss. Past Medical History Past Medical History: Atrial Fibrillation, Coronary Artery Disease (CAD), Heart Failure, Diabetes Mellitus, Eye Disorder, Hyperlipidemia, Hypertension, Liver Disease, Myocardial Infarction (ID), Osteoarthritis (OA), Sleep Apnea/CPAP/BIPAP Additional Past Medical History / Comment(s): NIDDM type II/diet controlled now, polyneuropathy/legs are worse, ischemic cardiomyopathy, MIs, ID with cardiogenic shock/balloon pump, hepatitis (pt states A,B and C), pancreatitis, RLS, bilateral loewr leg/pedal edema if pt eats certain foods, DEVIKA/no device, chronic back pain, sinus problems, bilateral glaucoma, 10/12/21 R shoulder pain/sling but never followed up with orthopedic physician d/t ride difficulty. Last Myocardial Infarction Date:: unknown History of Any Multi-Drug Resistant Organisms: None Reported Past Surgical History: Back Surgery, Heart Catheterization With Stent, Orthopedic Surgery Additional Past Surgical History / Comment(s): PCI with stents, cardioversion, low back surgery, total R knee arthroplasty, L knee arthroscopy to remove bone chips, L lower leg rodding, L wrist fracture with surgery to repair, bilateral carpal tunnel releases, colonoscopy Past Anesthesia/Blood Transfusion Reactions: No Reported Reaction Date of Last Stent Placement:: unknown Smoking Status: Former smoker - Past Family History Father History Unknown: Yes Family Medical History: Myocardial Infarction (ID) Mother Family Medical History: No Reported History Additional Family Medical History / Comment(s): Mother was healthy and lived to be 92 yrs old. Medications and Allergies Home Medications Medication Instructions Recorded Confirmed Type Pregabalin [Lyrica] 50 mg PO TID 06/14/20 10/16/21 History Tamsulosin HCl [Flomax] 0.4 mg PO DAILY 30 Days #30 capsule 06/20/20 10/16/21 Rx Clopidogrel [Plavix] 75 mg PO DAILY #90 tab 08/09/20 10/16/21 Rx Furosemide [Lasix] 40 mg PO BID 10/28/20 10/16/21 History Warfarin Sodium 6 mg PO MOTH 10/28/20 10/16/21 History Cyclobenzaprine [Flexeril] 10 mg PO TID PRN #15 tab 10/12/21 10/16/21 Rx predniSONE 50 mg PO DAILY #5 tab 10/12/21 10/16/21 Rx Atorvastatin [Lipitor] 80 mg PO DAILY 10/16/21 10/16/21 History Cetirizine HCl [Zyrtec] 10 mg PO DAILY 10/16/21 10/16/21 History Warfarin [Coumadin] 3 mg PO [id number] 10/16/21 10/16/21 History traMADol HCl [Ultram] 50 mg PO BID PRN 10/16/21 10/16/21 History Allergies Allergy/AdvReac Type Severity Reaction Status Date / Time tramadol [From Ultram] Allergy Itching Verified 10/16/21 13:30 acetaminophen [From Tylenol] AdvReac Itching Verified 10/16/21 13:30 Physical Exam Vitals: Vital Signs Temp Pulse Pulse Resp BP BP Pulse Ox 10/17/21 03:51 98.3 F 81 18 123/74 96 10/17/21 00:29 98.7 F 79 18 120/78 97 10/16/21 23:31 98.3 F 81 18 118/79 96 10/16/21 23:01 98.4 F 85 18 108/71 96 10/16/21 22:51 98.6 F 79 18 112/68 97 10/16/21 20:00 98 F 78 18 107/71 100 10/16/21 19:50 18 10/16/21 19:09 98.5 F 81 18 119/77 97 10/16/21 16:57 98.1 F 69 18 105/67 98 10/16/21 16:27 98.3 F 70 18 104/67 98 10/16/21 16:26 98.2 F 76 18 109/80 97 10/16/21 16:17 72 108/67 10/16/21 16:09 98.2 F 72 18 110/66 10/16/21 16:03 18 10/16/21 15:15 93 18 95/71 98 10/16/21 11:40 98.3 F 99 18 95/73 99 Intake and Output 10/16/21 10/17/21 10/17/21 22:59 06:59 14:59 Intake Total 310 1781 Output Total 200 1999 Balance 110 -219 Intake: Intake, IV Titration 900 Amount Sodium Chloride 0.9% 1, 900 000 ml @ 75 mls/hr IV . [id number] ONE Rx#:[id number] Oral 0 Blood Product 310 881 Rc As-1 Unit 310 [id number] Rc Pheresis Irrad As 3 0 281 Unit [id number] Output: Urine 200 2000 Other: Voiding Method Urinal # Voids 1 Weight 90.718 kg General appearance: The patient is alert, oriented, appears in no acute distress. HET: Head is normocephalic and atraumatic. Conjunctiva pink. Sclera anicteric. Neck: Supple without lymphadenopathy. Trachea midline. Heart: S1 S2. Regular rate and rhythm. Lungs: Clear to auscultation. Abdomen: Soft, nontender, nondistended with bowel sounds. No guarding or rigidity. Skin: No rashes. No jaundice. Extremities: Normal skin color and turgor. No pedal edema. Neurological: No focal deficits. Alert and oriented x3. Results CBC & Chem 7: 10/17/21 08:04 10/17/21 08:04 Labs: Abnormal Lab Results - Last 24 Hours (Table) 10/16/21 10/16/21 10/16/21 Range/Units 12:28 12:28 12:28 RBC 2.27 L (4.30-5.90) m/uL Hgb 6.7 L* (13.0-17.5) gm/dL Hct 20.2 L (39.0-53.0) % Lymphocytes # 0.7 L (1.0-4.8) k/uL PT 57.7 H (9.0-12.0) sec INR 5.7 H* (<1.2) APTT 66.8 H (22.0-30.0) sec Sodium (137-145) mmol/L Potassium (3.5-5.1) mmol/L BUN (9-20) mg/dL Creatinine (0.66-1.25) mg/dL Glucose (74-99) mg/dL Calcium (8.4-10.2) mg/dL Urine Blood Moderate H (Negative) Crossmatch 10/16/21 10/16/21 10/16/21 Range/Units 12:28 13:45 21:17 RBC 2.03 L (4.30-5.90) m/uL Hgb 6.0 L* (13.0-17.5) gm/dL Hct 18.5 L* (39.0-53.0) % Lymphocytes # 0.5 L (1.0-4.8) k/uL PT (9.0-12.0) sec INR (<1.2) APTT (22.0-30.0) sec Sodium 134 L (137-145) mmol/L Potassium (3.5-5.1) mmol/L BUN 59 H (9-20) mg/dL Creatinine 1.77 H (0.66-1.25) mg/dL Glucose 144 H (74-99) mg/dL Calcium 8.2 L (8.4-10.2) mg/dL Urine Blood (Negative) Crossmatch See Detail 10/17/21 10/17/21 10/17/21 Range/Units 08:04 08:04 08:04 RBC 2.95 L (4.30-5.90) m/uL Hgb 8.7 L D (13.0-17.5) gm/dL Hct 26.5 L (39.0-53.0) % Lymphocytes # (1.0-4.8) k/uL PT 13.1 H (9.0-12.0) sec INR 1.2 H (<1.2) APTT (22.0-30.0) sec Sodium (137-145) mmol/L Potassium 3.0 L (3.5-5.1) mmol/L BUN 38 H (9-20) mg/dL Creatinine 1.30 H (0.66-1.25) mg/dL Glucose 115 H (74-99) mg/dL Calcium 7.9 L (8.4-10.2) mg/dL Urine Blood (Negative) Crossmatch Chest x-ray: report reviewed (No evidence for acute pulmonary disease) Assessment and Plan (1) Anemia Narrative/Plan: A 71-year-old male with a history of anemia who presented to the emergency department with complaints of weakness and right shoulder pain. Patient was known to have a hemoglobin of 6.7 on admission as well as INR 5.7. Patient currently on Coumadin for coronary artery disease. He was hyper therapeutic and given 10 mg of vitamin K. He was transfused 2 units PRBC transfusion with a repeat hemoglobin of 8.7. Denies any signs or symptoms of GI bleed such as jakob k stool or blood in his stool. Denies any NSAID use or history of peptic ulcer disease. Last colonoscopy is significantly below. Will run iron studies. Patient presenting with a normochromic normocytic anemia. Unknown etiology at this time. I will proceed with the EGD and colonoscopy to rule out GI bleed. Patient did have a positive occult stool. Current Visit: Yes Status: Acute Code(s): D64.9 - ANEMIA, UNSPECIFIED SNOMED Code(s): 874082502 (2) Positive occult stool blood test Current Visit: Yes Status: Acute Code(s): R19.5 - OTHER FECAL ABNORMALITIES SNOMED Code(s): 05058387 (3) Coronary artery disease Current Visit: Yes Status: Acute Code(s): I25.10 - ATHSCL HEART DISEASE OF [place] CORONARY ARTERY W/O ANG PCTRS SNOMED Code(s): 21507187 (4) Coagulopathy Current Visit: Yes Status: Acute Code(s): D68.9 - COAGULATION DEFECT, UNSPECIFIED SNOMED Code(s): 91704422 (5) Atrial fibrillation Current Visit: Yes Status: Acute Code(s): I48.91 - UNSPECIFIED ATRIAL FIBRILLATION SNOMED Code(s): 23486942 Plan: 1. Continue symptomatic and supportive care 2. Clear liquid diet, nothing by mouth after midnight 3. Bowel prep this afternoon 4. Daily CBC, transfuse per protocol 5. Iron studies ordered on pre-transfusion blood 6. Continue to hold Coumadin 7. We'll plan to proceed with EGD and colonoscopy tomorrow. Procedures discussed with patient including risks and benefits. Patient willing to proceed. Thank you for this consultation, we will continue to follow. Dr. Cinthia Conteh I agree with the dictator's note, documented as a scribe by Heather Zacarias.
[2021-10-17] MEDS: PREGABALIN 50 MG CAP PO SCH ×2 (14:32→21:47)
[2021-10-17] MEDS ORDERED: PEG 3350-NA SULF,BICARB,CL/KCL 4,000 ML BOTTLE PO ONE (16:00)
[2021-10-17 19:12] LABS: % Iron Saturation 5.48 (15.00-50.00)
[2021-10-17 22:54] LABS: Hepatitis B Surface Antibody Reactive (Nonreactive)
--- NOTE | 2021-10-17 23:22 | P.PN ---
Subjective Progress Note Date: 10/17/21 This is a 71-year-old male who presented to the emergency department with generalized weakness and inability to ambulate. is at the bedside and reports that he has been progressively getting more weak and almost maximum assistance attempting to get up. Patient has a past medical history of coronary artery disease, diabetes mellitus, hyperlipidemia, hypertension, myocardial infarction, pancreatitis frequently, and hepatitis. Patient denies any further alcohol or tobacco use but reports to smoking marijuana daily. Patient is pale on exam and does take Coumadin since his heart attack and his INR level was found to be 5.7, hemoglobin was also found to be 6.7 and patient denies any history of anemia. Patient reports 2 significant right shoulder pain and has a sling on during examination. Patient denies any chest pain, shortness of breath, or fevers. Patient reports to urinating and having bowel movements with no difficulties. Patient reports the passing a lot of gas and denies any blood or dark tarry stools noted. Occult blood testing was positive. Patient is being admitted for possible acute GI bleed, coagulopathy, and generalized weakness. Consult was placed to GI Dr. Nair which is currently pending at this time and will also have PT/OT evaluate the patient. Patient is currently receiving vitamin K to correct the INR of 5.7. Chest x-ray shows no evidence of acute pulmonary disease. Patient reports to recently visiting the ER for right shoulder pain and had an x-ray that showed no acute dislocation or fracture. Patient currently has the sling and was referred to follow-up with orthopedics outpatient. EKG shows atrial fibrillation with a ventricular rate of 81 bpm. 10/17/2021 Patient is seen this morning status post 2 units of prbc. Hemoglobin is stable at 8.7 today with no active bleeding noted. After discussing further with the patient it was noted he had been taking prednisone daily and patient reports to being given this recently in the ED a few days prior for the right shoulder pain. Patient denies excessive NSAID use. Patient is afebrile. Patient denies chest pain or shortness of breath. Patient to work with physical therapy. Patient being followed by GI and will initiate bowel prep for EGD/colonoscopy with Dr. Conteh tomorrow. Recommend close monitoring of labs. Review Of Systems: Constitutional: No fever, no chills, no night sweats. No weight change. Reports extreme weakness, reports fatigue or lethargy. No daytime sleepiness. Lungs: No shortness of breath, cough, no sputum production. No wheezing. Cardiovascular: No chest pain, no lower extremity edema. No palpitations. No paroxysmal nocturnal dyspnea. No orthopnea. No lightheadedness or dizziness. No syncopal episodes. Abdominal: No abdominal pain. No nausea, vomiting. No diarrhea. No constipation. No bloody or tarry stools.. No loss of appetite. Genitourinary: No dysuria, increased frequency, urgency. No urinary retention. Musculoskeletal: No myalgias. No muscle weakness, no gait dysfunction, no frequent falls. No back pain. No neck pain. Reports right shoulder pain Neurologic: No aphasia. No facial droop. No change in mentation. No head injury. No headache. No paralysis. No paresthesia. Physical exam: Gen: This is a 71-year-old male awake, alert and oriented 3, well-developed, well-nourished, pale HEENT: Head is atraumatic, normocephalic. Pupils equal, round. Sclerae is anicteric. NECK: Supple. No JVD. No lymphadenopathy. No thyromegaly. LUNGS: Clear to auscultation. No wheezes or rhonchi. No intercostal retractions. HEART: S1, S2 are muffled, irregularly irregular ABDOMEN: Soft. Bowel sounds are present. No masses. No tenderness. EXTREMITIES: No pedal edema. No calf tenderness. Generalized edema to bilateral lower extremities no pitting noted NEUROLOGICAL: Patient is awake, alert and oriented x3. Cranial nerves 2 through 12 are grossly intact. Diffusely weak Assessment: Acute blood loss anemia, secondary to acute GI bleed with positive occult blood, also a possible component of coagulopathy Coagulopathy, patient on Coumadin for atrial fibrillation and INR is 5.7 on admission Paroxysmal atrial fibrillation Hyponatremia Generalized weakness and gait dysfunction Ischemic cardiomyopathy Acute on Chronic congestive heart failure with systolic dysfunction, possible acute exacerbation with a BNP of 2860 Coronary artery disease Chronic kidney disease Right shoulder pain Diabetes mellitus Hypertension Hyperlipidemia Past medical history of myocardial infarction GI prophylaxis DVT prophylaxis Plan: Patient admitted for acute GI bleed with GI services consulted and ordered iron studies and planning on EGD/colonoscopy and will start prep today. INR was corrected with vitamin K INR today is 1.2. Hemoglobin is also found to be 8.7 today after 2 units of PRBC. Kidney functions mildly elevated although improved with some gentle IV hydration. Will dc fluids as patient has CHF. Will follow-up with repeat labs. Patient with extreme weakness and will have PT/OT therapy evaluate the patient. was at the bedside with all questions and concerns answered to the best of our ability. Recommend bowel prep and NPO at midnight. The impression and plan of care has been dictated by Carla Gomez, Nurse Practitioner as directed. Dr. Kirit MD I have performed a history and examination and MDM of this patient, discussed the same with the dictator, and agree with the dictator's assessment and plan as written ,documented as a scribe. Based on total visit time, I have performed more than 50% of the visit. Objective - Vital Signs Vital signs: Vital Signs Temp 98.3 F 10/17/21 03:51 Pulse 81 10/17/21 03:51 Resp 18 10/17/21 03:51 BP 123/74 10/17/21 03:51 Pulse Ox 96 10/17/21 03:51 Intake & Output 10/16/21 10/17/21 10/17/21 18:59 06:59 18:59 Intake Total 0 2091 Output Total 200 2000 Balance -200 91 Weight 90.718 kg Intake: Intake, IV Titration 900 Amount Sodium Chloride 0.9% 1, 900 000 ml @ 75 mls/hr IV . [id number] ONE Rx#:[id number] Oral 0 Blood Product 0 1191 Rc As-1 Unit 0 310 [id number] Rc Pheresis Irrad As 3 281 Unit [id number] Output: Urine 200 2000 Other: Voiding Method Urinal # Voids 1 - Labs CBC & Chem 7: 10/17/21 08:04 10/17/21 08:04 Labs: Abnormal Lab Results - Last 24 Hours (Table) 10/16/21 10/16/21 10/16/21 Range/Units 12:28 12:28 12:28 RBC 2.27 L (4.30-5.90) m/uL Hgb 6.7 L* (13.0-17.5) gm/dL Hct 20.2 L (39.0-53.0) % Lymphocytes # 0.7 L (1.0-4.8) k/uL PT 57.7 H (9.0-12.0) sec INR 5.7 H* (<1.2) APTT 66.8 H (22.0-30.0) sec Sodium (137-145) mmol/L Potassium (3.5-5.1) mmol/L BUN (9-20) mg/dL Creatinine (0.66-1.25) mg/dL Glucose (74-99) mg/dL Calcium (8.4-10.2) mg/dL Urine Blood Moderate H (Negative) Crossmatch 10/16/21 10/16/21 10/16/21 Range/Units 12:28 13:45 21:17 RBC 2.03 L (4.30-5.90) m/uL Hgb 6.0 L* (13.0-17.5) gm/dL Hct 18.5 L* (39.0-53.0) % Lymphocytes # 0.5 L (1.0-4.8) k/uL PT (9.0-12.0) sec INR (<1.2) APTT (22.0-30.0) sec Sodium 134 L (137-145) mmol/L Potassium (3.5-5.1) mmol/L BUN 59 H (9-20) mg/dL Creatinine 1.77 H (0.66-1.25) mg/dL Glucose 144 H (74-99) mg/dL Calcium 8.2 L (8.4-10.2) mg/dL Urine Blood (Negative) Crossmatch See Detail 10/17/21 10/17/21 10/17/21 Range/Units 08:04 08:04 08:04 RBC 2.95 L (4.30-5.90) m/uL Hgb 8.7 L D (13.0-17.5) gm/dL Hct 26.5 L (39.0-53.0) % Lymphocytes # (1.0-4.8) k/uL PT 13.1 H (9.0-12.0) sec INR 1.2 H (<1.2) APTT (22.0-30.0) sec Sodium (137-145) mmol/L Potassium 3.0 L (3.5-5.1) mmol/L BUN 38 H (9-20) mg/dL Creatinine 1.30 H (0.66-1.25) mg/dL Glucose 115 H (74-99) mg/dL Calcium 7.9 L (8.4-10.2) mg/dL Urine Blood (Negative) Crossmatch
[2021-10-18] MEDS: HYDROmorphone 0.5 MG/0.5 ML SYRINGE IVP PRN ×4 (00:11→20:11)
[2021-10-18 03:51] LABS: Hepatitis B Surface Antigen Nonreactive (Nonreactive); Hepatitis C IgG Antibody Reactive (Nonreactive)
[2021-10-18 07:27] LABS: HCT 23.5 % (39.0-53.0); HGB 7.6 gm/dL (13.0-17.5); Hypochromasia Slight; MCH 29.2 pg (25.0-35.0); MCHC 32.2 g/dL (31.0-37.0); MCV 90.8 fL (80.0-100.0); Mean Platelet Volume 7.8; Platelet Count 239 k/uL (150-450); Poikilocytosis Slight; RBC 2.59 m/uL (4.30-5.90); RDW 15.2 % (11.5-15.5); WBC 5.4 k/uL (3.8-10.6)
[2021-10-18 07:42] LABS: African American GFR (CKD) 77 (>60 ml/min/1.73 sqM); Anion Gap 4 mmol/L; Blood Urea Nitrogen 25 mg/dL (9-20); Calcium 7.6 mg/dL (8.4-10.2); Carbon Dioxide 31 mmol/L (22-30); Chloride 104 mmol/L (98-107); Glucose 103 mg/dL (74-99); Non-African American GFR(CKD) 67 (>60 ml/min/1.73 sqM); Potassium 3.4 mmol/L (3.5-5.1); Sodium 139 mmol/L (137-145)
[2021-10-18] MEDS: ATORVASTATIN 80 MG TAB PO SCH (08:12)
[2021-10-18] MEDS: PREGABALIN 50 MG CAP PO SCH ×3 (08:12→20:10)
[2021-10-18] MEDS: TAMSULOSIN 0.4 MG CAP.ER.24H PO SCH (08:12)
[2021-10-18] MEDS: PANTOPRAZOLE 40 MG/10 ML VIAL IVP SCH ×2 (08:12→20:10)
[2021-10-18] MEDS ORDERED: Potassium Replacement Protocol 1 EACH MISC MISCELLANE PRN (09:35)
[2021-10-18] MEDS: POTASSIUM CHLORIDE 10 MEQ in WATER FOR INJECTION 1 100ML.BAG IVPB SCH ×4 (10:38→16:23)
[2021-10-18 11:38] LABS: INR 1.1 (<1.2); Prothrombin Time 12.2 sec (9.0-12.0)
[2021-10-18] MEDS ORDERED: IV FLUID CONTINUATION 700 ML IV ONE (12:54)
[2021-10-18] MEDS ORDERED: LIDOCAINE 2% INJ 20 MG/ML (2 ML VIAL) ONE (12:55)
[2021-10-18] MEDS ORDERED: PROPOFOL 10 MG/ML 20 ML VIAL IV ONE (12:55)
--- NOTE | 2021-10-18 13:14 | P.PCN ---
Date of Procedure: 10/18/21 Procedure(s) Performed: Brief history: Patient is a pleasant 71-year-old white male admitted to the hospital with severe symptomatic anemia. Scheduled for an upper endoscopy as well as colonoscopy as a part of evaluation of severe symptomatic anemia with hemoglobin of 6 g/dL and iron indices consistent with iron deficiency anemia. Procedure performed: Esophagogastroduodenoscopy with the biopsy and cautery Attempted Colonoscopy Preoperative diagnosis: Severe symptomatic anemia Anesthesia: MAC Procedure: After informed consent was obtained from the patient was brought into the endoscopy unit and IV sedation was administered by anesthesia under continuous monitoring. Initially upper endoscopy was done. The Olympus GF 160 video endoscope was inserted inserted into the mouth and esophagus intubated without any difficulty and was gradually advanced into the stomach and duodenum and carefully examined. The bulb and second part of the duodenum appeared normal. there were 2 small nonbleeding angiectasia in the second part of the duodenum that they cauterized using the cold probe. Also biopsies were done from the duodenum to rule out celiac disease. The scope was then withdrawn into the stomach adequately insufflated with air and upon careful examination the antrum and body, cardia and fundus appeared normal. The scope was then withdrawn into the esophagus. The GE junction was located at 40 cm to the incisors. It appeared regular with no erythema erosions or ulcerations. Rest of the esophagus appeared normal. Patient tolerated the procedure well. At this time the patient continued to remain sedation. Initial digital rectal examination was normal. Olympus CF 160 video colonoscope was then inserted into the rectum and gradually advanced to the sigmoid colon and there was solid stool that was encountered and hence the procedure was terminated because of extremely poor prep. Patient tolerated the procedure Impression: 1.Upper endoscopy revealed 2 small nonbleeding duodenal angiectasia status post cautery using a gold probe 2.Colonoscopy was aborted because of extremely poor prep Recommendations: Findings of this examination were discussed with the patient .He was advised to follow with the biopsy results. He'll be rescheduled for a colonoscopy tomorrow
--- NOTE | 2021-10-18 13:38 | P.PN ---
Subjective Progress Note Date: 10/18/21 This is a 71-year-old male who presented to the emergency department with generalized weakness and inability to ambulate. is at the bedside and reports that he has been progressively getting more weak and almost maximum assistance attempting to get up. Patient has a past medical history of coronary artery disease, diabetes mellitus, hyperlipidemia, hypertension, myocardial infarction, pancreatitis frequently, and hepatitis. Patient denies any further alcohol or tobacco use but reports to smoking marijuana daily. Patient is pale on exam and does take Coumadin since his heart attack and his INR level was found to be 5.7, hemoglobin was also found to be 6.7 and patient denies any history of anemia. Patient reports 2 significant right shoulder pain and has a sling on during examination. Patient denies any chest pain, shortness of breath, or fevers. Patient reports to urinating and having bowel movements with no difficulties. Patient reports the passing a lot of gas and denies any blood or dark tarry stools noted. Occult blood testing was positive. Patient is being admitted for possible acute GI bleed, coagulopathy, and generalized weakness. Consult was placed to GI Dr. Nair which is currently pending at this time and will also have PT/OT evaluate the patient. Patient is currently receiving vitamin K to correct the INR of 5.7. Chest x-ray shows no evidence of acute pulmonary disease. Patient reports to recently visiting the ER for right shoulder pain and had an x-ray that showed no acute dislocation or fracture. Patient currently has the sling and was referred to follow-up with orthopedics outpatient. EKG shows atrial fibrillation with a ventricular rate of 81 bpm. 10/17/2021 Patient is seen this morning status post 2 units of prbc. Hemoglobin is stable at 8.7 today with no active bleeding noted. After discussing further with the patient it was noted he had been taking prednisone daily and patient reports to being given this recently in the ED a few days prior for the right shoulder pain. Patient denies excessive NSAID use. Patient is afebrile. Patient denies chest pain or shortness of breath. Patient to work with physical therapy. Patient being followed by GI and will initiate bowel prep for EGD/colonoscopy with Dr. Conteh tomorrow. Recommend close monitoring of labs. 10/18/2021 Patient is seen this morning status post EGD/colonoscopy and reports to undergoing the bowel prep although was a poor prep and colonoscopy was aborted. EGD showed 2 small nonbleeding angiectasia in the second part of the duodenum that was cauterized and also biopsies were obtained in the rest of the upper endoscope appeared normal. Patient will continue with clear liquids and nothing by mouth at midnight an attempt colonoscopy in the morning. Hemoglobin this morning is 7.6 and potassium mildly low at 3.4 will replace per protocol. Creatinine improving at 1.12. Iron studies are low and consistent with possible iron deficiency anemia. GI is following closely. Patient denies any chest pain, shortness of breath, or palpitations. Patient is afebrile. Review of systems: Constitutional: No reports of fatigue, fever, or chills Cardiovascular: No reports of chest pain or palpitations Respiratory: No reports of shortness of breath or cough GI: No reports of nausea, vomiting, or diarrhea : No reports of dysuria or retention Neurovascular: No reports of weakness or numbness All medications have been reviewed Active Medications Atorvastatin Calcium (Atorvastatin 80 Mg Tab) 80 mg PO DAILY [facility] Last Admin: 10/18/21 08:12 Dose: 80 mg Documented by: Hydromorphone HCl (Hydromorphone 0.5 Mg/0.5 Ml Syringe) 0.5 mg IVP Q6HR PRN PRN Reason: Severe Pain Last Admin: 10/18/21 08:27 Dose: 0.5 mg Documented by: Potassium Chloride 10 meq/ IV (Solution) 100 mls @ 100 mls/hr IVPB Q1HR GORDO; Protocol Stop: 10/18/21 13:59 Last Admin: 10/18/21 12:21 Dose: 100 mls/hr Documented by: Miscellaneous Information (Potassium Replacement Protocol 1 Each Misc) 1 each MISCELLANE DAILY PRN; Protocol PRN Reason: Per Protocol Miscellaneous Information (Potassium Replacement Protocol 1 Each Misc) 1 each MISCELLANE DAILY PRN; Protocol PRN Reason: Per Protocol Ondansetron HCl (Ondansetron 4 Mg/2 Ml Vial) 4 mg IVP Q6HR PRN PRN Reason: Nausea And Vomiting Last Admin: 10/17/21 07:26 Dose: 4 mg Documented by: Pantoprazole Sodium (Pantoprazole 40 Mg/10 Ml Vial) 40 mg IVP BID [facility] Last Admin: 10/18/21 08:12 Dose: 40 mg Documented by: Polyethylene Glycol/Electrolytes (Peg 3350-Na Sulf,Bicarb,Cl/Kcl 4,000 Ml Bottle) 4,000 ml PO ONCE ONE Stop: 10/18/21 19:01 Pregabalin (Pregabalin 50 Mg Cap) 50 mg PO TID [facility] Last Admin: 10/18/21 08:12 Dose: 50 mg Documented by: Tamsulosin HCl (Tamsulosin 0.4 Mg Cap.Er.24h) 0.4 mg PO DAILY [facility] Last Admin: 10/18/21 08:12 Dose: 0.4 mg Documented by: Physical exam: Gen: This is a 71-year-old male awake, alert and oriented 3, well-developed, well-nourished, pale HEENT: Head is atraumatic, normocephalic. Pupils equal, round. Sclerae is anicteric. NECK: Supple. No JVD. No lymphadenopathy. No thyromegaly. LUNGS: Diminished breath sounds bilaterally with no wheezes or rhonchi. No intercostal retractions. HEART: S1, S2 are muffled, irregularly irregular ABDOMEN: Soft. Bowel sounds are present. No masses. No tenderness. EXTREMITIES: No pedal edema. No calf tenderness. Generalized edema to bilateral lower extremities no pitting noted NEUROLOGICAL: Patient is awake, alert and oriented x3. Cranial nerves 2 through 12 are grossly intact. Diffusely weak Assessment: Acute blood loss anemia, secondary to acute GI bleed with positive occult blood, also a possible component of coagulopathy Coagulopathy, patient on Coumadin for atrial fibrillation and INR was 5.7 on admission Status post EGD showing 2 small nonbleeding duodenal angiectasia status post ca utery Paroxysmal atrial fibrillation Hyponatremia, improved Generalized weakness and gait dysfunction Ischemic cardiomyopathy Acute on Chronic congestive heart failure with systolic dysfunction, possible acute exacerbation with a BNP of 2860 Coronary artery disease Chronic kidney disease Right shoulder pain Diabetes mellitus Hypertension Hyperlipidemia Past medical history of myocardial infarction GI prophylaxis DVT prophylaxis Plan: Patient admitted for acute GI bleed with GI services following and patient was scheduled for EGD/colonoscopy today. EGD was done although colonoscopy was aborted due to poor prep and will be attempted tomorrow. Patient will be resumed on clear liquid and nothing by mouth at midnight. Hemoglobin is stable currently at 7.6 with no active bleeding noted. Potassium mildly low at 3.4 and will replace per protocol and will follow-up with repeat labs. Continue to hold Coumadin for now and will discuss with surgery about resuming. Patient with extreme weakness and will have PT/OT therapy evaluate the patient. Due to multiple complex medical issues, prognosis is guarded. The impression and plan of care has been dictated by Carla Gomez, Nurse Practitioner as directed. Dr. Mason MD I have performed a history and examination and MDM of this patient, discussed the same with the dictator, and agree with the dictator's assessment and plan as written ,documented as a scribe. Based on total visit time, I have performed more than 50% of the visit. Objective - Vital Signs Vital signs: Vital Signs Temp 98.3 F 10/18/21 04:45 Pulse 87 10/18/21 04:45 Resp 18 10/18/21 04:45 BP 100/66 10/18/21 04:45 Pulse Ox 94 L 10/18/21 04:45 Intake & Output 10/17/21 10/18/21 10/18/21 18:59 06:59 18:59 Intake Total 240 0 Output Total 600 1 Balance -360 0 -1 Intake: Oral 240 0 Output: Urine 600 1 Other: Voiding Method Urinal Urinal # Voids 600 # Bowel Movements 1 - Labs CBC & Chem 7: 10/18/21 06:46 10/18/21 06:46 Labs: Abnormal Lab Results - Last 24 Hours (Table) 10/17/21 10/17/21 10/18/21 Range/Units 08:04 14:32 06:46 RBC 2.59 L (4.30-5.90) m/uL Hgb 7.6 L (13.0-17.5) gm/dL Hct 23.5 L (39.0-53.0) % Potassium (3.5-5.1) mmol/L Carbon Dioxide (22-30) mmol/L BUN (9-20) mg/dL Glucose (74-99) mg/dL Calcium (8.4-10.2) mg/dL Iron 14 L (65-175) ug/dL % Saturation 5.48 L (15.00-50.00) Transferrin 180.0 L (204.0-354.0) mg/dL Hep Bs Antibody Reactive A (Nonreactive) Hep C IgG Ab Reactive A (Nonreactive) 10/18/21 Range/Units 06:46 RBC (4.30-5.90) m/uL Hgb (13.0-17.5) gm/dL Hct (39.0-53.0) % Potassium 3.4 L (3.5-5.1) mmol/L Carbon Dioxide 31 H (22-30) mmol/L BUN 25 H (9-20) mg/dL Glucose 103 H (74-99) mg/dL Calcium 7.6 L (8.4-10.2) mg/dL Iron (65-175) ug/dL % Saturation (15.00-50.00) Transferrin (204.0-354.0) mg/dL Hep Bs Antibody (Nonreactive) Hep C IgG Ab (Nonreactive)
[2021-10-18] MEDS ORDERED: PEG 3350-NA SULF,BICARB,CL/KCL 4,000 ML BOTTLE PO ONE (19:00)
[2021-10-19] MEDS: HYDROmorphone 0.5 MG/0.5 ML SYRINGE IVP PRN ×4 (04:38→23:04)
[2021-10-19 06:02] LABS: HCT 26.1 % (39.0-53.0); HGB 8.5 gm/dL (13.0-17.5); Hypochromasia Slight; MCH 29.2 pg (25.0-35.0); MCHC 32.4 g/dL (31.0-37.0); MCV 90.2 fL (80.0-100.0); Mean Platelet Volume 8.1; Platelet Count 262 k/uL (150-450); Poikilocytosis Slight; RDW 14.7 % (11.5-15.5)
[2021-10-19 06:21] LABS: African American GFR (CKD) 87 (>60 ml/min/1.73 sqM); Anion Gap 4 mmol/L; Blood Urea Nitrogen 15 mg/dL (9-20); Calcium 7.9 mg/dL (8.4-10.2); Carbon Dioxide 31 mmol/L (22-30); Chloride 103 mmol/L (98-107); Glucose 97 mg/dL (74-99); Non-African American GFR(CKD) 75 (>60 ml/min/1.73 sqM); Sodium 138 mmol/L (137-145)
[2021-10-19] MEDS ORDERED: MAGNESIUM CITRATE 296 ML BOTTLE PO STA ×2 (06:37→08:14)
[2021-10-19] MEDS: PANTOPRAZOLE 40 MG/10 ML VIAL IVP SCH ×2 (08:12→20:48)
[2021-10-19] MEDS: TAMSULOSIN 0.4 MG CAP.ER.24H PO SCH (08:12)
[2021-10-19] MEDS: PREGABALIN 50 MG CAP PO SCH ×3 (08:12→20:48)
[2021-10-19] MEDS: ATORVASTATIN 80 MG TAB PO SCH (08:12)
[2021-10-19] MEDS ORDERED: IV FLUID CONTINUATION 500 ML IV ONE (12:41)
[2021-10-19] MEDS ORDERED: PROPOFOL 10 MG/ML 20 ML VIAL IV ONE (12:44)
[2021-10-19] MEDS ORDERED: LIDOCAINE 2% INJ 20 MG/ML (2 ML VIAL) ONE (12:44)
[2021-10-19] MEDS ORDERED: PHENYLEPHRINE-0.9% NACL SYG 1,000 MCG/10 ML SYRINGE ONE (12:44)
[2021-10-19] MEDS ORDERED: SODIUM CHLORIDE 0.9% 500 ML 500 ML IV ONE (13:00)
--- NOTE | 2021-10-19 13:06 | P.PCN ---
Date of Procedure: 10/19/21 Procedure(s) Performed: BRIEF HISTORY: Patient is a 71-year-old pleasant white male admitted hospital with severe symptomatic anemia and hemoglobin of 6 requiring 2 units of PRBC transfusion. He underwent an upper endoscopy yesterday that revealed duodenal angiectasia a that was cauterized. Attempted colonoscopy yesterday but the prep was poor and hence the procedure was terminated and rescheduled for today.. PROCEDURE PERFORMED: Colonoscopy. PREOPERATIVE DIAGNOSIS: Iron deficiency anemia. IV sedation per Anesthesia. PROCEDURE: After informed consent was obtained, the patient, was brought into the endoscopy unit. IV sedation was administered by Anesthesia under continuous monitoring. Digital rectal examination was normal. Initially the Olympus CF-160 flexible video colonoscope was then inserted in the rectum, gradually advanced into the cecum without any difficulty. Careful examination was performed as the scope was gradually being withdrawn. Ileocecal valve and the appendiceal orifice were visualized and appeared normal. Prep was fair.. Mucosa of the cecum, ascending colon, transverse colon, descending colon, sigmoid colon, and rectum appeared normal. Retroflexion was performed in the rectum and no lesions were seen. The patient tolerated the procedure well. IMPRESSION: Normal-appearing colon from rectum to cecum with no evidence of colorectal neoplasia. RECOMMENDATIONS: Findings of this examination were discussed with the patient.Diet will be advanced as tolerated. Start iron supplements..
--- NOTE | 2021-10-19 13:41 | XR ---
EXAMINATION TYPE: XR shoulder complete RT, XR humerus RT DATE OF EXAM: 10/19/2021 CLINICAL HISTORY: Pain after recent fall injury TECHNIQUE: Three views of the right shoulder are obtained. 2 views right humerus. COMPARISON: Right shoulder x-ray October 12, 2021 FINDINGS: Osseous structures are demineralized which is noted to lower radiographic sensitivity. Ther e is now high positioning of the humeral head suggesting rotator cuff tear. No acute displaced fractu re. Possible avulsion type fracture from the lateral aspect of the acromion is not clearly seen on th is study. [id number] narrowing at the acromioclavicular joint redemonstrated. Imaging of right humerus shows no acute displaced fracture. Visualized portion of right elbow joint a ppears within normal limits. Overlying soft tissue is unremarkable. IMPRESSION: There is no acute displaced fracture in the right humerus or shoulder. Advise nonurgent MRI shoulder evaluation if there is clinical suspicion to support radiographic suspicion of rotator c uff tear.
[2021-10-19] MEDS: LACTATED RINGERS 1,000 ML IV SCH (23:05)
--- NOTE | 2021-10-20 04:28 | P.PN ---
Subjective Progress Note Date: 10/19/21 This is a 71-year-old male who presented to the emergency department with generalized weakness and inability to ambulate. is at the bedside and reports that he has been progressively getting more weak and almost maximum assistance attempting to get up. Patient has a past medical history of coronary artery disease, diabetes mellitus, hyperlipidemia, hypertension, myocardial infarction, pancreatitis frequently, and hepatitis. Patient denies any further alcohol or tobacco use but reports to smoking marijuana daily. Patient is pale on exam and does take Coumadin since his heart attack and his INR level was found to be 5.7, hemoglobin was also found to be 6.7 and patient denies any history of anemia. Patient reports 2 significant right shoulder pain and has a sling on during examination. Patient denies any chest pain, shortness of breath, or fevers. Patient reports to urinating and having bowel movements with no difficulties. Patient reports the passing a lot of gas and denies any blood or dark tarry stools noted. Occult blood testing was positive. Patient is being admitted for possible acute GI bleed, coagulopathy, and generalized weakness. Consult was placed to GI Dr. Nair which is currently pending at this time and will also have PT/OT evaluate the patient. Patient is currently receiving vitamin K to correct the INR of 5.7. Chest x-ray shows no evidence of acute pulmonary disease. Patient reports to recently visiting the ER for right shoulder pain and had an x-ray that showed no acute dislocation or fracture. Patient currently has the sling and was referred to follow-up with orthopedics outpatient. EKG shows atrial fibrillation with a ventricular rate of 81 bpm. 10/17/2021 Patient is seen this morning status post 2 units of prbc. Hemoglobin is stable at 8.7 today with no active bleeding noted. After discussing further with the patient it was noted he had been taking prednisone daily and patient reports to being given this recently in the ED a few days prior for the right shoulder pain. Patient denies excessive NSAID use. Patient is afebrile. Patient denies chest pain or shortness of breath. Patient to work with physical therapy. Patient being followed by GI and will initiate bowel prep for EGD/colonoscopy with Dr. Conteh tomorrow. Recommend close monitoring of labs. 10/18/2021 Patient is seen this morning status post EGD/colonoscopy and reports to undergoing the bowel prep although was a poor prep and colonoscopy was aborted. EGD showed 2 small nonbleeding angiectasia in the second part of the duodenum that was cauterized and also biopsies were obtained in the rest of the upper endoscope appeared normal. Patient will continue with clear liquids and nothing by mouth at midnight an attempt colonoscopy in the morning. Hemoglobin this morning is 7.6 and potassium mildly low at 3.4 will replace per protocol. Creatinine improving at 1.12. Iron studies are low and consistent with possible iron deficiency anemia. GI is following closely. Patient denies any chest pain, shortness of breath, or palpitations. Patient is afebrile. 10/19/2021 Patient is evaluated today and is scheduled for colonoscopy today. Hemoglobin is stable with no active bleeding noted. Patient was evaluated by PT/OT therapy and recommending ECF although patient is refusing. Patient continues to be weak. Patient continues with right shoulder and upper arm pain status post fall a few days prior to admission and was to follow up with ortho outpatient although became more weak and unable to ambulate and was admitted for weakness and anemia. Will consult ortho and appreciate input and recommendations. Will await colonoscopy results and discuss with GI about resuming the coumadin. Review of systems: Constitutional: No reports of fatigue, fever, or chills Cardiovascular: No reports of chest pain or palpitations Respiratory: No reports of shortness of breath or cough GI: No reports of nausea, vomiting, or diarrhea : No reports of dysuria or retention Neurovascular: reports of generalized weakness and right arm pain All medications have been reviewed Active Medications Atorvastatin Calcium (Atorvastatin 80 Mg Tab) 80 mg PO DAILY [facility] Last Admin: 10/19/21 08:12 Dose: 80 mg Documented by: Hydromorphone HCl (Hydromorphone 0.5 Mg/0.5 Ml Syringe) 0.5 mg IVP Q6HR PRN PRN Reason: Severe Pain Last Admin: 10/19/21 23:04 Dose: 0.5 mg Documented by: Lactated Ringer's (Lactated Ringers) 1,000 mls @ 20 mls/hr IV .Q24H [facility] Last Admin: 10/19/21 23:05 Dose: Not Given Documented by: Miscellaneous Information (Potassium Replacement Protocol 1 Each Misc) 1 each MISCELLANE DAILY PRN; Protocol PRN Reason: Per Protocol Ondansetron HCl (Ondansetron 4 Mg/2 Ml Vial) 4 mg IVP Q6HR PRN PRN Reason: Nausea And Vomiting Last Admin: 10/17/21 07:26 Dose: 4 mg Documented by: Pantoprazole Sodium (Pantoprazole 40 Mg/10 Ml Vial) 40 mg IVP BID [facility] Last Admin: 10/19/21 20:48 Dose: 40 mg Documented by: Pregabalin (Pregabalin 50 Mg Cap) 50 mg PO TID [facility] Last Admin: 10/19/21 20:48 Dose: 50 mg Documented by: Tamsulosin HCl (Tamsulosin 0.4 Mg Cap.Er.24h) 0.4 mg PO DAILY [facility] Last Admin: 10/19/21 08:12 Dose: 0.4 mg Documented by: Physical exam: Gen: This is a 71-year-old male awake, alert and oriented 3, well-developed, well-nourished, pale HEENT: Head is atraumatic, normocephalic. Pupils equal, round. Sclerae is anicteric. NECK: Supple. No JVD. No lymphadenopathy. No thyromegaly. LUNGS: Diminished breath sounds bilaterally with no wheezes or rhonchi. No intercostal retractions. HEART: S1, S2 are muffled, irregularly irregular ABDOMEN: Soft. Bowel sounds are present. No masses. No tenderness. EXTREMITIES: No pedal edema. No calf tenderness. Generalized edema to bilateral lower extremities no pitting noted, right arm sling noted NEUROLOGICAL: Patient is awake, alert and oriented x3. Cranial nerves 2 through 12 are grossly intact. Diffusely weak Assessment: Acute blood loss anemia, secondary to acute GI bleed with positive occult blood, also a possible component of coagulopathy Coagulopathy, patient on Coumadin for atrial fibrillation and INR was 5.7 on admission Status post EGD showing 2 small nonbleeding duodenal angiectasia status post cautery, colonoscopy within normal limits iron deficiency anemia Paroxysmal atrial fibrillation Hyponatremia, improved Generalized weakness and gait dysfunction Ischemic cardiomyopathy Acute on Chronic congestive heart failure with systolic dysfunction, possible acute exacerbation with a BNP of 2860 Coronary artery disease Chronic kidney disease Right shoulder pain status post fall recently Diabetes mellitus Hypertension Hyperlipidemia Past medical history of myocardial infarction GI prophylaxis DVT prophylaxis Plan: Patient admitted for acute GI bleed with GI services following and patient EGD/colonoscopy. EGD was done with cautery to the 2 duodenal angiectasia and colonoscopy was done today after poor prep and aborted yesterday. Colon appeared normal per GI and some biopsies were obtained. Patient will be resumed on diet and will discuss with GI about resuming coumadin. Patient to started on iron supplements. Hemoglobin is stable currently at 8.2 with no active bleeding noted. Continue to hold Coumadin for now and will discuss with surgery about resuming. Patient with extreme weakness and PT/OT evaluated and recommending [facility] and patient is refusing. Will discuss further with case management and hailey ghosh as patient continues to be weak. Patient with continued right upper arm and shoulder pain and will consult orthopedics. Appreciate input and recommendations. Due to multiple complex medical issues, prognosis is guarded. The impression and plan of care has been dictated by Carla Gomez, Nurse Practitioner as directed. Dr. Mason MD I have performed a history and examination and MDM of this patient, discussed the same with the dictator, and agree with the dictator's assessment and plan as written ,documented as a scribe. Based on total visit time, I have performed more than 50% of the visit. Objective - Vital Signs Vital signs: Vital Signs Temp 98.1 F 10/19/21 05:00 Pulse 94 10/19/21 05:00 Resp 20 10/19/21 05:00 BP 126/80 10/19/21 05:00 Pulse Ox 95 10/19/21 05:00 Intake & Output 10/18/21 10/19/21 10/19/21 18:59 06:59 18:59 Intake Total 900 0 Output Total 1 600 Balance 899 -600 Intake: IV 500 Intake, IV Titration 400 Amount Potassium Chloride 10 meq 400 In Water For Injection 1 100ml.bag @ 100 mls/hr IVPB Q1HR GORD[facility] Rx#: [id number] Oral 0 Output: Urine 1 600 Other: Voiding Method Urinal # Voids 600 # Bowel Movements 1 10 - Labs CBC & Chem 7: 10/19/21 05:38 10/19/21 05:38 Labs: Abnormal Lab Results - Last 24 Hours (Table) 10/18/21 10/19/21 10/19/21 Range/Units 11:03 05:38 05:38 RBC 2.90 L (4.30-5.90) m/uL Hgb 8.5 L (13.0-17.5) gm/dL Hct 26.1 L (39.0-53.0) % PT 12.2 H (9.0-12.0) sec Carbon Dioxide 31 H (22-30) mmol/L Calcium 7.9 L (8.4-10.2) mg/dL
[2021-10-20] MEDS: HYDROmorphone 0.5 MG/0.5 ML SYRINGE IVP PRN ×2 (06:15→21:49)
[2021-10-20 06:28] LABS: Basophils % (A) 1 %; Eosinophils # (A) 0.4 k/uL (0-0.7); Eosinophils % (A) 6 %; HCT 26.1 % (39.0-53.0); HGB 8.2 gm/dL (13.0-17.5); Hypochromasia Slight; Lymphocytes # (A) 0.9 k/uL (1.0-4.8); Lymphocytes % (A) 14 %; MCH 28.7 pg (25.0-35.0); MCHC 31.6 g/dL (31.0-37.0); MCV 90.9 fL (80.0-100.0); Monocytes # (A) 0.5 k/uL (0-1.0); Monocytes % (A) 8 %; Neutrophils # (A) 4.6 k/uL (1.3-7.7); Neutrophils % (A) 70 %; Platelet Count 265 k/uL (150-450); Poikilocytosis Slight; RBC 2.87 m/uL (4.30-5.90); RDW 14.7 % (11.5-15.5); WBC 6.7 k/uL (3.8-10.6)
[2021-10-20] MEDS: ATORVASTATIN 80 MG TAB PO SCH (08:43)
[2021-10-20] MEDS: PANTOPRAZOLE 40 MG/10 ML VIAL IVP SCH ×2 (08:43→21:48)
[2021-10-20] MEDS: PREGABALIN 50 MG CAP PO SCH ×3 (08:44→21:49)
[2021-10-20] MEDS: TAMSULOSIN 0.4 MG CAP.ER.24H PO SCH (08:44)
--- NOTE | 2021-10-20 10:25 | XR ---
EXAMINATION TYPE: XR cervical spine w flex/ext DATE OF EXAM: 10/20/2021 TECHNIQUE: Frontal, lateral, oblique, swimmers, and open mouth view of the cervical spine are obtaine d. Flexion and extension views are also obtained. HISTORY: neck pain, bilateral upper extremity weakness COMPARISON: None FINDINGS: There is severe degenerative disc space narrowing identified at C4-5, C5-6 and C6-7. Ventra l and dorsal spondylosis. There is mild reversal of the normal cervical lordosis centered at C4-5. Al ignment remains stable at flexion, neutral and extension. There is no evidence for fracture or malali gnment. Degenerative change of the cervical apophyseal joints resulting in foraminal encroachment kushal aterally at C3-4 C4-5 and C5-6. IMPRESSION: No acute fracture or dislocation is seen in the cervical spine.
--- NOTE | 2021-10-20 10:35 | P.CNOR ---
History of Present Illness - [facility] Consult date: 10/20/21 Consult reason: joint pain History of present illness: Patient is 71 year old seen at bedside this am in consultation for right shoulder pain. he was admitted through the ED on 10/16/21 for generalized weakness and acute GI bleed. He states that he has had chronic shoulder pain for the past few years which has progressively worsened. He also states that he has had chronic left shoulder pain. He states that he has weakness and difficulty with lifting his upper extremities. He denies constant numbness in his upper extremities. he has had neck pain that has been chronic. He denies recent trauma or injury. He has no other current complaints Review of Systems All systems: negative Constitutional: Denies chills, Denies fever Eyes: denies blurred vision, denies pain Ears, nose, mouth and throat: Denies headache, Denies sore throat Cardiovascular: Denies chest pain, Denies shortness of breath Respiratory: Denies cough Gastrointestinal: Denies abdominal pain, Denies diarrhea, Denies nausea, Denies vomiting Musculoskeletal: Denies myalgias Integumentary: Denies pruritus, Denies rash Neurological: Denies numbness, Denies weakness Psychiatric: Denies anxiety, Denies depression Endocrine: Denies fatigue, Denies weight change Past Medical History Past Medical History: Atrial Fibrillation, Coronary Artery Disease (CAD), Heart Failure, Diabetes Mellitus, Eye Disorder, Hyperlipidemia, Hypertension, Liver Disease, Myocardial Infarction (NH), Osteoarthritis (OA), Sleep Apnea/CPAP/BIPAP Additional Past Medical History / Comment(s): NIDDM type II/diet controlled now, polyneuropathy/legs are worse, ischemic cardiomyopathy, MIs, NH with cardiogenic shock/balloon pump, hepatitis (pt states A,B and C), pancreatitis, RLS, bilateral loewr leg/pedal edema if pt eats certain foods, DEVIKA/no device, chronic back pain, sinus problems, bilateral glaucoma, 10/12/21 R shoulder pain/sling but never followed up with orthopedic physician d/t ride difficulty. Last Myocardial Infarction Date:: unknown History of Any Multi-Drug Resistant Organisms: None Reported Past Surgical History: Back Surgery, Heart Catheterization With Stent, Orthopedic Surgery Additional Past Surgical History / Comment(s): PCI with stents, cardioversion, low back surgery, total R knee arthroplasty, L knee arthroscopy to remove bone chips, L lower leg rodding, L wrist fracture with surgery to repair, bilateral carpal tunnel releases, colonoscopy Past Anesthesia/Blood Transfusion Reactions: No Reported Reaction Date of Last Stent Placement:: unknown Smoking Status: Former smoker - Past Family History Father History Unknown: Yes Family Medical History: Myocardial Infarction (NH) Mother Family Medical History: No Reported History Additional Family Medical History / Comment(s): Mother was healthy and lived to be 92 yrs old. Medications and Allergies Home Medications Medication Instructions Recorded Confirmed Type Pregabalin [Lyrica] 50 mg PO TID 06/14/20 10/16/21 History Tamsulosin HCl [Flomax] 0.4 mg PO DAILY 30 Days #30 capsule 06/20/20 10/16/21 Rx Clopidogrel [Plavix] 75 mg PO DAILY #90 tab 08/09/20 10/16/21 Rx Furosemide [Lasix] 40 mg PO BID 10/28/20 10/16/21 History Warfarin Sodium 6 mg PO MOTH 10/28/20 10/16/21 History Cyclobenzaprine [Flexeril] 10 mg PO TID PRN #15 tab 10/12/21 10/16/21 Rx predniSONE 50 mg PO DAILY #5 tab 10/12/21 10/16/21 Rx Atorvastatin [Lipitor] 80 mg PO DAILY 10/16/21 10/16/21 History Cetirizine HCl [Zyrtec] 10 mg PO DAILY 10/16/21 10/16/21 History Warfarin [Coumadin] 3 mg PO SUTUWEFRSA 10/16/21 10/16/21 History traMADol HCl [Ultram] 50 mg PO BID PRN 10/16/21 10/16/21 History Allergies Allergy/AdvReac Type Severity Reaction Status Date / Time tramadol [From Ultram] Allergy Itching Verified 10/16/21 13:30 acetaminophen [From Tylenol] AdvReac Itching Verified 10/16/21 13:30 Physical Examination Inspection of bilateral shoulders show no deformity. There is a mild effusion at right shoulder. It is not hot to touch. There is no erythema. He has pain with minimal ROM of the right shoulder. He has minimal pain with passive ROM of the left shoulder. He has 2/5 strength at bilateral deltoids. Biceps is 3+ on right and 4/5 on left. Triceps are 4/5 bilaterally. [employer] and intrinsics are 5/5. Sensation to light touch is grossly intact at C5-T1 bilaterally. There is positive Wiley's sign. There is no clonus. Results Xrays of right shoulder show no fracture dislocation. There is high riding humerus. There is OA/DJD at AC and glenohumeral joints Xrays of cervical spine show a kyphotic cervical spine with multilevel DDD/spondylosis. There is a grade 1 anterolisthesis at C2-3. - Labs Labs: Abnormal Lab Results - Last 24 Hours (Table) 10/20/21 Range/Units 05:49 RBC 2.87 L (4.30-5.90) m/uL Hgb 8.2 L (13.0-17.5) gm/dL Hct 26.1 L (39.0-53.0) % Lymphocytes # 0.9 L (1.0-4.8) k/uL H & H 10/16/21 10/16/21 10/17/21 Range/Units 12:28 21:17 08:04 Hgb 6.7 L* 6.0 L* 8.7 L D (13.0-17.5) gm/dL Hct 20.2 L 18.5 L* 26.5 L (39.0-53.0) % 10/18/21 10/19/21 10/20/21 Range/Units 06:46 05:38 05:49 Hgb 7.6 L 8.5 L 8.2 L (13.0-17.5) gm/dL Hct 23.5 L 26.1 L 26.1 L (39.0-53.0) % Coagulation 10/16/21 10/17/21 10/18/21 Range/Units 12:28 08:04 11:03 INR 5.7 H* 1.2 H 1.1 (<1.2) Result Diagrams: 10/20/21 05:49 10/19/21 05:38 - Diagnostic results Shoulder x-ray: report reviewed, image reviewed Cervical AP/lateral x-ray with flexion/extension views: report reviewed, image reviewed Assessment and Plan (1) Right shoulder pain Narrative/Plan: Regarding his right shoulder there are no immediate surgical plans. Suspect he has chronic rotator cuff tear in association with frozen shoulder and DJD. Recommend follow up as outpatient for further evaluation including possible MRI of the shoulder. Further investigation of his cervical spine may be warranted given his bilateral upper extremity weakness, neck pain and xray findings. Would recommend f/u with Dr. Krishnamurthy. Sling is not required but he may use intermit tently for comfort. Recommended ice and physical therapy in the interim. He may do activities as tolerated with upper extremities. Current Visit: No Status: Acute Priority: Medium Code(s): M25.511 - PAIN IN RIGHT SHOULDER SNOMED Code(s): 77250614 Time with Patient: Greater than 30
--- NOTE | 2021-10-20 13:30 | P.PN ---
Subjective Progress Note Date: 10/20/21 Principal diagnosis: Anemia, GI bleed 71-year-old male who presented to emergency department with complaints of right shoulder pain and weakness with inability to ambulate. He has a history of atrial fibrillation on Coumadin. He was noted to have elevated INR of 5.7 on admission with a hemoglobin of 6.7. He seen today for follow-up. He had undergone a EGD on 10/18/2021 that revealed 2 small nonbleeding duodenal angiectasia status post cautery using Gold probe ablation. Colonoscopy was attempted at that time however poor prep. He underwent colonoscopy yesterday with a normal appearing colon. He denies any abdominal pain, nausea or vomiting. Denies any bloody bowel movements or rectal bleeding. Objective - Vital Signs Vital signs: Vital Signs Temp 99.0 F 10/20/21 04:17 Pulse 87 10/20/21 04:17 Resp 16 10/20/21 04:17 BP 128/74 10/20/21 04:17 Pulse Ox 95 10/20/21 04:17 Intake & Output 10/19/21 10/20/21 10/20/21 18:59 06:59 18:59 Intake Total 500 160 Balance 500 160 Intake: IV 150 160 ns@20 160 Oral 350 Other: Voiding Method Urinal Urinal - Exam General appearance: The patient is alert, oriented, appears in no acute distress. HET: Head is normocephalic and atraumatic. Conjunctiva pink. Sclera anicteric. Neck: Supple without lymphadenopathy. Abdomen: Soft, nontender, nondistended with bowel sounds. No guarding or rigidity. Extremities: Normal skin color and turgor. No pedal edema Skin: No rashes, no jaundice Neurological: No focal deficits. Alert and oriented x 3. - Labs CBC & Chem 7: 10/20/21 05:49 10/19/21 05:38 Labs: Abnormal Lab Results - Last 24 Hours (Table) 10/20/21 Range/Units 05:49 RBC 2.87 L (4.30-5.90) m/uL Hgb 8.2 L (13.0-17.5) gm/dL Hct 26.1 L (39.0-53.0) % Lymphocytes # 0.9 L (1.0-4.8) k/uL Assessment and Plan (1) Anemia Narrative/Plan: A 71-year-old male with a history of anemia who presented to the emergency department with complaints of weakness and right shoulder pain. Patient was known to have a hemoglobin of 6.7 on admission as well as INR 5.7. Patient currently on Coumadin for coronary artery disease. He was hyper therapeutic and given 10 mg of vitamin K. He was transfused 2 units PRBC transfusion with a repeat hemoglobin of 8.7. Denies any signs or symptoms of GI bleed such as black stool or blood in his stool. Denies any NSAID use or history of peptic ulcer disease. Last colonoscopy is significantly below. Will run iron studies. Patient presenting with a normochromic normocytic anemia. Unknown etiology at this time. I will proceed with the EGD and colonoscopy to rule out GI bleed. Patient did have a positive occult stool. Patient underwent EGD and colonoscopy. EGD revealed 2 small nonbleeding duodenal angiectasia status post cautery gold probe ablation. Colonoscopy with normal appearing colon. No evidence of bleeding. Current Visit: Yes Status: Acute Code(s): D64.9 - ANEMIA, UNSPECIFIED SNOMED Code(s): 896654324 (2) Positive occult stool blood test Current Visit: Yes Status: Acute Code(s): R19.5 - OTHER FECAL ABNORMALITIES SNOMED Code(s): 69489669 (3) Coronary artery disease Current Visit: Yes Status: Acute Code(s): I25.10 - ATHSCL HEART DISEASE OF [place] CORONARY ARTERY W/O ANG PCTRS SNOMED Code(s): 72819974 (4) Coagulopathy Current Visit: Yes Status: Acute Code(s): D68.9 - COAGULATION DEFECT, UNSPECIFIED SNOMED Code(s): 47695635 (5) Atrial fibrillation Current Visit: Yes Status: Acute Code(s): I48.91 - UNSPECIFIED ATRIAL FIBRILLATION SNOMED Code(s): 98405566 Plan: 1. Continue symptomatic and supportive care 2. Diabetes tolerated 3. Daily CBC, transfuse per protocol 4. Iron studies ordered , consistent with iron deficiency anemia 5. May resume Coumadin 6. IV iron ordered Thank you for this consultation, we will sign off at this time. Dr. Cinthia Conteh I agree with the dictator's note, documented as a scribe by Heather Zacarias.
[2021-10-20] MEDS ORDERED: SODIUM FERRIC GLUCONAT-SUCROSE 125 MG in SODIUM CHLORIDE 0.9% 100 ML IVPB ONE (14:00)
[2021-10-20] MEDS: LACTATED RINGERS 1,000 ML IV SCH (21:43)
--- NOTE | 2021-10-21 04:19 | P.PN ---
Subjective Progress Note Date: 10/20/21 This is a 71-year-old male who presented to the emergency department with generalized weakness and inability to ambulate. is at the bedside and reports that he has been progressively getting more weak and almost maximum assistance attempting to get up. Patient has a past medical history of coronary artery disease, diabetes mellitus, hyperlipidemia, hypertension, myocardial infarction, pancreatitis frequently, and hepatitis. Patient denies any further alcohol or tobacco use but reports to smoking marijuana daily. Patient is pale on exam and does take Coumadin since his heart attack and his INR level was found to be 5.7, hemoglobin was also found to be 6.7 and patient denies any history of anemia. Patient reports 2 significant right shoulder pain and has a sling on during examination. Patient denies any chest pain, shortness of breath, or fevers. Patient reports to urinating and having bowel movements with no difficulties. Patient reports the passing a lot of gas and denies any blood or dark tarry stools noted. Occult blood testing was positive. Patient is being admitted for possible acute GI bleed, coagulopathy, and generalized weakness. Consult was placed to GI Dr. Nair which is currently pending at this time and will also have PT/OT evaluate the patient. Patient is currently receiving vitamin K to correct the INR of 5.7. Chest x-ray shows no evidence of acute pulmonary disease. Patient reports to recently visiting the ER for right shoulder pain and had an x-ray that showed no acute dislocation or fracture. Patient currently has the sling and was referred to follow-up with orthopedics outpatient. EKG shows atrial fibrillation with a ventricular rate of 81 bpm. 10/17/2021 Patient is seen this morning status post 2 units of prbc. Hemoglobin is stable at 8.7 today with no active bleeding noted. After discussing further with the patient it was noted he had been taking prednisone daily and patient reports to being given this recently in the ED a few days prior for the right shoulder pain. Patient denies excessive NSAID use. Patient is afebrile. Patient denies chest pain or shortness of breath. Patient to work with physical therapy. Patient being followed by GI and will initiate bowel prep for EGD/colonoscopy with Dr. Conteh tomorrow. Recommend close monitoring of labs. 10/18/2021 Patient is seen this morning status post EGD/colonoscopy and reports to undergoing the bowel prep although was a poor prep and colonoscopy was aborted. EGD showed 2 small nonbleeding angiectasia in the second part of the duodenum that was cauterized and also biopsies were obtained in the rest of the upper endoscope appeared normal. Patient will continue with clear liquids and nothing by mouth at midnight an attempt colonoscopy in the morning. Hemoglobin this morning is 7.6 and potassium mildly low at 3.4 will replace per protocol. Creatinine improving at 1.12. Iron studies are low and consistent with possible iron deficiency anemia. GI is following closely. Patient denies any chest pain, shortness of breath, or palpitations. Patient is afebrile. 10/19/2021 Patient is evaluated today and is scheduled for colonoscopy today. Hemoglobin is stable with no active bleeding noted. Patient was evaluated by PT/OT therapy and recommending ECF although patient is refusing. Patient continues to be weak. Patient continues with right shoulder and upper arm pain status post fall a few days prior to admission and was to follow up with ortho outpatient although became more weak and unable to ambulate and was admitted for weakness and anemia. Will consult ortho and appreciate input and recommendations. Will await colonoscopy results and discuss with GI about resuming the coumadin. 10/20/2021 Patient is evaluated today and continues with extreme weakness and continued right upper arm and neck pain. Patient being followed by GI and status post egd colonoscopy and ok to resume Coumadin per GI with no active bleeding noted. IV iron ordered for ALISON. Ortho following and has ordered cervical spine xray. Social work following and is agreeable to discuss possible ECF with [facility] liason today. PT following. Patient denies chest pain or palpitations. Patient is afebrile. Patient denies shortness of breath. Hemoglobin is stable at this time. Review of systems: Constitutional: No reports of fatigue, fever, or chills Cardiovascular: No reports of chest pain or palpitations Respiratory: No reports of shortness of breath or cough GI: No reports of nausea, vomiting, or diarrhea : No reports of dysuria or retention Neurovascular: reports of generalized weakness and right arm pain All medications have been reviewed Active Medications Atorvastatin Calcium (Atorvastatin 80 Mg Tab) 80 mg PO DAILY GORDO Last Admin: 10/20/21 08:43 Dose: 80 mg Documented by: Hydromorphone HCl (Hydromorphone 0.5 Mg/0.5 Ml Syringe) 0.5 mg IVP Q6HR PRN PRN Reason: Severe Pain Last Admin: 10/20/21 21:49 Dose: 0.5 mg Documented by: Lactated Ringer's (Lactated Ringers) 1,000 mls @ 20 mls/hr IV .Q24H PENDING SALE TO [facility] Last Admin: 10/20/21 21:43 Dose: Not Given Documented by: Miscellaneous Information (Potassium Replacement Protocol 1 Each Misc) 1 each MISCELLANE DAILY PRN; Protocol PRN Reason: Per Protocol Miscellaneous Information (Warfarin Per Pharmacy) 1 each MISCELLANE DIRECTED PRN; Protocol PRN Reason: Per Protocol Ondansetron HCl (Ondansetron 4 Mg/2 Ml Vial) 4 mg IVP Q6HR PRN PRN Reason: Nausea And Vomiting Last Admin: 10/17/21 07:26 Dose: 4 mg Documented by: Oxycodone HCl (Oxycodone Hcl 5 Mg Tab) 5 mg PO Q6HR PRN PRN Reason: Pain Last Admin: 10/21/21 02:27 Dose: 5 mg Documented by: Pantoprazole Sodium (Pantoprazole 40 Mg/10 Ml Vial) 40 mg IVP BID PENDING SALE TO [facility] Last Admin: 10/20/21 21:48 Dose: 40 mg Documented by: Pregabalin (Pregabalin 50 Mg Cap) 50 mg PO TID PENDING SALE TO [facility] Last Admin: 10/20/21 21:49 Dose: 50 mg Documented by: Tamsulosin HCl (Tamsulosin 0.4 Mg Cap.Er.24h) 0.4 mg PO DAILY PENDING SALE TO [facility] Last Admin: 10/20/21 08:44 Dose: 0.4 mg Documented by: Physical exam: Gen: This is a 71-year-old male awake, alert and oriented 3, well-developed, well-nourished, pale HEENT: Head is atraumatic, normocephalic. Pupils equal, round. Sclerae is anicteric. NECK: Supple. No JVD. No lymphadenopathy. No thyromegaly. LUNGS: Diminished breath sounds bilaterally with no wheezes or rhonchi. No intercostal retractions. HEART: S1, S2 are muffled, irregularly irregular ABDOMEN: Soft. Bowel sounds are present. No masses. No tenderness. EXTREMITIES: No pedal edema. No calf tenderness. Generalized edema to bila teral lower extremities no pitting noted, right arm sling noted NEUROLOGICAL: Patient is awake, alert and oriented x3. Cranial nerves 2 through 12 are grossly intact. Diffusely weak Assessment: Acute blood loss anemia, secondary to acute GI bleed with positive occult blood, also a possible component of coagulopathy Coagulopathy, patient on Coumadin for atrial fibrillation and INR was 5.7 on adm ission Status post EGD showing 2 small nonbleeding duodenal angiectasia status post cautery, colonoscopy within normal limits iron deficiency anemia Paroxysmal atrial fibrillation Hyponatremia, improved Generalized weakness and gait dysfunction Ischemic cardiomyopathy Acute on Chronic congestive heart failure with systolic dysfunction, possible acute exacerbation with a BNP of 2860 Coronary artery disease Chronic kidney disease Right shoulder pain status post fall recently Diabetes mellitus Hypertension Hyperlipidemia Past medical history of myocardial infarction GI prophylaxis DVT prophylaxis Plan: Patient admitted for acute GI bleed with GI services following and patient EGD/colonoscopy. EGD was done with cautery to the 2 duodenal angiectasia and colonoscopy was done today after poor prep and aborted yesterday. Colon appeared normal per GI and some biopsies were obtained. Patient will be resumed on diet and will be resuming coumadin and ok per GI. Patient to receive IV iron sup plements. Hemoglobin is stable currently today with no active bleeding noted. Will resume coumadin with pharmacy to dose. PT/inr and repeat am labs ordered. Patient with extreme weakness and PT/OT evaluated and recommending [facility] and patient is now agreeable to discuss possible ECF. Will discuss further with case management and patient as patient continues to be weak. Patient with continued right upper arm and shoulder pain and ortho following and has ordered cervical spine xray. Appreciate input and recommendations. Due to multiple complex medical issues, prognosis is guarded. The impression and plan of care has been dictated by Carla Gomez, Nurse Practitioner as directed. Dr. Mason MD I have performed a history and examination and MDM of this patient, discussed t he same with the dictator, and agree with the dictator's assessment and plan as written ,documented as a scribe. Based on total visit time, I have performed more than 50% of the visit. Objective - Vital Signs Vital signs: Vital Signs Temp 98.8 F 10/20/21 21:00 Pulse 96 10/20/21 21:00 Resp 18 10/20/21 21:00 BP 128/77 10/20/21 21:00 Pulse Ox 100 10/20/21 21:00 Intake & Output 10/20/21 10/20/21 10/21/21 06:59 18:59 06:59 Intake Total 160 120 Balance 160 120 Intake: IV 160 ns@20 160 Intake, IV Titration 120 Amount Lactated Ringers 1,000 ml 20 @ 20 mls/hr IV .Q24H PENDING SALE TO [facility] Rx#:[id number] Sodium Ferric Gluconat- 100 Sucrose 125 mg In Sodium Chloride 0.9% 100 ml @ 100 mls/hr IVPB ONCE ONE Rx#:[id number] Other: Voiding Method Urinal Urinal Urinal - Labs CBC & Chem 7: 10/20/21 05:49 10/19/21 05:38 Labs: Abnormal Lab Results - Last 24 Hours (Table) 10/20/21 Range/Units 05:49 RBC 2.87 L (4.30-5.90) m/uL Hgb 8.2 L (13.0-17.5) gm/dL Hct 26.1 L (39.0-53.0) % Lymphocytes # 0.9 L (1.0-4.8) k/uL
[2021-10-21 07:30] LABS: Basophils % (A) 0 %; Eosinophils # (A) 0.3 k/uL (0-0.7); Eosinophils % (A) 5 %; HCT 24.2 % (39.0-53.0); HGB 7.6 gm/dL (13.0-17.5); Hypochromasia Slight; Lymphocytes # (A) 0.8 k/uL (1.0-4.8); Lymphocytes % (A) 15 %; MCH 28.6 pg (25.0-35.0); MCHC 31.3 g/dL (31.0-37.0); MCV 91.2 fL (80.0-100.0); Mean Platelet Volume 8.1; Monocytes # (A) 0.5 k/uL (0-1.0); Monocytes % (A) 9 %; Neutrophils # (A) 3.9 k/uL (1.3-7.7); Neutrophils % (A) 69 %; Platelet Count 241 k/uL (150-450); Poikilocytosis Slight; RBC 2.65 m/uL (4.30-5.90); RDW 14.6 % (11.5-15.5); WBC 5.7 k/uL (3.8-10.6)
[2021-10-21 07:37] LABS: INR 1.1 (<1.2); Prothrombin Time 12.2 sec (9.0-12.0)
[2021-10-21 07:38] LABS: African American GFR (CKD) 84 (>60 ml/min/1.73 sqM); Anion Gap 0 mmol/L; Blood Urea Nitrogen 10 mg/dL (9-20); Calcium 7.7 mg/dL (8.4-10.2); Carbon Dioxide 29 mmol/L (22-30); Chloride 107 mmol/L (98-107); Glucose 119 mg/dL (74-99); Non-African American GFR(CKD) 73 (>60 ml/min/1.73 sqM); Potassium 4.2 mmol/L (3.5-5.1); Sodium 136 mmol/L (137-145)
[2021-10-21] MEDS: ATORVASTATIN 80 MG TAB PO SCH (08:13)
[2021-10-21] MEDS: PANTOPRAZOLE 40 MG/10 ML VIAL IVP SCH ×2 (08:13→19:54)
[2021-10-21] MEDS: TAMSULOSIN 0.4 MG CAP.ER.24H PO SCH (08:13)
[2021-10-21] MEDS: PREGABALIN 50 MG CAP PO SCH ×3 (08:13→19:54)
[2021-10-21 10:31] VITALS: BMI 27.8
[2021-10-21] MEDS: HYDROmorphone 0.5 MG/0.5 ML SYRINGE IVP PRN ×2 (11:49→19:55)
[2021-10-21] MEDS ORDERED: WARFARIN 5 MG TAB PO ONE (18:00)
--- NOTE | 2021-10-21 19:31 | PN ---
PROGRESS NOTE DATE OF SERVICE: 10/21/2021 This 71-year-old gentleman who was admitted with acute blood loss anemia also had a fall and significant shoulder pain. The patient is also being evaluated for ECF rehab. No chest pain. No palpitation. PHYSICAL EXAMINATION: Pulse is 100, blood pressure 128/86, respiration 19. CARDIOVASCULAR: S1, S2 muffled. RESPIRATION: A few scattered rhonchi. ABDOMEN: Soft, non-tender. NERVOUS SYSTEM: Diffusely weak. RIGHT SHOULDER: Movement painful. LABS: Reviewed. Hemoglobin 7.6. ASSESSMENT: 1. Acute blood loss anemia, possibly gastrointestinal blood loss anemia secondary to duodenal angiectasia. 2. Iron deficiency anemia. 3. Paroxysmal atrial fibrillation. 4. Hyponatremia. 5. Ischemic cardiomyopathy. 6. Right shoulder pain. RECOMMENDATIONS AND DISCUSSION: I recommend to continue current medications, continue with the monitoring, symptomatic treatment. Pain management. Repeat labs. I would recommend continuing with proton pump inhibitors. Further recommendations to follow. Will hold the Coumadin for now because of the concern about recurrent bleeding. MMODL / IJN: [id number] /
[2021-10-21] MEDS: LACTATED RINGERS 1,000 ML IV SCH (19:54)
[2021-10-22] MEDS: TAMSULOSIN 0.4 MG CAP.ER.24H PO SCH (08:01)
[2021-10-22] MEDS: PANTOPRAZOLE 40 MG/10 ML VIAL IVP SCH ×2 (08:01→20:06)
[2021-10-22] MEDS: ATORVASTATIN 80 MG TAB PO SCH (08:01)
[2021-10-22] MEDS: PREGABALIN 50 MG CAP PO SCH ×3 (08:01→20:06)
[2021-10-22 09:08] LABS: Basophils # (A) 0.04 X 10*3/uL (0.00-0.10); Basophils % (A) 0.5 %; Eosinophils # (A) 0 X 10*3/uL (0.04-0.35); Eosinophils % (A) 0 %; HCT 24.4 % (39.6-50.0); HGB 7.6 g/dL (13.0-17.0); Immature Grans, Automated 0.5 %; Lymphocytes # (A) 0.99 X 10*3/uL (0.90-5.00); Lymphocytes % (A) 12.3 %; MCH 28.1 pg (27.0-32.0); MCHC 31.1 g/dL (32.0-37.0); MCV 90.4 fL (80.0-97.0); Monocytes # (A) 0.82 X 10*3/uL (0.20-1.00); Monocytes % (A) 10.2 %; NRBC Per 100 WBC 0 /100 WBCS (0.0-0.0); Neutrophils # (A) 6.13 X 10*3/uL (1.80-7.70); Neutrophils % (A) 76.5 %; Platelet Count 232 X 10*3/uL (140-440); RDW 14.7 % (11.5-14.5); WBC 8.02 X 10*3/uL (4.50-10.00)
[2021-10-22 09:19] LABS: African American GFR (CKD) 73.3 (60.0-200.0); Anion Gap 6.3 mmol/L (10.00-18.00); BUN/Creat Ratio 7.45 Ratio (12.00-20.00); Blood Urea Nitrogen 8.7 mg/dL (9.0-27.0); Carbon Dioxide 25.2 mmol/L (20.0-27.5); Non-African American GFR(CKD) 63.2 (60.0-200.0); Potassium 4.3 mmol/L (3.5-5.5)
[2021-10-22 09:27] LABS: INR 1.06 (0.90-1.11); Prothrombin Time 11.9 sec (9.9-11.9)
[2021-10-22] MEDS: HYDROmorphone 0.5 MG/0.5 ML SYRINGE IVP PRN ×2 (09:58→23:11)
[2021-10-22] MEDS: ONDANSETRON 4 MG/2 ML VIAL IVP PRN (11:53)
--- NOTE | 2021-10-22 18:41 | PN ---
PROGRESS NOTE DATE OF SERVICE: 10/22/2021 This 71-year-old gentleman who was admitted with acute blood loss anemia with possible GI bleed blood loss and duodenal angioectasia is being closely monitored. No chest pain. No palpitations. Patient also had a decubitus ulcer. PHYSICAL EXAMINATION: Pulse 100, blood pressure 124/92, respirations 16. CHEST: Clear to auscultation. CARDIOVASCULAR: S1, S2 normal. ABDOMEN: Soft. NERVOUS SYSTEM: Diffusely weak. LABS: Hemoglobin 7.6. Other labs are noted. ASSESSMENT: 1. Acute blood loss anemia, possibly gastrointestinal blood loss anemia secondary to duodenal angioectasia. 2. Iron deficiency anemia. 3. Paroxysmal atrial fibrillation. 4. Hyponatremia. 5. Ischemic cardiomyopathy. 6. Right shoulder pain. 7. Sacral decubitus ulcer, stage II. RECOMMENDATIONS AND DISCUSSION: I recommend to continue current medications, continue with the monitoring, symptomatic treatment. Continue monitoring the labs. PT/OT evaluation, possible ECF rehab. Infectious disease evaluation. MMODL / LAKSHMIN: [id number] /
[2021-10-22] MEDS: LACTATED RINGERS 1,000 ML IV SCH (21:32)
[2021-10-23] MEDS: PANTOPRAZOLE 40 MG/10 ML VIAL IVP SCH (08:01)
[2021-10-23] MEDS: PREGABALIN 50 MG CAP PO SCH (08:02)
[2021-10-23] MEDS: TAMSULOSIN 0.4 MG CAP.ER.24H PO SCH (08:02)
[2021-10-23] MEDS: ATORVASTATIN 80 MG TAB PO SCH (08:02)
[2021-10-23] MEDS: HYDROmorphone 0.5 MG/0.5 ML SYRINGE IVP PRN (08:09)
[2021-10-23 09:22] LABS: INR 1.09 (0.90-1.11); Prothrombin Time 12.3 sec (9.9-11.9)
[2021-10-23 09:25] LABS: African American GFR (CKD) 64.5 (60.0-200.0); Anion Gap 8.1 mmol/L (10.00-18.00); BUN/Creat Ratio 7.54 Ratio (12.00-20.00); Blood Urea Nitrogen 9.8 mg/dL (9.0-27.0); Carbon Dioxide 23.9 mmol/L (20.0-27.5); Non-African American GFR(CKD) 55.7 (60.0-200.0); Potassium 4.6 mmol/L (3.5-5.5)
[2021-10-23 09:36] LABS: Basophils # (A) 0.04 X 10*3/uL (0.00-0.10); Basophils % (A) 0.6 %; Eosinophils % (A) 1.5 %; HGB 7.4 g/dL (13.0-17.0); Immature Grans, Automated 0.3 %; Lymphocytes # (A) 0.94 X 10*3/uL (0.90-5.00); Lymphocytes % (A) 13.9 %; MCH 28.4 pg (27.0-32.0); MCHC 30.8 g/dL (32.0-37.0); Monocytes # (A) 0.67 X 10*3/uL (0.20-1.00); Monocytes % (A) 9.9 %; NRBC Per 100 WBC 0 /100 WBCS (0.0-0.0); Neutrophils # (A) 5.01 X 10*3/uL (1.80-7.70); Neutrophils % (A) 73.8 %; Platelet Count 210 X 10*3/uL (140-440); RBC 2.61 X 10*6/uL (4.40-5.60); RDW 14.5 % (11.5-14.5); WBC 6.78 X 10*3/uL (4.50-10.00)
--- NOTE | 2021-10-23 13:31 | P.DS ---
Providers Date of admission: 10/16/21 14:04 Expected date of discharge: 10/23/21 Attending physician: Nisreen Cuevas Consults: 10/16/21 14:11 Consult Physician Urgent Consulting Provider: Rand Conteh Consult Reason/Comments: GI bleed Do you want consulting provider notified?: Yes 10/22/21 16:21 Consult Physician Urgent Consulting Provider: Anastasiia Quick Consult Reason/Comments: buttocks open area Do you want consulting provider notified?: Yes [facility] Course: Final diagnosis Acute blood loss anemia, possibly GI blood loss 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 Patient will follow-up with Dr. Bhandari at [facility] in the outpatient setting upon discharge. Patient is also to follow-up with cardiology and orthopedics and GI in the outpatient setting. Recommend holding Coumadin are 1 week with repeat labs to monitor CBC closely for recent GI bleed and if no further bleeding may resume Coumadin. Total time taken is greater than 35 minutes. Hospital course This is a 71-year-old male who was recently admitted with symptomatic anemia and acute blood loss with GI blood loss and duodenal angiectasia with EGD and colonoscopy with GI. Patient also with some right upper arm pain and neck pain and was evaluated by GI and orthopedics. Patient to follow-up with Dr. Melody sampson in the outpatient setting in the next 1-2 weeks and also GI on discharge. Patient was on Coumadin for atrial fibrillation although given recent GI bleed and duodenal angiectasia recommend holding for 1 week and follow-up with CBC and monitor further for any bleeding prior to starting Coumadin. She also with a decubitus ulcer and was evaluated by infectious disease recommended offloading and frequent position changes along with using OptiFoam and barrier cream. Patient with significant weakness and was evaluated by PT/OT therapy recommending rehab and patient is now agreeable. Patient has been accepted at [facility] and will be discharged today. Currently no reports of chest pain, shortness of breath, or palpitations. Patient is afebrile. No reports of nausea or vomiting and patient is tolerating diet. Patient will be going to [facility] today. On exam vital signs are stable. Cardio S1, S2 are muffled. Respiratory system shows diminished breath sounds at the bases with no wheezing or rhonchi noted. Abdomen is soft and nontender. Nervous system shows diffuse weakness. Please refer to medication reconciliation sheet for a list of medications. The impression and plan of care has been dictated by Carla Gomez, Nurse Practitioner as directed. Dr. Mason MD I have performed a history and examination and MDM of this patient, discussed the same with the dictator, and agree with the dictator's assessment and plan as written ,documented as a scribe. Based on total visit time, I have performed more than 50% of the visit. Patient Condition at Discharge: Stable Plan - Discharge Summary Discharge Rx Participant: No New Discharge Prescriptions: New Pantoprazole Sodium [Protonix] 40 mg PO DAILY #30 tab oxyCODONE HCL [OxyIR] 5 mg PO Q6HR PRN #4 tab PRN Reason: Pain Continue Tamsulosin HCl [Flomax] 0.4 mg PO DAILY 30 Days #30 capsule Cyclobenzaprine [Flexeril] 10 mg PO TID PRN #15 tab PRN Reason: Muscle Spasm Cetirizine HCl [Zyrtec] 10 mg PO DAILY Atorvastatin [Lipitor] 80 mg PO DAILY Pregabalin [Lyrica] 50 mg PO TID #6 cap Discontinued Clopidogrel [Plavix] 75 mg PO DAILY #90 tab Warfarin Sodium 6 mg PO MOTH Warfarin [Coumadin] 3 mg PO SUTUWEFRSA Furosemide [Lasix] 40 mg PO BID predniSONE 50 mg PO DAILY #5 tab traMADol HCl [Ultram] 50 mg PO BID PRN PRN Reason: Pain Discharge Medication List Tamsulosin HCl [Flomax] 0.4 mg PO DAILY 30 Days #30 capsule 06/20/20 [Rx] Cyclobenzaprine [Flexeril] 10 mg PO TID PRN #15 tab 10/12/21 [Rx] Atorvastatin [Lipitor] 80 mg PO DAILY 10/16/21 [History] Cetirizine HCl [Zyrtec] 10 mg PO DAILY 10/16/21 [History] Pantoprazole Sodium [Protonix] 40 mg PO DAILY #30 tab 10/23/21 [Rx] Pregabalin [Lyrica] 50 mg PO TID #6 cap 10/23/21 [Rx] oxyCODONE HCL [OxyIR] 5 mg PO Q6HR PRN #4 tab 10/23/21 [Rx] Follow up Appointment(s)/Referral(s): Ned Krishnamurthy DO [Doctor of Osteopathic Medicine] - 1 Week Melody Curiel DO [Doctor of Osteopathic Medicine] - 1 Week Macho Bhandari MD [STAFF PHYSICIAN] - 1 Week [facility], [NON-STAFF] - 1 Week Shaheen Wan DO [Primary Care Provider] - 1-2 days Ambulatory/Diagnostic Orders: Complete Blood Count w/diff [LAB.AMB] Time Frame: 2 Days, Location: None Selected Activity/Diet/Wound Care/Special Instructions: Patient is going to [facility] on the [place] activity as tolerated. Sling prn for comfort. Not required F/U Dr. Curiel and Dr. Krishnamurthy in office Recommend to continue holding Coumadin for 1 week and follow-up repeat CBC and BMP in one week and possibly resume as patient had recent GI bleed Follow-up with GI outpatient Follow-up with orthopedics outpatient Follow-up with primary care provider on discharge Recommend continued local wound care to the buttock area with moisture barrier cream along with OptiForm and frequent position changes Recommend continue with regular diet and may continue with oral supplements closer now with breakfast Discharge Disposition: TRANSFER TO SNF/ECF
[2021-10-23 14:44] VITALS: BP 113/69; PULSE 103; RESP 16; TEMP 98.4
== END 2021-10-23 13:45 | DRG 377 ==
LOC: EC 11:36 → 5NMEDONC 14:04
PROVIDERS: ADMIT Hospitalist; ATTEND Hospitalist
PROC: 30233N1 Transfusion of Nonautologous Red Blood Cells into Peripheral Vein, Percutaneous Approach (ICD-10-PCS; 2021-10-17)
PROC: 0DB98ZX Excision of Duodenum, Via Natural or Artificial Opening Endoscopic, Diagnostic (ICD-10-PCS; principal; 2021-10-18 12:00)
PROC: 0D598ZZ Destruction of Duodenum, Via Natural or Artificial Opening Endoscopic (ICD-10-PCS; 2021-10-18 12:00)
PROC: 0DJD8ZZ Inspection of Lower Intestinal Tract, Via Natural or Artificial Opening Endoscopic (ICD-10-PCS; 2021-10-19)
DX: K31.811 Angiodysplasia of stomach and duodenum with bleeding (principal); I50.23 Acute on chronic systolic (congestive) heart failure; D62 Acute posthemorrhagic anemia; D68.9 Coagulation defect, unspecified; E87.1 Hypo-osmolality and hyponatremia; I13.0 Hypertensive heart and chronic kidney disease with heart failure and stage 1 through stage 4 chronic kidney disease, or unspecified chronic kidney disease; W19.XXXA Unspecified fall, initial encounter; E11.22 Type 2 diabetes mellitus with diabetic chronic kidney disease; I25.10 Atherosclerotic heart disease of native coronary artery without angina pectoris; E78.5 Hyperlipidemia, unspecified; L89.152 Pressure ulcer of sacral region, stage 2; N18.9 Chronic kidney disease, unspecified; M25.511 Pain in right shoulder; I25.5 Ischemic cardiomyopathy; G89.29 Other chronic pain; E11.42 Type 2 diabetes mellitus with diabetic polyneuropathy; I48.0 Paroxysmal atrial fibrillation; D50.9 Iron deficiency anemia, unspecified; M19.90 Unspecified osteoarthritis, unspecified site; G25.81 Restless legs syndrome; Z87.891 Personal history of nicotine dependence; I25.2 Old myocardial infarction; Z79.01 Long term (current) use of anticoagulants; Z79.02 Long term (current) use of antithrombotics/antiplatelets; Z79.899 Other long term (current) drug therapy; Z82.49 Family history of ischemic heart disease and other diseases of the circulatory system; Z95.5 Presence of coronary angioplasty implant and graft; Z96.651 Presence of right artificial knee joint; Z88.5 Allergy status to narcotic agent; Z88.6 Allergy status to analgesic agent
CPT/HCPCS: 36415; 43239; 43255; 45378; 71046; 72052; 80048; 80053; 81001; 82272; 82728; 83540; 83550; 83605; 83735; 83880; 84443; 84484; 85025; 85027; 85610; 85730; 86706; 86803; 86850; 86900; 86901; 86920; 87340; 87522; 88305; 93005; 96365; 96375; 99291